=== PATIENT | male | born 1960 | race Caucasian/White ===

== ENCOUNTER 2018-08-23 02:52 | Observation (INO) | payer MEDICARE, OTHER ==
--- NOTE | 2018-08-23 02:57 | ED ---
Chest Pain HPI - General Stated Complaint: Chest Pain Time Seen by Provider: 08/23/18 02:56 - History of Present Illness Initial Comments: Olvin is a 58-year-old male with a history of CAD who presents to the emergency department today via EMS for evaluation of chest pain. Patient reports that earlier in the evening he was sitting on his couch not being active when he developed sudden retrosternal and left-sided chest pain associated with dyspnea and lightheadedness. Patient reports he took 3 of his home nitro with minimal relief at which time he decided to call EMS for transport to the hospital. EMS administered aspirin as well as additional nitro with chest pain improvement from a 10 out of 10 to an 8 out of 10. Patient does report that he had 4 beers earlier in the evening prior to development of this chest pain, he is a regular drinker. He's not had any recent vomiting. He denies any nausea. - Related Data Allergies Allergy/AdvReac Type Severity Reaction Status Date / Time bee venom protein (honey bee) Allergy Anaphylaxis Verified 08/23/18 03:01 Review of Systems ROS Statement: Those systems with pertinent positive or pertinent negative responses have been documented in the HPI. ROS Other: All systems not noted in ROS Statement are negative. EKG Findings - EKG Comments: EKG Findings:: EKG obtained at 2:58 AM, rate of 76, rhythm is sinus, there is a normal axis, there are normal intervals, CO 174, QRS 86, QTC is 443. There are no acute ST elevations or depressions there is no evidence of acute ischemia or infarction. Repeat EKG was obtained due to persistent chest pain. EKG obtained at 3:52 AM, rate is 66, rhythm is sinus, there is normal axis, normal intervals CO 192, QRS 92, QTc 423. There is no acute ST elevations or depressions no evidence of acute ischemia or infarction. No significant change in morphology of this EKG. General Exam - General Exam Comments Initial Comments: Physical Exam GENERAL: Patient appears much older than stated age, smells of tobacco smoke HENT: Normocephalic, Atraumatic. EYES: PERRL, EOMI PULMONARY: Unlabored respirations. No audible rales rhonchi or wheezing was noted. CARDIOVASCULAR: There is a regular rate and rhythm without any murmurs gallops or rubs. ABDOMEN: Soft and nontender with normal bowel sounds. SKIN: Skin is clear with no lesions or rashes and otherwise unremarkable. : Deferred NEUROLOGIC: Patient is alert and oriented x3. Moving all extremities spontaneously MUSCULOSKELETAL: Normal extremities with adequate strength and full range of motion. No lower extremity swelling or edema. No calf tenderness. PSYCHIATRIC: Normal psychiatric evaluation. Limitations: no limitations Course Vital Signs 08/23/18 08/23/18 08/23/18 02:54 02:55 03:00 Temperature 98.1 F Pulse Rate 67 67 Respiratory 18 21 Rate Blood Pressure 93/66 93/66 O2 Sat by Pulse 94 L 93 L 92 L Oximetry 08/23/18 08/23/18 08/23/18 04:00 04:05 04:10 Temperature Pulse Rate 72 71 71 Respiratory 18 17 13 Rate Blood Pressure 104/60 O2 Sat by Pulse 96 95 94 L Oximetry 08/23/18 08/23/18 08/23/18 04:20 04:30 04:40 Temperature Pulse Rate 68 67 70 Respiratory 20 17 16 Rate Blood Pressure O2 Sat by Pulse 94 L 94 L 94 L Oximetry 08/23/18 08/23/18 08/23/18 04:50 05:00 05:10 Temperature Pulse Rate 68 67 71 Respiratory 33 H 20 26 H Rate Blood Pressure 102/80 O2 Sat by Pulse 93 L 93 L 93 L Oximetry Chest Pain [facility] The patient was seen and evaluated history was obtained from the patient and EMS. Patient received aspirin and nitro prior to arrival Cardiac workup was initiated Patient with persistent chest pain, morphine was ordered Nitro and Heparin ordered Troponin was negative, chest x-ray no acute findings, patient requesting repeat dosing of morphine one hour after initial dose as chest pain is returning [facility] patient is stable for discharge home due to persistent chest pain. Patient care was discussed with Dr. Christianson who accepts the admission. Disposition Clinical Impression: Chest pain Disposition: ADMITTED IP TO THIS HOSP Condition: Stable Is patient prescribed a controlled substance at d/c from ED?: No Referrals: None,Stated [Primary Care Provider] - 1-2 days
[2018-08-23 03:43] LABS: ALT 72 U/L (21-72); AST 106 U/L (17-59); Albumin 4.2 g/dL (3.5-5.0); Alkaline Phosphatase 106 U/L (38-126); Anion Gap 12 mmol/L; Blood Urea Nitrogen 10 mg/dL (9-20); Carbon Dioxide 19 mmol/L (22-30); Chloride 100 mmol/L (98-107); Glucose 82 mg/dL (74-99); Sodium 131 mmol/L (137-145); Total Bilirubin 0.9 mg/dL (0.2-1.3); Total Protein 8.3 g/dL (6.3-8.2)
[2018-08-23 03:44] LABS: Basophils # (A) 0.1 k/uL (0-0.2); Basophils % (A) 1 %; Eosinophils # (A) 0.3 k/uL (0-0.7); Eosinophils % (A) 3 %; HCT 45.6 % (39.0-53.0); HGB 15.2 gm/dL (13.0-17.5); Lymphocytes # (A) 3.6 k/uL (1.0-4.8); Lymphocytes % (A) 35 %; MCH 32.1 pg (25.0-35.0); MCHC 33.3 g/dL (31.0-37.0); MCV 96.5 fL (80.0-100.0); Mean Platelet Volume 8.3; Monocytes # (A) 0.7 k/uL (0-1.0); Monocytes % (A) 6 %; Neutrophils # (A) 5.5 k/uL (1.3-7.7); Neutrophils % (A) 52 %; Platelet Count 221 k/uL (150-450); RBC 4.73 m/uL (4.30-5.90); RDW 14.6 % (11.5-15.5); WBC 10.5 k/uL (3.8-10.6)
[2018-08-23 03:48] LABS: Potassium 4.4 mmol/L (3.5-5.1)
[2018-08-23] MEDS: MORPHINE SULFATE 4 MG/ML SYRINGE IVP STA ×2 (03:50→06:13)
[2018-08-23] MEDS ORDERED: HEPARIN SODIUM,PORCINE 5,000 UNIT/ML 1 ML VIAL IV ONE (03:53)
[2018-08-23] MEDS ORDERED: HEPARIN SODIUM,PORCINE 5,000 UNIT/ML 1 ML VIAL IV PRN (03:53)
[2018-08-23] MEDS ORDERED: NITROGLYCERIN OINT 1 INCH/GM PACKET TOPICAL STA (03:53)
--- NOTE | 2018-08-23 03:56 | XR ---
EXAMINATION TYPE: XR chest 2V DATE OF EXAM: 08/23/2018 COMPARISON: NONE HISTORY: Chest pain TECHNIQUE: Frontal and lateral views of the chest are obtained. FINDINGS: Heart size is normal. There is no heart failure. There is coarsening of the interstitial m arkings in both lungs. There are chest leads. There is no pleural effusion. There is poor inspiration . Bony thorax appears intact. IMPRESSION: Pulmonary interstitial fibrosis. No heart failure.
[2018-08-23 04:00] LABS: Creatine Kinase 78 U/L (55-170)
[2018-08-23] MEDS ORDERED: HEPARIN SOD,PORK IN 0.45% NACL 25,000 UNIT in 0.45% NACL 1 500ML.BAG IV SCH (04:00)
[2018-08-23 04:07] LABS: INR 1.1 (<1.2); Prothrombin Time 10.9 sec (9.0-12.0)
[2018-08-23 04:08] LABS: Partial Thromboplastin Time 24.9 sec (22.0-30.0)
[2018-08-23 04:13] LABS: Creatine Kinase MB 0.5 ng/mL (0.0-2.4); Troponin I <0.012 ng/mL (0.000-0.034)
[2018-08-23] MEDS ORDERED: MAG HYDROX/AL HYDROX/SIMETH 30 ML, HYOSCYAMINE ELIXIR 10 ML, CIMETIDINE HCL 300 MG, LID... PO STA ×4 (04:55)
[2018-08-23] MEDS ORDERED: MORPHINE SULFATE 4 MG/ML SYRINGE IV STA (06:09)
[2018-08-23 10:07] LABS: Creatine Kinase 86 U/L (55-170)
[2018-08-23 10:21] LABS: Creatine Kinase MB 0.6 ng/mL (0.0-2.4); Troponin I <0.012 ng/mL (0.000-0.034)
--- NOTE | 2018-08-23 15:10 | P.CRDCN ---
History of Present Illness Consult date: 08/23/18 History of present illness: This is a 58-year-old male with past medical history of coronary artery disease treated at [facility] with a total of 2 stents. He also has past medical history for hypertension, hyperlipidemia, myocardial infarction. His last heart catheterization was done one year ago which showed no progression of his cardiac disease. He follows with a farm manager at [facility] and was last seen there 1 year ago. Patient states he has been taking his medications as directed. Patient complains of tightness that started in his left side of his chest while he was watching TV. He was at rest at the time. He also had shortness of breath without nausea or vomiting. He did have some nausea after receiving morphine. He states morphine takes the edge off the pain but it's still there. He denies having any sweats. He states his chest was fluttering. Nitropaste and GI cocktail did not help. Patient was placed on the observation unit and serial troponins ordered. EKG reveals normal sinus rhythm with no acute ST-T wave changes. Chest x-ray reveals pulmonary interstitial fibrosis. No heart failure. Laboratory data review: WBC 10.5, hemoglobin 15.2, platelets 221, sodium 131, potassium 4.4, creatinine 0.85, cardiac enzymes negative on 2 draws. Current cardiac medications include lisinopril 10 mg daily, Crestor 40 g at bedtime,Brilinta twice daily, Lopressor twice daily. At the time of my exam: CONSTITUTIONAL: Denies fever. Denies chills. EYES: Denies blurred vision. Denies vision changes. Denies eye pain. EARS, NOSE, MOUTH & THROAT: Denies headache. Denies sore throat. Denies ear pain. CARDIOVASCULAR: Complains of chest pain. Complains of shortness of breath. Denies orthopnea. Denies PND. Denies palpitations. RESPIRATORY: Denies cough. GASTROINTESTINAL: Denies abdominal pain. Denies diarrhea. Denies constipation. Denies nausea. Denies vomiting. MUSCULOSKELETAL: Denies myalgias. Complains of pain to the left elbow. INTEGUMENTARY: Denies pruitis. Denies rash. NEUROLOGIC: Denies numbness. Denies tingling. Denies weakness. PSYCHIATRIC: Denies anxiety. Denies depression. ENDOCRINE: Denies fatigue. Denies weight change. Denies polydipsia. Denies polyurina. GENITOURINARY: Denies burning, hematuria or urgency with micturation. HEMATOLOGIC: Denies history of anemia. Denies bleeding. Blood pressure 117/75, heart rate 67, afebrile, maintaining oxygen saturation on room air. GENERAL: This is a [ ] in no apparent distress at the time of my examination. HEENT: Head is atraumatic, normocephalic. Pupils are equal, round. Sclerae anicteric. Conjunctivae are clear. Mucous membranes of the mouth are moist. Dentition is in poor order. Neck is supple. There is no jugular venous distention. LUNGS: A few scattered rhonchi but otherwise no wheezes. Positive chest wall tenderness is noted on palpation to the midsternal and upper left chest wall. HEART: Regular rate and rhythm without murmurs, rubs or gallops. S1 and S2 heard. ABDOMEN: Soft, nontender. Bowel sounds are heard. No organomegaly noted. EXTREMITIES: No evidence of lower extremity edema and no calf tenderness noted. VASCULAR: dorsalis pedis pulses palpated, no evidence of clubbing. NEUROLOGIC: Patient is awake, alert and oriented x3. ASSESSMENT Chest pain, musculoskeletal with tenderness to the chest wall. Acute coronary syndrome ruled out History of coronary artery disease with previous stents. Hypertension Hyperlipidemia PLAN Acute coronary syndrome ruled out, heparin drip discontinued. Repeat one more troponin. Continue lisinopril 10 mg daily, Crestor 40 g at bedtime,Brilinta twice daily, Lopressor twice daily. Obtain echocardiogram. Thank you kindly for this consultation. Nurse Practitioner note has been reviewed, I agree with a documented findings and plan of care. Patient was seen and examined. Past Medical History Past Medical History: Hyperlipidemia, Hypertension, Myocardial Infarction (ME) History of Any Multi-Drug Resistant Organisms: None Reported Past Surgical History: Heart Catheterization With Stent, Orthopedic Surgery Smoking Status: Current every day smoker Past Alcohol Use History: Occasional Past Drug Use History: None Reported - Past Family History Father History Unknown: Yes Family Medical History: Unable to Obtain Additional Family Medical History / Comment(s): pt states heart related Brother(s) History Unknown: Yes Family Medical History: Unable to Obtain Additional Family Medical History / Comment(s): pt states heart related deaths Medications and Allergies Home Medications Medication Instructions Recorded Confirmed Type Brilinta (Unknown Dose) 1 tab PO BID 08/23/18 08/23/18 History Lisinopril [Zestril] 10 mg PO DAILY 08/23/18 08/23/18 History Lopressor (Unknown Dose) 1 tab PO BID 08/23/18 08/23/18 History Rosuvastatin Calcium [Crestor] 40 mg PO HS 08/23/18 08/23/18 History Allergies Allergy/AdvReac Type Severity Reaction Status Date / Time bee venom protein (honey bee) Allergy Anaphylaxis Verified 08/23/18 06:35 Physical Exam Vitals: Vital Signs Temp Pulse Resp BP Pulse Ox 08/23/18 06:30 71 20 93 L 08/23/18 06:20 71 20 102/74 94 L 08/23/18 06:10 67 20 94 L 08/23/18 06:00 71 22 94 L 08/23/18 05:50 102/74 08/23/18 05:40 66 21 102/74 94 L 08/23/18 05:30 70 26 H 102/80 96 08/23/18 05:20 69 15 102/80 95 08/23/18 05:10 71 26 H 102/80 93 L 08/23/18 05:00 67 20 93 L 08/23/18 04:50 68 33 H 93 L 08/23/18 04:40 70 16 94 L 08/23/18 04:30 67 17 94 L 08/23/18 04:20 68 20 94 L 08/23/18 04:10 71 13 94 L 08/23/18 04:05 71 17 95 08/23/18 04:00 72 18 104/60 96 08/23/18 03:00 67 21 93/66 92 L 08/23/18 02:55 93 L 08/23/18 02:54 98.1 F 67 18 93/66 94 L Intake and Output 08/22/18 08/23/18 08/23/18 22:59 06:59 14:59 Other: Weight 81.647 kg Results 08/23/18 02:56 08/23/18 02:56 Cardiac Enzymes 08/23/18 08/23/18 Range/Units 02:56 02:56 AST 106 H (17-59) U/L CK-MB (CK-2) 0.5 (0.0-2.4) ng/mL Troponin I <0.012 (0.000-0.034) ng/mL Coagulation 08/23/18 Range/Units 02:56 PT 10.9 (9.0-12.0) sec APTT 24.9 (22.0-30.0) sec CBC 08/23/18 Range/Units 02:56 WBC 10.5 (3.8-10.6) k/uL RBC 4.73 (4.30-5.90) m/uL Hgb 15.2 (13.0-17.5) gm/dL Hct 45.6 (39.0-53.0) % Plt Count 221 (150-450) k/uL Comprehensive Metabolic Panel 08/23/18 Range/Units 02:56 Sodium 131 L (137-145) mmol/L Potassium 4.4 (3.5-5.1) mmol/L Chloride 100 (98-107) mmol/L Carbon Dioxide 19 L (22-30) mmol/L BUN 10 (9-20) mg/dL Creatinine 0.85 (0.66-1.25) mg/dL Glucose 82 (74-99) mg/dL Calcium 9.0 (8.4-10.2) mg/dL AST 106 H (17-59) U/L ALT 72 (21-72) U/L Alkaline Phosphatase 106 (38-126) U/L Total Protein 8.3 H (6.3-8.2) g/dL Albumin 4.2 (3.5-5.0) g/dL Current Medications Generic Name Dose Route Start Last Admin Trade Name Freq PRN Reason Stop Dose Admin Aspirin 325 mg 08/24/18 09:00 Aspirin PO DAILY [facility] Heparin Sodium (Porcine) 0 unit 08/23/18 03:53 Heparin IV PER PROTOCOL PRN Low PTT Protocol Heparin Sodium/Sodium Chloride 500 mls @ 19.59 mls/hr 08/23/18 04:00 05:07 25,000 unit/ Sodium Chloride IV 12 units/kg/hr .Q24H LEE 19.59 mls/hr Administration Protocol 12 UNITS/KG/HR Nitroglycerin 0.4 mg 08/23/18 04:50 Nitrostat SUBLINGUAL Q5M PRN Chest Pain Intake and Output 08/22/18 08/23/18 08/23/18 22:59 06:59 14:59 Other: Weight 81.647 kg 08/23/18 02:56 08/23/18 02:56
[2018-08-23 15:33] LABS: Creatine Kinase 105 U/L (55-170)
[2018-08-23 15:46] LABS: Creatine Kinase MB 0.8 ng/mL (0.0-2.4); Troponin I <0.012 ng/mL (0.000-0.034)
[2018-08-23] MEDS: NICOTINE 21MG/24HR PATCH TRANSDERM SCH (17:03)
[2018-08-23] MEDS ORDERED: BRILINTA PO SCH (21:00)
[2018-08-23] MEDS ORDERED: LOPRESSOR PO SCH (21:00)
[2018-08-23] MEDS: HEPARIN SODIUM,PORCINE 5,000 UNIT/ML 1 ML VIAL SQ SCH (22:06)
[2018-08-23] MEDS: METOPROLOL TARTRATE 25 MG TAB PO SCH (22:06)
[2018-08-23] MEDS: TICAGRELOR 90 MG TAB PO SCH (22:06)
[2018-08-23] MEDS: FAMOTIDINE 20 MG TAB PO SCH (22:06)
[2018-08-23] MEDS: ATORVASTATIN 80 MG TAB PO SCH (22:06)
--- NOTE | 2018-08-23 23:11 | HP ---
HISTORY AND PHYSICAL Olvin Wright is a 58-year-old male who presented to the ED at [facility] early in the morning on August 23 2018. At that time, he had come in by EMS because he had left-sided chest pain. This has been associated with some dyspnea and lightheadedness. His chest pain was 10/10. He subsequently was seen in the ED and admitted for further evaluation. PAST MEDICAL HISTORY: His past medical history is positive for hyperlipidemia, hypertension, myocardial infarction, previous heart catheterization with stent. FAMILY HISTORY: Positive for heart disease in his mother. SOCIAL HISTORY: Patient is a current every day smoker. Drinks alcohol excessively. MEDICATIONS: Prior to admission were Brilinta, Zestril, Lopressor, and . ALLERGIC: TO BEE VENOM, PROTEIN. PHYSICAL EXAMINATION: He was lying in bed. He was sleepy, barely arousable, but does follow simple commands. His blood pressure is 150/88, respiratory rate of 18, pulse 87, temperature 97.9, O2 saturation on room air is 94%. HEENT: Unremarkable. Chest is clear. Cardiovascular system is S1, S2. Abdomen is soft. There is no pedal edema. LABORATORY DATA: White count is 10.5, hemoglobin of 15.2, PT of 10.9, PTT 24.9. Sodium 131, potassium 4.4, chloride 100, bicarb 19, BUN 10, creatinine 0.85. Troponin less than 0.012. NT proBNP of 26. Albumin 4.2. EKG showed normal sinus rhythm with previous inferior infarct. IMPRESSION: At this time. 1. Chest pain, possibly secondary to coronary artery disease and unstable angina. 2. Nicotine dependence. 3. Previous history of coronary artery disease. 4. Hypertension. 5. Hyperlipidemia. At this point in time, the chest pain may be due to coronary artery disease. Would rule in or rule out FL based on serial CPKs and EKGs. Keep him on heparin and nitroglycerin. Would have Cardiology further evaluate the patient and appreciate their input and intervention. Depending on how he does, we should make further changes to his care. MMODL / IJN: [id number] /
[2018-08-24] MEDS: NITROGLYCERIN SL TABS 0.4 MG TAB SUBLINGUAL PRN ×3 (03:24→11:59)
[2018-08-24] MEDS ORDERED: MORPHINE SULFATE/PF 10MG/10ML VL IVP PRN (03:45)
[2018-08-24] MEDS: MORPHINE SULFATE 2 MG/ML SYRINGE IVP PRN ×2 (04:08→23:55)
[2018-08-24 07:29] VITALS: RESP 18
[2018-08-24] MEDS: HEPARIN SODIUM,PORCINE 5,000 UNIT/ML 1 ML VIAL SQ SCH ×2 (07:47→20:18)
[2018-08-24] MEDS: FAMOTIDINE 20 MG TAB PO SCH ×2 (07:47→20:17)
[2018-08-24] MEDS: ASPIRIN 81 MG PO SCH (07:47)
[2018-08-24] MEDS: METOPROLOL TARTRATE 25 MG TAB PO SCH ×2 (07:47→20:19)
[2018-08-24] MEDS: NICOTINE 21MG/24HR PATCH TRANSDERM SCH (07:47)
[2018-08-24] MEDS: TICAGRELOR 90 MG TAB PO SCH ×2 (07:49→20:17)
[2018-08-24] MEDS: LISINOPRIL 10 MG TAB PO SCH (07:50)
[2018-08-24] MEDS ORDERED: ASPIRIN 325 MG TAB PO SCH (09:00)
[2018-08-24 09:56] LABS: Basophils % (A) 0 %; Eosinophils # (A) 0.2 k/uL (0-0.7); Eosinophils % (A) 3 %; HCT 46.2 % (39.0-53.0); HGB 15.5 gm/dL (13.0-17.5); Lymphocytes # (A) 1.8 k/uL (1.0-4.8); Lymphocytes % (A) 24 %; MCH 31.6 pg (25.0-35.0); MCHC 33.4 g/dL (31.0-37.0); MCV 94.6 fL (80.0-100.0); Mean Platelet Volume 8.2; Monocytes # (A) 0.5 k/uL (0-1.0); Monocytes % (A) 7 %; Neutrophils # (A) 4.7 k/uL (1.3-7.7); Neutrophils % (A) 64 %; Platelet Count 166 k/uL (150-450); RBC 4.89 m/uL (4.30-5.90); RDW 14.4 % (11.5-15.5); WBC 7.4 k/uL (3.8-10.6)
[2018-08-24 10:12] LABS: Cholesterol 178 mg/dL (<200); HDL Cholesterol 35 mg/dL (40-60); Triglycerides 408 mg/dL (<150)
--- NOTE | 2018-08-24 10:53 | ECHOF ---
Referral Reason:chest pain MEASUREMENTS -------- HEIGHT: 165.1 cm WEIGHT: 79.8 kg BP: 144/81 RVIDd: 2.2 cm (< 3.3) IVSd: 1.4 cm (0.6 - 1.1) LVIDd: 3.0 cm (3.9 - 5.3) LVPWd: 1.8 cm (0.6 - 1.1) IVSs: 2.2 cm LVIDs: 2.0 cm LVPWs: 2.0 cm Ao Diam: 3.1 cm (2.0 - 3.7) AV Cusp: 2.3 cm (1.5 - 2.6) LA Diam: 3.2 cm (2.7 - 3.8) MV EXCURSION: 14.577 mm (> 18.000) MV EF SLOPE: 55 mm/s (70 - 150) EPSS: 0.3 cm MV E Shun: 0.50 m/s MV DecT: 218 ms MV A Shun: 0.68 m/s MV E/A Ratio: 0.72 RAP: 5.00 mmHg RVSP: 22.70 mmHg FINDINGS -------- Sinus rhythm. This was a technically good study. The left ventricular size is normal. There is moderate concentric left ventricular hypertrophy. O verall left ventricular systolic function is normal with, an EF between 55 - 60 %. The right ventricle is normal in size and function. The left atrium is normal in size. The right atrium is normal in size. The aortic valve is trileaflet, and appears structurally normal. No aortic stenosis or regurgitation. The mitral valve leaflets are mildly thickened. Mild mitral annular calcification present. There is trace mitral regurgitation. Trace tricuspid regurgitation present. The right ventricular systolic pressure, as measured by Dopp ler, is 22.70mmHg. Pulmonic valve appears structurally normal. The aortic root size is normal. The pericardium is normal. CONCLUSIONS -------- 1. Sinus rhythm. 2. This was a technically good study. 3. The left ventricular size is normal. 4. There is moderate concentric left ventricular hypertrophy. 5. Overall left ventricular systolic function is normal with, an EF between 55 - 60 %. 6. The right ventricle is normal in size and function. 7. The left atrium is normal in size. 8. The right atrium is normal in size. 9. The aortic valve is trileaflet, and appears structurally normal. No aortic stenosis or regurgitati on. 10. The mitral valve leaflets are mildly thickened. 11. Mild mitral annular calcification present. 12. There is trace mitral regurgitation. 13. Trace tricuspid regurgitation present. 14. The right ventricular systolic pressure, as measured by Doppler, is 22.70mmHg. 15. Pulmonic valve appears structurally normal. 16. The aortic root size is normal. 17. The pericardium is normal. COMBAT CONTROL MANAGER: Tiny Heard RDCS
[2018-08-24] MEDS ORDERED: RX INFO: IV CONTRAST WAS GIVEN 1 EACH MISC MISCELLANE PRN (12:37)
[2018-08-24] MEDS: ISOSORBIDE MONONITRATE ER 30 MG TAB.ER.24H PO SCH (12:53)
--- NOTE | 2018-08-24 13:30 | P.PN ---
Subjective This is a 58-year-old male with past medical history of coronary artery disease treated at [facility] with a total of 2 stents. He also has past medical history for hypertension, hyperlipidemia, myocardial infarction and is a chronic smoker. He follows with Dr. Shine out of [facility]. He presented to the hospital with pleuritic chest pain and increased shortness of breath. We have requested previous catheterization records. He underwent cath 10/2017 revealuing left main with a distal lesion 40% , LAD mild diffuse disease with a patent stent in the proximal portion, first diagonal with an ostial lesion 95% as well as a mid lesion of 60% are unchanged from previous study in 2017, circumflex artery with mild irregularities and no significant stenosis, first second and third OM branch with no significant disease, RCA with proximal lesion noted in the area of previous stenting was approximately 40% in-stent restenosis and the PDA with an 80% lesion noted this is a small-caliber vessel. He underwent echocardiogram in April of last year revealing preserved left ventricular systolic function with ejection fraction 55 -60% with no evidence of valvular heart disease and normal PA pressures. Repeat echocardiogram obtained here reveals preserved left ventricular systolic function with ejection fraction 55-60%. He underwent a Persantine nuclear stress test April 2018 which was negative for reversible cardiac ischemia. He continues to complain of chest discomfort worse with deep inspiration and shortness of breath. He denies nausea, vomiting, dizziness, palpitations, PND or orthopnea. Blood pressure 112/64 heart rate 66 afebrile maintaining oxygen saturation on room air. Laboratory data reviewed, hemoglobin 15.5, WBC 7.4, platelets 166, d-dimer 0.66, triglycerides 408, cardiac enzymes negative 3. Currently maintained on aspirin 81 mg daily, atorvastatin 80 mg daily, lisinopril 10 mg daily, Lopressor 25 mg twice a day and brillinta 90 mg twice a day. HEENT: Head is atraumatic, normocephalic. Pupils are equal, round. Sclerae anicteric. Conjunctivae are clear. Mucous membranes of the mouth are moist. Dentition is in poor order. Neck is supple. There is no jugular venous distention. LUNGS: A few scattered rhonchi but otherwise no wheezes. Positive chest wall tenderness is noted on palpation to the midsternal and upper left chest wall. Diminished at the bases bilaterally. HEART: Regular rate and rhythm without murmurs, rubs or gallops. S1 and S2 heard. EXTREMITIES: No evidence of lower extremity edema and no calf tenderness noted. ASSESSMENT Chest pain, musculoskeletal with tenderness to the chest wall. Acute coronary syndrome ruled out History of coronary artery disease with previous stents. Hypertension Hyperlipidemia PLAN Ongoing chest discomfort with history of significant coronary artery disease. Add on Imdur [address] angios of his chest has been ordered to rule out pulmonary embolism secondary to elevated d-dimer. Continue to monitor for another 24 hours and assess for relief of chest pain with long acting nitrates. Repeat BMP in the morning. Further recommendations to follow. Nurse Practitioner note has been reviewed, I agree with a documented findings and plan of care. Patient was seen and examined. Objective - Vital Signs Vital signs: Vital Signs Temp 98.2 F 08/24/18 11:30 Pulse 66 08/24/18 11:30 Resp 18 08/24/18 11:30 BP 112/64 08/24/18 11:30 Pulse Ox 96 08/24/18 11:30 Intake & Output 08/23/18 08/24/18 08/24/18 18:59 06:59 18:59 Intake Total 100 Balance 100 Weight 80.2 kg Intake: Other 100 Other: Voiding Method Toilet Toilet # Voids 2 - Labs CBC & Chem 7: 08/24/18 09:15 08/23/18 02:56 Labs: Abnormal Lab Results - Last 24 Hours (Table) 08/23/18 08/24/18 08/24/18 Range/Units 14:39 09:15 09:15 APTT 39.7 H (22.0-30.0) sec D-Dimer 0.66 H (<0.60) mg/L FEU Triglycerides 408 H (<150) mg/dL HDL Cholesterol 35 L (40-60) mg/dL
--- NOTE | 2018-08-24 15:53 | CT ---
EXAMINATION TYPE: CT angio chest DATE OF EXAM: 08/24/2018 COMPARISON: None HISTORY: elevated d-dimer. Hx NV, HTN, sx hx hearth cath w/ stent. CT DLP: 286.8 mGycm CONTRAST: CT chest with contrast and 3D reconstruction with MIP imaging is performed with IV Contrast, patient injected with 100 mL of Isovue 370. Contrast-enhanced CT of the chest was performed through the course of the pulmonary arteries with roxanne g and mediastinal window settings submitted. 3D reconstruction with MIP imaging was also performed. PULMONARY ARTERIES: The pulmonary arteries and their major tributaries are patent. I do not see tab dence for sizable filling defect to suggest pulmonary embolic process. LUNGS: Moderate emphysematous changes within the upper lobes. Areas of discoid atelectasis identified right middle lobe as well as a the lingula and right lung base. Elevation right hemidiaphragm. MEDIASTINUM: Thoracic aorta is of normal caliber,however, evaluation is limited given timing of the contrast bolus. If there is concern for thoracic aortic pathology consider SHER. Correlate clinicall y . The heart is not enlarged. No evidence for mediastinal mass. No mediastinal lymph nodes greater than 1cm. HILAR STRUCTURES: No evidence for mass. No hilar lymph nodes greater than 1 cm. UPPER ABDOMEN: No significant abnormality is seen. IMPRESSION: 1. No evidence for Pulmonary embolism at this time.
[2018-08-24] MEDS: ATORVASTATIN 80 MG TAB PO SCH (20:17)
--- NOTE | 2018-08-24 22:38 | PN ---
PROGRESS NOTE SUBJECTIVE: This patient is a 58-year-old white male with history of cardiac stents x2. He has pleuritic-type chest pain, tenderness with palpation on his chest wall. CT scan was negative for any abnormalities in his lungs. MUSCULOSKELETAL: Chest wall tenderness. CARDIOVASCULAR: S1, S2. LUNGS: Clear. HEMATOLOGY: Negative Homans. Long-acting nitroglycerin was ordered for atypical chest pain. Hypertension. Dyslipidemia. History of coronary artery disease. Continue current treatments. Follow up in the next 24 to 48 hours. MMODL / IJN: [id number] /
[2018-08-25] MEDS: NICOTINE 21MG/24HR PATCH TRANSDERM SCH (08:42)
[2018-08-25] MEDS: HEPARIN SODIUM,PORCINE 5,000 UNIT/ML 1 ML VIAL SQ SCH ×2 (08:42→20:46)
[2018-08-25] MEDS: ASPIRIN 81 MG PO SCH (08:42)
[2018-08-25] MEDS: ISOSORBIDE MONONITRATE ER 30 MG TAB.ER.24H PO SCH (09:40)
[2018-08-25] MEDS: TICAGRELOR 90 MG TAB PO SCH ×2 (09:40→20:46)
[2018-08-25] MEDS: LISINOPRIL 10 MG TAB PO SCH (09:40)
[2018-08-25] MEDS: METOPROLOL TARTRATE 25 MG TAB PO SCH ×2 (09:40→20:46)
[2018-08-25] MEDS: FAMOTIDINE 20 MG TAB PO SCH ×2 (09:40→20:46)
[2018-08-25 10:06] LABS: Basophils % (A) 1 %; Eosinophils # (A) 0.2 k/uL (0-0.7); Eosinophils % (A) 4 %; HCT 42.8 % (39.0-53.0); HGB 14.8 gm/dL (13.0-17.5); Lymphocytes # (A) 1.8 k/uL (1.0-4.8); Lymphocytes % (A) 32 %; MCHC 34.6 g/dL (31.0-37.0); MCV 95.2 fL (80.0-100.0); Mean Platelet Volume 8.8; Monocytes # (A) 0.5 k/uL (0-1.0); Monocytes % (A) 9 %; Neutrophils # (A) 2.9 k/uL (1.3-7.7); Neutrophils % (A) 52 %; Platelet Count 140 k/uL (150-450); RBC 4.49 m/uL (4.30-5.90); RDW 14.4 % (11.5-15.5); WBC 5.7 k/uL (3.8-10.6)
[2018-08-25 10:11] LABS: Anion Gap 11 mmol/L; Blood Urea Nitrogen 14 mg/dL (9-20); Calcium 8.9 mg/dL (8.4-10.2); Carbon Dioxide 22 mmol/L (22-30); Chloride 105 mmol/L (98-107); Glucose 151 mg/dL (74-99); Potassium 3.9 mmol/L (3.5-5.1); Sodium 138 mmol/L (137-145)
[2018-08-25] MEDS ORDERED: SODIUM CHLORIDE 0.9% 1,000 ML in EMPTY BAG 1 BAG IV ONE (10:35)
[2018-08-25] MEDS ORDERED: ALPRAZolam 0.25 MG TAB PO PRN (10:35)
[2018-08-25] MEDS ORDERED: ALPRAZolam 0.5 MG TAB PO PRN (10:35)
[2018-08-25] MEDS ORDERED: ASPIRIN 81 MG PO STA (10:37)
--- NOTE | 2018-08-25 10:46 | P.PN ---
Subjective This is a 58-year-old male with past medical history of coronary artery disease treated at [facility] with a total of 2 stents. He also has past medical history for hypertension, hyperlipidemia, myocardial infarction and is a chronic smoker. He follows with Dr. Shine out of [facility]. He presented to the hospital with pleuritic chest pain and increased shortness of breath. We have requested previous catheterization records. He underwent cath 10/2017 revealuing left main with a distal lesion 40% , LAD mild diffuse disease with a patent stent in the proximal portion, first diagonal with an ostial lesion 95% as well as a mid lesion of 60% are unchanged from previous study in 2017, circumflex artery with mild irregularities and no significant stenosis, first second and third OM branch with no significant disease, RCA with proximal lesion noted in the area of previous stenting was approximately 40% in-stent restenosis and the PDA with an 80% lesion noted this is a small-caliber vessel. He underwent echocardiogram in April of last year revealing preserved left ventricular systolic function with ejection fraction 55 -60% with no evidence of valvular heart disease and normal PA pressures. Repeat echocardiogram obtained here reveals preserved left ventricular systolic function with ejection fraction 55-60%. He underwent a Persantine nuclear stress test April 2018 which was negative for reversible cardiac ischemia. He continues to complain of chest discomfort worse with deep inspiration and shortness of breath while he is up walking in the halls. Imdur was started yesterday early afternoon. Last night he again had an episode of chest pain while sitting in bed. He was walking this morning in the halls and felt overwhelmingly short of breath. He denies nausea, vomiting, dizziness, palpitations, PND or orthopnea. Blood pressure 112/64 heart rate 66 afebrile maintaining oxygen saturation on room air. Laboratory data reviewed, hemoglobin 15.5, WBC 7.4, platelets 166, d-dimer 0.66, triglycerides 408, cardiac enzymes negative 3. CTA chest negative for PE. Currently maintained on aspirin 81 mg daily, atorvastatin 80 mg daily, lisinopril 10 mg daily, Lopressor 25 mg twice a day and brillinta 90 mg twice a day. HEENT: Head is atraumatic, normocephalic. Pupils are equal, round. Sclerae anicteric. Conjunctivae are clear. Mucous membranes of the mouth are moist. Dentition is in poor order. Neck is supple. There is no jugular venous distention. LUNGS: A few scattered rhonchi but otherwise no wheezes. Positive chest wall tenderness is noted on palpation to the midsternal and upper left chest wall. Diminished at the bases bilaterally. HEART: Regular rate and rhythm without murmurs, rubs or gallops. S1 and S2 heard. EXTREMITIES: No evidence of lower extremity edema and no calf tenderness noted. ASSESSMENT Chest pain, musculoskeletal with tenderness to the chest wall. Acute coronary syndrome ruled out History of coronary artery disease with previous stents. Hypertension Hyperlipidemia PLAN Ongoing chest discomfort as well as increasing shortness of breath. Imdur was added yesterday with little to no relief of symptoms thus far. He was given SL nitro again last night. Recommend he undergo cardiac catheterization to further assess the coronary arteries. I have discussed the risks, benefits and alternative therapies for the above- mentioned procedure and for both sedation/analgesia as well as necessary blood product administration, if indicated, as they pertain to this patient. The patient has indicated understanding and acceptance of the risks and procedures discussed. Questions have been answered appropriately and he is agreeable to move forward with above stated procedure. Further recommendations to follow. Nurse Practitioner note has been reviewed, I agree with a documented findings and plan of care. Patient was seen and examined. Objective - Vital Signs Vital signs: Vital Signs Temp 97.7 F 08/25/18 07:05 Pulse 76 08/25/18 07:05 Resp 18 08/25/18 07:05 BP 136/87 08/25/18 07:05 Pulse Ox 95 08/25/18 07:05 Intake & Output 08/24/18 08/25/18 08/25/18 18:59 06:59 18:59 Intake Total 336 Balance 336 Intake: Oral 236 Other 100 Other: Voiding Method Toilet # Voids 2 # Bowel Movements 0 - Labs CBC & Chem 7: 08/25/18 08:04 08/25/18 08:04 Labs: Abnormal Lab Results - Last 24 Hours (Table) 08/24/18 08/24/18 Range/Units 09:15 09:15 D-Dimer 0.66 H (<0.60) mg/L FEU Triglycerides 408 H (<150) mg/dL HDL Cholesterol 35 L (40-60) mg/dL
[2018-08-25] MEDS ORDERED: MIDAZOLAM 2 MG/2 ML VIAL ONE (10:50)
[2018-08-25] MEDS ORDERED: LIDOCAINE 1% INJ 10MG/ML (20 ML MDV) ONE (10:50)
[2018-08-25] MEDS ORDERED: HEPARIN SODIUM 1,000 UN/ML (10ML VL) ONE (11:08)
[2018-08-25] MEDS ORDERED: VERAPAMIL 2.5 MG/ML 2 ML AMP ONE (11:08)
[2018-08-25] MEDS ORDERED: IV FLUID CONTINUATION 1,000 ML IV ONE (11:15)
[2018-08-25] MEDS ORDERED: MIDAZOLAM 2 MG/2 ML VIAL IV ONE (11:28)
[2018-08-25] MEDS ORDERED: LIDOCAINE 1% INJ 10MG/ML (20 ML MDV) SQ ONE (11:30)
[2018-08-25] MEDS ORDERED: fentaNYL (PF) 50 MCG/ML 2 ML AMP ONE (11:31)
[2018-08-25] MEDS ORDERED: fentaNYL (PF) 50 MCG/ML 2 ML AMP IV ONE (11:32)
[2018-08-25] MEDS: VERAPAMIL SYRINGE (5 MG/10 ML) INTRAARTER ONE ×2 (11:38→11:53)
[2018-08-25] MEDS ORDERED: HEPARIN SODIUM 1,000 UN/ML (10ML VL) IV ONE (11:40)
[2018-08-25] MEDS ORDERED: IOPAMIDOL-370 125ML BTL INJ ONE (11:51)
[2018-08-25] MEDS ORDERED: RX INFO: IV CONTRAST WAS GIVEN 1 EACH MISC MISCELLANE PRN (12:09)
[2018-08-25] MEDS ORDERED: SODIUM CHLORIDE 0.9% 1,000 ML IV SCH (12:15)
[2018-08-25] MEDS: MORPHINE SULFATE 2 MG/ML SYRINGE IVP PRN ×3 (12:35→20:54)
--- NOTE | 2018-08-25 12:40 | CC ---
CARDIAC CATHETERIZATION REPORT DATE OF SERVICE: August 25, 2018 PERFORMING PHYSICIAN: Ray Pack MD, home care manager. PROCEDURE PERFORMED: Selective right and left coronary angiogram. INDICATION: This is a pleasant 58-year-old gentleman who has known history of coronary artery disease and prior stenting of the LAD and RCA, presented to the hospital with chest discomfort. He continues to have ongoing chest discomfort. He was ruled out for acute coronary event. Because of that, heart catheterization was advised. APPROACH: Right radial artery. COMPLICATION: None. LEVEL OF SEDATION: Moderate with sedation length of 26 minutes. PROCEDURE DESCRIPTION: After obtaining an informed consent, the patient was brought to the cardiac grinding and polishing laborer. The right radial artery was cannulated using micropuncture technique, the micropuncture wire passed easily then I placed a 6-Kyrgyz sheath in the right radial artery. After that, I gave the patient 2 mg of verapamil IA and 10,000 units of heparin IV. Selective right and left coronary angiogram was performed using JR4 and JL3.5 catheters. The procedure was completed without any complication. SELECTIVE CORONARY ANGIOGRAM: 1. The right coronary artery is a large caliber vessel. It is a dominant vessel. The proximal RCA is stented with mild in-stent restenosis. The mid RCA is normal. The RCA distally is normal and bifurcates into PDA and PLV branches. The PDA branch of the RCA appeared to have a tight lesion in the range of 70% to 80%, but the artery is only 2 mm vessel. 2. The left main is a large left main. Distal left main just before it bifurcates into left circumflex, ramus intermedius, and left anterior descending artery, has a lesion appeared to be in the range of 50% to 60%. 3. The left circumflex is a large caliber vessel. It is a nondominant vessel. It does have mild disease only. 4. The ramus intermedius is a moderate to large caliber vessel with mild disease only. 5. The LAD: The proximal LAD appeared to have mild disease only. It is stented with mild in-stent restenosis. The mid LAD is stented as well with mild in-stent restenosis. The LAD in the proximal portion gives rise to a moderate to large caliber diagonal branch which appeared to be jailed with the ostial stenosis appeared to be in the range of 70% to 80%. The mid to distal and distal LAD appeared to be angiographically normal. CONCLUSION: 1. Mild in-stent restenosis involving the proximal right coronary artery. Severe disease involving the PDA branch of the right coronary artery, which is 2 mm vessel only. 2. Severe disease involving the distal left main appeared to be in the range of 50%. 3. Mild disease involving the left circumflex. 4. Mild in-stent restenosis involving the proximal and mid left anterior descending artery stent with severe disease involving the ostial diagonal branch which was jailed by the left anterior descending artery stent. POSTPROCEDURE MANAGEMENT: Giving the anatomy and the disease of the left main, I did recommend the patient to be seen by a surgeon for the evaluation of coronary artery bypass grafting. MMODL / IJN: [id number] /
[2018-08-25 20:28] LABS: Hepatitis A Antibody IgM Non-Reactive (Non-Reactive); Hepatitis B Core IgM Non-Reactive (Non-Reactive)
[2018-08-25] MEDS: ATORVASTATIN 80 MG TAB PO SCH (20:46)
[2018-08-25] MEDS: MUPIROCIN 2% OINT 22 GM TUBE NASAL SCH (20:46)
--- NOTE | 2018-08-25 20:59 | US ---
EXAMINATION TYPE: US carotid duplex BILAT DATE OF EXAM: 08/25/2018 COMPARISON: NONE CLINICAL HISTORY: Pre-Op Cardiac Surgery. Pre op cardiac surgery EXAM MEASUREMENTS: RIGHT: Peak Systolic Velocity (PSV) cm/sec ----- Right CCA: 72.9 ----- Right ICA: 89.7 ----- Right ECA: 178.6 ICA/CCA ratio: 1.2 RIGHT: End Diastole cm/sec ----- Right CCA: 17.1 ----- Right ICA: 18.2 ----- Right ECA: 26.8 LEFT: Peak Systolic Velocity (PSV) cm/sec ----- Left CCA: 115.8 ----- Left ICA: 98.6 ----- Left ECA: 272.0 ICA/CCA ratio: 0.9 LEFT: End Diastole cm/sec ----- Left CCA: 18.0 ----- Left ICA: 20.4 ----- Left ECA: 15.6 VERTEBRALS (direction of flow): Right Vertebral: Antegrade Left Vertebral: Antegrade Rhythm: Normal IMPRESSION: 1) MODERATE TO SEVERE PLAQUE BILATERAL BIFURCATIONS. 2) INCREASED VELOCITIES BILATERAL ECAs, GREATER ON THE LEFT.
[2018-08-25 21:36] LABS: Appearance,Urine Clear (Clear); Bilirubin,Urine Negative (Negative); Blood,Urine Negative (Negative); Color,Urine Yellow; Glucose,Urine (UA) Negative (Negative); Ketones,Urine Negative (Negative); Leukocyte Esterase,Urine Negative (Negative); Nitrite,Urine Negative (Negative); PH, Urine 6.5 (5.0-8.0); Protein,Urine Negative (Negative); Specific Gravity,Urine 1.013 (1.001-1.035); Urobilinogen,Urine <2.0 mg/dL (<2.0)
[2018-08-25 21:44] LABS: Hemoglobin A1C 5.9 % (4.0-6.0)
--- NOTE | 2018-08-26 00:13 | PN ---
PROGRESS NOTE SUBJECTIVE: 58-year-old white male with atypical chest pain. Continues with any exertion with shortness of breath. Cardiac catheterization shows left main disease, right circumflex lesion. Possible bypass surgery will be needed. CARDIOVASCULAR: S1, S2. Lungs clear. GI soft. Hematology negative Homans. ASSESSMENT: 1. Coronary artery disease, multivessel, especially left main, possible bypass surgery. 2. Nicotine addiction. 3. Hypertension. 4. Obesity. 5. Please see further orders. MMODL / IJN: [id number] /
[2018-08-26] MEDS: ASPIRIN 81 MG PO SCH (09:01)
[2018-08-26] MEDS: NICOTINE 21MG/24HR PATCH TRANSDERM SCH (09:01)
[2018-08-26] MEDS: TICAGRELOR 90 MG TAB PO SCH (09:01)
[2018-08-26] MEDS: METOPROLOL TARTRATE 25 MG TAB PO SCH (09:01)
[2018-08-26] MEDS: FAMOTIDINE 20 MG TAB PO SCH (09:01)
[2018-08-26] MEDS: ISOSORBIDE MONONITRATE ER 30 MG TAB.ER.24H PO SCH (09:01)
[2018-08-26] MEDS: MUPIROCIN 2% OINT 22 GM TUBE NASAL SCH (09:01)
[2018-08-26] MEDS: LISINOPRIL 10 MG TAB PO SCH (09:01)
[2018-08-26] MEDS: HEPARIN SODIUM,PORCINE 5,000 UNIT/ML 1 ML VIAL SQ SCH (09:01)
[2018-08-26 09:21] LABS: Basophils % (A) 1 %; Eosinophils # (A) 0.2 k/uL (0-0.7); Eosinophils % (A) 4 %; HCT 40.2 % (39.0-53.0); HGB 13.7 gm/dL (13.0-17.5); Lymphocytes # (A) 1.2 k/uL (1.0-4.8); Lymphocytes % (A) 27 %; MCH 32.5 pg (25.0-35.0); MCHC 34.1 g/dL (31.0-37.0); MCV 95.2 fL (80.0-100.0); Monocytes # (A) 0.4 k/uL (0-1.0); Monocytes % (A) 8 %; Neutrophils # (A) 2.6 k/uL (1.3-7.7); Neutrophils % (A) 58 %; Platelet Count 109 k/uL (150-450); RBC 4.22 m/uL (4.30-5.90); RDW 14.4 % (11.5-15.5); WBC 4.6 k/uL (3.8-10.6)
--- NOTE | 2018-08-26 10:09 | P.PN ---
Subjective This is a 58-year-old male with past medical history of coronary artery disease treated at [facility] with a total of 2 stents. He also has past medical history for hypertension, hyperlipidemia, myocardial infarction and is a chronic smoker. He follows with Dr. Shine out of [facility]. He presented to the hospital with pleuritic chest pain and increased shortness of breath. We have requested previous catheterization records. He underwent cath 10/2017 revealuing left main with a distal lesion 40% , LAD mild diffuse disease with a patent stent in the proximal portion, first diagonal with an ostial lesion 95% as well as a mid lesion of 60% are unchanged from previous study in 2017, circumflex artery with mild irregularities and no significant stenosis, first second and third OM branch with no significant disease, RCA with proximal lesion noted in the area of previous stenting was approximately 40% in-stent restenosis and the PDA with an 80% lesion noted this is a small-caliber vessel. He underwent echocardiogram in April of last year revealing preserved left ventricular systolic function with ejection fraction 55 -60% with no evidence of valvular heart disease and normal PA pressures. Repeat echocardiogram obtained here reveals preserved left ventricular systolic function with ejection fraction 55-60%. He underwent a Persantine nuclear stress test April 2018 which was negative for reversible cardiac ischemia. He continues to complain of chest discomfort worse with deep inspiration and shortness of breath while he is up walking in the halls. Imdur was started however he continued to have chest discomfort and shortness of breath. He underwent catheterization yesterday that revealed mild in-stent restenosis involving the proximal RCA, severe disease involving the PDA branch of the RCA, severe disease involving the distal left main in the range of 50-60%, mild disease involving the circumflex and in mild in-stent restenosis involving the proximal and mid LAD with severe disease involving the ostial diagonal branch which was jailed by the LAD stent. We recommend he be evaluated by cardiothoracic surgery for the option of bypass surgery. He has been evaluated by Dr. Meza. We will optimize his medical therapy at this time for follow-up appointment with them in one week to set up his surgery. He continues to feel short of breath with intermittent chest pain. Blood pressure 158/89 heart rate 73. Right wrist examined. HEENT: Head is atraumatic, normocephalic. Pupils are equal, round. Sclerae anicteric. Conjunctivae are clear. Mucous membranes of the mouth are moist. Dentition is in poor order. Neck is supple. There is no jugular venous distention. LUNGS: A few scattered rhonchi but otherwise no wheezes. Positive chest wall tenderness is noted on palpation to the midsternal and upper left chest wall. Diminished at the bases bilaterally. HEART: Regular rate and rhythm without murmurs, rubs or gallops. S1 and S2 heard. EXTREMITIES: No evidence of lower extremity edema and no calf tenderness noted. Right wrist puncture site clean, dry and intact with with no hematoma, bleeding or swelling noted. Mild ecchymosis. Strong pulse. ASSESSMENT Chest pain, musculoskeletal with tenderness to the chest wall. Acute coronary syndrome ruled out History of coronary artery disease with previous stents. Hypertension Hyperlipidemia PLAN Increase imdur to 60 mg daily and lopressor to 50 mg BID. Discontinue brillinta. Follow up appointment with Dr. Pack in 1 week as well as Dr. Meza in 1 week. Nurse Practitioner note has been reviewed, I agree with a documented findings and plan of care. Patient was seen and examined. Objective - Vital Signs Vital signs: Vital Signs Temp 98.1 F 08/26/18 08:00 Pulse 73 08/26/18 08:00 Resp 18 08/26/18 08:00 BP 159/89 08/26/18 08:00 Pulse Ox 96 08/26/18 08:00 Intake & Output 08/25/18 08/26/18 08/26/18 18:59 06:59 18:59 Intake Total 810 Balance 810 Intake: IV 50 Oral 560 Other 200 Other: Voiding Method Toilet Toilet # Voids 2 - Labs CBC & Chem 7: 08/26/18 08:44 08/25/18 08:04 Labs: Abnormal Lab Results - Last 24 Hours (Table) 08/25/18 08/25/18 08/26/18 Range/Units 08:04 08:04 08:44 RBC 4.22 L (4.30-5.90) m/uL Plt Count 140 L 109 L (150-450) k/uL Glucose 151 H (74-99) mg/dL Microbiology - Last 24 Hours (Table) 08/25/18 21:00 Urine Culture - Preliminary Urine,Voided 08/25/18 16:55 Nasal Screen MRSA/MSSA - Preliminary Nasal Swab
[2018-08-26] MEDS: MORPHINE SULFATE 2 MG/ML SYRINGE IVP PRN (11:16)
[2018-08-26 12:30] VITALS: BP 115/68; PULSE 65; TEMP 97.5
--- NOTE | 2018-08-26 16:08 | P.CNPUL ---
History of Present Illness Consult date: 08/26/18 Reason for consult: chest pain Chief complaint: Chest pain History of present illness: This a 58-year-old white male patient who presented to the emergency department via ambulance for evaluation of chest pain on 08/23/2018. Chest pain was retrosternal, left-sided and was associated with dyspnea and lightheadedness. Patient took sublingual nitro with minimal relief and called EMS. He has a history of coronary artery disease with previous stenting, hypertension, hyperlipidemia, previous myocardial infarction. Follows with the assistant corporate secretary at [facility]. He denies any known history of chronic lung disease, but he carries [id number] smoking history of 1-1/2 packs a day. Not on oxygen or inhalers at his baseline. Chest x-ray showed pulmonary interstitial fibrosis, worsening of interstitial markings in both lungs, no pleural effusion. There was poor inspiration. EKG showed normal sinus rhythm with no acute ST or T-wave changes. Troponins were negative 3, BNP was 26. No leukocytosis, hemoglobin was 15.2. Initial blood work showed sodium of 131, potassium is 4.4, chloride was 100, CO2 is 19, BUN and creatinine were 10 and 0.85. Sodium did improve on subsequent blood draws, and today is 138. Echocardiogram showed normal LV function with EF of 55-60%, no evidence of pulmonary hypertension, with right-sided pressures of 22 mmHg, mild MR and mild TR. CT angiogram of the chest, showed no evidence of pulmonary embolism, moderate emphysematous changes within the upper lobes, and areas of discoid atelectasis in the right middle lobe as well as the lingula and right lung base. Elevation of breath right hemidiaphragm. Patient underwent heart catheterization on 08/25/2018 and was found to have mild in-stent restenosis involving the proximal RCA, severe disease involving the PDA branch of the RCA, severe disease involving the distal left main in the range of 50%, mild disease involving the left circumflex and mild in-stent restenosis involving the proximal and mid LAD. Patient was recommended to have surgical evaluation for coronary artery bypass grafting, and we are seeing this patient for pre-op Pulmonary evaluation. Review of Systems All systems: negative Constitutional: Denies chills, Denies fever Eyes: denies blurred vision, denies pain Ears, nose, mouth and throat: Denies headache, Denies sore throat Cardiovascular: Reports dyspnea on exertion, Denies chest pain, Denies shortness of breath Respiratory: Denies cough Gastrointestinal: Denies abdominal pain, Denies diarrhea, Denies nausea, Denies vomiting Musculoskeletal: Denies myalgias Integumentary: Denies pruritus, Denies rash Neurological: Denies numbness, Denies weakness Psychiatric: Denies anxiety, Denies depression Endocrine: Denies fatigue, Denies weight change Past Medical History Past Medical History: Coronary Artery Disease (CAD), Chest Pain / Angina, Hyperlipidemia, Hypertension, Myocardial Infarction ([place]) Additional Past Medical History / Comment(s): Degenerative disc disease Last Myocardial Infarction Date:: 2016 History of Any Multi-Drug Resistant Organisms: None Reported Past Surgical History: Heart Catheterization With Stent (MultiLink stent to his right coronary artery in March 2016, a Xience stents placed to his left anterior descending coronary artery and distal right coronary artery in 2016.), Orthopedic Surgery Additional Past Surgical History / Comment(s): back surgery Past Anesthesia/Blood Transfusion Reactions: No Reported Reaction Date of Last Stent Placement:: march 2016 Past Psychological History: Anxiety Smoking Status: Current every day smoker Past Alcohol Use History: Occasional Additional Past Alcohol Use History / Comment(s): He reports he drinks less than 8 beers a week. Past Drug Use History: None Reported - Past Family History Father History Unknown: Yes Family Medical History: Myocardial Infarction ([place]) Additional Family Medical History / Comment(s): The patient reports his dad from a myocardial infarction in his mid 50s. Brother(s) History Unknown: Yes Family Medical History: Myocardial Infarction ([place]) Additional Family Medical History / Comment(s): The patient reports to have his brothers from myocardial infarction in their mid 50s. Medications and Allergies Home Medications Medication Instructions Recorded Confirmed Type Lisinopril [Zestril] 10 mg PO DAILY 08/23/18 08/23/18 History Rosuvastatin Calcium [Crestor] 40 mg PO HS 08/23/18 08/23/18 History Isosorbide Mononitrate ER [Imdur] 60 mg PO DAILY #90 tab.er.24h 08/26/18 Rx Metoprolol Tartrate [Lopressor] 50 mg PO BID #180 tab 08/26/18 Rx Allergies Allergy/AdvReac Type Severity Reaction Status Date / Time bee venom protein (honey bee) Allergy Anaphylaxis Verified 08/23/18 06:35 Physical Exam Vitals: Vital Signs Temp Pulse Resp BP Pulse Ox 08/26/18 12:23 97.5 F L 65 115/68 97 08/26/18 08:00 98.1 F 73 18 159/89 96 08/26/18 03:55 97.4 F L 73 18 135/77 96 08/26/18 03:32 18 08/26/18 00:00 98.0 F 64 18 129/76 94 L 08/25/18 20:00 18 08/25/18 19:49 97.5 F L 70 18 144/78 95 08/25/18 16:37 18 Intake and Output 08/26/18 08/26/18 08/26/18 06:59 14:59 22:59 Intake Total 350 Balance 350 Intake: Oral 350 Other: Voiding Method Toilet GENERAL EXAM: Alert, pleasant 58-year-old white male comfortable in no apparent distress. HEAD: Normocephalic/atraumatic. EYES: Normal reaction of pupils, equal size. Conjunctiva pink, sclera white. NOSE: Clear with pink turbinates. THROAT: No erythema or exudates. NECK: No masses, no JVD, no thyroid enlargement, no adenopathy. CHEST: No chest wall deformity. Symmetrical expansion. LUNGS: Very diminished breath sounds bilaterally, some crackles at the right base. CVS: Regular rate and rhythm, normal S1 and S2, no gallops, no murmurs, no rubs ABDOMEN: Soft, nontender. No hepatosplenomegaly, normal bowel sounds, no guarding or rigidity. EXTREMITIES: no edema, no cyanosis, 2+ pulses and upper and lower extremities. Clubbing noted on fingernails of both hands MUSCULOSKELETAL: Muscle strength and tone normal. SPINE: No scoliosis or deformity SKIN: No rashes CENTRAL NERVOUS SYSTEM: Alert and oriented -3. No focal deficits, tone is normal in all 4 extremities. PSYCHIATRIC: Alert and oriented -3. Appropriate affect. Intact judgment and insight. Results - Laboratory Findings CBC and BMP: 08/26/18 08:44 08/25/18 08:04 PT/INR, D-dimer PT 10.9 sec (9.0-12.0) 08/23/18 02:56 INR 1.1 (<1.2) 08/23/18 02:56 D-Dimer 0.66 mg/L FEU (<0.60) H 08/24/18 09:15 Abnormal lab findings: Abnormal Labs 08/23/18 08/23/18 08/23/18 02:56 09:01 14:39 RBC Plt Count APTT 33.8 H 39.7 H D-Dimer Sodium 131 L Carbon Dioxide 19 L Glucose AST 106 H Total Protein 8.3 H Triglycerides HDL Cholesterol 08/24/18 08/24/18 08/25/18 09:15 09:15 08:04 RBC Plt Count 140 L APTT D-Dimer 0.66 H Sodium Carbon Dioxide Glucose AST Total Protein Triglycerides 408 H HDL Cholesterol 35 L 08/25/18 08/26/18 08:04 08:44 RBC 4.22 L Plt Count 109 L APTT D-Dimer Sodium Carbon Dioxide Glucose 151 H AST Total Protein Triglycerides HDL Cholesterol - Diagnostic Findings Chest x-ray: report reviewed, image reviewed CT scan - chest: report reviewed, image reviewed Additional studies: EKG reviewed Assessment and Plan Plan: Assessment: #1. Coronary artery disease, history of previous stenting, patient was found to have multivessel disease, with some in-stent restenosis and involving left main, please refer to the cardiac cath report #2. Chest pain, retrosternal, associated with dyspnea and lightheadedness, related to the above #3. COPD, likely moderately severe, will need a full PFT in the office #4. Nicotine addiction, chronic and ongoing, carries [id number] smoking history, of one half packs a day #5. Hypertension #6. Hyperlipidemia #7. Previous myocardial infarction #8. EtOH dependence Plan: Patient was evaluated by CT surgery, and he is scheduled for coronary bypass grafting surgery for next , 09/03/2018. Patient is suspected to have moderately severe COPD he will need a full preoperative PFT, he can see Dr. Leung early next week. Patient has significant clubbing bilateral fingers of his bilateral hands, lung sounds are very diminished, and there is evidence of COPD and emphysema and CT chest and chest x-ray. Complete smoking cessation was advised. Patient has been cleared for discharge by cardiology and CT surgery. Stable for discharge from [place] from pulmonary perspective. I performed a history & physical examination of the patient and discussed their management with my nurse practitioner, Solange Kermit. I reviewed the nurse practitioner's note and agree with the documented findings and plan of care. Lung sounds are positive markedly diminished breath sounds bilaterally. The findings and the impression was discussed with the patient. I attest to the documentation by the nurse practitioner. Time with Patient: Greater than 30
--- NOTE | 2018-08-26 16:08 | P.GSCN ---
History of Present Illness Consult date: 08/25/18 Reason for Consult: Coronary artery disease with left main disease. Requesting physician: Ray Pack History of present illness: This is a 58-year-old gentleman who does not follow with a primary care physician on a regular basis. He is a past medical history significant for hypertension, hyperlipidemia, 3 previous myocardial infarctions, coronary artery disease with stent placement to his right coronary artery in March 2016, and stent placements to his left anterior descending coronary artery and right coronary artery in March 2017, anxiety, degenerative disc disease, current nicotine dependence and family history of early onset coronary artery disease with his dad passing away in his mid 50s with a myocardial infarction and 2 of his brothers having myocardial infarction in their 50s.. The patient presented to the emergency department here at [facility] via EMS after experiencing some chest pain watching TV. He reports that he took 3 sublingual nitroglycerin at home which did not help his pain. He also reports that his chest pain was associated with weakness and shortness of breath. He denies any complaints of nausea, vomiting, chills, diaphoresis, dizziness or syncope. A 12 -lead EKG was completed which showed normal sinus rhythm with a heart rate [address] elevations or depression. His initial laboratory results showed normal troponins. A 2-D echocardiogram result was obtained and showed an overall left ventricular systolic function to be normal with an ejection fraction between 55 and 60%, trace mitral valve regurgitation, and trace tricuspid valve regurgitation. Due to the patient's presenting symptoms and history of coronary artery disease he was seen and evaluated by Dr. Pack from [facility]. The patient underwent a cardiac catheterization which demonstrated severe disease involving the distal left main which appeared to be in the range of 50%, mild in-stent restenosis involving the proximal right coronary artery, a 70-80% stenosis to his PDA branch of his right coronary artery, mild disease to his proximal left anterior descending coronary artery with mild in stent restenosis, mild in-stent restenosis involving his mid left anterior descending coronary artery and a 70-80% stenosis to his diagonal coronary artery. Subsequently Dr. Meza from cardiothoracic surgery was consulted due to the patient's cardiac catheterization results, presenting symptoms and history of coronary artery disease. Review of Systems A 14 point review of systems was completed and was negative except as mentioned in HPI. Past Medical History Past Medical History: Coronary Artery Disease (CAD), Chest Pain / Angina, Hyperlipidemia, Hypertension, Myocardial Infarction (AR) Additional Past Medical History / Comment(s): Degenerative disc disease Last Myocardial Infarction Date:: 2016 History of Any Multi-Drug Resistant Organisms: None Reported Past Surgical History: Heart Catheterization With Stent (MultiLink stent to his right coronary artery in March 2016, a Xience stents placed to his left anterior descending coronary artery and distal right coronary artery in 2016.), Orthopedic Surgery Additional Past Surgical History / Comment(s): back surgery Past Anesthesia/Blood Transfusion Reactions: No Reported Reaction Date of Last Stent Placement:: march 2016 Past Psychological History: Anxiety Smoking Status: Current every day smoker Past Alcohol Use History: Occasional Additional Past Alcohol Use History / Comment(s): He reports he drinks less than 8 beers a week. Past Drug Use History: None Reported - Past Family History Father History Unknown: Yes Family Medical History: Myocardial Infarction (AR) Additional Family Medical History / Comment(s): The patient reports his dad from a myocardial infarction in his mid 50s. Brother(s) History Unknown: Yes Family Medical History: Myocardial Infarction (AR) Additional Family Medical History / Comment(s): The patient reports to have his brothers from myocardial infarction in their mid 50s. Medications and Allergies Home Medications Medication Instructions Recorded Confirmed Type Lisinopril [Zestril] 10 mg PO DAILY 08/23/18 08/23/18 History Rosuvastatin Calcium [Crestor] 40 mg PO HS 08/23/18 08/23/18 History Isosorbide Mononitrate ER [Imdur] 60 mg PO DAILY #90 tab.er.24h 08/26/18 Rx Metoprolol Tartrate [Lopressor] 50 mg PO BID #180 tab 08/26/18 Rx Allergies Allergy/AdvReac Type Severity Reaction Status Date / Time bee venom protein (honey bee) Allergy Anaphylaxis Verified 08/23/18 06:35 Surgical - Exam Vital Signs Temp Pulse Resp BP Pulse Ox 98.1 F 67 18 93/66 94 L 08/23/18 02:54 08/23/18 02:54 08/23/18 02:54 08/23/18 02:54 08/23/18 02:54 - General well developed, well nourished, no distress, no pain - Eyes PERRL, normal ocular movement - ENT normal pinna, normal nares, normal mucosa, no hearing loss, no congestion, poor [facility] - Neck Neck is supple, no lymphadenopathy. no masses, no bruits, trachea midline, no venous distension - Respiratory Lung sounds with few scattered crackles throughout. Respirations are symmetrical and nonlabored. Oxygen saturation are 95% on room air. He is achieving 3000 mL on his incentive spirometry. A bedside FEV1 was completed which showed a value of 1.78 which was 58% of predicted value. - Cardiovascular Regular rhythm and rate. S1 and S2 present, negative for S3, gallop or murmur. No edema present. Remote telemetry showing normal sinus rhythm heart rate 78. - Abdomen Abdomen is soft, nontender and nondistended. Active bowel sounds all 4 abdominal quadrants. No guarding or rigidity. No organomegaly. - Genitourinary Deferred - Rectum Deferred - Integumentary no rash, no growths, no abnormal pigmentation - Neurologic normal coordination, normal sensation - Musculoskeletal normal gait, normal posture - Psychiatric oriented to time, oriented to person, oriented to place, speech is normal, memory intact Results - Labs 08/26/18 08:44 08/25/18 08:04 Abnormal Lab Results - Last 24 Hours (Table) 08/25/18 08/25/18 Range/Units 08:04 08:04 Plt Count 140 L (150-450) k/uL Glucose 151 H (74-99) mg/dL Microbiology - Last 24 Hours (Table) 08/25/18 21:00 Urine Culture - Preliminary Urine,Voided 08/25/18 16:55 Nasal Screen MRSA/MSSA - Preliminary Nasal Swab Diabetes panel 08/25/18 08/25/18 Range/Units 08:04 08:04 Sodium 138 (137-145) mmol/L Potassium 3.9 (3.5-5.1) mmol/L Chloride 105 (98-107) mmol/L Carbon Dioxide 22 (22-30) mmol/L BUN 14 (9-20) mg/dL Creatinine 0.95 (0.66-1.25) mg/dL Glucose 151 H (74-99) mg/dL Hemoglobin A1c 5.9 (4.0-6.0) % Calcium 8.9 (8.4-10.2) mg/dL Thyroid panel 08/23/18 Range/Units 02:56 TSH 2.310 (0.465-4.680) mIU/L Calcium panel 08/25/18 Range/Units 08:04 Calcium 8.9 (8.4-10.2) mg/dL Pituitary panel 08/23/18 08/25/18 Range/Units 02:56 08:04 Sodium 138 (137-145) mmol/L Potassium 3.9 (3.5-5.1) mmol/L Chloride 105 (98-107) mmol/L Carbon Dioxide 22 (22-30) mmol/L BUN 14 (9-20) mg/dL Creatinine 0.95 (0.66-1.25) mg/dL Glucose 151 H (74-99) mg/dL Calcium 8.9 (8.4-10.2) mg/dL TSH 2.310 (0.465-4.680) mIU/L Adrenal panel 08/25/18 Range/Units 08:04 Sodium 138 (137-145) mmol/L Potassium 3.9 (3.5-5.1) mmol/L Chloride 105 (98-107) mmol/L Carbon Dioxide 22 (22-30) mmol/L BUN 14 (9-20) mg/dL Creatinine 0.95 (0.66-1.25) mg/dL Glucose 151 H (74-99) mg/dL Calcium 8.9 (8.4-10.2) mg/dL - Imaging Comments: 2-D echocardiogram and cardiac catheterization results reviewed by Dr. Meza. Chest x-ray: report reviewed, image reviewed CT scan - chest: report reviewed, image reviewed Assessment and Plan (1) Hypertension Current Visit: Yes Status: Acute Code(s): I10 - ESSENTIAL (PRIMARY) HYPERTENSION SNOMED Code(s): 21904701 (2) Hyperlipidemia Current Visit: Yes Status: Acute Code(s): E78.5 - HYPERLIPIDEMIA, UNSPECIFIED SNOMED Code(s): 39459100 (3) History of myocardial infarction Current Visit: Yes Status: Acute Code(s): I25.2 - OLD MYOCARDIAL INFARCTION SNOMED Code(s): 204339076 (4) History of coronary artery disease Current Visit: Yes Status: Acute Code(s): Z86.79 - PERSONAL HISTORY OF OTHER DISEASES OF THE CIRCULATORY SYSTEM SNOMED Code(s): 986674949 (5) Family history of coronary artery disease in father Current Visit: Yes Status: Acute Code(s): Z82.49 - FAMILY HX OF ISCHEM HEART DIS AND OTH DIS OF THE CIRC SYS SNOMED Code(s): 874886475 (6) Nicotine dependence Current Visit: Yes Status: Acute Code(s): F17.200 - NICOTINE DEPENDENCE, UNSPECIFIED, UNCOMPLICATED SNOMED Code(s): 45764828 Plan: The patient was seen and examined. His chart and diagnostics were reviewed. Preoperative testing and preoperative teaching was initiated. The patient was seen and examined by Dr. Meza from cardiothoracic surgery. Reviewed the heart catheterization results with the patient and has discussed the risks and benefits of myocardial revascularization surgery. The patient wishes to proceed with myocardial revascularization surgery. His Brilinta will be discontinued at this time as per the discussion with Dr. Pack. He will be scheduled for myocardial revascularization surgery with FELICIANO and endovascular vein harvest on , 09/03/2018 to be performed by Dr. Efraín Juarez. A 5 m walk test has been completed with the patient by the tax attorney Time 1:8.53 seconds, time 2: 7.07 seconds, time 3:7.49 seconds. His STS risk score has been calculated and discussed with the patient by Dr. Meza. The patient can be discharged home per cardiothoracic surgery standpoint when okay with primary care service and cardiology service. Importance of smoking sensation have been discussed with the patient. Thank you Dr. Pack for this consult and we look for to working with you in the care of your patient. Time with Patient: Greater than 30
[2018-08-26] MEDS ORDERED: METOPROLOL TARTRATE 50 MG TAB PO SCH (21:00)
[2018-08-27] MEDS ORDERED: ISOSORBIDE MONONITRATE ER 60 MG TAB.ER.24H PO SCH (09:00)
--- NOTE | 2018-09-02 15:19 | P.ARTDOP ---
Arterial Doppler LOWER EXTREMITY ARTERIAL DOPPLER: DATE OF SERVICE: 08/25/2018 Reason for study: Preop CABG. Doppler waveforms: Multiphasic bilaterally throughout. Pulse volume recording: []. Pressure gradients: None. Ankle-brachial indices: Greater than 1 bilaterally. Toe pressures: [] on the right, [] on the left Impression: Normal study.
--- NOTE | 2018-09-02 15:21 | P.ARTDOP ---
Arterial Doppler Bilateral radial artery study: Date of study: 08/25/2018 Reason for study: Preop CABG Findings: Doppler studies showed no significant right to left or segmental pressure gradient. Digital plethysmography with radial artery compression shows no significant pressure gradient or change Imaging shows the right radial to be between 3.3 x 3.5 and 3.6 x 4.2 mm in diameter. The left is between 2.9 x 4.2 and 3.3 x 3.5 mm. Both radial arteries appear to be usable
--- NOTE | 2018-09-02 15:23 | P.VSCSTY ---
Greater Saphenous Vein Mapping This is bilateral lower extremity greater saphenous vein mapping. Date of service 08/25/2018 Vein quality and ultrasound appearance no intraluminal thrombus or wall changes are seen. Vein size groin right 6.7 x 7.0 groin left 5.7 x 7.0 High thigh right 4.5 x 4.8 high thigh left 5.1 x 5.2 Mid thigh right 5.3 x 5.2 mid thigh left 4.8 x 6.0 Above-knee right to 5.3 x 6.0 above-knee left 5.2 x 5.3 Below knee right 3.9 x 4.3 below-knee left 4.6 x 5.0 Mid calf right 3.9 x 4.4 mid calf left 4.1 x 4.9 Ankle right 3.8 x 4.8 ankle left 4.0 x 4.7 Impression usable bilateral greater saphenous vein.
== END 2018-08-26 15:40 | disposition home or self-care (01) ==
LOC: EC 02:52 → 1SOBS 05:26
PROVIDERS: ADMIT Family Medicine; ATTEND Family Medicine
DX: R07.89 Other chest pain (principal); T82.855A Stenosis of coronary artery stent, initial encounter; I25.10 Atherosclerotic heart disease of native coronary artery without angina pectoris; R42 Dizziness and giddiness; R79.89 Other specified abnormal findings of blood chemistry; E78.5 Hyperlipidemia, unspecified; I10 Essential (primary) hypertension; I25.2 Old myocardial infarction; I49.8 Other specified cardiac arrhythmias; F41.9 Anxiety disorder, unspecified; J44.9 Chronic obstructive pulmonary disease, unspecified; F10.20 Alcohol dependence, uncomplicated; R53.1 Weakness; F17.210 Nicotine dependence, cigarettes, uncomplicated; Z82.49 Family history of ischemic heart disease and other diseases of the circulatory system; Z91.030 Bee allergy status; Z95.5 Presence of coronary angioplasty implant and graft; E66.9 Obesity, unspecified; Z68.29 Body mass index [BMI] 29.0-29.9, adult; Z79.899 Other long term (current) drug therapy; Z79.82 Long term (current) use of aspirin
CPT/HCPCS: 96372 ×3; 96376 ×2; 96365; 96366; 96375; 99285; 36415; 94150; 93005; 93306; 93454; 85379; 83880; 80061; 80053; 80048; 80074; 84443; 82550; 82553; 83735; 84484; 85025 ×4; 85610; 85730; 81003; 87070; 87086; 83036; 71046; 93930; 93970; 93922; 93923; 93880; 71275; G0378 ×4; C1769; C1894; S4990 ×4; J2250; J2270 ×4; J1644 ×6; J2001; J3010; Q9967 ×2

== ENCOUNTER 2018-09-04 05:37 | Inpatient (IN) | payer MEDICARE, OTHER ==
[~2018-09-04 05:37] MED LIST: ALBUMIN HUMAN 25% 50 ML IV ONE; ASPIRIN 325 MG TAB PO ONE; ATORVASTATIN 10 MG TAB PO ONE; CALCIUM CHLORIDE 100 MG/ML 10 ML SYRINGE IV ONE; CHLORHEXIDINE GLUCONATE 15 ML CUP MUCOUS MEM ONE; CLEVIDIPINE BUTYRATE 25 MG in EMPTY BAG 1 BAG IV ONE; DEXTROSE 5% IN WATER 1,000 ML with POTASSIUM CHLORIDE 110 MEQ, MAGNESIUM SULFATE 16 MEQ... IV ONE; DEXTROSE 5% IN WATER 1,000 ML with POTASSIUM CHLORIDE 25 MEQ, SODIUM CHLORIDE 2.5MEQ/ML... IRRIGATION ONE; HEPARIN SODIUM 1,000 UN/ML (10ML VL) IV ONE; HEPARIN SODIUM,PORCINE 5,000 UNIT in SODIUM CHLORIDE 0.9% 500 ML 500 ML IV ONE; INSULIN REGULAR 100 UNIT in SODIUM CHLORIDE 0.9% 100 ML IV ONE; LACTATED RINGERS 1,000 ML IV ONE; MAGNESIUM SULFATE MG 500 MG/ML IV ONE; MANNITOL 25% 12.5 GM/50 ML VIAL IV ONE; METOPROLOL TARTRATE 12.5 MG TAB PO ONE; NITROGLYCERIN-D5W PMX 25 MG/250 ML BTL IV ONE; NITROGLYCERIN-D5W PMX 50 MG in DEXTROSE/WATER 1 250ML.BAG IV ONE; NITROGLYCERIN-D5W PMX 50 MG in DEXTROSE/WATER 1 250ML.BAG IV SCH; NOREPINEPHRINE 4 MG in SODIUM CHLORIDE 0.9% 250 ML IV ONE; PAPAVERINE 360 MG in SODIUM CHLORIDE 0.9% 90 ML IV ONE; PHENYLEPHRINE 40 MG in SODIUM CHLORIDE 0.9% 250 ML IV ONE; PHENYLEPHRINE-0.9% NACL SYG 1 MG/10 ML SYRINGE IV ONE; PROPOFOL 1,000 MG/100 ML VIAL IV ONE; PROTAMINE SULFATE 10 MG/ML 25 ML VIAL IV ONE; PROTAMINE SULFATE 250 MG in EMPTY BAG 1 BAG IV ONE; SODIUM BICARB 8.4% 50 ML SYR (1 MEQ/ML) IV ONE; SODIUM CHLORIDE 0.9% 1,000 ML IV ONE; TRANEXAMIC ACID 2,000 MG in SODIUM CHLORIDE 0.9% 180 ML IV ONE; ceFAZolin 1,000 MG in SODIUM CHLORIDE 0.9% IRRIGATIO 1,000 ML IRRIGATION ONE; ceFAZolin 2,000 MG in SODIUM CHLORIDE 0.9% 30 ML IVPB ONE
[2018-09-04] MEDS ORDERED: LIDOCAINE 2% SYG (PF) 100 MG/5 ML ONE (08:04)
[2018-09-04] MEDS ORDERED: PHENYLEPHRINE-0.9% NACL SYG 1 MG/10 ML SYRINGE ONE (08:04)
[2018-09-04] MEDS ORDERED: VECURONIUM 10 MG VIAL IV ONE (08:04)
[2018-09-04] MEDS ORDERED: MAGNESIUM SULFATE 4 MEQ/ML 10ML VIAL ONE (08:04)
[2018-09-04] MEDS ORDERED: SODIUM CHLORIDE 0.9% 250 ML BAG ONE (08:04)
[2018-09-04] MEDS ORDERED: fentaNYL (PF) 50 MCG/ML 2 ML AMP ONE (08:04)
[2018-09-04] MEDS ORDERED: fentaNYL (PF) 50 MCG/ML 50 ML VIAL ONE (08:04)
[2018-09-04] MEDS ORDERED: ELECTROLYTE-R (PH 7.4) 1,000 ML IV.SOLN IV ONE (08:04)
[2018-09-04] MEDS ORDERED: HEPARIN SODIUM,PORCINE 10,000 UNIT/ML 1 ML VIAL ONE (08:04)
[2018-09-04] MEDS ORDERED: PROPOFOL 10 MG/ML 20 ML VIAL IV ONE (08:04)
[2018-09-04] MEDS ORDERED: ALBUMIN HUMAN 5% 500 ML VIAL IVPB ONE (08:04)
[2018-09-04] MEDS ORDERED: SODIUM CHLORIDE 0.9% IRRIG 1,000 ML BTL IRRIGATION ONE (08:04)
[2018-09-04] MEDS ORDERED: PROTAMINE SULFATE 10 MG/ML 25 ML VIAL IV ONE (08:04)
[2018-09-04] MEDS ORDERED: TRANEXAMIC ACID 1,000 MG/10 ML VIAL ONE (08:04)
[2018-09-04] MEDS ORDERED: MIDAZOLAM 2 MG/2 ML VIAL ONE (08:04)
[2018-09-04 08:39] LABS: ABG HCO3 24 mmol/L (21-25); ABG Oxygen Saturation 99.8 % (94-97); ABG PCO2 38 mmHg (35-45); ABG PH 7.42 (7.35-7.45); ABG PO2 223 mmHg (83-108); ABG Potassium Whole Blood 4.5 mmol/L (3.4-4.5); ABG Sodium Whole Blood 139 mmol/L (135-146); ABG TCO2 26 mmol/L (19-24)
[2018-09-04 09:41] LABS: ABG Base Excess -1.9 mmol/L; ABG HCO3 24 mmol/L (21-25); ABG Oxygen Saturation 99.7 % (94-97); ABG PCO2 41 mmHg (35-45); ABG PH 7.36 (7.35-7.45); ABG PO2 154 mmHg (83-108); ABG Potassium Whole Blood 4.2 mmol/L (3.4-4.5); ABG Sodium Whole Blood 140 mmol/L (135-146); ABG TCO2 25 mmol/L (19-24)
[2018-09-04 10:30] LABS: ABG Base Excess -1.6 mmol/L; ABG HCO3 23 mmol/L (21-25); ABG PCO2 37 mmHg (35-45); ABG PH 7.41 (7.35-7.45); ABG PO2 338 mmHg (83-108); ABG Potassium Whole Blood 6.1 mmol/L (3.4-4.5); ABG Sodium Whole Blood 131 mmol/L (135-146); ABG TCO2 24 mmol/L (19-24)
[2018-09-04 10:37] LABS: ABG Base Excess -1.4 mmol/L; ABG HCO3 25 mmol/L (21-25); ABG Oxygen Saturation 84.2 % (94-97); ABG PCO2 46 mmHg (35-45); ABG PH 7.34 (7.35-7.45); ABG Sodium Whole Blood 131 mmol/L (135-146); ABG TCO2 26 mmol/L (19-24)
[2018-09-04 10:57] LABS: ABG Base Excess -2.4 mmol/L; ABG HCO3 23 mmol/L (21-25); ABG PCO2 41 mmHg (35-45); ABG PH 7.36 (7.35-7.45); ABG PO2 406 mmHg (83-108); ABG Sodium Whole Blood 132 mmol/L (135-146); ABG TCO2 24 mmol/L (19-24)
[2018-09-04 11:12] LABS: ABG Base Excess -3.5 mmol/L; ABG HCO3 22 mmol/L (21-25); ABG PCO2 42 mmHg (35-45); ABG PH 7.33 (7.35-7.45); ABG PO2 393 mmHg (83-108); ABG Sodium Whole Blood 134 mmol/L (135-146); ABG TCO2 24 mmol/L (19-24)
[2018-09-04 11:26] LABS: ABG Base Excess 0.3 mmol/L; ABG HCO3 24 mmol/L (21-25); ABG PCO2 34 mmHg (35-45); ABG PH 7.45 (7.35-7.45); ABG Sodium Whole Blood 137 mmol/L (135-146); ABG TCO2 25 mmol/L (19-24)
[2018-09-04 12:16] LABS: ABG Base Excess -1.5 mmol/L; ABG HCO3 25 mmol/L (21-25); ABG Oxygen Saturation 99.7 % (94-97); ABG PCO2 49 mmHg (35-45); ABG PH 7.32 (7.35-7.45); ABG PO2 227 mmHg (83-108); ABG Potassium Whole Blood 3.8 mmol/L (3.4-4.5); ABG Sodium Whole Blood 141 mmol/L (135-146); ABG TCO2 27 mmol/L (19-24)
[2018-09-04 12:27] LABS: ABG PO2 51 mmHg (83-108); ABG Potassium Whole Blood 6.6 mmol/L (3.4-4.5)
[2018-09-04 12:28] LABS: ABG Potassium Whole Blood 6.4 mmol/L (3.4-4.5)
[2018-09-04 12:32] LABS: ABG PO2 >420 mmHg (83-108)
[2018-09-04 13:21] LABS: Glucose,Whole Blood 96 mg/dL (75-99)
[2018-09-04] MEDS ORDERED: IPRATROPIUM-ALBUTEROL 3 ML NEB INHALATION PRN (13:22)
[2018-09-04] MEDS ORDERED: Potassium Replacement Protocol 1 EACH MISC MISCELLANE PRN (13:22)
[2018-09-04] MEDS ORDERED: BENZOCAINE/MENTHOL LOZENG 1 EACH LOZENGE MUCOUS MEM PRN (13:22)
[2018-09-04] MEDS ORDERED: CALCIUM CHLORIDE 1,000 MG in SODIUM CHLORIDE 0.9% 100 ML IV PRN (13:22)
[2018-09-04] MEDS ORDERED: MORPHINE SULFATE 2 MG/ML SYRINGE IVP PRN (13:22)
[2018-09-04] MEDS ORDERED: ONDANSETRON 4 MG/2 ML VIAL IVP PRN (13:22)
[2018-09-04] MEDS ORDERED: AMIODARONE 450 MG in DEXTROSE 5% IN WATER 250 ML IV PRN ×2 (13:22)
[2018-09-04] MEDS ORDERED: Phosphorus Replacement Protoco 1 EACH MISC MISCELLANE PRN (13:22)
[2018-09-04] MEDS ORDERED: NITROGLYCERIN-D5W PMX 50 MG in DEXTROSE/WATER 1 250ML.BAG IV SCH (13:22)
[2018-09-04] MEDS ORDERED: Magnesium Replacement Protocol 1 EACH MISC MISCELLANE PRN (13:22)
[2018-09-04] MEDS ORDERED: DEXTROSE 5% IN WATER 100 ML with AMIODARONE 150 MG IV PRN (13:22)
[2018-09-04 13:40] LABS: Basophils % (A) 0 %; Eosinophils # (A) 0.2 k/uL (0-0.7); Eosinophils % (A) 3 %; HCT 33.7 % (39.0-53.0); HGB 11.5 gm/dL (13.0-17.5); Lymphocytes # (A) 1.5 k/uL (1.0-4.8); Lymphocytes % (A) 21 %; MCH 32.3 pg (25.0-35.0); MCHC 34.1 g/dL (31.0-37.0); MCV 94.8 fL (80.0-100.0); Mean Platelet Volume 9.1; Monocytes # (A) 0.3 k/uL (0-1.0); Monocytes % (A) 5 %; Neutrophils # (A) 4.9 k/uL (1.3-7.7); Neutrophils % (A) 71 %; Platelet Count 119 k/uL (150-450); RBC 3.56 m/uL (4.30-5.90); RDW 14.1 % (11.5-15.5); WBC 6.9 k/uL (3.8-10.6)
[2018-09-04 13:49] LABS: Ionized Calcium 4.7 mg/dL (4.5-5.3)
[2018-09-04 13:51] LABS: INR 1.2 (<1.2); Partial Thromboplastin Time 31.3 sec (22.0-30.0); Prothrombin Time 11.5 sec (9.0-12.0)
--- NOTE | 2018-09-04 13:53 | XR ---
EXAMINATION TYPE: XR chest 1V portable DATE OF EXAM: 09/04/2018 HISTORY: Post Op CABG COMPARISON: 08/23/2018 TECHNIQUE: Single view of the chest is submitted. FINDINGS: Endotracheal tube, NG tube, SG catheter, mediastianal drains and chest tubes are appropriately placed . Post operative changes of CABG. No sizeable pneumothorax. Scattered Pleural-parencymal opacities may reflect atelectasis. The heart is not enlarged. IMPRESSION: 1. Post operative changes of CABG.
[2018-09-04] MEDS: CLEVIDIPINE BUTYRATE 25 MG in EMPTY BAG 1 BAG IV SCH ×2 (14:08→15:55)
[2018-09-04] MEDS: MILRINONE-D5W PMX 20 MG in DEXTROSE/WATER 1 100ML.BAG IV SCH (14:09)
[2018-09-04] MEDS: LACTATED RINGERS 1,000 ML IV SCH (14:09)
[2018-09-04 14:10] LABS: Glucose,Whole Blood 92 mg/dL (75-99)
[2018-09-04 14:11] LABS: ALT 47 U/L (21-72); AST 57 U/L (17-59); Albumin 2.9 g/dL (3.5-5.0); Alkaline Phosphatase 64 U/L (38-126); Anion Gap 6 mmol/L; Blood Urea Nitrogen 10 mg/dL (9-20); Calcium 7.9 mg/dL (8.4-10.2); Carbon Dioxide 27 mmol/L (22-30); Chloride 109 mmol/L (98-107); Glucose 93 mg/dL (74-99); Magnesium 2.8 mg/dL (1.6-2.3); Potassium 3.7 mmol/L (3.5-5.1); Sodium 142 mmol/L (137-145); Total Bilirubin 0.8 mg/dL (0.2-1.3); Total Protein 5.6 g/dL (6.3-8.2)
[2018-09-04] MEDS: PROPOFOL 1,000 MG in EMPTY BAG 1 BAG IV SCH ×2 (14:12→17:25)
--- NOTE | 2018-09-04 14:30 | P.CNPUL ---
History of Present Illness Consult date: 09/04/18 Requesting physician: Efraín Juarez Reason for consult: other Chief complaint: Coronary artery disease, status post two-vessel bypass grafting History of present illness: This a 58-year-old white male patient who we met in the preop period last week on 08/23/2018 for preop pulmonary evaluation. Patient initially was seen in the hospital on 08/23/2018 and planing of chest pain. He was found to have mild in-stent restenosis involving the proximal RCA, severe disease involving the PDA branch of the RCA, severe disease above the distal left main in the range of 50%, mild disease involving the left circumflex and in-stent restenosis which was mild involving the proximal and mid LAD. Patient was recommended to have surgical evaluation for coronary artery bypass grafting area and today on 09/04/2018 he had 2 vessel bypass with FELICIANO to LAD, and saphenous venous graft to the ramus. Other medical history includes moderately severe COPD and preop PFT showed FEV1 of 2.3 L or 76%, an FVC of 3.2 L or 79% of predicted with diffusion abnormality, with DLCO of 21.6 percent of predicted. He has previous history of coronary stenting, he has chronic and ongoing nicotine dependence, carries [id number] smoking history of 1-1/2 packs per day, hypertension, hyperlipidemia, previous myocardial infarction and EtOH dependence. Currently patient is sedated, and intubated, on mechanical ventilator, he seen in the postop period in the intensive care unit, hemodynamically stable, cardiac output was 7.8, and cardiac index was 4.2. He has 2 mediastinal chest tubes and left pleural chest tube with small amount of sanguinous drainage. He is currently on lactated Ringer's at a rate of 50 ML per hour, milrinone at 0.25 mics per kilo per minute, nitroglycerin at 5 mics per minute, clevidipine at 20 mg per hour, Diprivan at 45 mics per kilo per minute. Current vent settings are SIMV mode with a rate of 16, tidal volume of 450, FiO2 of 80%, and PEEP of 8. Postop chest x-ray has been reviewed by Dr. Stoll which showed some basilar atelectasis, endotracheal tube, NG tube, PA catheter, mediastinal drains and chest tubes are appropriately placed. Postoperative blood gases showed pO2 of 227, pCO2 of 49, pH is 7.32. Postop blood work showed WBC of 6.9, hemoglobin of 11.5, platelet count of 119, INR is 1.2, electrolytes and renal profile was unremarkable. Review of Systems All systems: negative Constitutional: Denies chills, Denies fever Eyes: denies blurred vision, denies pain Ears, nose, mouth and throat: Denies headache, Denies sore throat Cardiovascular: Reports chest pain, Denies shortness of breath Respiratory: Denies cough Gastrointestinal: Denies abdominal pain, Denies diarrhea, Denies nausea, Denies vomiting Musculoskeletal: Denies myalgias Integumentary: Denies pruritus, Denies rash Neurological: Denies numbness, Denies weakness Psychiatric: Denies anxiety, Denies depression Endocrine: Denies fatigue, Denies weight change Past Medical History Past Medical History: Coronary Artery Disease (CAD), Chest Pain / Angina, Hyperlipidemia, Hypertension, Myocardial Infarction (SD) Additional Past Medical History / Comment(s): Degenerative disc disease Last Myocardial Infarction Date:: 2016 History of Any Multi-Drug Resistant Organisms: None Reported Past Surgical History: Back Surgery, Heart Catheterization, Heart Catheterization With Stent, Orthopedic Surgery Additional Past Surgical History / Comment(s): back surgery Past Anesthesia/Blood Transfusion Reactions: No Reported Reaction Date of Last Stent Placement:: march 2016 Smoking Status: Former smoker - Past Family History Father History Unknown: Yes Family Medical History: Myocardial Infarction (SD) Additional Family Medical History / Comment(s): The patient reports his dad from a myocardial infarction in his mid 50s. Brother(s) History Unknown: Yes Family Medical History: Myocardial Infarction (SD) Additional Family Medical History / Comment(s): The patient reports to have his brothers from myocardial infarction in their mid 50s. Medications and Allergies Home Medications Medication Instructions Recorded Confirmed Type Lisinopril [Zestril] 10 mg PO DAILY 08/23/18 09/04/18 History Rosuvastatin Calcium [Crestor] 40 mg PO HS 08/23/18 09/04/18 History Isosorbide Mononitrate ER [Imdur] 60 mg PO DAILY #90 tab.er.24h 08/26/18 Rx Metoprolol Tartrate [Lopressor] 50 mg PO BID #180 tab 08/26/18 09/04/18 Rx Aspirin 81 mg PO DAILY 08/31/18 09/04/18 History Mupirocin 2% Oint [Bactroban 2% 1 applic NASAL BID 09/02/18 09/04/18 History Oint] Allergies Allergy/AdvReac Type Severity Reaction Status Date / Time bee venom protein (honey bee) Allergy Anaphylaxis Verified 09/04/18 13:23 Physical Exam Vitals: Vital Signs Temp Pulse Resp BP BP Pulse Ox 09/04/18 06:06 98.2 F 74 16 119/74 115/70 97 09/04/18 06:04 98.2 F 74 16 115/70 97 Intake and Output 09/03/18 09/04/18 09/04/18 22:59 06:59 14:59 Intake Total 3 Output Total 1600 Balance -1597 Intake: IV 3 Output: Urine 600 Estimated Blood Loss 1000 Other: Weight 77.8 kg GENERAL EXAM: Sedated, intubated on mechanical ventilator, 58-year-old white male, comfortable in no apparent distress. HEAD: Normocephalic/atraumatic. EYES: Normal reaction of pupils, equal size. Conjunctiva pink, sclera white. NOSE: Clear with pink turbinates. THROAT: No erythema or exudates. NECK: No masses, no JVD, no thyroid enlargement, no adenopathy. CHEST: No chest wall deformity. Symmetrical expansion. Midsternal incisions clean dry and intact, approximated, covered with a surgical dressing, 2 mediastinal chest tubes and left pleural chest tube in place, epicardial wires connected to an external pacemaker box with the VVI backup rate of 60. Patient' s intrinsic rhythm is sinus rhythm with a rate of 74 BPM LUNGS: Equal air entry with no crackles, wheeze, rhonchi or dullness. CVS: Regular rate and rhythm, normal S1 and S2, no gallops, no murmurs, no rubs ABDOMEN: Soft, nontender. No hepatosplenomegaly, normal bowel sounds, no guarding or rigidity. EXTREMITIES: No clubbing, no edema, no cyanosis, 2+ pulses and upper and lower extremities. Bilateral lower extremities are Tenzin wrapped MUSCULOSKELETAL: Muscle strength and tone normal. SPINE: No scoliosis or deformity SKIN: No rashes CENTRAL NERVOUS SYSTEM: Sedated. No focal deficits, tone is normal in all 4 extremities. Results - Laboratory Findings CBC and BMP: 09/04/18 13:20 09/04/18 13:20 ABG ABG pH 7.32 (7.35-7.45) L 09/04/18 12:14 ABG pCO2 49 mmHg (35-45) H 09/04/18 12:14 ABG pO2 227 mmHg (83-108) H 09/04/18 12:14 ABG O2 Saturation 99.7 % (94-97) H 09/04/18 12:14 PT/INR, D-dimer PT 11.5 sec (9.0-12.0) 09/04/18 13:20 INR 1.2 (<1.2) H 09/04/18 13:20 Abnormal lab findings: Abnormal Labs 09/02/18 09/04/18 09/04/18 10:53 08:38 09:39 RBC Hgb Hct Plt Count INR APTT ABG pH ABG pCO2 ABG pO2 223 H 154 H ABG Total CO2 26 H 25 H ABG O2 Saturation 99.8 H 99.7 H ABG Hematocrit ABG Sodium ABG Potassium ABG Ionized Calcium ABG Glucose ABG Lactic Acid Hemoglobin 11.9 L Chloride Calcium Magnesium Total Protein Albumin Arterial Blood Potassium Arterial Blood Glucose Crossmatch See Detail 09/04/18 09/04/18 09/04/18 10:29 10:35 10:55 RBC Hgb Hct Plt Count INR APTT ABG pH 7.34 L ABG pCO2 46 H ABG pO2 338 H 51 L* 406 H ABG Total CO2 26 H ABG O2 Saturation 100.0 H 84.2 L 100.0 H ABG Hematocrit 27 L 27 L 28 L ABG Sodium 131 L 131 L 132 L ABG Potassium 6.1 H 6.6 H* 6.4 H* ABG Ionized Calcium 4.0 L 4.1 L 4.1 L ABG Glucose 204 H 217 H 204 H ABG Lactic Acid Hemoglobin 8.9 L 8.9 L 9.1 L Chloride Calcium Magnesium Total Protein Albumin Arterial Blood Potassium 6.1 H 6.6 H* 6.4 H* Arterial Blood Glucose 204 H 217 H 204 H Crossmatch 09/04/18 09/04/18 09/04/18 11:10 11:24 12:14 RBC Hgb Hct Plt Count INR APTT ABG pH 7.33 L 7.32 L ABG pCO2 34 L 49 H ABG pO2 393 H >420 H 227 H ABG Total CO2 25 H 27 H ABG O2 Saturation 100.0 H 100.0 H 99.7 H ABG Hematocrit 25 L 24 L 32 L ABG Sodium 134 L ABG Potassium 6.0 H 5.0 H ABG Ionized Calcium 4.2 L 3.9 L 3.8 L ABG Glucose 188 H 168 H 144 H ABG Lactic Acid 1.8 H 2.0 H 1.9 H Hemoglobin 8.2 L 7.9 L 10.3 L Chloride Calcium Magnesium Total Protein Albumin Arterial Blood Potassium 6.0 H 5.0 H Arterial Blood Glucose 188 H 168 H 144 H Crossmatch 09/04/18 09/04/18 09/04/18 13:20 13:20 13:20 RBC 3.56 L Hgb 11.5 L Hct 33.7 L Plt Count 119 L INR 1.2 H APTT 31.3 H ABG pH ABG pCO2 ABG pO2 ABG Total CO2 ABG O2 Saturation ABG Hematocrit ABG Sodium ABG Potassium ABG Ionized Calcium ABG Glucose ABG Lactic Acid Hemoglobin Chloride 109 H Calcium 7.9 L Magnesium 2.8 H Total Protein 5.6 L Albumin 2.9 L Arterial Blood Potassium Arterial Blood Glucose Crossmatch - Diagnostic Findings Chest x-ray: report reviewed, image reviewed Assessment and Plan Plan: Assessment: #1. Symptomatic coronary artery disease with history of previous stenting, status post 2 vessel bypass grafting with FELICIANO to LAD, and SVG to the ramus, postop day 0 #2. Routine mechanical ventilator management #3. History of hypertension, hyperlipidemia, previous myocardial infarction #4. Chronic nicotine dependence, patient carries [id number] smoking history of one half pack a day #5. Moderately severe COPD, not oxygen dependent at his baseline, preop PFT showed FEV1 of 76% of predicted #6. EtOH dependence Plan: Postop blood gases, chest x-ray have been reviewed by Dr. Stoll, vent changes were made accordingly. We'll proceed with that contains breathing trials, and extubation once the patient is awake, following commands, and remaines stable. Continue close hemodynamic monitoring. Incentive spirometry to the bedside after extubation, deep breathing and coughing. Daily chest x-rays and blood work. We'll continue to follow I performed a history & physical examination of the patient and discussed their management with my nurse practitioner, Solange Carmen. I reviewed the nurse practitioner's note and agree with the documented findings and plan of care. Lung sounds are clear. The findings and the impression was discussed with the patient. I attest to the documentation by the nurse practitioner. Time with Patient: Greater than 30
[2018-09-04 14:43] LABS: ABG Base Excess 0.4 mmol/L; ABG HCO3 27 mmol/L (21-25); ABG PCO2 58 mmHg (35-45); ABG PH 7.28 (7.35-7.45); ABG PO2 107 mmHg (83-108); ABG TCO2 29 mmol/L (19-24)
[2018-09-04] MEDS ORDERED: DESMOPRESSIN ACETATE 24 MCG in SODIUM CHLORIDE 0.9% 50 ML IVPB ONE (15:00)
[2018-09-04] MEDS: POTASSIUM CHLORIDE 10 MEQ in WATER FOR INJECTION 1 100ML.BAG IVPB SCH ×2 (15:01→16:09)
--- NOTE | 2018-09-04 15:05 | OP ---
OPERATIVE REPORT DATE OF SURGERY: 09/04/2018. PREOPERATIVE DIAGNOSIS: Coronary artery disease. POSTOPERATIVE DIAGNOSE: Coronary artery disease. PROCEDURE: 1. Coronary bypass grafting x2 vessels (left internal mammary artery to left anterior descending artery, saphenous vein graft to ramus artery). 2. Endoscopic vein harvest right greater saphenous vein. 3. Epiaortic ultrasound. 4. Transesophageal echocardiogram. SURGEON: Efraín Juarez MD. RESIDENTIAL INSURANCE INSPECTOR: 1. Justin Grewal PA-C. 2. LILILE Nicolas. ANESTHESIA: General. SPECIMEN: Left mammary bed lymph node. COMPLICATIONS: None. INDICATION: The patient is a 58-year-old male with a history of multiple medical problems including hypertension, hyperlipidemia, coronary artery disease s/p coronary stents, and tobacco use, who reports left-sided chest pain at rest. Cardiac catheterization revealed left main coronary artery disease. A coronary artery bypass was recommended. The risks, benefits, and alternatives to this procedure were discussed with the patient. All his questions were answered. Consent was obtained. FINDINGS: The left internal mammary artery was good conduit with brisk flow. The saphenous vein was a good conduit. The LAD measured 1.5 mm. The ramus artery measured 1.5 mm. The distal circumflex artery was too small for bypass. PROCEDURE IN DETAIL: The patient was taken to the operating room and placed supine on the operating table. After induction of general anesthesia, he was prepped and draped in the usual sterile fashion. Preoperative transesophageal echocardiogram revealed a preserved ejection fraction with no significant valvular dysfunction. A median sternotomy was performed. The left internal mammary artery was harvested in the standard fashion taking care to clip all branches. During this dissection, an enlarged lymph node was encountered in the left mammary bed. The lymph node was excised and sent to pathology. Intravenous heparin was administered. The vessel was transected distally revealing brisk flow. Simultaneously, greater saphenous vein was harvested from the right lower extremity using endoscopic technique. All branches were tied. Both mammary artery and saphenous vein were good conduits. A pericardial cradle was created. The ascending aorta was palpated and appeared to be free of calcific disease. Epiaortic ultrasound was then performed on the ascending aorta. Again no calcific disease wasidentified. An arterial cannula was placed in the distal ascending aorta. A venous cannula was placed through the right atrial appendage and directed into the IVC. Both antegrade and retrograde catheters were placed as well. The patient was then placed on cardiopulmonary bypass with good decompression of the heart. The aortic cross-clamp was applied. Cardioplegia was delivered in both antegrade and retrograde fashion to achieve arrest of the heart. Of note, cardioplegia was delivered every 15 to 20 minutes while the patient remained under cross-clamp. We began by inspecting the lateral wall. There was no target in the distal circumflex system. The ramus artery was identified and dissected free. A small arteriotomy was created. This vessel accepted a 1.5 mm probe. Using saphenous vein in a reverse fashion, an end-to-side anastomosis was created. This was performed using running 7-0 Prolene suture. The graft was hemostatic and had great flow. Next, the anterior wall was inspected. The left anterior descending artery was identified. The previously placed stents were easily palpated. A soft spot distal to this area was noted. An arteriotomy was created. This vessel accepted a 1.5 mm probe. Using the left internal mammary artery, an end-to-side anastomosis was created. This was performed in end-to-side fashion using running 8-0 Prolene suture. The anastomosis was hemostatic. The mammary pedicle was then tacked down to the anterior surface of the heart. Attention was then turned to the proximal anastomosis. This was performed in an end-to- side fashion using running 6-0 Prolene suture. One liter of warm blood was delivered in retrograde fashion. Both lidocaine and magnesium were administered as well. The aortic cross-clamp was removed. The vein graft was de-aired in the standard fashion. Distal anastomoses were inspected and appeared to be hemostatic. The retrograde catheter was removed. Temporary atrial and ventricular pacing wires were placed and brought through the skin. The patient was then weaned off cardiopulmonary bypass. He without difficulty. Of note, low-dose Milrinone was started. Followup transesophageal cardiogram revealed good left ventricular ejection fraction and no evidence of valvular pathology. Protamine was administered. There were no adverse reactions. The remaining cannulas were then removed. The mediastinum was copiously irrigated with warm saline solution. All surgical sites were inspected and appeared to be hemostatic. Soft tissues were reapproximated over the ascending aorta as well as over the apex of the heart. Straight 32-Turkmen chest tubes were placed and directly into the left pleural space as well as the mediastinum. These were all secured to the skin using sutures. The sternum was then reapproximated using stainless steel wires in a [id number] fashion. Following completion of the closure, the sternum was well aligned. The remainder of the wound was then closed in layers. Sterile dressing was applied. The patient appeared to tolerate the procedure well. There were no immediate complications. He returned to the ICU in critical but stable condition. MMANTONIOL / AMYN: [id number] / [id number]
[2018-09-04 15:33] LABS: Glucose,Whole Blood 97 mg/dL (75-99)
[2018-09-04] MEDS: ceFAZolin IN SWFI 2 GM/20 ML SYRINGE IVP SCH ×2 (16:00→23:39)
[2018-09-04] MEDS ORDERED: IPRATROPIUM-ALBUTEROL 3 ML NEB INHALATION SCH (16:00)
[2018-09-04 16:08] LABS: Glucose,Whole Blood 131 mg/dL (75-99)
[2018-09-04] MEDS: INSULIN REGULAR 100 UNIT in SODIUM CHLORIDE 0.9% 100 ML IV SCH (16:12)
[2018-09-04 16:37] LABS: Basophils % (A) 0 %; Eosinophils # (A) 0.1 k/uL (0-0.7); Eosinophils % (A) 1 %; HCT 33.5 % (39.0-53.0); HGB 12.2 gm/dL (13.0-17.5); Lymphocytes # (A) 1.5 k/uL (1.0-4.8); Lymphocytes % (A) 14 %; MCH 34.9 pg (25.0-35.0); MCHC 36.4 g/dL (31.0-37.0); MCV 95.8 fL (80.0-100.0); Mean Platelet Volume 8.2; Monocytes # (A) 0.5 k/uL (0-1.0); Monocytes % (A) 5 %; Neutrophils # (A) 8.3 k/uL (1.3-7.7); Neutrophils % (A) 78 %; Platelet Count 227 k/uL (150-450); RDW 14.4 % (11.5-15.5); WBC 10.6 k/uL (3.8-10.6)
[2018-09-04 17:16] LABS: Glucose,Whole Blood 132 mg/dL (75-99)
[2018-09-04] MEDS: ACETAMINOPHEN IV (For NPO) 1,000 MG in EMPTY BAG 1 BAG IVPB SCH ×2 (17:26→23:37)
[2018-09-04 18:17] LABS: Glucose,Whole Blood 144 mg/dL (75-99)
[2018-09-04] MEDS: ALBUMIN HUMAN 5% 250 ML in EMPTY BAG 1 BAG IVPB PRN ×5 (18:25→20:23)
[2018-09-04 18:54] LABS: ABG Base Excess 1.9 mmol/L; ABG HCO3 26 mmol/L (21-25); ABG Oxygen Saturation 98.7 % (94-97); ABG PCO2 41 mmHg (35-45); ABG PH 7.42 (7.35-7.45); ABG PO2 98 mmHg (83-108); ABG TCO2 28 mmol/L (19-24)
[2018-09-04 19:16] LABS: Glucose,Whole Blood 146 mg/dL (75-99)
[2018-09-04 19:58] LABS: Basophils % (A) 0 %; Eosinophils % (A) 0 %; HCT 27.2 % (39.0-53.0); Lymphocytes # (A) 0.6 k/uL (1.0-4.8); Lymphocytes % (A) 9 %; MCH 33.1 pg (25.0-35.0); MCV 94.7 fL (80.0-100.0); Mean Platelet Volume 7.9; Monocytes # (A) 0.4 k/uL (0-1.0); Monocytes % (A) 6 %; Neutrophils # (A) 6.1 k/uL (1.3-7.7); Neutrophils % (A) 83 %; Platelet Count 142 k/uL (150-450); RBC 2.87 m/uL (4.30-5.90); RDW 14.3 % (11.5-15.5); WBC 7.3 k/uL (3.8-10.6)
[2018-09-04 19:59] LABS: HGB 9.5 gm/dL (13.0-17.5)
[2018-09-04 20:02] LABS: Glucose,Whole Blood 144 mg/dL (75-99)
[2018-09-04] MEDS: IPRATROPIUM-ALBUTEROL 3 ML NEB INHALATION SCH (20:04)
[2018-09-04] MEDS ORDERED: NOREPINEPHRINE 16 MG in SODIUM CHLORIDE 0.9% 250 ML IV SCH (20:30)
[2018-09-04 21:27] LABS: Glucose,Whole Blood 137 mg/dL (75-99)
[2018-09-04 22:30] LABS: Glucose,Whole Blood 148 mg/dL (75-99)
[2018-09-04 23:07] LABS: Glucose,Whole Blood 153 mg/dL (75-99)
[2018-09-04] MEDS: HEPARIN SODIUM,PORCINE 5,000 UNIT/ML 1 ML VIAL SQ SCH (23:37)
[2018-09-04] MEDS: MUPIROCIN 2% OINT 22 GM TUBE NASAL SCH (23:39)
[2018-09-05 00:09] LABS: Glucose,Whole Blood 145 mg/dL (75-99)
[2018-09-05] MEDS: ALBUMIN HUMAN 5% 250 ML in EMPTY BAG 1 BAG IVPB PRN (00:15)
[2018-09-05 01:15] LABS: Glucose,Whole Blood 145 mg/dL (75-99)
[2018-09-05] MEDS: LACTATED RINGERS 500 ML IV SCH ×2 (01:20→01:30)
[2018-09-05 02:09] LABS: Glucose,Whole Blood 129 mg/dL (75-99)
[2018-09-05 03:25] LABS: Glucose,Whole Blood 125 mg/dL (75-99)
[2018-09-05 04:19] LABS: Glucose,Whole Blood 127 mg/dL (75-99)
[2018-09-05 05:05] LABS: Basophils % (A) 0 %; Eosinophils # (A) 0.1 k/uL (0-0.7); Eosinophils % (A) 1 %; HCT 25.7 % (39.0-53.0); HGB 8.9 gm/dL (13.0-17.5); Lymphocytes # (A) 1.4 k/uL (1.0-4.8); Lymphocytes % (A) 20 %; MCH 32.9 pg (25.0-35.0); MCHC 34.6 g/dL (31.0-37.0); Mean Platelet Volume 8.6; Monocytes # (A) 0.4 k/uL (0-1.0); Monocytes % (A) 6 %; Neutrophils # (A) 4.9 k/uL (1.3-7.7); Neutrophils % (A) 71 %; Platelet Count 129 k/uL (150-450); RDW 14.3 % (11.5-15.5); WBC 6.9 k/uL (3.8-10.6)
[2018-09-05 05:18] LABS: INR 1.2 (<1.2); Partial Thromboplastin Time 31.6 sec (22.0-30.0); Prothrombin Time 11.8 sec (9.0-12.0)
[2018-09-05 05:20] LABS: Glucose,Whole Blood 125 mg/dL (75-99)
[2018-09-05 05:23] LABS: Ionized Calcium 4.6 mg/dL (4.5-5.3)
[2018-09-05] MEDS: HEPARIN SODIUM,PORCINE 5,000 UNIT/ML 1 ML VIAL SQ SCH ×3 (05:30→20:24)
[2018-09-05 05:48] LABS: ALT 34 U/L (21-72); AST 41 U/L (17-59); Albumin 3.8 g/dL (3.5-5.0); Alkaline Phosphatase 51 U/L (38-126); Anion Gap 10 mmol/L; Blood Urea Nitrogen 10 mg/dL (9-20); Calcium 8.3 mg/dL (8.4-10.2); Carbon Dioxide 24 mmol/L (22-30); Chloride 106 mmol/L (98-107); Glucose 116 mg/dL (74-99); Magnesium 2.1 mg/dL (1.6-2.3); Potassium 4.3 mmol/L (3.5-5.1); Sodium 140 mmol/L (137-145); Total Protein 6.1 g/dL (6.3-8.2)
[2018-09-05] MEDS: ACETAMINOPHEN IV (For NPO) 1,000 MG in EMPTY BAG 1 BAG IVPB SCH ×3 (06:53→16:10)
[2018-09-05] MEDS: KETOROLAC 30 MG/ML 1 ML VIAL IVP PRN ×3 (06:58→20:24)
[2018-09-05 07:21] LABS: Glucose,Whole Blood 125 mg/dL (75-99)
--- NOTE | 2018-09-05 08:21 | P.PN ---
Subjective Progress Note Date: 09/05/18 Principal diagnosis: Coronary artery disease with left main disease, hypertension, hyperlipidemia, history of myocardial infarction, history of coronary artery disease with stent placement to his right coronary artery in March 2016 and stent placement to his left anterior descending coronary artery and right coronary artery in March 2017 , anxiety, degenerative disc disease, current nicotine dependence and family history of early onset coronary artery disease with his dad passing away from a myocardial infarction in his 50s. POD #1 coronary artery bypass grafting 2 vessels with his left internal mammary artery to the left anterior descending coronary artery, reverse greater saphenous vein graft to the ramus coronary artery. Endoscopic vein harvest of the right greater saphenous vein. Intraoperative transesophageal echocardiogram and epi-aortic ultrasound. The patient is sitting up to the bedside chair. He is in no acute distress. He currently rates his pain 8 out of 10 on the pain scale 2 his chest tube insertion sites. He denies any complaints of shortness of breath, although he is on 14 L high flow nasal cannula with his oxygen saturations 97%. He is achieving 500 mL on his incentive spirometry with encouragement. He is afebrile at this time WBC count this morning is 6.9. He remains on norepinephrine at 2 mcg per minute. Objective - Vital Signs Vital signs: Vital Signs Temp 98.8 F 09/04/18 19:37 Pulse 80 09/05/18 07:00 Resp 32 H 09/05/18 07:00 BP 124/62 09/05/18 07:00 Pulse Ox 96 09/05/18 07:00 Intake & Output 09/04/18 09/05/18 09/05/18 18:59 06:59 18:59 Intake Total 8386.438 1579.040 214.619 Output Total 2980 1076 225 Balance -2250.695 4158.040 -10.381 Weight 77.8 kg 87.2 kg Intake: IV 89 2384.5 190.5 ACETAMINOPHEN IV (For NPO 100 100 ) 1,000 mg In Empty Bag 1 bag @ 400 mls/hr IVPB Q6HR [facility] Rx#:[id number] Albumin Human 5% 250 ml 750 In Empty Bag 1 bag @ 250 mls/hr IVPB Q1HR PRN Rx#: [id number] Fluid Bolus 500 Lactated Ringers 1,000 ml 550 50 @ 20 mls/hr IV .Q24H [facility] Rx#:[id number] Nitroglycerin-D5w Pmx 50 16.5 1.5 mg In Dextrose/Water 1 250ml.bag @ 5 MCG/MIN 1.5 mls/hr IV .Q24H [facility] Rx#: [id number] cardiac output 50 360 30 pressure bag 36 108 9 Intake, IV Titration 812.970 349.540 24.119 Amount Albumin Human 25% 50 ml @ 250 250 Per Protocol IV ONCE ONE Rx#:[id number] Clevidipine Butyrate 25 55.834 0 mg In Empty Bag 1 bag @ 1 MG/HR 2 mls/hr IV .Q24H [facility] Rx#:[id number] Desmopressin Acetate 24 50 mcg In Sodium Chloride 0. 9% 50 ml @ 200 mls/hr IVPB ONCE ONE Rx#: [id number] Insulin Regular 100 unit 2.273 19.454 In Sodium Chloride 0.9% 100 ml @ Per Protocol IV .Q0M [facility] Rx#:[id number] Lactated Ringers 1,000 ml 200 50 @ 20 mls/hr IV .Q24H [facility] Rx#:[id number] Milrinone-D5w Pmx 20 mg 16.975 In Dextrose/Water 1 100ml .bag @ 0.3 MCG/KG/MIN 7 mls/hr IV .[id number] [facility] Rx #:[id number] Norepinephrine 16 mg In 2.961 24.119 Sodium Chloride 0.9% 250 ml @ Titrate IV .Q0M [facility] Rx#:[id number] Potassium Chloride 10 meq 200 In Water For Injection 1 100ml.bag @ 100 mls/hr IVPB Q1H [facility] Rx#: [id number] Propofol 1,000 mg In 54.863 10.15 Empty Bag 1 bag @ Titrate IV .Q0M [facility] Rx#: [id number] Oral 50 Blood Product 302 Platelet Irr Pheresis 2 302 Acda Unit [id number] Output: Chest Tube Drainage 350 640 160 left and right 270 250 130 mediastinal left pleural 80 390 30 Urine 1630 436 65 Estimated Blood Loss 1000 Other: Voiding Method Indwelling Catheter Indwelling Catheter ABP, PAP, CO, CI - Last Documented Arterial Blood Pressure 40/37 Pulmonary Artery Pressure 33/13 Cardiac Output 6.0 Cardiac Index 3.0 - Constitutional General appearance: Present: cooperative, no acute distress, obese - Respiratory Details: Lung sounds essentially clear to his bilateral upper lobes, diminished to his bilateral bases. Respirations are symmetrical and nonlabored. Oxygen saturation are 97% on 14 L high flow nasal cannula. He is achieving 500 mL on his incentive spirometry. Mediastinal and left pleural chest tubes remain in place to low continuous wall suction -20 cm H2O. No air leak is present. Draining thin serosanguineous drainage. Mediastinal chest tubes with 140 mL output in the last 8 hours, 620 mL output since surgery. Left pleural chest tubes with 250 mL output in the last 8 hours, 490 mL output since surgery. - Cardiovascular Details: Regular rhythm and rate. S1 and S2 present, negative for S3, gallop or murmur. Sternum is stable. Heart hugger is in place and he is demonstrating appropriate use. Bedside telemetry showing normal sinus rhythm heart rate 73. Atrial and ventricular epicardial pacemaker wires in place and connected to the back up to bedside pacemaker generator VVI 50. Right IJ [place] and [place] catheter in place and functioning. Cardiac output 6.6, cardiac index 3.4, PA pressures 32/15, CVP 10 mmHg. Knee-high FRANSICO hose and sequential compression devices in place to his bilateral lower extremities. - Gastrointestinal Gastrointestinal Comment(s): Abdomen is soft, nontender and nondistended. Hypoactive bowel sounds all 4 abdominal quadrants. No organomegaly palpated, no guarding or rigidity. Tolerating oral intake. - Genitourinary Genitourinary Comment(s): Franco catheter for accurate I&O. Draining clear marisela urine. 245 mL output in the last 8 hours. - Integumentary Integumentary Comment(s): Skin is warm and dry. Clubbing present bilateral fingers. No cyanosis present. Midline sternal incision is clean, dry and approximated. No drainage and redness present. Right leg EVH site clean, dry and approximated. No drainage or redness present. - Neurologic Neurologic: Present: CNII-XII intact - Musculoskeletal Musculoskeletal: Present: gait normal, generalized weakness, strength equal bilaterally - Psychiatric Psychiatric: Present: A&O x's 3, appropriate affect, intact judgment & insight - Allied health notes Allied health notes reviewed: nursing - Labs CBC & Chem 7: 09/05/18 04:02 09/05/18 04:02 Labs: Abnormal Lab Results - Last 24 Hours (Table) 09/02/18 09/04/18 09/04/18 Range/Units 10:53 08:38 09:39 RBC (4.30-5.90) m/uL Hgb (13.0-17.5) gm/dL Hct (39.0-53.0) % Plt Count (150-450) k/uL Neutrophils # (1.3-7.7) k/uL Lymphocytes # (1.0-4.8) k/uL INR (<1.2) APTT (22.0-30.0) sec ABG pH (7.35-7.45) ABG pCO2 (35-45) mmHg ABG pO2 223 H 154 H (83-108) mmHg ABG HCO3 (21-25) mmol/L ABG Total CO2 26 H 25 H (19-24) mmol/L ABG O2 Saturation 99.8 H 99.7 H (94-97) % ABG Hematocrit (34.0-46.0) % ABG Sodium (135-146) mmol/L ABG Potassium (3.4-4.5) mmol/L ABG Ionized Calcium (4.5-5.3) mg/dL ABG Glucose (75-99) mg/dL ABG Lactic Acid (0.5-1.6) mmol/L Hemoglobin 11.9 L (13.0-17.5) gm/dL Chloride (98-107) mmol/L Glucose (74-99) mg/dL POC Glucose (mg/dL) (75-99) mg/dL Calcium (8.4-10.2) mg/dL Magnesium (1.6-2.3) mg/dL Total Protein (6.3-8.2) g/dL Albumin (3.5-5.0) g/dL Arterial Blood Potassium (3.4-4.5) mmol/L Arterial Blood Glucose (75-99) mg/dL Crossmatch See Detail 09/04/18 09/04/18 09/04/18 Range/Units 10:29 10:35 10:55 RBC (4.30-5.90) m/uL Hgb (13.0-17.5) gm/dL Hct (39.0-53.0) % Plt Count (150-450) k/uL Neutrophils # (1.3-7.7) k/uL Lymphocytes # (1.0-4.8) k/uL INR (<1.2) APTT (22.0-30.0) sec ABG pH 7.34 L (7.35-7.45) ABG pCO2 46 H (35-45) mmHg ABG pO2 338 H 51 L* 406 H (83-108) mmHg ABG HCO3 (21-25) mmol/L ABG Total CO2 26 H (19-24) mmol/L ABG O2 Saturation 100.0 H 84.2 L 100.0 H (94-97) % ABG Hematocrit 27 L 27 L 28 L (34.0-46.0) % ABG Sodium 131 L 131 L 132 L (135-146) mmol/L ABG Potassium 6.1 H 6.6 H* 6.4 H* (3.4-4.5) mmol/L ABG Ionized Calcium 4.0 L 4.1 L 4.1 L (4.5-5.3) mg/dL ABG Glucose 204 H 217 H 204 H (75-99) mg/dL ABG Lactic Acid (0.5-1.6) mmol/L Hemoglobin 8.9 L 8.9 L 9.1 L (13.0-17.5) gm/dL Chloride (98-107) mmol/L Glucose (74-99) mg/dL POC Glucose (mg/dL) (75-99) mg/dL Calcium (8.4-10.2) mg/dL Magnesium (1.6-2.3) mg/dL Total Protein (6.3-8.2) g/dL Albumin (3.5-5.0) g/dL Arterial Blood Potassium 6.1 H 6.6 H* 6.4 H* (3.4-4.5) mmol/L Arterial Blood Glucose 204 H 217 H 204 H (75-99) mg/dL Crossmatch 09/04/18 09/04/18 09/04/18 Range/Units 11:10 11:24 12:14 RBC (4.30-5.90) m/uL Hgb (13.0-17.5) gm/dL Hct (39.0-53.0) % Plt Count (150-450) k/uL Neutrophils # (1.3-7.7) k/uL Lymphocytes # (1.0-4.8) k/uL INR (<1.2) APTT (22.0-30.0) sec ABG pH 7.33 L 7.32 L (7.35-7.45) ABG pCO2 34 L 49 H (35-45) mmHg ABG pO2 393 H >420 H 227 H (83-108) mmHg ABG HCO3 (21-25) mmol/L ABG Total CO2 25 H 27 H (19-24) mmol/L ABG O2 Saturation 100.0 H 100.0 H 99.7 H (94-97) % ABG Hematocrit 25 L 24 L 32 L (34.0-46.0) % ABG Sodium 134 L (135-146) mmol/L ABG Potassium 6.0 H 5.0 H (3.4-4.5) mmol/L ABG Ionized Calcium 4.2 L 3.9 L 3.8 L (4.5-5.3) mg/dL ABG Glucose 188 H 168 H 144 H (75-99) mg/dL ABG Lactic Acid 1.8 H 2.0 H 1.9 H (0.5-1.6) mmol/L Hemoglobin 8.2 L 7.9 L 10.3 L (13.0-17.5) gm/dL Chloride (98-107) mmol/L Glucose (74-99) mg/dL POC Glucose (mg/dL) (75-99) mg/dL Calcium (8.4-10.2) mg/dL Magnesium (1.6-2.3) mg/dL Total Protein (6.3-8.2) g/dL Albumin (3.5-5.0) g/dL Arterial Blood Potassium 6.0 H 5.0 H (3.4-4.5) mmol/L Arterial Blood Glucose 188 H 168 H 144 H (75-99) mg/dL Crossmatch 09/04/18 09/04/18 09/04/18 Range/Units 13:20 13:20 13:20 RBC 3.56 L (4.30-5.90) m/uL Hgb 11.5 L (13.0-17.5) gm/dL Hct 33.7 L (39.0-53.0) % Plt Count 119 L (150-450) k/uL Neutrophils # (1.3-7.7) k/uL Lymphocytes # (1.0-4.8) k/uL INR 1.2 H (<1.2) APTT 31.3 H (22.0-30.0) sec ABG pH (7.35-7.45) ABG pCO2 (35-45) mmHg ABG pO2 (83-108) mmHg ABG HCO3 (21-25) mmol/L ABG Total CO2 (19-24) mmol/L ABG O2 Saturation (94-97) % ABG Hematocrit (34.0-46.0) % ABG Sodium (135-146) mmol/L ABG Potassium (3.4-4.5) mmol/L ABG Ionized Calcium (4.5-5.3) mg/dL ABG Glucose (75-99) mg/dL ABG Lactic Acid (0.5-1.6) mmol/L Hemoglobin (13.0-17.5) gm/dL Chloride 109 H (98-107) mmol/L Glucose (74-99) mg/dL POC Glucose (mg/dL) (75-99) mg/dL Calcium 7.9 L (8.4-10.2) mg/dL Magnesium 2.8 H (1.6-2.3) mg/dL Total Protein 5.6 L (6.3-8.2) g/dL Albumin 2.9 L (3.5-5.0) g/dL Arterial Blood Potassium (3.4-4.5) mmol/L Arterial Blood Glucose (75-99) mg/dL Crossmatch 09/04/18 09/04/18 09/04/18 Range/Units 13:36 16:00 16:05 RBC 3.50 L (4.30-5.90) m/uL Hgb 12.2 L (13.0-17.5) gm/dL Hct 33.5 L (39.0-53.0) % Plt Count (150-450) k/uL Neutrophils # 8.3 H (1.3-7.7) k/uL Lymphocytes # (1.0-4.8) k/uL INR (<1.2) APTT (22.0-30.0) sec ABG pH 7.28 L (7.35-7.45) ABG pCO2 58 H (35-45) mmHg ABG pO2 (83-108) mmHg ABG HCO3 27 H (21-25) mmol/L ABG Total CO2 29 H (19-24) mmol/L ABG O2 Saturation 98.0 H (94-97) % ABG Hematocrit (34.0-46.0) % ABG Sodium (135-146) mmol/L ABG Potassium (3.4-4.5) mmol/L ABG Ionized Calcium (4.5-5.3) mg/dL ABG Glucose (75-99) mg/dL ABG Lactic Acid (0.5-1.6) mmol/L Hemoglobin (13.0-17.5) gm/dL Chloride (98-107) mmol/L Glucose (74-99) mg/dL POC Glucose (mg/dL) 131 H (75-99) mg/dL Calcium (8.4-10.2) mg/dL Magnesium (1.6-2.3) mg/dL Total Protein (6.3-8.2) g/dL Albumin (3.5-5.0) g/dL Arterial Blood Potassium (3.4-4.5) mmol/L Arterial Blood Glucose (75-99) mg/dL Crossmatch 09/04/18 09/04/18 09/04/18 Range/Units 17:13 18:14 18:51 RBC (4.30-5.90) m/uL Hgb (13.0-17.5) gm/dL Hct (39.0-53.0) % Plt Count (150-450) k/uL Neutrophils # (1.3-7.7) k/uL Lymphocytes # (1.0-4.8) k/uL INR (<1.2) APTT (22.0-30.0) sec ABG pH (7.35-7.45) ABG pCO2 (35-45) mmHg ABG pO2 (83-108) mmHg ABG HCO3 26 H (21-25) mmol/L ABG Total CO2 28 H (19-24) mmol/L ABG O2 Saturation 98.7 H (94-97) % ABG Hematocrit (34.0-46.0) % ABG Sodium (135-146) mmol/L ABG Potassium (3.4-4.5) mmol/L ABG Ionized Calcium (4.5-5.3) mg/dL ABG Glucose (75-99) mg/dL ABG Lactic Acid (0.5-1.6) mmol/L Hemoglobin (13.0-17.5) gm/dL Chloride (98-107) mmol/L Glucose (74-99) mg/dL POC Glucose (mg/dL) 132 H 144 H (75-99) mg/dL Calcium (8.4-10.2) mg/dL Magnesium (1.6-2.3) mg/dL Total Protein (6.3-8.2) g/dL Albumin (3.5-5.0) g/dL Arterial Blood Potassium (3.4-4.5) mmol/L Arterial Blood Glucose (75-99) mg/dL Crossmatch 09/04/18 09/04/18 09/04/18 Range/Units 19:12 19:30 20:00 RBC 2.87 L (4.30-5.90) m/uL Hgb 9.5 L D (13.0-17.5) gm/dL Hct 27.2 L (39.0-53.0) % Plt Count 142 L (150-450) k/uL Neutrophils # (1.3-7.7) k/uL Lymphocytes # 0.6 L (1.0-4.8) k/uL INR (<1.2) APTT (22.0-30.0) sec ABG pH (7.35-7.45) ABG pCO2 (35-45) mmHg ABG pO2 (83-108) mmHg ABG HCO3 (21-25) mmol/L ABG Total CO2 (19-24) mmol/L ABG O2 Saturation (94-97) % ABG Hematocrit (34.0-46.0) % ABG Sodium (135-146) mmol/L ABG Potassium (3.4-4.5) mmol/L ABG Ionized Calcium (4.5-5.3) mg/dL ABG Glucose (75-99) mg/dL ABG Lactic Acid (0.5-1.6) mmol/L Hemoglobin (13.0-17.5) gm/dL Chloride (98-107) mmol/L Glucose (74-99) mg/dL POC Glucose (mg/dL) 146 H 144 H (75-99) mg/dL Calcium (8.4-10.2) mg/dL Magnesium (1.6-2.3) mg/dL Total Protein (6.3-8.2) g/dL Albumin (3.5-5.0) g/dL Arterial Blood Potassium (3.4-4.5) mmol/L Arterial Blood Glucose (75-99) mg/dL Crossmatch 09/04/18 09/04/18 09/04/18 Range/Units 21:08 22:14 23:03 RBC (4.30-5.90) m/uL Hgb (13.0-17.5) gm/dL Hct (39.0-53.0) % Plt Count (150-450) k/uL Neutrophils # (1.3-7.7) k/uL Lymphocytes # (1.0-4.8) k/uL INR (<1.2) APTT (22.0-30.0) sec ABG pH (7.35-7.45) ABG pCO2 (35-45) mmHg ABG pO2 (83-108) mmHg ABG HCO3 (21-25) mmol/L ABG Total CO2 (19-24) mmol/L ABG O2 Saturation (94-97) % ABG Hematocrit (34.0-46.0) % ABG Sodium (135-146) mmol/L ABG Potassium (3.4-4.5) mmol/L ABG Ionized Calcium (4.5-5.3) mg/dL ABG Glucose (75-99) mg/dL ABG Lactic Acid (0.5-1.6) mmol/L Hemoglobin (13.0-17.5) gm/dL Chloride (98-107) mmol/L Glucose (74-99) mg/dL POC Glucose (mg/dL) 137 H 148 H 153 H (75-99) mg/dL Calcium (8.4-10.2) mg/dL Magnesium (1.6-2.3) mg/dL Total Protein (6.3-8.2) g/dL Albumin (3.5-5.0) g/dL Arterial Blood Potassium (3.4-4.5) mmol/L Arterial Blood Glucose (75-99) mg/dL Crossmatch 09/05/18 09/05/18 09/05/18 Range/Units 00:07 00:59 02:03 RBC (4.30-5.90) m/uL Hgb (13.0-17.5) gm/dL Hct (39.0-53.0) % Plt Count (150-450) k/uL Neutrophils # (1.3-7.7) k/uL Lymphocytes # (1.0-4.8) k/uL INR (<1.2) APTT (22.0-30.0) sec ABG pH (7.35-7.45) ABG pCO2 (35-45) mmHg ABG pO2 (83-108) mmHg ABG HCO3 (21-25) mmol/L ABG Total CO2 (19-24) mmol/L ABG O2 Saturation (94-97) % ABG Hematocrit (34.0-46.0) % ABG Sodium (135-146) mmol/L ABG Potassium (3.4-4.5) mmol/L ABG Ionized Calcium (4.5-5.3) mg/dL ABG Glucose (75-99) mg/dL ABG Lactic Acid (0.5-1.6) mmol/L Hemoglobin (13.0-17.5) gm/dL Chloride (98-107) mmol/L Glucose (74-99) mg/dL POC Glucose (mg/dL) 145 H 145 H 129 H (75-99) mg/dL Calcium (8.4-10.2) mg/dL Magnesium (1.6-2.3) mg/dL Total Protein (6.3-8.2) g/dL Albumin (3.5-5.0) g/dL Arterial Blood Potassium (3.4-4.5) mmol/L Arterial Blood Glucose (75-99) mg/dL Crossmatch 09/05/18 09/05/18 09/05/18 Range/Units 03:18 04:02 04:02 RBC 2.70 L (4.30-5.90) m/uL Hgb 8.9 L (13.0-17.5) gm/dL Hct 25.7 L (39.0-53.0) % Plt Count 129 L (150-450) k/uL Neutrophils # (1.3-7.7) k/uL Lymphocytes # (1.0-4.8) k/uL INR 1.2 H (<1.2) APTT 31.6 H (22.0-30.0) sec ABG pH (7.35-7.45) ABG pCO2 (35-45) mmHg ABG pO2 (83-108) mmHg ABG HCO3 (21-25) mmol/L ABG Total CO2 (19-24) mmol/L ABG O2 Saturation (94-97) % ABG Hematocrit (34.0-46.0) % ABG Sodium (135-146) mmol/L ABG Potassium (3.4-4.5) mmol/L ABG Ionized Calcium (4.5-5.3) mg/dL ABG Glucose (75-99) mg/dL ABG Lactic Acid (0.5-1.6) mmol/L Hemoglobin (13.0-17.5) gm/dL Chloride (98-107) mmol/L Glucose (74-99) mg/dL POC Glucose (mg/dL) 125 H (75-99) mg/dL Calcium (8.4-10.2) mg/dL Magnesium (1.6-2.3) mg/dL Total Protein (6.3-8.2) g/dL Albumin (3.5-5.0) g/dL Arterial Blood Potassium (3.4-4.5) mmol/L Arterial Blood Glucose (75-99) mg/dL Crossmatch 09/05/18 09/05/18 09/05/18 Range/Units 04:02 04:05 05:09 RBC (4.30-5.90) m/uL Hgb (13.0-17.5) gm/dL Hct (39.0-53.0) % Plt Count (150-450) k/uL Neutrophils # (1.3-7.7) k/uL Lymphocytes # (1.0-4.8) k/uL INR (<1.2) APTT (22.0-30.0) sec ABG pH (7.35-7.45) ABG pCO2 (35-45) mmHg ABG pO2 (83-108) mmHg ABG HCO3 (21-25) mmol/L ABG Total CO2 (19-24) mmol/L ABG O2 Saturation (94-97) % ABG Hematocrit (34.0-46.0) % ABG Sodium (135-146) mmol/L ABG Potassium (3.4-4.5) mmol/L ABG Ionized Calcium (4.5-5.3) mg/dL ABG Glucose (75-99) mg/dL ABG Lactic Acid (0.5-1.6) mmol/L Hemoglobin (13.0-17.5) gm/dL Chloride (98-107) mmol/L Glucose 116 H (74-99) mg/dL POC Glucose (mg/dL) 127 H 125 H (75-99) mg/dL Calcium 8.3 L (8.4-10.2) mg/dL Magnesium (1.6-2.3) mg/dL Total Protein 6.1 L (6.3-8.2) g/dL Albumin (3.5-5.0) g/dL Arterial Blood Potassium (3.4-4.5) mmol/L Arterial Blood Glucose (75-99) mg/dL Crossmatch 09/05/18 Range/Units 07:05 RBC (4.30-5.90) m/uL Hgb (13.0-17.5) gm/dL Hct (39.0-53.0) % Plt Count (150-450) k/uL Neutrophils # (1.3-7.7) k/uL Lymphocytes # (1.0-4.8) k/uL INR (<1.2) APTT (22.0-30.0) sec ABG pH (7.35-7.45) ABG pCO2 (35-45) mmHg ABG pO2 (83-108) mmHg ABG HCO3 (21-25) mmol/L ABG Total CO2 (19-24) mmol/L ABG O2 Saturation (94-97) % ABG Hematocrit (34.0-46.0) % ABG Sodium (135-146) mmol/L ABG Potassium (3.4-4.5) mmol/L ABG Ionized Calcium (4.5-5.3) mg/dL ABG Glucose (75-99) mg/dL ABG Lactic Acid (0.5-1.6) mmol/L Hemoglobin (13.0-17.5) gm/dL Chloride (98-107) mmol/L Glucose (74-99) mg/dL POC Glucose (mg/dL) 125 H (75-99) mg/dL Calcium (8.4-10.2) mg/dL Magnesium (1.6-2.3) mg/dL Total Protein (6.3-8.2) g/dL Albumin (3.5-5.0) g/dL Arterial Blood Potassium (3.4-4.5) mmol/L Arterial Blood Glucose (75-99) mg/dL Crossmatch - Imaging and Cardiology Chest x-ray: report reviewed, image reviewed Assessment and Plan (1) Anxiety Current Visit: Yes Status: Acute Code(s): F41.9 - ANXIETY DISORDER, UNSPECIFIED SNOMED Code(s): 69215547 (2) Family history of coronary artery disease in father Current Visit: No Status: Acute Code(s): Z82.49 - FAMILY HX OF ISCHEM HEART DIS AND OTH DIS OF THE CIRC SYS SNOMED Code(s): 691880212 (3) History of coronary artery disease Current Visit: No Status: Acute Code(s): Z86.79 - PERSONAL HISTORY OF OTHER DISEASES OF THE CIRCULATORY SYSTEM SNOMED Code(s): 434353710 (4) History of myocardial infarction Current Visit: No Status: Acute Code(s): I25.2 - OLD MYOCARDIAL INFARCTION SNOMED Code(s): 466441331 (5) Hyperlipidemia Current Visit: No Status: Acute Code(s): E78.5 - HYPERLIPIDEMIA, UNSPECIFIED SNOMED Code(s): 23711594 (6) Hypertension Current Visit: No Status: Acute Code(s): I10 - ESSENTIAL (PRIMARY) HYPERTENSION SNOMED Code(s): 78493171 (7) Nicotine dependence Current Visit: No Status: Acute Code(s): F17.200 - NICOTINE DEPENDENCE, UNSPECIFIED, UNCOMPLICATED SNOMED Code(s): 65598851 Plan: 1. Continue aspirin, statin, Plavix and beta gisbon. We will increase his beta gibson as tolerated. 2. Discontinue nitroglycerin drip. 3. Wean oxygen as tolerated, encourage use of his incentive spirometry every hour while awake. 4. Bronchodilator and pulmonary management recommendations per Dr. Stoll. 5. Will monitor daily labs and x-rays. 6. GI prophylaxis with Protonix, DVT prophylaxis with subcu heparin and SCDs. 7. Insulin management per primary care service. 8. Increased activity as tolerated. PT/OT/cardiac rehab consulted. 9. Wean norepinephrine drip as tolerated.. 10. Pain control per current when necessary orders. Toradol 15 mg every 6 hours when necessary pain added to his pain control regimen. 11. More recommendations to follow based on patient's clinical course. Time with Patient: Greater than 30
[2018-09-05] MEDS: IPRATROPIUM-ALBUTEROL 3 ML NEB INHALATION SCH ×4 (08:33→20:20)
--- NOTE | 2018-09-05 08:58 | XR ---
EXAMINATION TYPE: XR chest 1V portable DATE OF EXAM: 09/05/2018 COMPARISON: 09/04/2018 HISTORY: Status post cardiac surgery. Follow-up exam. TECHNIQUE: Single frontal view of the chest is obtained. FINDINGS: There is been interval removal of the endotracheal and enteric tubes. Right-sided [place] z catheter, mediastinal drain and left-sided thoracostomy tube remain. Cardia mediastinal silhouette is again mildly enlarged with post CABG changes of the chest. There is an increasing left basilar opa [place] and pleural effusion blunting the left costophrenic angle and obscuring the left hemidiaphragm. Right lung demonstrates scattered areas of subsegmental atelectasis. No sizable pneumothorax is seen. IMPRESSION: Slight worsening of the left basilar opacity and left pleural effusion. No residual pneu mothorax. Status post extubation and removal of the enteric tube.
[2018-09-05] MEDS ORDERED: PANTOPRAZOLE 40 MG/10 ML VIAL IVP SCH (09:00)
[2018-09-05 09:18] LABS: Glucose,Whole Blood 115 mg/dL (75-99)
[2018-09-05] MEDS: ceFAZolin IN SWFI 2 GM/20 ML SYRINGE IVP SCH (10:01)
[2018-09-05] MEDS: METOPROLOL TARTRATE 12.5 MG TAB PO SCH ×2 (10:02→20:25)
[2018-09-05] MEDS: MILRINONE-D5W PMX 20 MG in DEXTROSE/WATER 1 100ML.BAG IV SCH ×2 (10:02→16:11)
[2018-09-05] MEDS: CLOPIDOGREL 75 MG TAB PO SCH (10:02)
[2018-09-05] MEDS: ATORVASTATIN 40 MG TAB PO SCH (10:02)
[2018-09-05] MEDS: PANTOPRAZOLE 40 MG TABLET PO SCH (10:02)
[2018-09-05] MEDS: ASPIRIN 325 MG TAB PO SCH (10:02)
[2018-09-05] MEDS: MUPIROCIN 2% OINT 22 GM TUBE NASAL SCH ×2 (10:02→20:25)
--- NOTE | 2018-09-05 10:20 | P.PN ---
Subjective Progress Note Date: 09/05/18 Principal diagnosis: Coronary artery disease status post 2 vessel bypass grafting This a 58-year-old white male patient who we met in the preop period last week on 08/23/2018 for preop pulmonary evaluation. Patient initially was seen in the hospital on 08/23/2018 and planing of chest pain. He was found to have mild in-stent restenosis involving the proximal RCA, severe disease involving the PDA branch of the RCA, severe disease above the distal left main in the range of 50%, mild disease involving the left circumflex and in-stent restenosis which was mild involving the proximal and mid LAD. Patient was recommended to have surgical evaluation for coronary artery bypass grafting area and today on 09/04/2018 he had 2 vessel bypass with FELICIANO to LAD, and saphenous venous graft to the ramus. Other medical history includes moderately severe COPD and preop PFT showed FEV1 of 2.3 L or 76%, an FVC of 3.2 L or 79% of predicted with diffusion abnormality, with DLCO of 21.6 percent of predicted. He has previous history of coronary stenting, he has chronic and ongoing nicotine dependence, carries [id number] smoking history of 1-1/2 packs per day, hypertension, hyperlipidemia, previous myocardial infarction and EtOH dependence. Currently patient is sedated, and intubated, on mechanical ventilator, he seen in the postop period in the intensive care unit, hemodynamically stable, cardiac output was 7.8, and cardiac index was 4.2. He has 2 mediastinal chest tubes and left pleural chest tube with small amount of sanguinous drainage. He is currently on lactated Ringer's at a rate of 50 ML per hour, milrinone at 0.25 mics per kilo per minute, nitroglycerin at 5 mics per minute, clevidipine at 20 mg per hour, Diprivan at 45 mics per kilo per minute. Current vent settings are SIMV mode with a rate of 16, tidal volume of 450, FiO2 of 80%, and PEEP of 8. Postop chest x-ray has been reviewed by Dr. Stoll which showed some basilar atelectasis, endotracheal tube, NG tube, PA catheter, mediastinal drains and chest tubes are appropriately placed. Postoperative blood gases showed pO2 of 227, pCO2 of 49, pH is 7.32. Postop blood work showed WBC of 6.9, hemoglobin of 11.5, platelet count of 119, INR is 1.2, electrolytes and renal profile was unremarkable. On 09/05/2018 patient seen in follow-up in the intensive care unit, this is postop day 1 status post two-vessel bypass grafting. Patient was extubated at 1910 yesterday on 09/04/2018. His morning he seen sitting up in the recliner, currently on 12 L per high flow nasal cannula, he is hemodynamically stable, afebrile, in sinus mechanism with a controlled rate. He is having some mild to moderate incisional discomfort, but no acute distress. Today's chest x-ray has been reviewed, shows slightly worsening left basilar opacity and left pleural effusion, no residual pneumothorax. An incentive spirometer effort is 500 mL today. Lung sounds are diminished. Today's labs have been reviewed, WBC 6.9, hemoglobin is 8.9. Renal profile and electrolytes are unremarkable. PA pressures 36/13 with a CVP of 8, cardiac output is 6.6, and cardiac index is 3.5 , maintenance IV fluids is lactated Ringer's at 20 ML per hour, nitroglycerin has been weaned off, levo fed is currently 2 mics per minute, and insulin is on hold. He is producing urine in order of 35-65 ML per hour, left and right mediastinal chest tube output is 650 ML in last 24 hours, and 500 mL out of left pleural in the last 24 hours. Hemodynamically patient is stable. Objective - Vital Signs Vital signs: Vital Signs Temp 98.8 F 09/04/18 19:37 Pulse 77 09/05/18 08:45 Resp 32 H 09/05/18 07:00 BP 124/62 09/05/18 07:00 Pulse Ox 96 09/05/18 07:00 Intake & Output 09/04/18 09/05/18 09/05/18 18:59 06:59 18:59 Intake Total 2189.871 2702.040 214.619 Output Total 2980 1076 225 Balance -9204.588 3476.040 -10.381 Weight 77.8 kg 87.2 kg Intake: IV 89 2384.5 190.5 ACETAMINOPHEN IV (For NPO 100 100 ) 1,000 mg In Empty Bag 1 bag @ 400 mls/hr IVPB Q6HR [facility] Rx#:[id number] Albumin Human 5% 250 ml 750 In Empty Bag 1 bag @ 250 mls/hr IVPB Q1HR PRN Rx#: [id number] Fluid Bolus 500 Lactated Ringers 1,000 ml 550 50 @ 20 mls/hr IV .Q24H [facility] Rx#:[id number] Nitroglycerin-D5w Pmx 50 16.5 1.5 mg In Dextrose/Water 1 250ml.bag @ 5 MCG/MIN 1.5 mls/hr IV .Q24H [facility] Rx#: [id number] cardiac output 50 360 30 pressure bag 36 108 9 Intake, IV Titration 812.970 349.540 24.119 Amount Albumin Human 25% 50 ml @ 250 250 Per Protocol IV ONCE ONE Rx#:[id number] Clevidipine Butyrate 25 55.834 0 mg In Empty Bag 1 bag @ 1 MG/HR 2 mls/hr IV .Q24H [facility] Rx#:[id number] Desmopressin Acetate 24 50 mcg In Sodium Chloride 0. 9% 50 ml @ 200 mls/hr IVPB ONCE ONE Rx#: [id number] Insulin Regular 100 unit 2.273 19.454 In Sodium Chloride 0.9% 100 ml @ Per Protocol IV .Q0M [facility] Rx#:[id number] Lactated Ringers 1,000 ml 200 50 @ 20 mls/hr IV .Q24H [facility] Rx#:[id number] Milrinone-D5w Pmx 20 mg 16.975 In Dextrose/Water 1 100ml .bag @ 0.3 MCG/KG/MIN 7 mls/hr IV .[id number] [facility] Rx #:[id number] Norepinephrine 16 mg In 2.961 24.119 Sodium Chloride 0.9% 250 ml @ Titrate IV .Q0M [facility] Rx#:[id number] Potassium Chloride 10 meq 200 In Water For Injection 1 100ml.bag @ 100 mls/hr IVPB Q1H [facility] Rx#: [id number] Propofol 1,000 mg In 54.863 10.15 Empty Bag 1 bag @ Titrate IV .Q0M [facility] Rx#: [id number] Oral 50 Blood Product 302 Platelet Irr Pheresis 2 302 Acda Unit [id number] Output: Chest Tube Drainage 350 640 160 left and right 270 250 130 mediastinal left pleural 80 390 30 Urine 1630 436 65 Estimated Blood Loss 1000 Other: Voiding Method Indwelling Catheter Indwelling Catheter ABP, PAP, CO, CI - Last Documented Arterial Blood Pressure 40/37 Pulmonary Artery Pressure 33/13 Cardiac Output 6.0 Cardiac Index 3.0 - Exam GENERAL EXAM: Awake, and alert 58-year-old white male, comfortable in no apparent distress. Currently on 12 L per high flow nasal cannula HEAD: Normocephalic/atraumatic. EYES: Normal reaction of pupils, equal size. Conjunctiva pink, sclera white. NOSE: Clear with pink turbinates. THROAT: No erythema or exudates. NECK: No masses, no JVD, no thyroid enlargement, no adenopathy. CHEST: No chest wall deformity. Symmetrical expansion. Midsternal incisions clean dry and intact, approximated, covered with a surgical dressing, 2 mediastinal chest tubes and left pleural chest tube in place, epicardial wires connected to an external pacemaker box with the VVI backup rate of 60. Patient' s intrinsic rhythm is sinus rhythm with a rate of 74 BPM LUNGS: Equal air entry with no crackles, wheeze, rhonchi or dullness. CVS: Regular rate and rhythm, normal S1 and S2, no gallops, no murmurs, no rubs ABDOMEN: Soft, nontender. No hepatosplenomegaly, normal bowel sounds, no guarding or rigidity. EXTREMITIES: No clubbing, no edema, no cyanosis, 2+ pulses and upper and lower extremities. Bilateral lower extremities are Tenzin wrapped MUSCULOSKELETAL: Muscle strength and tone normal. SPINE: No scoliosis or deformity SKIN: No rashes CENTRAL NERVOUS SYSTEM: Sedated. No focal deficits, tone is normal in all 4 extremities. - Labs CBC & Chem 7: 09/05/18 04:02 09/05/18 04:02 Labs: Abnormal Lab Results - Last 24 Hours (Table) 09/02/18 09/04/18 09/04/18 Range/Units 10:53 09:39 10:29 RBC (4.30-5.90) m/uL Hgb (13.0-17.5) gm/dL Hct (39.0-53.0) % Plt Count (150-450) k/uL Neutrophils # (1.3-7.7) k/uL Lymphocytes # (1.0-4.8) k/uL INR (<1.2) APTT (22.0-30.0) sec ABG pH (7.35-7.45) ABG pCO2 (35-45) mmHg ABG pO2 154 H 338 H (83-108) mmHg ABG HCO3 (21-25) mmol/L ABG Total CO2 25 H (19-24) mmol/L ABG O2 Saturation 99.7 H 100.0 H (94-97) % ABG Hematocrit 27 L (34.0-46.0) % ABG Sodium 131 L (135-146) mmol/L ABG Potassium 6.1 H (3.4-4.5) mmol/L ABG Ionized Calcium 4.0 L (4.5-5.3) mg/dL ABG Glucose 204 H (75-99) mg/dL ABG Lactic Acid (0.5-1.6) mmol/L Hemoglobin 11.9 L 8.9 L (13.0-17.5) gm/dL Chloride (98-107) mmol/L Glucose (74-99) mg/dL POC Glucose (mg/dL) (75-99) mg/dL Calcium (8.4-10.2) mg/dL Magnesium (1.6-2.3) mg/dL Total Protein (6.3-8.2) g/dL Albumin (3.5-5.0) g/dL Arterial Blood Potassium 6.1 H (3.4-4.5) mmol/L Arterial Blood Glucose 204 H (75-99) mg/dL Crossmatch See Detail 09/04/18 09/04/18 09/04/18 Range/Units 10:35 10:55 11:10 RBC (4.30-5.90) m/uL Hgb (13.0-17.5) gm/dL Hct (39.0-53.0) % Plt Count (150-450) k/uL Neutrophils # (1.3-7.7) k/uL Lymphocytes # (1.0-4.8) k/uL INR (<1.2) APTT (22.0-30.0) sec ABG pH 7.34 L 7.33 L (7.35-7.45) ABG pCO2 46 H (35-45) mmHg ABG pO2 51 L* 406 H 393 H (83-108) mmHg ABG HCO3 (21-25) mmol/L ABG Total CO2 26 H (19-24) mmol/L ABG O2 Saturation 84.2 L 100.0 H 100.0 H (94-97) % ABG Hematocrit 27 L 28 L 25 L (34.0-46.0) % ABG Sodium 131 L 132 L 134 L (135-146) mmol/L ABG Potassium 6.6 H* 6.4 H* 6.0 H (3.4-4.5) mmol/L ABG Ionized Calcium 4.1 L 4.1 L 4.2 L (4.5-5.3) mg/dL ABG Glucose 217 H 204 H 188 H (75-99) mg/dL ABG Lactic Acid 1.8 H (0.5-1.6) mmol/L Hemoglobin 8.9 L 9.1 L 8.2 L (13.0-17.5) gm/dL Chloride (98-107) mmol/L Glucose (74-99) mg/dL POC Glucose (mg/dL) (75-99) mg/dL Calcium (8.4-10.2) mg/dL Magnesium (1.6-2.3) mg/dL Total Protein (6.3-8.2) g/dL Albumin (3.5-5.0) g/dL Arterial Blood Potassium 6.6 H* 6.4 H* 6.0 H (3.4-4.5) mmol/L Arterial Blood Glucose 217 H 204 H 188 H (75-99) mg/dL Crossmatch 09/04/18 09/04/18 09/04/18 Range/Units 11:24 12:14 13:20 RBC 3.56 L (4.30-5.90) m/uL Hgb 11.5 L (13.0-17.5) gm/dL Hct 33.7 L (39.0-53.0) % Plt Count 119 L (150-450) k/uL Neutrophils # (1.3-7.7) k/uL Lymphocytes # (1.0-4.8) k/uL INR (<1.2) APTT (22.0-30.0) sec ABG pH 7.32 L (7.35-7.45) ABG pCO2 34 L 49 H (35-45) mmHg ABG pO2 >420 H 227 H (83-108) mmHg ABG HCO3 (21-25) mmol/L ABG Total CO2 25 H 27 H (19-24) mmol/L ABG O2 Saturation 100.0 H 99.7 H (94-97) % ABG Hematocrit 24 L 32 L (34.0-46.0) % ABG Sodium (135-146) mmol/L ABG Potassium 5.0 H (3.4-4.5) mmol/L ABG Ionized Calcium 3.9 L 3.8 L (4.5-5.3) mg/dL ABG Glucose 168 H 144 H (75-99) mg/dL ABG Lactic Acid 2.0 H 1.9 H (0.5-1.6) mmol/L Hemoglobin 7.9 L 10.3 L (13.0-17.5) gm/dL Chloride (98-107) mmol/L Glucose (74-99) mg/dL POC Glucose (mg/dL) (75-99) mg/dL Calcium (8.4-10.2) mg/dL Magnesium (1.6-2.3) mg/dL Total Protein (6.3-8.2) g/dL Albumin (3.5-5.0) g/dL Arterial Blood Potassium 5.0 H (3.4-4.5) mmol/L Arterial Blood Glucose 168 H 144 H (75-99) mg/dL Crossmatch 09/04/18 09/04/18 09/04/18 Range/Units 13:20 13:20 13:36 RBC (4.30-5.90) m/uL Hgb (13.0-17.5) gm/dL Hct (39.0-53.0) % Plt Count (150-450) k/uL Neutrophils # (1.3-7.7) k/uL Lymphocytes # (1.0-4.8) k/uL INR 1.2 H (<1.2) APTT 31.3 H (22.0-30.0) sec ABG pH 7.28 L (7.35-7.45) ABG pCO2 58 H (35-45) mmHg ABG pO2 (83-108) mmHg ABG HCO3 27 H (21-25) mmol/L ABG Total CO2 29 H (19-24) mmol/L ABG O2 Saturation 98.0 H (94-97) % ABG Hematocrit (34.0-46.0) % ABG Sodium (135-146) mmol/L ABG Potassium (3.4-4.5) mmol/L ABG Ionized Calcium (4.5-5.3) mg/dL ABG Glucose (75-99) mg/dL ABG Lactic Acid (0.5-1.6) mmol/L Hemoglobin (13.0-17.5) gm/dL Chloride 109 H (98-107) mmol/L Glucose (74-99) mg/dL POC Glucose (mg/dL) (75-99) mg/dL Calcium 7.9 L (8.4-10.2) mg/dL Magnesium 2.8 H (1.6-2.3) mg/dL Total Protein 5.6 L (6.3-8.2) g/dL Albumin 2.9 L (3.5-5.0) g/dL Arterial Blood Potassium (3.4-4.5) mmol/L Arterial Blood Glucose (75-99) mg/dL Crossmatch 09/04/18 09/04/18 09/04/18 Range/Units 16:00 16:05 17:13 RBC 3.50 L (4.30-5.90) m/uL Hgb 12.2 L (13.0-17.5) gm/dL Hct 33.5 L (39.0-53.0) % Plt Count (150-450) k/uL Neutrophils # 8.3 H (1.3-7.7) k/uL Lymphocytes # (1.0-4.8) k/uL INR (<1.2) APTT (22.0-30.0) sec ABG pH (7.35-7.45) ABG pCO2 (35-45) mmHg ABG pO2 (83-108) mmHg ABG HCO3 (21-25) mmol/L ABG Total CO2 (19-24) mmol/L ABG O2 Saturation (94-97) % ABG Hematocrit (34.0-46.0) % ABG Sodium (135-146) mmol/L ABG Potassium (3.4-4.5) mmol/L ABG Ionized Calcium (4.5-5.3) mg/dL ABG Glucose (75-99) mg/dL ABG Lactic Acid (0.5-1.6) mmol/L Hemoglobin (13.0-17.5) gm/dL Chloride (98-107) mmol/L Glucose (74-99) mg/dL POC Glucose (mg/dL) 131 H 132 H (75-99) mg/dL Calcium (8.4-10.2) mg/dL Magnesium (1.6-2.3) mg/dL Total Protein (6.3-8.2) g/dL Albumin (3.5-5.0) g/dL Arterial Blood Potassium (3.4-4.5) mmol/L Arterial Blood Glucose (75-99) mg/dL Crossmatch 09/04/18 09/04/18 09/04/18 Range/Units 18:14 18:51 19:12 RBC (4.30-5.90) m/uL Hgb (13.0-17.5) gm/dL Hct (39.0-53.0) % Plt Count (150-450) k/uL Neutrophils # (1.3-7.7) k/uL Lymphocytes # (1.0-4.8) k/uL INR (<1.2) APTT (22.0-30.0) sec ABG pH (7.35-7.45) ABG pCO2 (35-45) mmHg ABG pO2 (83-108) mmHg ABG HCO3 26 H (21-25) mmol/L ABG Total CO2 28 H (19-24) mmol/L ABG O2 Saturation 98.7 H (94-97) % ABG Hematocrit (34.0-46.0) % ABG Sodium (135-146) mmol/L ABG Potassium (3.4-4.5) mmol/L ABG Ionized Calcium (4.5-5.3) mg/dL ABG Glucose (75-99) mg/dL ABG Lactic Acid (0.5-1.6) mmol/L Hemoglobin (13.0-17.5) gm/dL Chloride (98-107) mmol/L Glucose (74-99) mg/dL POC Glucose (mg/dL) 144 H 146 H (75-99) mg/dL Calcium (8.4-10.2) mg/dL Magnesium (1.6-2.3) mg/dL Total Protein (6.3-8.2) g/dL Albumin (3.5-5.0) g/dL Arterial Blood Potassium (3.4-4.5) mmol/L Arterial Blood Glucose (75-99) mg/dL Crossmatch 09/04/18 09/04/18 09/04/18 Range/Units 19:30 20:00 21:08 RBC 2.87 L (4.30-5.90) m/uL Hgb 9.5 L D (13.0-17.5) gm/dL Hct 27.2 L (39.0-53.0) % Plt Count 142 L (150-450) k/uL Neutrophils # (1.3-7.7) k/uL Lymphocytes # 0.6 L (1.0-4.8) k/uL INR (<1.2) APTT (22.0-30.0) sec ABG pH (7.35-7.45) ABG pCO2 (35-45) mmHg ABG pO2 (83-108) mmHg ABG HCO3 (21-25) mmol/L ABG Total CO2 (19-24) mmol/L ABG O2 Saturation (94-97) % ABG Hematocrit (34.0-46.0) % ABG Sodium (135-146) mmol/L ABG Potassium (3.4-4.5) mmol/L ABG Ionized Calcium (4.5-5.3) mg/dL ABG Glucose (75-99) mg/dL ABG Lactic Acid (0.5-1.6) mmol/L Hemoglobin (13.0-17.5) gm/dL Chloride (98-107) mmol/L Glucose (74-99) mg/dL POC Glucose (mg/dL) 144 H 137 H (75-99) mg/dL Calcium (8.4-10.2) mg/dL Magnesium (1.6-2.3) mg/dL Total Protein (6.3-8.2) g/dL Albumin (3.5-5.0) g/dL Arterial Blood Potassium (3.4-4.5) mmol/L Arterial Blood Glucose (75-99) mg/dL Crossmatch 09/04/18 09/04/18 09/05/18 Range/Units 22:14 23:03 00:07 RBC (4.30-5.90) m/uL Hgb (13.0-17.5) gm/dL Hct (39.0-53.0) % Plt Count (150-450) k/uL Neutrophils # (1.3-7.7) k/uL Lymphocytes # (1.0-4.8) k/uL INR (<1.2) APTT (22.0-30.0) sec ABG pH (7.35-7.45) ABG pCO2 (35-45) mmHg ABG pO2 (83-108) mmHg ABG HCO3 (21-25) mmol/L ABG Total CO2 (19-24) mmol/L ABG O2 Saturation (94-97) % ABG Hematocrit (34.0-46.0) % ABG Sodium (135-146) mmol/L ABG Potassium (3.4-4.5) mmol/L ABG Ionized Calcium (4.5-5.3) mg/dL ABG Glucose (75-99) mg/dL ABG Lactic Acid (0.5-1.6) mmol/L Hemoglobin (13.0-17.5) gm/dL Chloride (98-107) mmol/L Glucose (74-99) mg/dL POC Glucose (mg/dL) 148 H 153 H 145 H (75-99) mg/dL Calcium (8.4-10.2) mg/dL Magnesium (1.6-2.3) mg/dL Total Protein (6.3-8.2) g/dL Albumin (3.5-5.0) g/dL Arterial Blood Potassium (3.4-4.5) mmol/L Arterial Blood Glucose (75-99) mg/dL Crossmatch 09/05/18 09/05/18 09/05/18 Range/Units 00:59 02:03 03:18 RBC (4.30-5.90) m/uL Hgb (13.0-17.5) gm/dL Hct (39.0-53.0) % Plt Count (150-450) k/uL Neutrophils # (1.3-7.7) k/uL Lymphocytes # (1.0-4.8) k/uL INR (<1.2) APTT (22.0-30.0) sec ABG pH (7.35-7.45) ABG pCO2 (35-45) mmHg ABG pO2 (83-108) mmHg ABG HCO3 (21-25) mmol/L ABG Total CO2 (19-24) mmol/L ABG O2 Saturation (94-97) % ABG Hematocrit (34.0-46.0) % ABG Sodium (135-146) mmol/L ABG Potassium (3.4-4.5) mmol/L ABG Ionized Calcium (4.5-5.3) mg/dL ABG Glucose (75-99) mg/dL ABG Lactic Acid (0.5-1.6) mmol/L Hemoglobin (13.0-17.5) gm/dL Chloride (98-107) mmol/L Glucose (74-99) mg/dL POC Glucose (mg/dL) 145 H 129 H 125 H (75-99) mg/dL Calcium (8.4-10.2) mg/dL Magnesium (1.6-2.3) mg/dL Total Protein (6.3-8.2) g/dL Albumin (3.5-5.0) g/dL Arterial Blood Potassium (3.4-4.5) mmol/L Arterial Blood Glucose (75-99) mg/dL Crossmatch 09/05/18 09/05/18 09/05/18 Range/Units 04:02 04:02 04:02 RBC 2.70 L (4.30-5.90) m/uL Hgb 8.9 L (13.0-17.5) gm/dL Hct 25.7 L (39.0-53.0) % Plt Count 129 L (150-450) k/uL Neutrophils # (1.3-7.7) k/uL Lymphocytes # (1.0-4.8) k/uL INR 1.2 H (<1.2) APTT 31.6 H (22.0-30.0) sec ABG pH (7.35-7.45) ABG pCO2 (35-45) mmHg ABG pO2 (83-108) mmHg ABG HCO3 (21-25) mmol/L ABG Total CO2 (19-24) mmol/L ABG O2 Saturation (94-97) % ABG Hematocrit (34.0-46.0) % ABG Sodium (135-146) mmol/L ABG Potassium (3.4-4.5) mmol/L ABG Ionized Calcium (4.5-5.3) mg/dL ABG Glucose (75-99) mg/dL ABG Lactic Acid (0.5-1.6) mmol/L Hemoglobin (13.0-17.5) gm/dL Chloride (98-107) mmol/L Glucose 116 H (74-99) mg/dL POC Glucose (mg/dL) (75-99) mg/dL Calcium 8.3 L (8.4-10.2) mg/dL Magnesium (1.6-2.3) mg/dL Total Protein 6.1 L (6.3-8.2) g/dL Albumin (3.5-5.0) g/dL Arterial Blood Potassium (3.4-4.5) mmol/L Arterial Blood Glucose (75-99) mg/dL Crossmatch 09/05/18 09/05/18 09/05/18 Range/Units 04:05 05:09 07:05 RBC (4.30-5.90) m/uL Hgb (13.0-17.5) gm/dL Hct (39.0-53.0) % Plt Count (150-450) k/uL Neutrophils # (1.3-7.7) k/uL Lymphocytes # (1.0-4.8) k/uL INR (<1.2) APTT (22.0-30.0) sec ABG pH (7.35-7.45) ABG pCO2 (35-45) mmHg ABG pO2 (83-108) mmHg ABG HCO3 (21-25) mmol/L ABG Total CO2 (19-24) mmol/L ABG O2 Saturation (94-97) % ABG Hematocrit (34.0-46.0) % ABG Sodium (135-146) mmol/L ABG Potassium (3.4-4.5) mmol/L ABG Ionized Calcium (4.5-5.3) mg/dL ABG Glucose (75-99) mg/dL ABG Lactic Acid (0.5-1.6) mmol/L Hemoglobin (13.0-17.5) gm/dL Chloride (98-107) mmol/L Glucose (74-99) mg/dL POC Glucose (mg/dL) 127 H 125 H 125 H (75-99) mg/dL Calcium (8.4-10.2) mg/dL Magnesium (1.6-2.3) mg/dL Total Protein (6.3-8.2) g/dL Albumin (3.5-5.0) g/dL Arterial Blood Potassium (3.4-4.5) mmol/L Arterial Blood Glucose (75-99) mg/dL Crossmatch 09/05/18 Range/Units 09:14 RBC (4.30-5.90) m/uL Hgb (13.0-17.5) gm/dL Hct (39.0-53.0) % Plt Count (150-450) k/uL Neutrophils # (1.3-7.7) k/uL Lymphocytes # (1.0-4.8) k/uL INR (<1.2) APTT (22.0-30.0) sec ABG pH (7.35-7.45) ABG pCO2 (35-45) mmHg ABG pO2 (83-108) mmHg ABG HCO3 (21-25) mmol/L ABG Total CO2 (19-24) mmol/L ABG O2 Saturation (94-97) % ABG Hematocrit (34.0-46.0) % ABG Sodium (135-146) mmol/L ABG Potassium (3.4-4.5) mmol/L ABG Ionized Calcium (4.5-5.3) mg/dL ABG Glucose (75-99) mg/dL ABG Lactic Acid (0.5-1.6) mmol/L Hemoglobin (13.0-17.5) gm/dL Chloride (98-107) mmol/L Glucose (74-99) mg/dL POC Glucose (mg/dL) 115 H (75-99) mg/dL Calcium (8.4-10.2) mg/dL Magnesium (1.6-2.3) mg/dL Total Protein (6.3-8.2) g/dL Albumin (3.5-5.0) g/dL Arterial Blood Potassium (3.4-4.5) mmol/L Arterial Blood Glucose (75-99) mg/dL Crossmatch Assessment and Plan Plan: Assessment: #1. Symptomatic coronary artery disease with history of previous stenting, status post 2 vessel bypass grafting with FELICIANO to LAD, and SVG to the ramus, postop day 1 #2. Routine mechanical ventilator management, patient has been extubated since 09/04/2018 at 1910, and so far tolerating extubation very well. #3. History of hypertension, hyperlipidemia, previous myocardial infarction #4. Chronic nicotine dependence, patient carries [id number] smoking history of one half pack a day #5. Moderately severe COPD, not oxygen dependent at his baseline, preop PFT showed FEV1 of 76% of predicted #6. EtOH dependence Plan: Today's chest x-ray has been reviewed by Dr. Stoll and showed slight worsening of left basilar opacity and left pleural effusion, no pneumothorax. Patient has been successfully extubated yesterday, he is tolerating extubation very well , continue encouraging deep breathing and coughing, incentive spirometer use, pain control. Hemodynamic monitoring, daily chest x-rays and labs. We'll continue to follow. I performed a history & physical examination of the patient and discussed their management with my nurse practitioner, Solange Carmen. I reviewed the nurse practitioner's note and agree with the documented findings and plan of care. Lung sounds are clear. The findings and the impression was discussed with the patient. I attest to the documentation by the nurse practitioner. Time with Patient: Greater than 30
--- NOTE | 2018-09-05 10:33 | CONS ---
CONSULTATION CHIEF COMPLAINT: A 58-year-old white male who came to the hospital with in-stent stenosis of the proximal RCA, severe disease in the PDA branch of the RCA, severe disease of the distal left main and stenosis of the proximal LAD. He has status post bypass at this time, 2 vessel bypass of the FELICIANO to the LAD and saphenous vein to the ramus. History of COPD. Has chronic ongoing nicotine addiction, hypertension, dyslipidemia. He is on a ventilator at this time. White count is 6.9, hemoglobin is 11.5. REVIEW OF SYSTEMS: Unobtainable. He is on a vent. PAST MEDICAL HISTORY: Coronary artery disease, angina, dyslipidemia, hypertension, myocardial infarction. SURGERY: Heart catheterization, back surgery, heart catheterization, stent, orthopedic surgery. FAMILY HISTORY: Father had myocardial infarction. Brother had myocardial infarction. HOME MEDICATIONS: Lisinopril, Crestor, Imdur, Lopressor, . ALLERGIES: BEE VENOM. PHYSICAL EXAMINATION: Temp 98.2, pulse is in the 70s, respiratory rate is 18, blood pressure is mid 100s/67, O2 is 97%. CARDIOVASCULAR: S1, S2. LUNGS: Vent sounds. PSYCH: Resting comfortably on vent. SKIN: No rashes. ABDOMEN: Soft. Lungs appear fairly clear. NECK: No masses. OPHTHALMOLOGIC: No scleral icterus. Labs reviewed. Consult with crocodile farmer is reviewed. He is on the ventilator. Appears to be stable from medical standpoint. Everything seems stable. Possible nicotine patch and counseling when he gets off the vent. Continues on updraft treatments. Alcohol dependence possible with a watch for alcohol withdrawal. Please see further orders. He is status post bypass x2 stents x2 vessel bypass grafting. Will follow up in the next 24 to 48 hours. MMODL / IJN: [id number] /
[2018-09-05 10:34] LABS: Glucose,Whole Blood 185 mg/dL (75-99)
[2018-09-05] MEDS: LACTATED RINGERS 1,000 ML IV SCH (10:37)
[2018-09-05 11:11] LABS: Glucose,Whole Blood 154 mg/dL (75-99)
[2018-09-05 11:52] LABS: Glucose,Whole Blood 124 mg/dL (75-99)
[2018-09-05] MEDS ORDERED: BISACODYL 10 MG SUPP RECTAL PRN (13:07)
[2018-09-05] MEDS ORDERED: MAGNESIUM HYDROXIDE 2,400 MG/10 ML CUP PO PRN (13:08)
[2018-09-05 13:16] LABS: Glucose,Whole Blood 119 mg/dL (75-99)
[2018-09-05 14:34] LABS: Glucose,Whole Blood 142 mg/dL (75-99)
[2018-09-05 15:22] LABS: Glucose,Whole Blood 144 mg/dL (75-99)
[2018-09-05] MEDS: HYDROcodone/APAP 5-325MG 1 EACH TAB PO PRN (16:00)
[2018-09-05 16:19] LABS: Glucose,Whole Blood 142 mg/dL (75-99)
[2018-09-05 17:27] LABS: Glucose,Whole Blood 136 mg/dL (75-99)
[2018-09-05 18:18] LABS: Glucose,Whole Blood 182 mg/dL (75-99)
[2018-09-05 18:59] LABS: Glucose,Whole Blood 149 mg/dL (75-99)
[2018-09-05] MEDS: SENNOSIDES-DOCUSATE SODIUM 1 EACH TAB PO SCH (20:25)
[2018-09-05 20:28] LABS: Glucose,Whole Blood 153 mg/dL (75-99)
[2018-09-05 21:37] LABS: Glucose,Whole Blood 155 mg/dL (75-99)
[2018-09-05 22:35] LABS: Glucose,Whole Blood 149 mg/dL (75-99)
[2018-09-05 23:18] LABS: Glucose,Whole Blood 134 mg/dL (75-99)
[2018-09-06 00:43] LABS: Glucose,Whole Blood 106 mg/dL (75-99)
[2018-09-06 01:54] LABS: Glucose,Whole Blood 135 mg/dL (75-99)
[2018-09-06] MEDS: INSULIN REGULAR 100 UNIT in SODIUM CHLORIDE 0.9% 100 ML IV SCH (02:00)
--- NOTE | 2018-09-06 02:03 | CONS ---
CONSULTATION Mr. Wright is a 58-year-old gentleman who is seen in the postop period for cardiac evaluation. This patient recently underwent a cardiac catheterization and the patient was found to have a severe triple-vessel disease including significant distal left main disease and the patient was advised the surgical evaluation. Patient underwent ( ) FELICIANO graft to the LAD and the saphenous vein graft to the ramus branch. The patient has also history of moderately severe COPD, history of hypertension, hyperlipidemia, and the prior myocardial infarction as well as ETOH use. The patient underwent the surgery without any problem. He is extubated this morning and at present he is sitting comfortably in a chair. The chest x-ray done this morning shows evidence of bilateral basilar atelectasis. ( ) arterial blood gases showed pCO2 49, PO2 was 227. The pH was 7.33. PAST MEDICAL HISTORY: Includes a history of coronary artery surgery, past history of hypertension, prior myocardial infarction, back surgery and stent placement. HOME MEDICATIONS: Included lisinopril 10 mg daily, ( ) 40 mg daily, isosorbide, metoprolol 50 mg daily. PHYSICAL EXAMINATION: At present reveals a 58-year-old gentleman who is sitting in the chair, is not in any acute distress. Respiratory rate is 20, blood pressure is 100/60, heart rate is 64 per minute. HEENT examination is negative. Neck is supple. There is no increase in jugular venous pressure. Carotid pulses are felt and there is no bruit. Chest is symmetrical. Heart, the PMI is not felt. First and second heart sounds. Lungs examination shows a few scattered wheezes. ABDOMEN: Soft. EXTREMITIES: There is 1+ pedal edema. His hemoglobin is 8.9, electrolytes are normal, creatinine is 0.78. The patient's medications are reviewed. MMODL / IJN: [id number] /
[2018-09-06] MEDS: HYDROcodone/APAP 5-325MG 1 EACH TAB PO PRN ×2 (02:04→15:11)
[2018-09-06 04:43] LABS: Glucose,Whole Blood 99 mg/dL (75-99)
[2018-09-06] MEDS: KETOROLAC 30 MG/ML 1 ML VIAL IVP PRN ×3 (04:47→18:50)
[2018-09-06 04:55] LABS: Basophils # (A) 0.1 k/uL (0-0.2); Basophils % (A) 1 %; Eosinophils # (A) 0.3 k/uL (0-0.7); Eosinophils % (A) 3 %; HCT 27.9 % (39.0-53.0); HGB 9.3 gm/dL (13.0-17.5); Lymphocytes # (A) 1.4 k/uL (1.0-4.8); Lymphocytes % (A) 16 %; MCH 31.5 pg (25.0-35.0); MCHC 33.5 g/dL (31.0-37.0); Mean Platelet Volume 8.9; Monocytes # (A) 0.4 k/uL (0-1.0); Monocytes % (A) 5 %; Neutrophils # (A) 6.6 k/uL (1.3-7.7); Neutrophils % (A) 74 %; Platelet Count 136 k/uL (150-450); RBC 2.96 m/uL (4.30-5.90); RDW 14.2 % (11.5-15.5)
[2018-09-06 05:10] LABS: ALT 31 U/L (21-72); AST 39 U/L (17-59); Albumin 3.5 g/dL (3.5-5.0); Alkaline Phosphatase 62 U/L (38-126); Anion Gap 8 mmol/L; Blood Urea Nitrogen 18 mg/dL (9-20); Calcium 8.7 mg/dL (8.4-10.2); Carbon Dioxide 24 mmol/L (22-30); Chloride 104 mmol/L (98-107); Glucose 95 mg/dL (74-99); Magnesium 2.2 mg/dL (1.6-2.3); Potassium 4.4 mmol/L (3.5-5.1); Sodium 136 mmol/L (137-145); Total Bilirubin 0.8 mg/dL (0.2-1.3); Total Protein 6.2 g/dL (6.3-8.2)
[2018-09-06 05:19] LABS: INR 1.1 (<1.2); Partial Thromboplastin Time 30.7 sec (22.0-30.0); Prothrombin Time 10.9 sec (9.0-12.0)
[2018-09-06 06:46] LABS: Glucose,Whole Blood 110 mg/dL (75-99)
[2018-09-06 07:17] LABS: Glucose,Whole Blood 107 mg/dL (75-99)
[2018-09-06] MEDS: IPRATROPIUM-ALBUTEROL 3 ML NEB INHALATION SCH ×4 (07:54→20:11)
--- NOTE | 2018-09-06 07:58 | XR ---
EXAMINATION TYPE: XR chest 1V portable DATE OF EXAM: 09/06/2018 COMPARISON: 09/05/2018 HISTORY: SOB, Follow Up FINDINGS: Indwelling tubes and catheters are unchanged. No change in bibasilar opacities. Stable appearance of the cardio-mediastinal structures at this time. Pleural effusion unchanged. IMPRESSION: 1. Stable portable chest. Clinical correlation and follow up until resolution is recommended.
[2018-09-06] MEDS: HEPARIN SODIUM,PORCINE 5,000 UNIT/ML 1 ML VIAL SQ SCH ×3 (08:21→21:11)
[2018-09-06] MEDS: CLOPIDOGREL 75 MG TAB PO SCH (08:22)
[2018-09-06] MEDS: ATORVASTATIN 40 MG TAB PO SCH (08:22)
[2018-09-06] MEDS: METOPROLOL TARTRATE 12.5 MG TAB PO SCH ×2 (08:22→21:11)
[2018-09-06] MEDS: PANTOPRAZOLE 40 MG TABLET PO SCH (08:22)
[2018-09-06] MEDS: ASPIRIN 325 MG TAB PO SCH (08:22)
[2018-09-06] MEDS: MUPIROCIN 2% OINT 22 GM TUBE NASAL SCH ×2 (08:23→21:11)
[2018-09-06] MEDS ORDERED: METOPROLOL TARTRATE 12.5 MG TAB PO SCH (09:00)
--- NOTE | 2018-09-06 09:39 | P.PN ---
Subjective Progress Note Date: 09/06/18 Principal diagnosis: Coronary artery disease with left main disease, hypertension, hyperlipidemia, history of myocardial infarction, history of coronary artery disease with stent placement to his right coronary artery in March 2016 and stent placement to his left anterior descending coronary artery and right coronary artery in March 2017 , anxiety, degenerative disc disease with chronic low back pain, current nicotine dependence and family history of early onset coronary artery disease with his dad passing away from a myocardial infarction in his 50s. POD #2 coronary artery bypass grafting 2 vessels with his left internal mammary artery to the left anterior descending coronary artery, reverse greater saphenous vein graft to the ramus coronary artery. Endoscopic vein harvest of the right greater saphenous vein. Intraoperative transesophageal echocardiogram and epi-aortic ultrasound. The patient is sitting up to the bedside chair. He is in no acute distress. He currently rates his pain 5 out of 10 on the pain scale 2 his chest tube insertion sites. He denies any complaints of shortness of breath, although he is on 10 L high flow nasal cannula with his oxygen saturations 96%. He is achieving 500 mL on his incentive spirometry with encouragement. He is afebrile at this time WBC count this morning is 9.0. His norepinephrine drip was discontinued around 10 AM yesterday. Currently his blood pressure is 114/ 86 mmHg. Objective - Vital Signs Vital signs: Vital Signs Temp 98.3 F 09/06/18 04:00 Pulse 67 09/06/18 07:00 Resp 18 09/06/18 08:00 BP 118/63 09/06/18 07:00 Pulse Ox 95 09/06/18 07:00 Intake & Output 09/05/18 09/06/18 09/06/18 18:59 06:59 18:59 Intake Total 562.098 1735.445 26 Output Total 1015 585 50 Balance -155.882 716.445 -24 Intake: IV 545.5 286 26 ACETAMINOPHEN IV (For NPO 200 ) 1,000 mg In Empty Bag 1 bag @ 400 mls/hr IVPB Q6HR LEE Rx#:[id number] Lactated Ringers 1,000 ml 230 220 20 @ 20 mls/hr IV .Q24H LEE Rx#:[id number] Nitroglycerin-D5w Pmx 50 1.5 mg In Dextrose/Water 1 250ml.bag @ 5 MCG/MIN 1.5 mls/hr IV .Q24H LEE Rx#: [id number] cardiac output 30 pressure bag 84 66 6 Intake, IV Titration 73.618 30.445 Amount Insulin Regular 100 unit 43.889 30.445 In Sodium Chloride 0.9% 100 ml @ Per Protocol IV .Q0M LEE Rx#:[id number] Norepinephrine 16 mg In 29.729 Sodium Chloride 0.9% 250 ml @ Titrate IV .Q0M LEE Rx#:[id number] Oral 240 985 Output: Chest Tube Drainage 680 290 20 left and right 400 150 10 mediastinal left pleural 280 140 10 Urine 335 295 30 Other: Voiding Method Indwelling Catheter Indwelling Catheter Indwelling Catheter ABP, PAP, CO, CI - Last Documented Arterial Blood Pressure 93/84 Pulmonary Artery Pressure 33/13 Cardiac Output 6 Cardiac Index 3.0 - Constitutional General appearance: Present: cooperative, no acute distress, obese - Respiratory Details: Essentially clear to his bilateral upper lobes, diminished bilateral bases. Respirations are symmetrical and nonlabored. Oxygen saturation are 95% on 10 L high flow nasal cannula. He is achieving 500 mL on his incentive spirometry. Mediastinal and left pleural chest tubes remain to low continuous wall suction - 20 cm H2O. No air leak is present. Mediastinal and left pleural chest tubes draining thin serosanguineous drainage. Mediastinal chest tubes drained 90 mL in the last 8 hours, 420 mL in the last 24 hours. Left pleural chest tube drained 90 mL in the last 8 hours, 400 mL in the last 24 hours. - Cardiovascular Details: Regular rhythm and rate. S1 and S2 present, negative for S3, gallop or murmur. + 1 generalized edema. Sternum is stable. Bedside telemetry showing normal sinus rhythm heart rate 79. Atrial and ventricular epicardial pacemaker wires in place and grounded. Heart hugger is in place and he is demonstrating appropriate use. Knee-high FRANSICO hose and sequential compression devices in place to his bilateral lower extremities. Right IJ Cordis in place and functioning, continue CVP monitoring, current CVP pressure is 6 mmHg. Right radial arterial line in place and functioning. - Gastrointestinal Gastrointestinal Comment(s): Abdomen is soft, nontender and nondistended. Active bowel sounds all 4 abdominal quadrants. Tolerating oral intake. Passing flatus. No guarding or rigidity. - Genitourinary Genitourinary Comment(s): Franco catheter for accurate I&O. Draining clear marisela urine. Marginal urine output in the last 8 hours, 205 mL. - Integumentary Integumentary Comment(s): Skin is warm and dry. Clubbing present bilateral fingers. No cyanosis present. Midline sternal incision is clean, dry and approximated. No drainage and redness present. Right leg EVH site clean, dry and approximated. No drainage or redness present. - Neurologic Neurologic: Present: CNII-XII intact - Musculoskeletal Musculoskeletal: Present: gait normal, generalized weakness, strength equal bilaterally - Psychiatric Psychiatric: Present: A&O x's 3, appropriate affect, intact judgment & insight - Allied health notes Allied health notes reviewed: nursing - Labs CBC & Chem 7: 09/06/18 04:38 09/06/18 04:38 Labs: Abnormal Lab Results - Last 24 Hours (Table) 09/05/18 09/05/18 09/05/18 Range/Units 09:14 10:04 11:08 RBC (4.30-5.90) m/uL Hgb (13.0-17.5) gm/dL Hct (39.0-53.0) % Plt Count (150-450) k/uL APTT (22.0-30.0) sec Sodium (137-145) mmol/L POC Glucose (mg/dL) 115 H 185 H 154 H (75-99) mg/dL Total Protein (6.3-8.2) g/dL 09/05/18 09/05/18 09/05/18 Range/Units 11:49 13:12 14:15 RBC (4.30-5.90) m/uL Hgb (13.0-17.5) gm/dL Hct (39.0-53.0) % Plt Count (150-450) k/uL APTT (22.0-30.0) sec Sodium (137-145) mmol/L POC Glucose (mg/dL) 124 H 119 H 142 H (75-99) mg/dL Total Protein (6.3-8.2) g/dL 09/05/18 09/05/18 09/05/18 Range/Units 15:18 16:04 17:04 RBC (4.30-5.90) m/uL Hgb (13.0-17.5) gm/dL Hct (39.0-53.0) % Plt Count (150-450) k/uL APTT (22.0-30.0) sec Sodium (137-145) mmol/L POC Glucose (mg/dL) 144 H 142 H 136 H (75-99) mg/dL Total Protein (6.3-8.2) g/dL 09/05/18 09/05/18 09/05/18 Range/Units 18:04 18:55 20:08 RBC (4.30-5.90) m/uL Hgb (13.0-17.5) gm/dL Hct (39.0-53.0) % Plt Count (150-450) k/uL APTT (22.0-30.0) sec Sodium (137-145) mmol/L POC Glucose (mg/dL) 182 H 149 H 153 H (75-99) mg/dL Total Protein (6.3-8.2) g/dL 09/05/18 09/05/18 09/05/18 Range/Units 21:23 22:20 23:15 RBC (4.30-5.90) m/uL Hgb (13.0-17.5) gm/dL Hct (39.0-53.0) % Plt Count (150-450) k/uL APTT (22.0-30.0) sec Sodium (137-145) mmol/L POC Glucose (mg/dL) 155 H 149 H 134 H (75-99) mg/dL Total Protein (6.3-8.2) g/dL 09/06/18 09/06/18 09/06/18 Range/Units 00:39 01:50 04:38 RBC (4.30-5.90) m/uL Hgb (13.0-17.5) gm/dL Hct (39.0-53.0) % Plt Count (150-450) k/uL APTT (22.0-30.0) sec Sodium 136 L (137-145) mmol/L POC Glucose (mg/dL) 106 H 135 H (75-99) mg/dL Total Protein 6.2 L (6.3-8.2) g/dL 09/06/18 09/06/18 09/06/18 Range/Units 04:38 04:38 06:19 RBC 2.96 L (4.30-5.90) m/uL Hgb 9.3 L (13.0-17.5) gm/dL Hct 27.9 L (39.0-53.0) % Plt Count 136 L (150-450) k/uL APTT 30.7 H (22.0-30.0) sec Sodium (137-145) mmol/L POC Glucose (mg/dL) 110 H (75-99) mg/dL Total Protein (6.3-8.2) g/dL 09/06/18 Range/Units 07:12 RBC (4.30-5.90) m/uL Hgb (13.0-17.5) gm/dL Hct (39.0-53.0) % Plt Count (150-450) k/uL APTT (22.0-30.0) sec Sodium (137-145) mmol/L POC Glucose (mg/dL) 107 H (75-99) mg/dL Total Protein (6.3-8.2) g/dL - Imaging and Cardiology Chest x-ray: report reviewed, image reviewed Assessment and Plan (1) Anxiety Current Visit: Yes Status: Acute Code(s): F41.9 - ANXIETY DISORDER, UNSPECIFIED SNOMED Code(s): 24163785 (2) Family history of coronary artery disease in father Current Visit: No Status: Acute Code(s): Z82.49 - FAMILY HX OF ISCHEM HEART DIS AND OTH DIS OF THE CIRC SYS SNOMED Code(s): 271260488 (3) History of coronary artery disease Current Visit: No Status: Acute Code(s): Z86.79 - PERSONAL HISTORY OF OTHER DISEASES OF THE CIRCULATORY SYSTEM SNOMED Code(s): 894089830 (4) History of myocardial infarction Current Visit: No Status: Acute Code(s): I25.2 - OLD MYOCARDIAL INFARCTION SNOMED Code(s): 542319472 (5) Hyperlipidemia Current Visit: No Status: Acute Code(s): E78.5 - HYPERLIPIDEMIA, UNSPECIFIED SNOMED Code(s): 73176144 (6) Hypertension Current Visit: No Status: Acute Code(s): I10 - ESSENTIAL (PRIMARY) HYPERTENSION SNOMED Code(s): 10435310 (7) Nicotine dependence Current Visit: No Status: Acute Code(s): F17.200 - NICOTINE DEPENDENCE, UNSPECIFIED, UNCOMPLICATED SNOMED Code(s): 70910314 Plan: 1. Continue aspirin, statin, Plavix and beta gibson. We will increase his beta gibson as tolerated. 2. Discontinue mediastinal chest tubes, keep left pleural chest tube in place to low continuous wall suction at -20 cm H2O. 3. Wean oxygen as tolerated, encourage use of his incentive spirometry every hour while awake. 4. Bronchodilator and pulmonary management recommendations per Dr. Stoll. 5. Will monitor daily labs and x-rays. 6. GI prophylaxis with Protonix, DVT prophylaxis with subcu heparin and SCDs. 7. Insulin management per primary care service. 8. Increased activity as tolerated. PT/OT/cardiac rehab following. 9. Discontinue right IJ Cordis and right radial arterial line. 10. Pain control per current when necessary orders. 11. More recommendations to follow based on patient's clinical course. Time with Patient: Greater than 30
[2018-09-06 12:00] LABS: Glucose,Whole Blood 132 mg/dL (75-99)
--- NOTE | 2018-09-06 12:01 | PN ---
PROGRESS NOTE DATE OF SERVICE: September 06, 2018. This is a 58-year-old gentleman, postop day #2, status post 2 vessel bypass grafting. He had a FELICIANO to LAD and one saphenous vein graft. He also had routine postoperative ventilator management and he was extubated within about 6 hours post OR. The patient has a history of underlying hypertension and hyperlipidemia, and previous myocardial infarction, chronic tobacco dependence, chronic pain syndrome and stage II moderate COPD with an FEV1 that is 76% of the predicted. He also has a history of chronic alcohol dependence. Currently, the patient is on 10 L high flow. He is getting lactated Ringer's a 20 mL an hour. Insulin drip was turned off. Chest x-ray showed bibasilar atelectasis and a small left-sided pleural effusion. He is progressing okay, but not doing particularly well on his incentive spirometer. I encouraged him to use that. In addition, he needs to continue with deep breathing coughing and clearing of secretions. Denies any pain. Not coughing up any phlegm. No fever no chills. No nausea, vomiting, diarrhea, or chest discomfort. He obviously does have pain at the surgical site, especially with deep breathing, coughing or sneezing. Current vital signs are reviewed. Temperature 97.7, heart rate 73, respiratory 24, blood pressure 127/59, mean 81, and saturations are mid 90s on 10 L high flow. Appears in no acute distress. HEENT examination is grossly unremarkable. Mucous membranes are moist. No oral lesions. Nasal O2 in place. Neck is supple. Full range of motion. No adenopathy or thyromegaly. Neck veins are flat. Cardiovascular examination reveals regular rhythm and rate. Heart rate in mid 70s. S1, S2 normal. No S3, S4, or murmur. Lungs reveal a few scattered rhonchi. Some bibasilar crackles. Breath sounds are diminished throughout. He does not really take deep breaths. Abdomen is soft. Bowel sounds are heard. Extremities are intact. No cyanosis, clubbing, or edema. Skin without rash. Neurologic examination is brief but nonfocal. LABORATORY STUDIES: Chest x-ray shows some bibasilar atelectasis and a small left-sided pleural effusion. White count 9, hemoglobin 9.3, hematocrit 27.9, and platelet count 136,000. PT/INR were 10.9 and 1.1 respectively. Sodium 136, potassium 4.4, chloride 104, CO2 24, anion gap is normal, BUN and creatinine were 18 and 0.78. Microbiologic studies are negative. Medications are reviewed. ASSESSMENT: 1. Postoperative day number two status post 2 vessel bypass grafting. 2. Routine postoperative ventilator management, resolved. 3. Hypertension. 4. Hyperlipidemia. 5. Previous myocardial infarction. 6. History of chronic tobacco dependence with a moderate amount of chronic obstructive pulmonary disease, FEV1 76% of predicted. 7. Chronic alcohol dependence. PLAN: The patient will continue on breathing treatments. We will continue with use of incentive spirometer q.1 hour while awake. In addition, we recommend the patient do deep breathing, coughing and clearing of secretions exercises. We will continue to monitor closely. Cardiac situation is stable. Respiratory status is mostly stable. Additional recommendations and suggestions are forthcoming. I did discuss the case with Dr. Hansen and the cardiothoracic banking assistant Benjy Gonzalez. The patient does need to work on his incentive spirometer. Chest x-ray showed bibasilar atelectasis and a small sided left pleural effusion. Additional recommendations and suggestions are forthcoming. Prognosis is guarded. Critical care time is 32 minutes. MMODL / IJN: [id number] /
[2018-09-06] MEDS: LACTATED RINGERS 1,000 ML IV SCH (12:17)
--- NOTE | 2018-09-06 14:55 | PN ---
PROGRESS NOTE This patient is status post coronary artery bypass surgery. The patient's condition remains stable and hemodynamically no arrhythmias were noted during the night. The patient is sitting comfortably in the bedside chair. The patient is achieving about 500 mL on his incentive spirometry. The patient is afebrile. Blood pressure is 118/63 mmHg. Respiratory rate is 18. First and second heart sounds are normal. Lungs are clinically clear to auscultation and percussion. Chest x-ray does not show any significant failure. Patient's hemoglobin is 9.3, creatinine is normal. We will continue the current medications. MMODL / IJN: [id number] /
[2018-09-06 17:22] LABS: Glucose,Whole Blood 124 mg/dL (75-99)
[2018-09-06 20:53] LABS: Glucose,Whole Blood 135 mg/dL (75-99)
[2018-09-06] MEDS: SENNOSIDES-DOCUSATE SODIUM 1 EACH TAB PO SCH (21:11)
[2018-09-06] MEDS: INSULIN ASPART 100 UNIT/ML 1 ML 10 ML VIAL SQ SCH (21:12)
--- NOTE | 2018-09-06 21:34 | PN ---
PROGRESS NOTE SUBJECTIVE: 58-year-old white male, status post bypass surgery, lying in bed comfortably. He is breathing well. Hemoglobin is 9.3. Creatinine is normal. Lungs are clear. Cardiac is S1, S2. Incisions are clean, dry, intact. ASSESSMENT: 1. Status post coronary artery bypass grafting. 2. Nicotine addiction. 3. Chronic obstructive pulmonary disease. 4. Gastroesophageal reflux disease. PLAN: Continue standard cardiac postop medications, updrafts, cholesterol medications, blood pressure medications, Plavix is continued. Heparin is continued for now. Insulin drip. Continue current treatment. Follow up in the next 24 to 48 hours. MMODL / IJN: [id number] /
[2018-09-07] MEDS: KETOROLAC 30 MG/ML 1 ML VIAL IVP PRN ×4 (02:30→22:54)
[2018-09-07 04:43] LABS: Basophils % (A) 0 %; Eosinophils # (A) 0.3 k/uL (0-0.7); Eosinophils % (A) 4 %; HGB 9.4 gm/dL (13.0-17.5); Lymphocytes # (A) 1.3 k/uL (1.0-4.8); Lymphocytes % (A) 17 %; MCH 31.6 pg (25.0-35.0); MCHC 33.6 g/dL (31.0-37.0); MCV 94.2 fL (80.0-100.0); Mean Platelet Volume 9.6; Monocytes # (A) 0.4 k/uL (0-1.0); Monocytes % (A) 5 %; Neutrophils # (A) 5.4 k/uL (1.3-7.7); Neutrophils % (A) 72 %; Platelet Count 141 k/uL (150-450); RBC 2.97 m/uL (4.30-5.90); RDW 14.4 % (11.5-15.5); WBC 7.6 k/uL (3.8-10.6)
[2018-09-07 04:57] LABS: ALT 32 U/L (21-72); AST 43 U/L (17-59); Albumin 3.1 g/dL (3.5-5.0); Alkaline Phosphatase 79 U/L (38-126); Anion Gap 6 mmol/L; Blood Urea Nitrogen 19 mg/dL (9-20); Calcium 8.5 mg/dL (8.4-10.2); Carbon Dioxide 27 mmol/L (22-30); Chloride 103 mmol/L (98-107); Glucose 108 mg/dL (74-99); Potassium 4.6 mmol/L (3.5-5.1); Sodium 136 mmol/L (137-145); Total Bilirubin 0.7 mg/dL (0.2-1.3); Total Protein 5.7 g/dL (6.3-8.2)
[2018-09-07] MEDS: HYDROcodone/APAP 5-325MG 1 EACH TAB PO PRN ×4 (06:54→20:23)
[2018-09-07] MEDS: HEPARIN SODIUM,PORCINE 5,000 UNIT/ML 1 ML VIAL SQ SCH ×3 (06:56→20:14)
--- NOTE | 2018-09-07 07:03 | XR ---
EXAMINATION TYPE: XR chest 1V portable DATE OF EXAM: 09/07/2018 COMPARISON: 09/06/2018 HISTORY: Left-sided pneumothorax. Follow-up exam. TECHNIQUE: Single frontal view of the chest is obtained. FINDINGS: Although the thoracostomy tube appears similar in position. There is reaccumulation of the left-sided pneumothorax with maximal apical pleural separation of 2.2 cm and lateral pleural separat ion of 1.4 cm. There is redemonstration of a retrocardiac airspace disease and layering left pleural effusion. Mild pulmonary vascular congestion and cardiomegaly remain. Post surgical change of the chest are stable. Mediastinal drain appears to have been removed in the interim. Right internal jugular central venous catheter sheath is unchanged. IMPRESSION: 1. Reaccumulation of the left-sided pneumothorax despite similar placement of the left-sided thoracos mariama tube. 2. Similar appearing retrocardiac opacity likely relating to a small pleural effusion and left basila r atelectasis. A Yellow level critical message alert has been initiated for Efraín Juarez MD via the [employer] Critical Results System on 09/07/2018 7:01 AM. This message alert has been sent to Efraín Juarez MD via the preferences provided by the clinician for the receipt of Radiology Critical Findings. Message ID [id number].
[2018-09-07] MEDS: INSULIN ASPART 100 UNIT/ML 1 ML 10 ML VIAL SQ SCH ×4 (07:15→20:38)
[2018-09-07 07:39] LABS: Glucose,Whole Blood 103 mg/dL (75-99)
[2018-09-07] MEDS: IPRATROPIUM-ALBUTEROL 3 ML NEB INHALATION SCH ×4 (07:50→19:07)
[2018-09-07] MEDS: PANTOPRAZOLE 40 MG TABLET PO SCH (08:20)
[2018-09-07] MEDS: CLOPIDOGREL 75 MG TAB PO SCH (08:20)
[2018-09-07] MEDS: ASPIRIN 325 MG TAB PO SCH (08:20)
[2018-09-07] MEDS: ATORVASTATIN 40 MG TAB PO SCH (08:20)
[2018-09-07] MEDS: MUPIROCIN 2% OINT 22 GM TUBE NASAL SCH ×2 (08:21→20:14)
[2018-09-07] MEDS: METOPROLOL TARTRATE 12.5 MG TAB PO SCH ×2 (08:21→20:14)
--- NOTE | 2018-09-07 09:41 | P.PN ---
Subjective Progress Note Date: 09/07/18 This is a 58-year-old gentleman with history of previous myocardial infarction and stent placement was recently admitted to this hospital with symptoms of chest pain. A cardiac catheterization revealed evidence of left main disease. Patient underwent coronary bypass surgery with the FELICIANO graft to LAD and vein graft to the intermediate. Patient seemed to be relatively stable. He says he can breathe and walk today. He still has some small amount of pneumothorax on the left side. Patient seemed to be maintaining sinus rhythm. The lungs show diminished breath sounds. Heart is regular. We'll continue current medical therapy. Increase activity. Patient will have follow-up chest x-ray tomorrow Objective - Vital Signs Vital signs: Vital Signs Temp 98.4 F 09/07/18 04:00 Pulse 75 09/07/18 08:00 Resp 26 H 09/07/18 08:00 BP 140/65 09/07/18 08:00 Pulse Ox 93 L 09/07/18 08:00 Intake & Output 09/06/18 09/07/18 09/07/18 18:59 06:59 18:59 Intake Total 875 756 286 Output Total 425 485 50 Balance 450 271 236 Weight 85.6 kg Intake: IV 285 276 46 Lactated Ringers 1,000 ml 240 240 40 @ 20 mls/hr IV .Q24H LEE Rx#:[id number] pressure bag 45 36 6 Intake, IV Titration 80 Amount Lactated Ringers 1,000 ml 80 @ 20 mls/hr IV .Q24H LEE Rx#:[id number] Oral 350 400 240 Tube Feeding 240 Output: Chest Tube Drainage 150 120 10 left and right 30 mediastinal left pleural 120 120 10 Urine 275 365 40 Other: Voiding Method Indwelling Catheter Indwelling Catheter Indwelling Catheter ABP, PAP, CO, CI - Last Documented Arterial Blood Pressure 93/84 Pulmonary Artery Pressure 33/13 Cardiac Output 6 Cardiac Index 3.0 - Exam GENERAL EXAM: Patient is alert and oriented and doesn't appear to be in any acute distress HEENT: Normocephalic. Normal reaction of pupils, equal size, normal range of extraocular motion. No erythema or exudates in the throat. NECK: No masses, no nuchal rigidity. CHEST: No chest wall deformity. LUNGS: Diminished breath sounds HEART: S1 and S2 normal ABDOMEN: No hepatosplenomegaly, normal bowel sounds, no guarding or rigidity. SKIN: No rashes CENTRAL NERVOUS SYSTEM: No focal deficits. EXTREMITIES: No cyanosis, clubbing or edema. - Labs CBC & Chem 7: 09/07/18 04:30 09/07/18 04:30 Labs: Abnormal Lab Results - Last 24 Hours (Table) 09/06/18 09/06/18 09/06/18 Range/Units 11:58 17:19 20:50 RBC (4.30-5.90) m/uL Hgb (13.0-17.5) gm/dL Hct (39.0-53.0) % Plt Count (150-450) k/uL Sodium (137-145) mmol/L Glucose (74-99) mg/dL POC Glucose (mg/dL) 132 H 124 H 135 H (75-99) mg/dL Total Protein (6.3-8.2) g/dL Albumin (3.5-5.0) g/dL 09/07/18 09/07/18 09/07/18 Range/Units 04:30 04:30 07:12 RBC 2.97 L (4.30-5.90) m/uL Hgb 9.4 L (13.0-17.5) gm/dL Hct 28.0 L (39.0-53.0) % Plt Count 141 L (150-450) k/uL Sodium 136 L (137-145) mmol/L Glucose 108 H (74-99) mg/dL POC Glucose (mg/dL) 103 H (75-99) mg/dL Total Protein 5.7 L (6.3-8.2) g/dL Albumin 3.1 L (3.5-5.0) g/dL Assessment and Plan (1) S/P CABG (coronary artery bypass graft) Current Visit: Yes Status: Acute Code(s): Z95.1 - PRESENCE OF AORTOCORONARY BYPASS GRAFT SNOMED Code(s): 606395527 (2) History of coronary artery disease Current Visit: No Status: Acute Code(s): Z86.79 - PERSONAL HISTORY OF OTHER DISEASES OF THE CIRCULATORY SYSTEM SNOMED Code(s): 457717602 (3) History of myocardial infarction Current Visit: No Status: Acute Code(s): I25.2 - OLD MYOCARDIAL INFARCTION SNOMED Code(s): 250483314 Plan: Continue current medical therapy and increase activity as tolerated. Chest tube probably will not be removed today. Follow-up chest x-ray tomorrow. Continue current beta blockers, aspirin and Plavix along with lipid-lowering agents.
--- NOTE | 2018-09-07 09:44 | P.PN ---
Subjective Progress Note Date: 09/07/18 Principal diagnosis: Coronary artery disease with left main disease, hypertension, hyperlipidemia, history of myocardial infarction, history of stent placement to the right coronary artery in when he 17 and left anterior descending coronary artery as well as right coronary artery in 2017, anxiety, degenerative disc disease with chronic low back pain, current nicotine dependence, family history of early- onset coronary artery disease with father from myocardial infarction in his 50s. POD #3 coronary artery bypass grafting 2 vessels with the left internal mammary artery to the left anterior descending coronary artery, reverse greater saphenous vein graft to the ramus coronary artery. Endoscopic vein harvest the right greater saphenous vein. Intraoperative transesophageal echocardiogram and epi-aortic ultrasound. The patient is currently ambulating in the hallway with assistance. He states pain is mostly controlled with current medication regimen, denies shortness of breath. He has no new complaints or concerns. Remains hemodynamically stable on no pressors. Objective - Vital Signs Vital signs: Vital Signs Temp 98.4 F 09/07/18 04:00 Pulse 75 09/07/18 08:00 Resp 26 H 09/07/18 08:00 BP 140/65 09/07/18 08:00 Pulse Ox 93 L 09/07/18 08:00 Intake & Output 09/06/18 09/07/18 09/07/18 18:59 06:59 18:59 Intake Total 875 756 286 Output Total 425 485 50 Balance 450 271 236 Weight 85.6 kg Intake: IV 285 276 46 Lactated Ringers 1,000 ml 240 240 40 @ 20 mls/hr IV .Q24H [facility] Rx#:[id number] pressure bag 45 36 6 Intake, IV Titration 80 Amount Lactated Ringers 1,000 ml 80 @ 20 mls/hr IV .Q24H [facility] Rx#:[id number] Oral 350 400 240 Tube Feeding 240 Output: Chest Tube Drainage 150 120 10 left and right 30 mediastinal left pleural 120 120 10 Urine 275 365 40 Other: Voiding Method Indwelling Catheter Indwelling Catheter Indwelling Catheter ABP, PAP, CO, CI - Last Documented Arterial Blood Pressure 93/84 Pulmonary Artery Pressure 33/13 Cardiac Output 6 Cardiac Index 3.0 - Constitutional General appearance: Present: cooperative, no acute distress - Respiratory Details: Lungs sounds diminished bilaterally. Respirations even, nonlabored. Currently on 6 L nasal cannula with oxygen saturation 90%. Able to achieve 1000 mL on his incentive spirometer. Left pleural chest tube to continuous wall suction, 90 mL serous drainage overnight, 250 mL last 24 hours, no air leak present. - Cardiovascular Details: S1, S2 present. Regular rate and rhythm, sinus rhythm on telemetry. Sternum stable. A/V epicardial pacemaker wires present, grounded. Palpable peripheral pulses bilaterally. No edema present. No calf pain or tenderness noted. Right internal jugular Cordis present, current CVP 6-7. Heart hugger in place with patient demonstrating appropriate use. Antiembolism stockings, SCDs present. - Gastrointestinal Gastrointestinal Comment(s): Abdomen soft, nontender, nondistended. Active bowel sounds 4 quadrants. Tolerating diet. No bowel movement yet since surgery. - Genitourinary Genitourinary Comment(s): Franco present draining concentrated urine. Output overnight 10-30 mL per hour, 215 mL the last 8 hours. - Integumentary Integumentary Comment(s): Skin is warm and dry with evidence of good perfusion. Anterior chest incision well approximated and covered with dry intact dressing. Right lower extremity EVH site well approximated. - Neurologic Neurologic: Present: CNII-XII intact - Musculoskeletal Musculoskeletal: Present: gait normal, strength equal bilaterally - Psychiatric Psychiatric: Present: A&O x's 3, appropriate affect, intact judgment & insight - Allied health notes Allied health notes reviewed: nursing - Labs CBC & Chem 7: 09/07/18 04:30 09/07/18 04:30 Labs: Abnormal Lab Results - Last 24 Hours (Table) 09/06/18 09/06/18 09/06/18 Range/Units 11:58 17:19 20:50 RBC (4.30-5.90) m/uL Hgb (13.0-17.5) gm/dL Hct (39.0-53.0) % Plt Count (150-450) k/uL Sodium (137-145) mmol/L Glucose (74-99) mg/dL POC Glucose (mg/dL) 132 H 124 H 135 H (75-99) mg/dL Total Protein (6.3-8.2) g/dL Albumin (3.5-5.0) g/dL 09/07/18 09/07/18 09/07/18 Range/Units 04:30 04:30 07:12 RBC 2.97 L (4.30-5.90) m/uL Hgb 9.4 L (13.0-17.5) gm/dL Hct 28.0 L (39.0-53.0) % Plt Count 141 L (150-450) k/uL Sodium 136 L (137-145) mmol/L Glucose 108 H (74-99) mg/dL POC Glucose (mg/dL) 103 H (75-99) mg/dL Total Protein 5.7 L (6.3-8.2) g/dL Albumin 3.1 L (3.5-5.0) g/dL - Imaging and Cardiology Chest x-ray: report reviewed, image reviewed Assessment and Plan (1) Left main coronary artery disease Current Visit: Yes Status: Chronic Code(s): I25.10 - ATHSCL HEART DISEASE OF [place] CORONARY ARTERY W/O ANG PCTRS SNOMED Code(s): 343413968 (2) H/O heart artery stent Current Visit: Yes Status: Chronic Code(s): Z95.5 - PRESENCE OF CORONARY ANGIOPLASTY IMPLANT AND GRAFT SNOMED Code(s): 635942318 (3) Chronic low back pain Current Visit: Yes Status: Chronic Code(s): M54.5 - LOW BACK PAIN; G89.29 - OTHER CHRONIC PAIN SNOMED Code(s): 821949051 (4) Family history of coronary artery disease in father Current Visit: Yes Status: Chronic Code(s): Z82.49 - FAMILY HX OF ISCHEM HEART DIS AND OTH DIS OF THE CIRC SYS SNOMED Code(s): 822522639 (5) History of coronary artery disease Current Visit: Yes Status: Chronic Code(s): Z86.79 - PERSONAL HISTORY OF OTHER DISEASES OF THE CIRCULATORY SYSTEM SNOMED Code(s): 119591131 (6) History of myocardial infarction Current Visit: Yes Status: Chronic Code(s): I25.2 - OLD MYOCARDIAL INFARCTION SNOMED Code(s): 380617707 (7) Hyperlipidemia Current Visit: Yes Status: Chronic Code(s): E78.5 - HYPERLIPIDEMIA, UNSPECIFIED SNOMED Code(s): 96133987 (8) Hypertension Current Visit: Yes Status: Chronic Code(s): I10 - ESSENTIAL (PRIMARY) HYPERTENSION SNOMED Code(s): 12213905 (9) Nicotine dependence Current Visit: Yes Status: Chronic Code(s): F17.200 - NICOTINE DEPENDENCE, UNSPECIFIED, UNCOMPLICATED SNOMED Code(s): 87992840 Plan: 1. Continue aspirin, statin, Plavix, beta gibson therapy. Will increase beta gibson therapy as tolerated. 2. Wean O2 as tolerated. Encourage incentive spirometry 10 times every hour while awake. 3. Bronchodilators per pulmonology. 4. Will monitor daily labs and x-rays. 5. Increase activity, ambulate in hallway. PT/OT/cardiac rehab following. 6. Insulin management per primary care services. 7. Pain control with current medication regimen. 8. Discontinue Cordis. No Lasix today. 9. Will discontinue epicardial pacemaker wires. Patient to remain on bedrest for 1 hour post-wire removal. 10. Will discontinue Franco catheter. Bladder scan every 6 hours, may straight cathed for greater than 300 mL residual. 11. Likely will discontinue left pleural chest tube. 12. Will place transfer orders for [address] [place] [address] cardiac stepdown unit. May transfer when bed available. 13. More recommendations to follow. Time with Patient: Greater than 30
[2018-09-07 10:07] VITALS: BMI 31.4
--- NOTE | 2018-09-07 10:21 | P.PN ---
Subjective Progress Note Date: 09/07/18 Principal diagnosis: Coronary artery disease status post 2 vessel bypass grafting This a 58-year-old white male patient who we met in the preop period last week on 08/23/2018 for preop pulmonary evaluation. Patient initially was seen in the hospital on 08/23/2018 and planing of chest pain. He was found to have mild in-stent restenosis involving the proximal RCA, severe disease involving the PDA branch of the RCA, severe disease above the distal left main in the range of 50%, mild disease involving the left circumflex and in-stent restenosis which was mild involving the proximal and mid LAD. Patient was recommended to have surgical evaluation for coronary artery bypass grafting area and today on 09/04/2018 he had 2 vessel bypass with FELICIANO to LAD, and saphenous venous graft to the ramus. Other medical history includes moderately severe COPD and preop PFT showed FEV1 of 2.3 L or 76%, an FVC of 3.2 L or 79% of predicted with diffusion abnormality, with DLCO of 21.6 percent of predicted. He has previous history of coronary stenting, he has chronic and ongoing nicotine dependence, carries [id number] smoking history of 1-1/2 packs per day, hypertension, hyperlipidemia, previous myocardial infarction and EtOH dependence. Currently patient is sedated, and intubated, on mechanical ventilator, he seen in the postop period in the intensive care unit, hemodynamically stable, cardiac output was 7.8, and cardiac index was 4.2. He has 2 mediastinal chest tubes and left pleural chest tube with small amount of sanguinous drainage. He is currently on lactated Ringer's at a rate of 50 ML per hour, milrinone at 0.25 mics per kilo per minute, nitroglycerin at 5 mics per minute, clevidipine at 20 mg per hour, Diprivan at 45 mics per kilo per minute. Current vent settings are SIMV mode with a rate of 16, tidal volume of 450, FiO2 of 80%, and PEEP of 8. Postop chest x-ray has been reviewed by Dr. Stoll which showed some basilar atelectasis, endotracheal tube, NG tube, PA catheter, mediastinal drains and chest tubes are appropriately placed. Postoperative blood gases showed pO2 of 227, pCO2 of 49, pH is 7.32. Postop blood work showed WBC of 6.9, hemoglobin of 11.5, platelet count of 119, INR is 1.2, electrolytes and renal profile was unremarkable. On 09/05/2018 patient seen in follow-up in the intensive care unit, this is postop day 1 status post two-vessel bypass grafting. Patient was extubated at 1910 yesterday on 09/04/2018. His morning he seen sitting up in the recliner, currently on 12 L per high flow nasal cannula, he is hemodynamically stable, afebrile, in sinus mechanism with a controlled rate. He is having some mild to moderate incisional discomfort, but no acute distress. Today's chest x-ray has been reviewed, shows slightly worsening left basilar opacity and left pleural effusion, no residual pneumothorax. An incentive spirometer effort is 500 mL today. Lung sounds are diminished. Today's labs have been reviewed, WBC 6.9, hemoglobin is 8.9. Renal profile and electrolytes are unremarkable. PA pressures 36/13 with a CVP of 8, cardiac output is 6.6, and cardiac index is 3.5 , maintenance IV fluids is lactated Ringer's at 20 ML per hour, nitroglycerin has been weaned off, levo fed is currently 2 mics per minute, and insulin is on hold. He is producing urine in order of 35-65 ML per hour, left and right mediastinal chest tube output is 650 ML in last 24 hours, and 500 mL out of left pleural in the last 24 hours. Hemodynamically patient is stable. On 09/07/2018 patient seen in follow-up in the intensive care unit, he is awake and alert, in no acute distress, currently on 3 L per nasal cannula his pulse ox is 91-94%, has some mild incisional discomfort, but no acute distress, sinus rhythm on a monitor, with a controlled rate, afebrile, hemodynamically stable, left pleural chest tube remains in place, 2 mediastinal chest tubes have been discontinued, today's chest x-ray has been reviewed by Dr. Irwin, showed left -sided pneumothorax with apical pleural separation of 2.2 cm and lateral pleural separation of 1.4 cm, small pleural effusion and left basilar atelectasis. Pleural chest tube will remain in place today, will be placed to waterseal per CT surgery. Epicardial wires have been grounded. Today's labs have been reviewed, W BC 7.6, hemoglobin is 9.4, electro lites and renal profile are unremarkable. Incentive spirometry effort is 750 ML. Lung sounds are clear, diminished at the bases. Objective - Vital Signs Vital signs: Vital Signs Temp 98.4 F 09/07/18 04:00 Pulse 77 09/07/18 09:00 Resp 27 H 09/07/18 09:00 BP 122/65 09/07/18 09:00 Pulse Ox 91 L 09/07/18 09:00 Intake & Output 09/06/18 09/07/18 09/07/18 18:59 06:59 18:59 Intake Total 875 756 307.5 Output Total 425 485 80 Balance 450 271 227.5 Weight 85.6 kg Intake: IV 285 276 67.5 Lactated Ringers 1,000 ml 240 240 60 @ 20 mls/hr IV .Q24H [facility] Rx#:[id number] pressure bag 45 36 7.5 Intake, IV Titration 80 Amount Lactated Ringers 1,000 ml 80 @ 20 mls/hr IV .Q24H [facility] Rx#:[id number] Oral 350 400 240 Tube Feeding 240 Output: Chest Tube Drainage 150 120 10 left and right 30 mediastinal left pleural 120 120 10 Urine 275 365 70 Other: Voiding Method Indwelling Catheter Indwelling Catheter Indwelling Catheter ABP, PAP, CO, CI - Last Documented Arterial Blood Pressure 93/84 Pulmonary Artery Pressure 33/13 Cardiac Output 6 Cardiac Index 3.0 - Exam GENERAL EXAM: Awake, and alert 58-year-old white male, comfortable in no apparent distress. Currently on 3 L per high flow nasal cannula HEAD: Normocephalic/atraumatic. EYES: Normal reaction of pupils, equal size. Conjunctiva pink, sclera white. NOSE: Clear with pink turbinates. THROAT: No erythema or exudates. NECK: No masses, no JVD, no thyroid enlargement, no adenopathy. CHEST: No chest wall deformity. Symmetrical expansion. Midsternal incisions clean dry and intact, approximated, covered with a surgical dressing, 2 mediastinal chest tubes have been discontinued and left pleural chest tube in place, epicardial wires grounded. Patient's intrinsic rhythm is sinus rhythm with a rate of 74 BPM LUNGS: Equal air entry with no crackles, wheeze, rhonchi or dullness. CVS: Regular rate and rhythm, normal S1 and S2, no gallops, no murmurs, no rubs ABDOMEN: Soft, nontender. No hepatosplenomegaly, normal bowel sounds, no guarding or rigidity. EXTREMITIES: No clubbing, no edema, no cyanosis, 2+ pulses and upper and lower extremities. Bilateral lower extremities are Tenzin wrapped MUSCULOSKELETAL: Muscle strength and tone normal. SPINE: No scoliosis or deformity SKIN: No rashes CENTRAL NERVOUS SYSTEM: Sedated. No focal deficits, tone is normal in all 4 extremities. - Labs CBC & Chem 7: 09/07/18 04:30 09/07/18 04:30 Labs: Abnormal Lab Results - Last 24 Hours (Table) 09/06/18 09/06/18 09/06/18 Range/Units 11:58 17:19 20:50 RBC (4.30-5.90) m/uL Hgb (13.0-17.5) gm/dL Hct (39.0-53.0) % Plt Count (150-450) k/uL Sodium (137-145) mmol/L Glucose (74-99) mg/dL POC Glucose (mg/dL) 132 H 124 H 135 H (75-99) mg/dL Total Protein (6.3-8.2) g/dL Albumin (3.5-5.0) g/dL 09/07/18 09/07/18 09/07/18 Range/Units 04:30 04:30 07:12 RBC 2.97 L (4.30-5.90) m/uL Hgb 9.4 L (13.0-17.5) gm/dL Hct 28.0 L (39.0-53.0) % Plt Count 141 L (150-450) k/uL Sodium 136 L (137-145) mmol/L Glucose 108 H (74-99) mg/dL POC Glucose (mg/dL) 103 H (75-99) mg/dL Total Protein 5.7 L (6.3-8.2) g/dL Albumin 3.1 L (3.5-5.0) g/dL Assessment and Plan Plan: Assessment: #1. Symptomatic coronary artery disease with history of previous stenting, status post 2 vessel bypass grafting with FELICIANO to LAD, and SVG to the ramus, postop day 4 #2. Routine mechanical ventilator management, patient has been extubated since 09/04/2018 at 1910, and so far tolerating extubation very well. #3. History of hypertension, hyperlipidemia, previous myocardial infarction #4. Chronic nicotine dependence, patient carries [id number] smoking history of one half pack a day #5. Moderately severe COPD, not oxygen dependent at his baseline, preop PFT showed FEV1 of 76% of predicted #6. EtOH dependence Plan: Patient is doing well, FiO2 down to 3 L per nasal cannula, continue encouraging deep breathing and coughing, incentive spirometry use, he is tolerating ambulation, hemodynamically stable, his chest x-ray has been reviewed by Dr. Irwin, and shows left apical pneumothorax, left pleural chest tube remains in place, will be placed to waterseal per CT surgery, hemodynamically there are no issues, patient is nonoliguric. Anticipate transfer out of the intensive care unit today to a stepdown unit. I performed a history & physical examination of the patient and discussed their management with my nurse practitioner, Solange Carmen. I reviewed the nurse practitioner's note and agree with the documented findings and plan of care. Lung sounds are clear. The findings and the impression was discussed with the patient. I attest to the documentation by the nurse practitioner. Time with Patient: Greater than 30
[2018-09-07 12:24] LABS: Glucose,Whole Blood 102 mg/dL (75-99)
[2018-09-07] MEDS: EPINEPHrine 2 MG in DEXTROSE 5% IN WATER 250 ML IV SCH ×4 (16:58→17:00)
[2018-09-07 17:38] LABS: Glucose,Whole Blood 151 mg/dL (75-99)
[2018-09-07] MEDS: SENNOSIDES-DOCUSATE SODIUM 1 EACH TAB PO SCH (20:15)
[2018-09-07 20:46] LABS: Glucose,Whole Blood 155 mg/dL (75-99)
[2018-09-08] MEDS: HYDROcodone/APAP 5-325MG 1 EACH TAB PO PRN ×3 (03:53→20:55)
[2018-09-08 05:47] LABS: Basophils % (A) 0 %; Eosinophils # (A) 0.4 k/uL (0-0.7); Eosinophils % (A) 6 %; HCT 27.7 % (39.0-53.0); HGB 9.3 gm/dL (13.0-17.5); Lymphocytes # (A) 1.2 k/uL (1.0-4.8); Lymphocytes % (A) 18 %; MCHC 33.5 g/dL (31.0-37.0); MCV 95.3 fL (80.0-100.0); Mean Platelet Volume 8.3; Monocytes # (A) 0.5 k/uL (0-1.0); Monocytes % (A) 7 %; Neutrophils # (A) 4.3 k/uL (1.3-7.7); Neutrophils % (A) 66 %; Platelet Count 168 k/uL (150-450); RBC 2.91 m/uL (4.30-5.90); RDW 14.5 % (11.5-15.5); WBC 6.6 k/uL (3.8-10.6)
[2018-09-08 06:06] LABS: ALT 30 U/L (21-72); AST 44 U/L (17-59); Albumin 2.9 g/dL (3.5-5.0); Alkaline Phosphatase 100 U/L (38-126); Anion Gap 7 mmol/L; Blood Urea Nitrogen 18 mg/dL (9-20); Calcium 8.5 mg/dL (8.4-10.2); Carbon Dioxide 24 mmol/L (22-30); Chloride 105 mmol/L (98-107); Glucose 99 mg/dL (74-99); Magnesium 2.2 mg/dL (1.6-2.3); Potassium 4.3 mmol/L (3.5-5.1); Sodium 136 mmol/L (137-145); Total Bilirubin 0.8 mg/dL (0.2-1.3); Total Protein 5.7 g/dL (6.3-8.2)
[2018-09-08] MEDS: KETOROLAC 30 MG/ML 1 ML VIAL IVP PRN (06:14)
[2018-09-08] MEDS: HEPARIN SODIUM,PORCINE 5,000 UNIT/ML 1 ML VIAL SQ SCH ×3 (06:22→20:55)
[2018-09-08] MEDS: INSULIN ASPART 100 UNIT/ML 1 ML 10 ML VIAL SQ SCH ×4 (06:53→20:54)
[2018-09-08 07:05] LABS: Glucose,Whole Blood 101 mg/dL (75-99)
--- NOTE | 2018-09-08 08:16 | XR ---
EXAMINATION TYPE: XR chest 2V DATE OF EXAM: 09/08/2018 COMPARISON: Prior chest x-ray 09/07/2018 HISTORY: Status post cardiac surgery, chest tube TECHNIQUE: Frontal and lateral views of the chest are obtained. FINDINGS: Patient is post median sternotomy. Heart size is stable. Left-sided chest tube remains in place. Interval improved aeration in the left lower chest. There is a left-sided pneumothorax as on p rior exam. There are overlying cardiac leads. Right jugular central venous sheath has been removed. S uspect coronary artery stent is in place. IMPRESSION: Persistent left-sided pneumothorax. Improved aeration.
[2018-09-08] MEDS: CLOPIDOGREL 75 MG TAB PO SCH (08:20)
[2018-09-08] MEDS: PANTOPRAZOLE 40 MG TABLET PO SCH (08:20)
[2018-09-08] MEDS: ASPIRIN 325 MG TAB PO SCH (08:20)
[2018-09-08] MEDS: ATORVASTATIN 40 MG TAB PO SCH (08:20)
[2018-09-08] MEDS: METOPROLOL TARTRATE 12.5 MG TAB PO SCH ×2 (08:20→20:55)
[2018-09-08] MEDS: IPRATROPIUM-ALBUTEROL 3 ML NEB INHALATION SCH ×4 (08:48→20:48)
--- NOTE | 2018-09-08 09:33 | P.PN ---
Subjective Progress Note Date: 09/08/18 Principal diagnosis: Coronary artery disease with left main disease, hypertension, hyperlipidemia, history of myocardial infarction, history of stent placement to the right coronary artery in when he 17 and left anterior descending coronary artery as well as right coronary artery in 2017, anxiety, degenerative disc disease with chronic low back pain, current nicotine dependence, family history of early- onset coronary artery disease with father from myocardial infarction in his 50s. POD #4 coronary artery bypass grafting 2 vessels with the left internal mammary artery to the left anterior descending coronary artery, reverse greater saphenous vein graft to the ramus coronary artery. Endoscopic vein harvest the right greater saphenous vein. Intraoperative transesophageal echocardiogram and epi-aortic ultrasound. The patient is currently sitting up in the recliner in no acute distress. He states pain is mostly controlled with current medication regimen, denies shortness of breath. He has no new complaints or concerns, except wondering when he can go home. Remains hemodynamically stable on no pressors. Epicardial pacemaker wires were discontinued yesterday, chest tube was placed to waterseal. Objective - Vital Signs Vital signs: Vital Signs Temp 97.8 F 09/08/18 09:02 Pulse 76 09/08/18 09:02 Resp 20 09/08/18 09:02 BP 125/85 09/08/18 09:02 Pulse Ox 94 L 09/08/18 09:02 Intake & Output 09/07/18 09/08/18 09/08/18 18:59 06:59 18:59 Intake Total 1505.5 360 Output Total 400 360 Balance 1105.5 -360 360 Weight 85.6 kg 85.9 kg Intake: IV 90.5 Lactated Ringers 1,000 ml 80 @ 20 mls/hr IV .Q24H [facility] Rx#:[id number] pressure bag 10.5 Oral 1415 360 Output: Chest Tube Drainage 30 60 left pleural 30 60 Urine 370 300 Other: Voiding Method Indwelling Catheter Urinal Urinal # Voids 1 # Bowel Movements 1 ABP, PAP, CO, CI - Last Documented Arterial Blood Pressure 93/84 Pulmonary Artery Pressure 33/13 Cardiac Output 6 Cardiac Index 3.0 - Constitutional General appearance: Present: cooperative, no acute distress - Respiratory Details: Lungs sounds diminished bilaterally with expiratory wheezes present. Respirations even, nonlabored. Currently on 5 L nasal cannula with oxygen saturation 92%. Able to achieve 1000 mL on his incentive spirometer. Left pleural chest tube to waterseal for 24 hours, 60 mL serous drainage overnight, 250 mL last 24 hours, no air leak present. - Cardiovascular Details: S1, S2 present. Regular rate and rhythm, sinus rhythm on telemetry. Sternum stable. Palpable peripheral pulses bilaterally. No edema present. No calf pain or tenderness noted. Heart hugger in place with patient demonstrating appropriate use. Antiembolism stockings, SCDs present. - Gastrointestinal Gastrointestinal Comment(s): Abdomen soft, nontender, nondistended. Active bowel sounds 4 quadrants. Tolerating diet. Positive bowel movement yesterday. - Genitourinary Genitourinary Comment(s): Franco discontinued yesterday. Patient continues to void clear yellow urine, output overnight 300 mL. - Integumentary Integumentary Comment(s): Skin is warm and dry with evidence of good perfusion. Anterior chest incision well approximated and covered with dry intact dressing. Right lower extremity EVH site well approximated. - Neurologic Neurologic: Present: CNII-XII intact - Musculoskeletal Musculoskeletal: Present: gait normal, strength equal bilaterally - Psychiatric Psychiatric: Present: A&O x's 3, appropriate affect, intact judgment & insight - Allied health notes Allied health notes reviewed: nursing - Labs CBC & Chem 7: 09/08/18 05:01 09/08/18 05:01 Labs: Abnormal Lab Results - Last 24 Hours (Table) 09/07/18 09/07/18 09/07/18 Range/Units 12:20 17:12 20:32 RBC (4.30-5.90) m/uL Hgb (13.0-17.5) gm/dL Hct (39.0-53.0) % Sodium (137-145) mmol/L POC Glucose (mg/dL) 102 H 151 H 155 H (75-99) mg/dL Total Protein (6.3-8.2) g/dL Albumin (3.5-5.0) g/dL 09/08/18 09/08/18 09/08/18 Range/Units 05:01 05:01 06:51 RBC 2.91 L (4.30-5.90) m/uL Hgb 9.3 L (13.0-17.5) gm/dL Hct 27.7 L (39.0-53.0) % Sodium 136 L (137-145) mmol/L POC Glucose (mg/dL) 101 H (75-99) mg/dL Total Protein 5.7 L (6.3-8.2) g/dL Albumin 2.9 L (3.5-5.0) g/dL - Imaging and Cardiology Chest x-ray: report reviewed, image reviewed Assessment and Plan (1) S/P CABG (coronary artery bypass graft) Current Visit: Yes Status: Acute Code(s): Z95.1 - PRESENCE OF AORTOCORONARY BYPASS GRAFT SNOMED Code(s): 774338847 (2) Family history of coronary artery disease in father Current Visit: No Status: Acute Code(s): Z82.49 - FAMILY HX OF ISCHEM HEART DIS AND OTH DIS OF THE CIRC SYS SNOMED Code(s): 150853161 (3) History of coronary artery disease Current Visit: No Status: Acute Code(s): Z86.79 - PERSONAL HISTORY OF OTHER DISEASES OF THE CIRCULATORY SYSTEM SNOMED Code(s): 885334622 (4) History of myocardial infarction Current Visit: No Status: Acute Code(s): I25.2 - OLD MYOCARDIAL INFARCTION SNOMED Code(s): 799333491 (5) Hyperlipidemia Current Visit: No Status: Acute Code(s): E78.5 - HYPERLIPIDEMIA, UNSPECIFIED SNOMED Code(s): 28654192 (6) Hypertension Current Visit: No Status: Acute Code(s): I10 - ESSENTIAL (PRIMARY) HYPERTENSION SNOMED Code(s): 14534296 (7) Nicotine dependence Current Visit: No Status: Acute Code(s): F17.200 - NICOTINE DEPENDENCE, UNSPECIFIED, UNCOMPLICATED SNOMED Code(s): 59885753 Plan: 1. Continue aspirin, statin, Plavix, beta gibson therapy. Will increase beta gibson therapy as tolerated. 2. Wean O2 as tolerated. Encourage incentive spirometry 10 times every hour while awake. 3. Bronchodilators per pulmonology. 4. Will monitor daily labs and x-rays. 5. Increase activity, ambulate in hallway. PT/OT/cardiac rehab following. 6. Insulin management per primary care services. 7. Pain control with current medication regimen. 8. No Lasix today. 9. GI prophylaxis with Protonix. DVT prophylaxis with subcu heparin, SCDs. 10. Will discontinue left pleural chest tube. 11. Transfer orders for 3 S. cardiac stepdown placed yesterday, may transfer when bed available. 12. Consult placed for Dr. Padilla for inpatient rehab. Anticipate discharge to home versus IPR in the next 24-48 hours. 13. More recommendations to follow. Time with Patient: Greater than 30
--- NOTE | 2018-09-08 11:09 | PN ---
PROGRESS NOTE DATE OF SERVICE: 09/07/2018 SUBJECTIVE: A 58-year-old white male, status post CABG surgery day 3. Patient is doing well, IV line in the neck on his right side has been removed. He is feeling better. He is having incisional chest pain. Otherwise, he is doing well, breathing good. No chest pain, shortness of breath. Vital signs are reviewed. Labs are reviewed. Please see further orders in the chart. ASSESSMENT: 1. Status post coronary artery bypass grafting day 2. 2. Nicotine addiction. 3. Hypertension. Will follow up outpatient medication with him. MMODL / IJN: [id number] /
[2018-09-08 11:37] LABS: Glucose,Whole Blood 118 mg/dL (75-99)
--- NOTE | 2018-09-08 11:48 | P.PN ---
Subjective Progress Note Date: 09/08/18 Principal diagnosis: Coronary artery disease status post 2 vessel bypass grafting This a 58-year-old white male patient who we met in the preop period last week on 08/23/2018 for preop pulmonary evaluation. Patient initially was seen in the hospital on 08/23/2018 and planing of chest pain. He was found to have mild in-stent restenosis involving the proximal RCA, severe disease involving the PDA branch of the RCA, severe disease above the distal left main in the range of 50%, mild disease involving the left circumflex and in-stent restenosis which was mild involving the proximal and mid LAD. Patient was recommended to have surgical evaluation for coronary artery bypass grafting area and today on 09/04/2018 he had 2 vessel bypass with FELICIANO to LAD, and saphenous venous graft to the ramus. Other medical history includes moderately severe COPD and preop PFT showed FEV1 of 2.3 L or 76%, an FVC of 3.2 L or 79% of predicted with diffusion abnormality, with DLCO of 21.6 percent of predicted. He has previous history of coronary stenting, he has chronic and ongoing nicotine dependence, carries [id number] smoking history of 1-1/2 packs per day, hypertension, hyperlipidemia, previous myocardial infarction and EtOH dependence. Currently patient is sedated, and intubated, on mechanical ventilator, he seen in the postop period in the intensive care unit, hemodynamically stable, cardiac output was 7.8, and cardiac index was 4.2. He has 2 mediastinal chest tubes and left pleural chest tube with small amount of sanguinous drainage. He is currently on lactated Ringer's at a rate of 50 ML per hour, milrinone at 0.25 mics per kilo per minute, nitroglycerin at 5 mics per minute, clevidipine at 20 mg per hour, Diprivan at 45 mics per kilo per minute. Current vent settings are SIMV mode with a rate of 16, tidal volume of 450, FiO2 of 80%, and PEEP of 8. Postop chest x-ray has been reviewed by Dr. Stoll which showed some basilar atelectasis, endotracheal tube, NG tube, PA catheter, mediastinal drains and chest tubes are appropriately placed. Postoperative blood gases showed pO2 of 227, pCO2 of 49, pH is 7.32. Postop blood work showed WBC of 6.9, hemoglobin of 11.5, platelet count of 119, INR is 1.2, electrolytes and renal profile was unremarkable. On 09/05/2018 patient seen in follow-up in the intensive care unit, this is postop day 1 status post two-vessel bypass grafting. Patient was extubated at 1910 yesterday on 09/04/2018. His morning he seen sitting up in the recliner, currently on 12 L per high flow nasal cannula, he is hemodynamically stable, afebrile, in sinus mechanism with a controlled rate. He is having some mild to moderate incisional discomfort, but no acute distress. Today's chest x-ray has been reviewed, shows slightly worsening left basilar opacity and left pleural effusion, no residual pneumothorax. An incentive spirometer effort is 500 mL today. Lung sounds are diminished. Today's labs have been reviewed, WBC 6.9, hemoglobin is 8.9. Renal profile and electrolytes are unremarkable. PA pressures 36/13 with a CVP of 8, cardiac output is 6.6, and cardiac index is 3.5 , maintenance IV fluids is lactated Ringer's at 20 ML per hour, nitroglycerin has been weaned off, levo fed is currently 2 mics per minute, and insulin is on hold. He is producing urine in order of 35-65 ML per hour, left and right mediastinal chest tube output is 650 ML in last 24 hours, and 500 mL out of left pleural in the last 24 hours. Hemodynamically patient is stable. On 09/07/2018 patient seen in follow-up in the intensive care unit, he is awake and alert, in no acute distress, currently on 3 L per nasal cannula his pulse ox is 91-94%, has some mild incisional discomfort, but no acute distress, sinus rhythm on a monitor, with a controlled rate, afebrile, hemodynamically stable, left pleural chest tube remains in place, 2 mediastinal chest tubes have been discontinued, today's chest x-ray has been reviewed by Dr. Irwin, showed left -sided pneumothorax with apical pleural separation of 2.2 cm and lateral pleural separation of 1.4 cm, small pleural effusion and left basilar atelectasis. Pleural chest tube will remain in place today, will be placed to waterseal per CT surgery. Epicardial wires have been grounded. Today's labs have been reviewed, W BC 7.6, hemoglobin is 9.4, electro lites and renal profile are unremarkable. Incentive spirometry effort is 750 ML. Lung sounds are clear, diminished at the bases. On 09/08/2018 patient seen in follow-up in the intensive care unit, he is awake and alert, sitting up in the recliner, in no acute distress, currently 6 L per nasal cannula, his pulse ox is 94%, he is working on his incentive spirometer, and he is able to achieve 750 on it today. Febrile, hemodynamically stable, sinus rhythm on the monitor, today's chest x-ray has been reviewed by Dr. Irwin today, and shows persistent left-sided apical pneumothorax, and improved aeration in the left lower chest. Left pleural chest tube was to waterseal overnight. Labs have been reviewed, WBC is 10.8, hemoglobin is 9.5, electrolytes and renal profile within normal limits. No acute events overnight , he has some mild incisional pain, no acute distress. He is tolerating oral diet. Lung sounds are clear, diminished at the bases, no rhonchi no wheezes on today's exam Objective - Vital Signs Vital signs: Vital Signs Temp 97.8 F 09/08/18 09:02 Pulse 76 09/08/18 09:02 Resp 20 09/08/18 09:02 BP 125/85 09/08/18 09:02 Pulse Ox 94 L 09/08/18 09:02 Intake & Output 09/07/18 09/08/18 09/08/18 18:59 06:59 18:59 Intake Total 1505.5 360 Output Total 400 360 Balance 1105.5 -360 360 Weight 85.6 kg 85.9 kg Intake: IV 90.5 Lactated Ringers 1,000 ml 80 @ 20 mls/hr IV .Q24H REPLACED BY [facility] Rx#:[id number] pressure bag 10.5 Oral 1415 360 Output: Chest Tube Drainage 30 60 left pleural 30 60 Urine 370 300 Other: Voiding Method Indwelling Catheter Urinal Urinal # Voids 1 # Bowel Movements 1 ABP, PAP, CO, CI - Last Documented Arterial Blood Pressure 93/84 Pulmonary Artery Pressure 33/13 Cardiac Output 6 Cardiac Index 3.0 - Exam GENERAL EXAM: Awake, and alert 58-year-old white male, comfortable in no apparent distress. Currently on 3 L per high flow nasal cannula HEAD: Normocephalic/atraumatic. EYES: Normal reaction of pupils, equal size. Conjunctiva pink, sclera white. NOSE: Clear with pink turbinates. THROAT: No erythema or exudates. NECK: No masses, no JVD, no thyroid enlargement, no adenopathy. CHEST: No chest wall deformity. Symmetrical expansion. Midsternal incisions clean dry and intact, approximated, covered with a surgical dressing, 2 mediastinal chest tubes have been discontinued and left pleural chest tube in place, epicardial wires grounded. Patient's intrinsic rhythm is sinus rhythm with a rate of 74 BPM LUNGS: Equal air entry with no crackles, wheeze, rhonchi or dullness. CVS: Regular rate and rhythm, normal S1 and S2, no gallops, no murmurs, no rubs ABDOMEN: Soft, nontender. No hepatosplenomegaly, normal bowel sounds, no guarding or rigidity. EXTREMITIES: No clubbing, no edema, no cyanosis, 2+ pulses and upper and lower extremities. Bilateral lower extremities are Tenzin wrapped MUSCULOSKELETAL: Muscle strength and tone normal. SPINE: No scoliosis or deformity SKIN: No rashes CENTRAL NERVOUS SYSTEM: Sedated. No focal deficits, tone is normal in all 4 extremities. - Labs CBC & Chem 7: 09/08/18 05:01 09/08/18 05:01 Labs: Abnormal Lab Results - Last 24 Hours (Table) 09/07/18 09/07/18 09/07/18 Range/Units 12:20 17:12 20:32 RBC (4.30-5.90) m/uL Hgb (13.0-17.5) gm/dL Hct (39.0-53.0) % Sodium (137-145) mmol/L POC Glucose (mg/dL) 102 H 151 H 155 H (75-99) mg/dL Total Protein (6.3-8.2) g/dL Albumin (3.5-5.0) g/dL 09/08/18 09/08/18 09/08/18 Range/Units 05:01 05:01 06:51 RBC 2.91 L (4.30-5.90) m/uL Hgb 9.3 L (13.0-17.5) gm/dL Hct 27.7 L (39.0-53.0) % Sodium 136 L (137-145) mmol/L POC Glucose (mg/dL) 101 H (75-99) mg/dL Total Protein 5.7 L (6.3-8.2) g/dL Albumin 2.9 L (3.5-5.0) g/dL 09/08/18 Range/Units 11:33 RBC (4.30-5.90) m/uL Hgb (13.0-17.5) gm/dL Hct (39.0-53.0) % Sodium (137-145) mmol/L POC Glucose (mg/dL) 118 H (75-99) mg/dL Total Protein (6.3-8.2) g/dL Albumin (3.5-5.0) g/dL Assessment and Plan Plan: Assessment: #1. Symptomatic coronary artery disease with history of previous stenting, status post 2 vessel bypass grafting with FELICIANO to LAD, and SVG to the ramus, postop day 5 #2. Routine mechanical ventilator management, patient has been extubated since 09/04/2018 at 1910, and so far tolerating extubation very well. #3. History of hypertension, hyperlipidemia, previous myocardial infarction #4. Chronic nicotine dependence, patient carries [id number] smoking history of one half pack a day #5. Moderately severe COPD, not oxygen dependent at his baseline, preop PFT showed FEV1 of 76% of predicted #6. EtOH dependence Plan: Patient is doing well, continue encouraging incentive spirometry, deep breathing and coughing, today's chest x-ray has been reviewed by Dr. Irwin, shows persistent left apical pneumothorax, and approved aeration of left lower lobe. Clinically patient is without specific complaints, his incisional pain is controlled with oral medications, and his rhythm on the monitor, hemodynamically stable, anticipate transfer out of the intensive care unit today. Continue to follow. I performed a history & physical examination of the patient and discussed their management with my nurse practitioner, Solange Carmen. I reviewed the nurse practitioner's note and agree with the documented findings and plan of care. Lung sounds are clear. The findings and the impression was discussed with the patient. I attest to the documentation by the nurse practitioner. Time with Patient: Greater than 30
--- NOTE | 2018-09-08 12:06 | P.CONS ---
History of Present Illness - Chief Complaint Cardiac debility - History of Present Illness I had the opportunity to see patient for inpatient rehab consultation with regard to cardiac debility. He was admitted to [facility] September 04 with known cardiac disease. Patient reports undergoing three-vessel coronary bypass. I discussed case with PT and OT and a report patient ambulating in the hallway with standby assist. Previous functional history as elicited from patient: 58-year-old right-handed white male who is lives in first floor apartment with and daughter. Both are on disability. does the laundry and driving. Patient does the cooking independent with sitdown shower and gait without device. Dr. Lenz is regular doctor. Patient reports smoking pack per day and drinks a weekly. Family history of coronary artery disease in father. Review of Systems Review of systems: ENT: Denies sneezes or discharge. Eyes: Denies discharge or photophobia. Cardiac: Mild pain or palpitation. Pulmonary: Mild cough or shortness of breath. Gastrointestinal: Denies nausea, emesis, constipation, diarrhea. Genitourinary: Denies discharge or frequency. Musculoskeletal: Denies muscle or bone aches. Neurologic: Denies motor or sensory change. Endocrine: Denies shakes or sweats. Oncology: Denies cancers. Dermatologic: Denies rash, itching, pruritus. ALLERGY/immunology: Denies sneezes, rashes. Past Medical History Past Medical History: Coronary Artery Disease (CAD), Chest Pain / Angina, Hyperlipidemia, Hypertension, Myocardial Infarction (NC) Additional Past Medical History / Comment(s): Degenerative disc disease Last Myocardial Infarction Date:: 2016 History of Any Multi-Drug Resistant Organisms: None Reported Past Surgical History: Back Surgery, Heart Catheterization, Heart Catheterization With Stent, Orthopedic Surgery Additional Past Surgical History / Comment(s): back surgery Past Anesthesia/Blood Transfusion Reactions: No Reported Reaction Date of Last Stent Placement:: march 2016 Smoking Status: Former smoker - Past Family History Father History Unknown: Yes Family Medical History: Myocardial Infarction (NC) Additional Family Medical History / Comment(s): The patient reports his dad from a myocardial infarction in his mid 50s. Brother(s) History Unknown: Yes Family Medical History: Myocardial Infarction (NC) Additional Family Medical History / Comment(s): The patient reports to have his brothers from myocardial infarction in their mid 50s. Medications and Allergies Home Medications Medication Instructions Recorded Confirmed Type Lisinopril [Zestril] 10 mg PO DAILY 08/23/18 09/04/18 History Rosuvastatin Calcium [Crestor] 40 mg PO HS 08/23/18 09/04/18 History Isosorbide Mononitrate ER [Imdur] 60 mg PO DAILY #90 tab.er.24h 08/26/18 Rx Metoprolol Tartrate [Lopressor] 50 mg PO BID #180 tab 08/26/18 09/04/18 Rx Aspirin 81 mg PO DAILY 08/31/18 09/04/18 History Mupirocin 2% Oint [Bactroban 2% 1 applic NASAL BID 09/02/18 09/04/18 History Oint] Allergies Allergy/AdvReac Type Severity Reaction Status Date / Time bee venom protein (honey bee) Allergy Anaphylaxis Verified 09/04/18 13:23 Physical Exam Vitals: Vital Signs Temp Pulse Pulse Resp BP BP Pulse Ox 09/08/18 09:02 97.8 F 76 20 125/85 94 L 09/08/18 06:00 70 16 102/58 93 L 09/08/18 05:00 70 17 108/62 92 L 09/08/18 04:00 97.2 F L 65 20 116/64 91 L 09/08/18 03:00 68 17 98/65 96 09/08/18 02:00 66 16 103/50 95 09/08/18 01:00 66 16 97/53 96 09/08/18 00:00 97.8 F 65 16 129/82 96 09/07/18 23:24 66 23 129/82 95 09/07/18 23:00 67 22 97/54 95 09/07/18 22:00 61 18 123/70 95 09/07/18 21:00 72 27 H 108/65 95 09/07/18 20:00 97.7 F 75 19 117/64 95 09/07/18 19:00 77 19 130/76 93 L 09/07/18 18:00 80 30 H 123/59 95 09/07/18 17:00 71 19 98/58 95 09/07/18 16:00 98.1 F 74 27 H 121/57 95 09/07/18 15:00 73 26 H 115/63 97 09/07/18 14:00 84 33 H 116/50 94 L 09/07/18 13:00 75 30 H 122/65 95 Intake and Output 09/07/18 09/08/18 09/08/18 22:59 06:59 14:59 Intake Total 750 360 Output Total 0 360 Balance 750 -360 360 Intake: Oral 750 360 Output: Chest Tube Drainage 60 left pleural 60 Urine 0 300 Other: Voiding Method Urinal Urinal Urinal # Voids 1 # Bowel Movements 1 Weight 85.9 kg ABP, PAP, CO, CI - Last 8 Hours Cardiac Output 6 Skin: Good color, texture, turgor. General: Medium build and comfortable appearance. Head: Normocephalic, atraumatic. Eyes: Symmetric. Pupils equal round. Ears: Symmetric. Hearing within normal limits. Mouth: Clear. Neck: Supple. Carotid without bruit. Cardiac: Regular rate and rhythm. Lean and dressed. Wearing harness. Lungs: Clear anteriorly and posteriorly. Abdomen: Soft active nontender. Extremities: Normal tone. Neurological: Mental status: Alert, cooperative, pleasant. Cranial nerves: Symmetric facial tone and trapezius. Motor: Normal strength and isolation all 4 limbs. Sensation: Intact throughout. DTRs: Symmetric and equal throughout. Mobility: Sits and stands with standby assistance. Results CBC & Chem 7: 09/08/18 05:01 09/08/18 05:01 Labs: Abnormal Lab Results - Last 24 Hours (Table) 09/07/18 09/07/18 09/07/18 Range/Units 12:20 17:12 20:32 RBC (4.30-5.90) m/uL Hgb (13.0-17.5) gm/dL Hct (39.0-53.0) % Sodium (137-145) mmol/L POC Glucose (mg/dL) 102 H 151 H 155 H (75-99) mg/dL Total Protein (6.3-8.2) g/dL Albumin (3.5-5.0) g/dL 09/08/18 09/08/18 09/08/18 Range/Units 05:01 05:01 06:51 RBC 2.91 L (4.30-5.90) m/uL Hgb 9.3 L (13.0-17.5) gm/dL Hct 27.7 L (39.0-53.0) % Sodium 136 L (137-145) mmol/L POC Glucose (mg/dL) 101 H (75-99) mg/dL Total Protein 5.7 L (6.3-8.2) g/dL Albumin 2.9 L (3.5-5.0) g/dL 09/08/18 Range/Units 11:33 RBC (4.30-5.90) m/uL Hgb (13.0-17.5) gm/dL Hct (39.0-53.0) % Sodium (137-145) mmol/L POC Glucose (mg/dL) 118 H (75-99) mg/dL Total Protein (6.3-8.2) g/dL Albumin (3.5-5.0) g/dL Assessment and Plan (1) S/P CABG (coronary artery bypass graft) Current Visit: Yes Status: Acute Code(s): Z95.1 - PRESENCE OF AORTOCORONARY BYPASS GRAFT SNOMED Code(s): 453252971 Plan: Logan: 1. Cardiac debility. 2. Status post CABG. 3. Hypertension. 4. Dyslipidemia. 5. Coronary disease with history of angina and NC. Plan: At this time PT and OT reports patient has been ambulating in hallways with staff. Patient may in fact be too good for inpatient rehab and this possibility discussed with patient. Note that I am having difficulty accessing all of patient's chart due to [employer] problems today.
--- NOTE | 2018-09-08 14:40 | CDI ---
Last Revision, September 2017 Documentation Clarification Form Date: 09/08/2018 2:29:02 PM From: Shannen Upton RN, CCDS Admit Date: 09/04/2018 5:37:00 AM Patient Name: Olvin Wright Visit Number: [id number] ATTENTION: The Clinical Documentation Specialists (CDI) and [facility] Coding Staff appreciate your assistance in clarifying documentation. Please respond to the clarification below the line at the bottom and electronically sign. The CDI & [facility] Coding staff will review the response and follow-up if needed. Please note: Queries are made part of the Legal Health Record. If you have any questions, please contact the author of this message via ITS. Efraín Villa MD/Tiny Coronado ASSISTANT FINANCE DIRECTOR A diagnosis of anemia lacks specificity to accurately reflect your patients severity of condition and clarification is needed. History/Risk Factors: CABG x 2 this admission, ETOH Dependence, chronic Nicotine dependence, COPD Clinical indicators: Hemoglobin: 11.5/12.2/9.5/8.9/9.3/9.4/9.3 Hematocrit: 33.7/33.5/27.2/25.7/27.9/28/27.7 Treatment: Monitoring labs 1 unit Platelets transfused ASA 325 mg PO QD In order to capture the severity of condition, please clarify the type of anemia and etiology if known: Acute blood loss anemia Acute on chronic blood loss anemia Chronic blood loss anemia Iron deficiency anemia Hemolytic anemia Drug induced anemia Nutritional anemia Anemia of chronic disease Unable to determine Other, please specify Please identify the diagnosis relationship to being a post-operative condition An expected post-procedural or post-surgical condition; Integral to the procedure; Inherent to the procedure; An unexpected post-procedural or post-surgical condition related to surgical care; Other, please specify Unable to determine Please continue to document in your progress notes and discharge summary in order to capture severity of illness and risk of mortality. Include clinical findings that support your diagnosis. MTDD
[2018-09-08 16:54] LABS: Glucose,Whole Blood 103 mg/dL (75-99)
[2018-09-08 20:50] LABS: Glucose,Whole Blood 110 mg/dL (75-99)
[2018-09-08] MEDS: SENNOSIDES-DOCUSATE SODIUM 1 EACH TAB PO SCH (20:54)
--- NOTE | 2018-09-09 00:20 | PN ---
PROGRESS NOTE SUBJECTIVE: This is a white male, status post CABG. He has moved to a medical floor. Hypertension and nicotine addiction discussed with the patient. Cardiovascular: S1, S2. Lungs clear. GI soft. Integument shows all lines have been pulled. ASSESSMENT: 1. Coronary artery bypass grafting. 2. Hypertension. 3. Nicotine addiction. Home medications were reviewed with him. Possible discharge home in the morning. Continue cardiac rehab. MMODL / IJN: [id number] /
[2018-09-09] MEDS: HYDROcodone/APAP 5-325MG 1 EACH TAB PO PRN ×2 (00:50→04:51)
[2018-09-09 02:05] LABS: Glucose,Whole Blood 105 mg/dL (75-99)
[2018-09-09] MEDS: HEPARIN SODIUM,PORCINE 5,000 UNIT/ML 1 ML VIAL SQ SCH ×2 (04:51→13:17)
[2018-09-09 05:05] VITALS: TEMP 97.9
[2018-09-09 06:07] LABS: Glucose,Whole Blood 102 mg/dL (75-99)
[2018-09-09] MEDS: INSULIN ASPART 100 UNIT/ML 1 ML 10 ML VIAL SQ SCH ×2 (06:11→12:08)
[2018-09-09 06:30] LABS: HCT 30.3 % (39.0-53.0); HGB 9.9 gm/dL (13.0-17.5); MCHC 32.5 g/dL (31.0-37.0); MCV 95.3 fL (80.0-100.0); Mean Platelet Volume 8.4; Platelet Count 228 k/uL (150-450); RBC 3.18 m/uL (4.30-5.90); RDW 14.4 % (11.5-15.5); WBC 7.1 k/uL (3.8-10.6)
[2018-09-09] MEDS: PANTOPRAZOLE 40 MG TABLET PO SCH (06:34)
[2018-09-09 06:54] LABS: ALT 31 U/L (21-72); AST 49 U/L (17-59); Albumin 3.3 g/dL (3.5-5.0); Alkaline Phosphatase 134 U/L (38-126); Anion Gap 9 mmol/L; Blood Urea Nitrogen 14 mg/dL (9-20); Calcium 9.1 mg/dL (8.4-10.2); Carbon Dioxide 25 mmol/L (22-30); Chloride 108 mmol/L (98-107); Glucose 108 mg/dL (74-99); Magnesium 2.2 mg/dL (1.6-2.3); Potassium 4.4 mmol/L (3.5-5.1); Sodium 142 mmol/L (137-145); Total Bilirubin 0.8 mg/dL (0.2-1.3); Total Protein 6.4 g/dL (6.3-8.2)
--- NOTE | 2018-09-09 07:16 | XR ---
EXAMINATION TYPE: XR chest 2V DATE OF EXAM: 09/09/2018 COMPARISON: 09/08/2018 HISTORY: Shortness of breath TECHNIQUE: Frontal and lateral views of the chest are obtained. FINDINGS: Scattered senescent parenchymal changes noted. Hyperinflation compatible with COPD. Noted are patchy perihilar and left basilar infiltrates. Small left-sided effusion persists. Overall stable appearance. Heart size is stable. Mediastinal structures are stable and grossly unremarkable. No evidence for hilar prominence. Degenerative changes dorsal spine. IMPRESSION: 1. Noted are patchy perihilar and left basilar infiltrates. Small left-sided effusion persists. Overa ll stable appearance.
[2018-09-09 07:19] LABS: Eosinophils # (M) 0.28 k/uL (0-0.7); Lymphocytes # (M) 1.78 k/uL (1.0-4.8); Monocytes # (M) 1.14 k/uL (0-1.0); Neutrophils # (M) 3.91 k/uL (1.3-7.7); Neutrophils % (M) 55 %; Nucleated Red Blood Cells 0 /100 WBC (0-0); Total Cells Counted 100
[2018-09-09] MEDS ORDERED: traMADol 50 MG TAB PO PRN (08:22)
[2018-09-09] MEDS: IPRATROPIUM-ALBUTEROL 3 ML NEB INHALATION SCH ×3 (08:58→16:04)
--- NOTE | 2018-09-09 09:00 | PN ---
PROGRESS NOTE Mr. Wright is a 58-year-old gentleman who is status post 2-vessel bypass surgery. Patient is alert, oriented, and appears to be in no acute distress. Patient is on nasal oxygen. He is afebrile. Does not appear to be in any acute distress. He is maintaining sinus rhythm. Chest x-ray showed a left-sided small apical pneumothorax. Patient's hemoglobin is of 9.5. Overall patient seemed to be progressing fairly well. He may be transferred to telemetry unit. PHYSICAL EXAMINATION: Reveals no JVD. CHEST: Postsurgical. LUNGS: Showed diminished breath sounds at bases. ABDOMEN: Soft. EXTREMITIES: No significant edema. Patient is alert, otherwise. LAB DATA: Showed hemoglobin of 9.3. Potassium is 4.3. Patient is currently on aspirin, atorvastatin 40 mg, Plavix 75 mg, metoprolol 12.5 mg p.o. b.i.d. PLAN: Continue current medical therapy. Incentive spirometry. Increase physical activity. Transfer to telemetry unit. Will follow. MMODL / IJN: [id number] /
[2018-09-09] MEDS: ASPIRIN 325 MG TAB PO SCH (09:42)
[2018-09-09] MEDS: ATORVASTATIN 40 MG TAB PO SCH (09:42)
[2018-09-09] MEDS: METOPROLOL TARTRATE 12.5 MG TAB PO SCH (09:42)
[2018-09-09] MEDS: CLOPIDOGREL 75 MG TAB PO SCH (09:44)
[2018-09-09] MEDS ORDERED: METOPROLOL TARTRATE 12.5 MG TAB PO STA (10:48)
--- NOTE | 2018-09-09 10:51 | P.PN ---
Subjective Progress Note Date: 09/09/18 Principal diagnosis: Coronary artery disease with left main disease, hypertension, hyperlipidemia, history of myocardial infarction, history of stent placement to the right coronary artery in when he 17 and left anterior descending coronary artery as well as right coronary artery in 2017, anxiety, degenerative disc disease with chronic low back pain, current nicotine dependence, family history of early- onset coronary artery disease with father from myocardial infarction in his 50s. POD #5 coronary artery bypass grafting 2 vessels with the left internal mammary artery to the left anterior descending coronary artery, reverse greater saphenous vein graft to the ramus coronary artery. Endoscopic vein harvest the right greater saphenous vein. Intraoperative transesophageal echocardiogram and epi-aortic ultrasound. Postoperative acute blood loss anemia an expected postsurgical condition secondary to hemodilution and cardiopulmonary bypass pump. The patient is currently sitting up in the recliner in no acute distress. He states pain is mostly controlled with current medication regimen, denies shortness of breath. He has no new complaints or concerns. Remains hemodynamically stable. He was evaluated yesterday by Dr. Padilla who feels he is not in need of inpatient rehab. He ambulated in the hallway this morning on room air with oxygen saturation dropping down into the high 70s requiring reinitiation of oxygen therapy. Objective - Vital Signs Vital signs: Vital Signs Temp 97.9 F 09/09/18 04:00 Pulse 88 09/09/18 09:12 Resp 18 09/09/18 04:00 BP 142/75 09/09/18 04:00 Pulse Ox 92 L 09/09/18 04:00 Intake & Output 09/08/18 09/09/18 09/09/18 18:59 06:59 18:59 Intake Total 582 600 240 Balance 582 600 240 Weight 83.7 kg Intake: Oral 582 600 240 Other: Voiding Method Urinal Urinal # Voids 2 ABP, PAP, CO, CI - Last Documented Arterial Blood Pressure 93/84 Pulmonary Artery Pressure 33/13 Cardiac Output 6 Cardiac Index 3.0 - Constitutional General appearance: Present: cooperative, no acute distress - Respiratory Details: Lungs sounds diminished bilaterally, left greater than right. Respirations even , nonlabored. Currently on 2 L nasal cannula with oxygen saturation 92%. Able to achieve 1250 mL on his incentive spirometer. Effective, productive cough. - Cardiovascular Details: S1, S2 present. Regular rate and rhythm, sinus rhythm on telemetry. Sternum stable. Palpable peripheral pulses bilaterally. No edema present. No calf pain or tenderness noted. Heart hugger in place with patient demonstrating appropriate use. Antiembolism stockings, SCDs present. - Gastrointestinal Gastrointestinal Comment(s): Abdomen soft, nontender, nondistended. Active bowel sounds 4 quadrants. Tolerating diet. Positive bowel movement 09/08. - Genitourinary Genitourinary Comment(s): Patient continues to void clear yellow urine. - Integumentary Integumentary Comment(s): Skin is warm and dry with evidence of good perfusion. Anterior chest incision well approximated and covered with dry intact dressing. Right lower extremity EVH site well approximated. - Neurologic Neurologic: Present: CNII-XII intact - Musculoskeletal Musculoskeletal: Present: gait normal, strength equal bilaterally - Psychiatric Psychiatric: Present: A&O x's 3, appropriate affect, intact judgment & insight - Allied health notes Allied health notes reviewed: nursing - Labs CBC & Chem 7: 09/09/18 06:13 09/09/18 06:13 Labs: Abnormal Lab Results - Last 24 Hours (Table) 09/08/18 09/08/18 09/08/18 Range/Units 11:33 16:38 20:49 RBC (4.30-5.90) m/uL Hgb (13.0-17.5) gm/dL Hct (39.0-53.0) % Monocytes # (Manual) (0-1.0) k/uL Chloride (98-107) mmol/L Glucose (74-99) mg/dL POC Glucose (mg/dL) 118 H 103 H 110 H (75-99) mg/dL Alkaline Phosphatase (38-126) U/L Albumin (3.5-5.0) g/dL 09/09/18 09/09/18 09/09/18 Range/Units 02:03 06:06 06:13 RBC 3.18 L (4.30-5.90) m/uL Hgb 9.9 L (13.0-17.5) gm/dL Hct 30.3 L (39.0-53.0) % Monocytes # (Manual) 1.14 H (0-1.0) k/uL Chloride (98-107) mmol/L Glucose (74-99) mg/dL POC Glucose (mg/dL) 105 H 102 H (75-99) mg/dL Alkaline Phosphatase (38-126) U/L Albumin (3.5-5.0) g/dL 09/09/18 Range/Units 06:13 RBC (4.30-5.90) m/uL Hgb (13.0-17.5) gm/dL Hct (39.0-53.0) % Monocytes # (Manual) (0-1.0) k/uL Chloride 108 H (98-107) mmol/L Glucose 108 H (74-99) mg/dL POC Glucose (mg/dL) (75-99) mg/dL Alkaline Phosphatase 134 H (38-126) U/L Albumin 3.3 L (3.5-5.0) g/dL - Imaging and Cardiology Chest x-ray: report reviewed, image reviewed Assessment and Plan (1) S/P CABG (coronary artery bypass graft) Current Visit: Yes Status: Acute Code(s): Z95.1 - PRESENCE OF AORTOCORONARY BYPASS GRAFT SNOMED Code(s): 254306162 (2) Family history of coronary artery disease in father Current Visit: No Status: Acute Code(s): Z82.49 - FAMILY HX OF ISCHEM HEART DIS AND OTH DIS OF THE CIRC SYS SNOMED Code(s): 639299558 (3) History of coronary artery disease Current Visit: No Status: Acute Code(s): Z86.79 - PERSONAL HISTORY OF OTHER DISEASES OF THE CIRCULATORY SYSTEM SNOMED Code(s): 625611500 (4) History of myocardial infarction Current Visit: No Status: Acute Code(s): I25.2 - OLD MYOCARDIAL INFARCTION SNOMED Code(s): 660440199 (5) Hyperlipidemia Current Visit: No Status: Acute Code(s): E78.5 - HYPERLIPIDEMIA, UNSPECIFIED SNOMED Code(s): 25244926 (6) Hypertension Current Visit: No Status: Acute Code(s): I10 - ESSENTIAL (PRIMARY) HYPERTENSION SNOMED Code(s): 51425292 (7) Nicotine dependence Current Visit: No Status: Acute Code(s): F17.200 - NICOTINE DEPENDENCE, UNSPECIFIED, UNCOMPLICATED SNOMED Code(s): 41758730 Plan: 1. Continue aspirin, statin, Plavix, beta gibson therapy. 2. Wean O2 as tolerated. Encourage incentive spirometry 10 times every hour while awake. 3. Bronchodilators per pulmonology. 4. Increase activity, ambulate in hallway. PT/OT/cardiac rehab following. 5. Insulin management per primary care services. 6. Pain control with current medication regimen. [place] discontinued, patient started on tramadol for better pain control. 7. GI prophylaxis with Protonix. DVT prophylaxis with subcu heparin, SCDs. 8. Anticipate discharge to home with home care today. Patient will need home O2, discussed with pulmonology. 9. Follow-up physician appointments made. Smoking cessation heavily encouraged. Risks of smoking around oxygen discussed in detail with the patient. Time with Patient: Greater than 30
[2018-09-09 11:42] LABS: Glucose,Whole Blood 116 mg/dL (75-99)
[2018-09-09] MEDS ORDERED: HYDROcodone/APAP 5-325MG 1 EACH TAB PO PRN ×2 (12:35)
[2018-09-09 12:57] VITALS: BP 134/73; PULSE 78; RESP 19
--- NOTE | 2018-09-09 14:12 | P.PN ---
Subjective Progress Note Date: 09/09/18 This is a 58-year-old gentleman who is status post coronary bypass grafting surgery, he was seen and examined this morning, overall doing well. He 's been up ambulating without any difficulty. Blood pressure 134/72 with a heart rate in the 70s. White blood cell count 7.1, hemoglobin 9.9, platelet count 228. Sodium 142, potassium 4.4, BUN 14, creatinine 0.8. Objective - Vital Signs Vital signs: Vital Signs Temp 97.9 F 09/09/18 04:00 Pulse 78 09/09/18 12:00 Resp 19 09/09/18 12:00 BP 134/73 09/09/18 12:00 Pulse Ox 95 09/09/18 12:00 Intake & Output 09/08/18 09/09/18 09/09/18 18:59 06:59 18:59 Intake Total 582 600 240 Balance 582 600 240 Weight 83.7 kg Intake: Oral 582 600 240 Other: Voiding Method Urinal Urinal Urinal # Voids 2 ABP, PAP, CO, CI - Last Documented Arterial Blood Pressure 93/84 Pulmonary Artery Pressure 33/13 Cardiac Output 6 Cardiac Index 3.0 - Exam PHYSICAL EXAMINATION: GENERAL: 78-year-old gentleman in no acute distress at the time of my examination HEENT: Head is atraumatic, normocephalic. Pupils equal, round. Sclera anicteric. Conjunctiva are clear. Mucous membranes of the mouth are moist. Neck is supple. There is no elevated jugular venous pressure.] bruit is heard. HEART EXAMINATION: Heart S1, S2 normal. No murmur or gallop heard. CHEST EXAMINATION: Lungs are clear with mild diminished. She to the bases. No chest wall tenderness is noted on palpation or with deep breathing. ABDOMEN: Soft, nontender. Bowel sounds are heard. No organomegaly noted. EXTREMITIES: 2+ peripheral pulses with no evidence of peripheral edema and no calf tenderness noted. NEUROLOGIC patient is awake, alert and oriented ?-3. . - Labs CBC & Chem 7: 09/09/18 06:13 09/09/18 06:13 Labs: Abnormal Lab Results - Last 24 Hours (Table) 09/08/18 09/08/18 09/09/18 Range/Units 16:38 20:49 02:03 RBC (4.30-5.90) m/uL Hgb (13.0-17.5) gm/dL Hct (39.0-53.0) % Monocytes # (Manual) (0-1.0) k/uL Chloride (98-107) mmol/L Glucose (74-99) mg/dL POC Glucose (mg/dL) 103 H 110 H 105 H (75-99) mg/dL Alkaline Phosphatase (38-126) U/L Albumin (3.5-5.0) g/dL 09/09/18 09/09/18 09/09/18 Range/Units 06:06 06:13 06:13 RBC 3.18 L (4.30-5.90) m/uL Hgb 9.9 L (13.0-17.5) gm/dL Hct 30.3 L (39.0-53.0) % Monocytes # (Manual) 1.14 H (0-1.0) k/uL Chloride 108 H (98-107) mmol/L Glucose 108 H (74-99) mg/dL POC Glucose (mg/dL) 102 H (75-99) mg/dL Alkaline Phosphatase 134 H (38-126) U/L Albumin 3.3 L (3.5-5.0) g/dL 09/09/18 Range/Units 11:36 RBC (4.30-5.90) m/uL Hgb (13.0-17.5) gm/dL Hct (39.0-53.0) % Monocytes # (Manual) (0-1.0) k/uL Chloride (98-107) mmol/L Glucose (74-99) mg/dL POC Glucose (mg/dL) 116 H (75-99) mg/dL Alkaline Phosphatase (38-126) U/L Albumin (3.5-5.0) g/dL Assessment and Plan Plan: Assessment and plan Assessment: #1. Symptomatic coronary artery disease with history of previous stenting, status post 2 vessel bypass grafting with FELICIANO to LAD, and SVG to the ramus, postop day 6 #2. History of hypertension, hyperlipidemia, previous myocardial infarction #3. Chronic nicotine dependence, patient carries [id number] smoking history of one half pack a day #4. Moderately severe COPD, not oxygen dependent at his baseline, preop PFT showed FEV1 of 76% of predicted #5. EtOH dependence Plan Cardiology's perspective, we'll recommend to continue patient on current medications. He may be able to be discharged home once cleared by cardiothoracic surgery. We'll make him a follow-up appointment in the office post discharge. DNP note has been reviewed, I agree with a documented findings and plan of care. Patient was seen and examined.
--- NOTE | 2018-09-09 16:26 | P.PN ---
Subjective Progress Note Date: 09/09/18 Principal diagnosis: Coronary artery disease status post two-vessel bypass grafting This a 58-year-old white male patient who we met in the preop period last week on 08/23/2018 for preop pulmonary evaluation. Patient initially was seen in the hospital on 08/23/2018 and planing of chest pain. He was found to have mild in-stent restenosis involving the proximal RCA, severe disease involving the PDA branch of the RCA, severe disease above the distal left main in the range of 50%, mild disease involving the left circumflex and in-stent restenosis which was mild involving the proximal and mid LAD. Patient was recommended to have surgical evaluation for coronary artery bypass grafting area and today on 09/04/2018 he had 2 vessel bypass with FELICIANO to LAD, and saphenous venous graft to the ramus. Other medical history includes moderately severe COPD and preop PFT showed FEV1 of 2.3 L or 76%, an FVC of 3.2 L or 79% of predicted with diffusion abnormality, with DLCO of 21.6 percent of predicted. He has previous history of coronary stenting, he has chronic and ongoing nicotine dependence, carries [id number] smoking history of 1-1/2 packs per day, hypertension, hyperlipidemia, previous myocardial infarction and EtOH dependence. Currently patient is sedated, and intubated, on mechanical ventilator, he seen in the postop period in the intensive care unit, hemodynamically stable, cardiac output was 7.8, and cardiac index was 4.2. He has 2 mediastinal chest tubes and left pleural chest tube with small amount of sanguinous drainage. He is currently on lactated Ringer's at a rate of 50 ML per hour, milrinone at 0.25 mics per kilo per minute, nitroglycerin at 5 mics per minute, clevidipine at 20 mg per hour, Diprivan at 45 mics per kilo per minute. Current vent settings are SIMV mode with a rate of 16, tidal volume of 450, FiO2 of 80%, and PEEP of 8. Postop chest x-ray has been reviewed by Dr. Stoll which showed some basilar atelectasis, endotracheal tube, NG tube, PA catheter, mediastinal drains and chest tubes are appropriately placed. Postoperative blood gases showed pO2 of 227, pCO2 of 49, pH is 7.32. Postop blood work showed WBC of 6.9, hemoglobin of 11.5, platelet count of 119, INR is 1.2, electrolytes and renal profile was unremarkable. On 09/05/2018 patient seen in follow-up in the intensive care unit, this is postop day 1 status post two-vessel bypass grafting. Patient was extubated at 1910 yesterday on 09/04/2018. His morning he seen sitting up in the recliner, currently on 12 L per high flow nasal cannula, he is hemodynamically stable, afebrile, in sinus mechanism with a controlled rate. He is having some mild to moderate incisional discomfort, but no acute distress. Today's chest x-ray has been reviewed, shows slightly worsening left basilar opacity and left pleural effusion, no residual pneumothorax. An incentive spirometer effort is 500 mL today. Lung sounds are diminished. Today's labs have been reviewed, WBC 6.9, hemoglobin is 8.9. Renal profile and electrolytes are unremarkable. PA pressures 36/13 with a CVP of 8, cardiac output is 6.6, and cardiac index is 3.5 , maintenance IV fluids is lactated Ringer's at 20 ML per hour, nitroglycerin has been weaned off, levo fed is currently 2 mics per minute, and insulin is on hold. He is producing urine in order of 35-65 ML per hour, left and right mediastinal chest tube output is 650 ML in last 24 hours, and 500 mL out of left pleural in the last 24 hours. Hemodynamically patient is stable. On 09/07/2018 patient seen in follow-up in the intensive care unit, he is awake and alert, in no acute distress, currently on 3 L per nasal cannula his pulse ox is 91-94%, has some mild incisional discomfort, but no acute distress, sinus rhythm on a monitor, with a controlled rate, afebrile, hemodynamically stable, left pleural chest tube remains in place, 2 mediastinal chest tubes have been discontinued, today's chest x-ray has been reviewed by Dr. Irwin, showed left -sided pneumothorax with apical pleural separation of 2.2 cm and lateral pleural separation of 1.4 cm, small pleural effusion and left basilar atelectasis. Pleural chest tube will remain in place today, will be placed to waterseal per CT surgery. Epicardial wires have been grounded. Today's labs have been reviewed, W BC 7.6, hemoglobin is 9.4, electro lites and renal profile are unremarkable. Incentive spirometry effort is 750 ML. Lung sounds are clear, diminished at the bases. On 09/08/2018 patient seen in follow-up in the intensive care unit, he is awake and alert, sitting up in the recliner, in no acute distress, currently 6 L per nasal cannula, his pulse ox is 94%, he is working on his incentive spirometer, and he is able to achieve 750 on it today. Febrile, hemodynamically stable, sinus rhythm on the monitor, today's chest x-ray has been reviewed by Dr. Irwin today, and shows persistent left-sided apical pneumothorax, and improved aeration in the left lower chest. Left pleural chest tube was to waterseal overnight. Labs have been reviewed, WBC is 10.8, hemoglobin is 9.5, electrolytes and renal profile within normal limits. No acute events overnight , he has some mild incisional pain, no acute distress. He is tolerating oral diet. Lung sounds are clear, diminished at the bases, no rhonchi no wheezes on today's exam. The patient is seen today 09/09/2018 in follow-up on the cardiac care unit. He is currently sitting up in a chair at the bedside. He is awake and alert in no acute distress. He is maintaining good O2 saturations in the 90s on 2 L/m per nasal cannula. Today's chest x-ray reveals patchy perihilar and left basilar infiltrates. The left sided effusion persists. He's been afebrile. Hemodynamically stable. White count 7.1. Hemoglobin 9.9. Creatinine 0.86. He continues to work well with the incentive spirometer. He's been up ambulating with assistance. He is remaining in sinus rhythm. Objective - Vital Signs Vital signs: Vital Signs Temp 97.9 F 09/09/18 04:00 Pulse 78 09/09/18 12:00 Resp 19 09/09/18 12:00 BP 134/73 09/09/18 12:00 Pulse Ox 95 09/09/18 12:00 Intake & Output 09/08/18 09/09/18 09/09/18 18:59 06:59 18:59 Intake Total 582 600 480 Balance 582 600 480 Weight 83.7 kg Intake: Oral 582 600 480 Other: Voiding Method Urinal Urinal Urinal # Voids 2 2 ABP, PAP, CO, CI - Last Documented Arterial Blood Pressure 93/84 Pulmonary Artery Pressure 33/13 Cardiac Output 6 Cardiac Index 3.0 - Exam GENERAL EXAM: Awake, and alert 58-year-old white male, comfortable in no apparent distress. Currently on 2 L per high flow nasal cannula HEAD: Normocephalic/atraumatic. EYES: Normal reaction of pupils, equal size. Conjunctiva pink, sclera white. NOSE: Clear with pink turbinates. THROAT: No erythema or exudates. NECK: No masses, no JVD, no thyroid enlargement, no adenopathy. CHEST: No chest wall deformity. Symmetrical expansion. Midsternal incisions clean dry and intact, approximated, covered with a surgical dressing. LUNGS: Equal air entry with no crackles, wheeze, rhonchi or dullness. CVS: Regular rate and rhythm, normal S1 and S2, no gallops, no murmurs, no rubs ABDOMEN: Soft, nontender. No hepatosplenomegaly, normal bowel sounds, no guarding or rigidity. EXTREMITIES: No clubbing, no edema, no cyanosis, 2+ pulses and upper and lower extremities. Bilateral lower extremities are Tenzin wrapped MUSCULOSKELETAL: Muscle strength and tone normal. SPINE: No scoliosis or deformity SKIN: No rashes CENTRAL NERVOUS SYSTEM: Sedated. No focal deficits, tone is normal in all 4 extremities. - Labs CBC & Chem 7: 09/09/18 06:13 09/09/18 06:13 Labs: Abnormal Lab Results - Last 24 Hours (Table) 09/08/18 09/08/18 09/09/18 Range/Units 16:38 20:49 02:03 RBC (4.30-5.90) m/uL Hgb (13.0-17.5) gm/dL Hct (39.0-53.0) % Monocytes # (Manual) (0-1.0) k/uL Chloride (98-107) mmol/L Glucose (74-99) mg/dL POC Glucose (mg/dL) 103 H 110 H 105 H (75-99) mg/dL Alkaline Phosphatase (38-126) U/L Albumin (3.5-5.0) g/dL 09/09/18 09/09/18 09/09/18 Range/Units 06:06 06:13 06:13 RBC 3.18 L (4.30-5.90) m/uL Hgb 9.9 L (13.0-17.5) gm/dL Hct 30.3 L (39.0-53.0) % Monocytes # (Manual) 1.14 H (0-1.0) k/uL Chloride 108 H (98-107) mmol/L Glucose 108 H (74-99) mg/dL POC Glucose (mg/dL) 102 H (75-99) mg/dL Alkaline Phosphatase 134 H (38-126) U/L Albumin 3.3 L (3.5-5.0) g/dL 09/09/18 Range/Units 11:36 RBC (4.30-5.90) m/uL Hgb (13.0-17.5) gm/dL Hct (39.0-53.0) % Monocytes # (Manual) (0-1.0) k/uL Chloride (98-107) mmol/L Glucose (74-99) mg/dL POC Glucose (mg/dL) 116 H (75-99) mg/dL Alkaline Phosphatase (38-126) U/L Albumin (3.5-5.0) g/dL Assessment and Plan Assessment: Assessment: #1. Symptomatic coronary artery disease with history of previous stenting, status post 2 vessel bypass grafting with FELICIANO to LAD, and SVG to the ramus, postop day 5 #2. Routine mechanical ventilator management, patient has been extubated since 09/04/2018 at 1910, and so far tolerating extubation very well. #3. History of hypertension, hyperlipidemia, previous myocardial infarction #4. Chronic nicotine dependence, patient carries [id number] smoking history of one half pack a day #5. Moderately severe COPD, not oxygen dependent at his baseline, preop PFT showed FEV1 of 76% of predicted #6. EtOH dependence Plan: The patient was seen and evaluated by Dr. Irwin. Chest x-ray and labs reviewed. He remains stable from the pulmonary standpoint. We'll continue to encourage increased use the incentive spirometer and cough and deep breathing exercises. He is again encouraged regarding the importance of complete smoking cessation. Especially now needing home oxygen. He verbalizes understanding and plans to quit and states his and daughter will now be smoking outside the home. Upon discharge she'll follow-up in our office in 1 week's time. We will repeat a chest x-ray then. He is encouraged to call sooner with any worsening of symptoms or any other questions or concerns. I, the cosigning physician, performed a history & physical examination of the patient. Lungs sounds with faint crackles in the posterior bases. Maintaining good O2 saturations in the 90s on 2 L/m per nasal cannula. I discussed the assessment and plan of care with my nurse practitioner, Briana Mcduffie. I attest to the above note as dictated by her.
[2018-09-09] MEDS ORDERED: METOPROLOL TARTRATE 12.5 MG TAB PO SCH (21:00)
--- NOTE | 2018-09-11 11:10 | CDI ---
Last Revision, September 2017 Documentation Clarification Form Date: 09/11/2018 10:54:44 AM From: Jessica Queen Phone: If you have a question about this query, please contact Ann [employer] Supervisor at [phone] between 8am and 5pm. Admit Date: 09/04/2018 5:37:00 AM Patient Name: Olvin Wright Visit Number: [id number] Discharge Date:09/09/18 ATTENTION: The Clinical Documentation Specialists (CDI) and [facility] Coding Staff appreciate your assistance in clarifying documentation. Please respond to the clarification below the line at the bottom and electronically sign. The CDI & [facility] Coding staff will review the response and follow-up if needed. Please note: Queries are made part of the Legal Health Record. If you have any questions, please contact the author of this message via ITS. Dr. Efraín Juarez Pneumothorax is documented after procedure. Pulmonary documents persistent lt. sided pneumothorax. Mediastinal tubes were removed, pleural tube remained in place and placed to water seal. Please clarify if pneumothorax is clinically significant or integral to the procedure. History/risk factors: CAD status post CABG x 2 Clinical Indicators: CXR possitvie for pneumothorax, atelectasis and pleural effusion CXR: 09/07 shows re-accumulation of pneumothora Treatment: Pleural tube remained in place and placed to water seal In your professional opinion, is the pneumothorax clinically significant or is it integral to thoracic surgery performed. Clinically significant pneumothorax Pneumothorax integral to the procedure/not clinically significant Secondary spontaneous pneumothorax (please identify the etiology) Tension pneumothorax Traumatic pneumothorax Other, please specify Unable to determine MTDD
--- NOTE | 2018-09-23 11:12 | P.DS ---
Providers Date of admission: 09/04/18 05:37 Expected date of discharge: 09/09/18 Attending physician: Efraín Juarez Consults: 09/04/18 13:22 Consult Physician Routine Consulting Provider: Andrei Stoll Consult Reason/Comments: String Top Sealer Consult: post cardiac surgery Do you want consulting provider notified?: Yes Consult Physician Routine Consulting Provider: Jass Christianson Consult Reason/Comments: Medical Management Do you want consulting provider notified?: Yes Consult Physician Routine Consulting Provider: Ray Pack Consult Reason/Comments: Braided Rug Maker Consult: post cardiac surgery Do you want consulting provider notified?: Yes 09/08/18 08:49 Consult Physician Routine Consulting Provider: Rafael Padilla Consult Reason/Comments: inpatient rehab Do you want consulting provider notified?: Yes Primary care physician: Stated None - Discharge Diagnosis(es) (1) S/P CABG (coronary artery bypass graft) Status: Acute (2) Family history of coronary artery disease in father Status: Acute (3) History of coronary artery disease Status: Acute (4) History of myocardial infarction Status: Acute (5) Hyperlipidemia Status: Acute (6) Hypertension Status: Acute (7) Nicotine dependence Status: Acute Hospital Course: FINAL DIAGNOSIS: 1. Coronary artery disease with left main disease 2. Hypertension 3. Hyperlipidemia 4. History of myocardial infarction with stent placement to the right coronary artery in 2016 and left anterior descending coronary artery as well as right coronary artery in 2017 5. Anxiety 6. Degenerative disc disease with chronic low back pain 7. Current nicotine dependence with preoperative FEV1 76% of predicted 8. Family history of early onset coronary artery disease 9. Postoperative acute blood loss anemia PRINCIPAL PROCEDURE: 1. Coronary artery bypass graft 2 vessels with left internal mammary artery to the left anterior descending coronary artery, reverse greater saphenous vein graft to the ramus coronary artery 2. Endoscopic vein harvest right greater saphenous vein 3. Intraoperative transesophageal echocardiogram 4. Epi-aortic ultrasound HISTORY OF PRESENT ILLNESS: This is a 58-year-old gentleman he does not follow with the primary care physician on a regular basis. He presented to [facility] emergency room via EMS experiencing chest pain without any exertion, associated with weakness and shortness of breath, without relief from sublingual nitro. He denied nausea, vomiting, chills, diaphoresis, dizziness, or syncope. In the emergency room a 12-lead EKG was completed demonstrating normal sinus rhythm with no acute ST elevations or depressions. His initial troponins were normal. A 2-D echocardiogram was completed demonstrating normal LV function with ejection fraction 55-60%, trace mitral regurgitation, and trace tricuspid regurgitation. He was recommended to undergo heart catheterization which was performed by Dr. Blair and which demonstrated disease involving the distal left main which appeared to be in the range of 50%, mild in stent restenosis involving the proximal right coronary artery, 70-80% stenosis to the PDA branch of the right coronary artery, mild disease to the proximal left anterior descending coronary artery with mild in-stent restenosis , mild in-stent restenosis involving the mid left anterior descending coronary artery and 70% stenosis to his diagonal coronary artery. The patient was referred to Dr. Meza from cardiothoracic surgery. He was recommended to undergo coronary artery bypass graft surgery. The usual perioperative course was discussed in detail with the patient and his family, all risks and benefits were explained, all questions were answered, and consent was obtained to proceed with surgery. The patient was discharged to home after preoperative testing to return as an outpatient. HOSPITAL COURSE: The patient was brought to the hospital on 09/04/2018, taken to the preoperative area, prepared in the usual fashion, and subsequently taken to the operating room where Dr. Juarez performed coronary artery bypass graft 2 vessels with left internal mammary artery to the left anterior descending coronary artery, reverse greater saphenous vein graft to the ramus coronary artery, endoscopic vein harvest right greater saphenous vein, intraoperative transesophageal echocardiogram, and epi-aortic ultrasound. Upon completion of surgery the patient was transferred to the cardiovascular intensive care unit where he was recovered, monitored hemodynamically, and where he progressed to cardiac rehabilitation phase 1. He was extubated, all lines, tubes, and drips were discontinued when appropriate, and he was transferred to [address] [place] [address] cardiac stepdown unit for further monitoring and rehabilitation. His oxygen was titrated down, he continued to work with physical and occupational therapy, he was tolerating oral diet, his pain was controlled, and he was ready to be discharged to home with [facility] care on postoperative day #5. He received written and verbal instruction regarding his medications, activity restrictions , signs and symptoms requiring physician notification, and follow-up appointments. COMPLICATIONS: The patient experienced postoperative acute blood loss anemia which required no intervention. Patient Condition at Discharge: Stable Plan - Discharge Summary Discharge Rx Participant: Yes New Discharge Prescriptions: New Aspirin 325 mg PO DAILY #30 tab Clopidogrel [Plavix] 75 mg PO DAILY #30 tab HYDROcodone/APAP 5-325MG [[place] 5-325] 1 - 2 each PO Q6HR PRN #60 tab PRN Reason: Pain Metoprolol Tartrate [Lopressor] 25 mg PO BID #60 tab Sennosides-Docusate Sodium [Senokot-S] 2 each PO HS PRN tab PRN Reason: Constipation Continue Rosuvastatin Calcium [Crestor] 40 mg PO HS Discontinued Lisinopril [Zestril] 10 mg PO DAILY Isosorbide Mononitrate ER [Imdur] 60 mg PO DAILY #90 tab.er.24h Metoprolol Tartrate [Lopressor] 50 mg PO BID #180 tab Aspirin 81 mg PO DAILY Mupirocin 2% Oint [Bactroban 2% Oint] 1 applic NASAL BID Discharge Medication List Rosuvastatin Calcium [Crestor] 40 mg PO HS 08/23/18 [History] Aspirin 325 mg PO DAILY #30 tab 09/09/18 [Rx] Clopidogrel [Plavix] 75 mg PO DAILY #30 tab 09/09/18 [Rx] HYDROcodone/APAP 5-325MG [[place] 5-325] 1 - 2 each PO Q6HR PRN #60 tab 09/09/18 [ Rx] Metoprolol Tartrate [Lopressor] 25 mg PO BID #60 tab 09/09/18 [Rx] Sennosides-Docusate Sodium [Senokot-S] 2 each PO HS PRN tab 09/09/18 [Rx] Follow up Appointment(s)/Referral(s): Ray Pack MD [STAFF PHYSICIAN] - 09/24/18 3:45 pm Andrei Stoll DO [Doctor of Osteopathic Medicine] - 09/17/18 1:45 pm [facility], [NON-STAFF] - Efraín Juarez MD [STAFF PHYSICIAN] - 10/02/18 10:00 am Scott Lenz DO [REFERRING] - 09/15/18 11:15 am Ambulatory/Diagnostic Orders: Complete Blood Count w/diff [LAB.AMB] Time Frame: 3 Days, Location: None Selected Comprehensive Metabolic Panel [LAB.AMB] Time Frame: 3 Days, Location: None Selected Patient Instructions/Handouts: Sternal Precautions (GEN), Coronary Artery Bypass Graft (DC) Activity/Diet/Wound Care/Special Instructions: DISCHARGE INSTRUCTIONS: 1. No driving for 4 weeks, or until physician gives their ok. 2. The patient should sleep in their own bed, no medical bed needed. 3. Stairs are not an issue. If the bedroom is upstairs, it is advised that the patient go up at night and down in the morning for the first week. Go slowly, using handrail and take 1 step at a time. 4. FRANSICO hose are to be worn for 30 days or until physician discontinues. 5. Heart hugger is to be worn 100% of the time until physician discontinues.( except when showering) 6. No lifting, pushing, or pulling more than 10 pounds for 12 weeks. The physician will advise of any restriction changes. 7. The patient is expected to continue the prescribed walking program. 8. Continue pain control per as needed orders. 9. Continue with incentive spirometry and splinting/heart hugger until otherwise directed by the physician. 10. Must shower daily using liquid antibacterial soap and a separate white washcloth for each individual incision. 11. Routine sternal incision care. No powders, lotions, ointments on incisions. 12. Please call surgeon/HOME ORGANIZER for temp greater than 101 F or purulent drainage from incisions. 13. Narcotic medications were discussed with the patient, including the potential for misuse, addiction, and abuse. Opiod Start Talking form was reviewed with the patient. 14. All prescriptions given by surgeon for 30 days. Refills need to be filled through sales apprentice/primary care physician. 15. A Red armband has been placed on the patient. It should be worn for 30 days post surgery and will be removed by the cardiac surgeons. If an ER visit is necessary, please make sure the number on the Red armband is called. HOME HEALTH SERVICES TO PROVIDE: RN SKILLED HOME CARE SERVICES FOR POST-OP SURGICAL PATIENTS WITH THE FOLLOWING: Coronary Artery Bypass Surgery (CABG), Mitral Valve Replacement/ Repair ( MVR), Aortic Valve Replacement/Repair (AVR) RN TO CONTINUE EDUCATION FROM ``ROAD TO A HEALTH HEART PATIENT EDUCATION MANUAL (GIVEN TO PATIENT IN THE HOSPITAL) MEDICATION RECONCILIATION WITH EDUCATION NEEDED ON FIRST HOME VISIT EMPHASIZE IMPORTANCE OF WEARING BREAST SUPPORT/HEART HUGGER ENCOURAGE USE OF INCENTIVE SPIROMETER 10 X EVERY HOUR WHILE AWAKE ENCOURAGE UTILIZATION OF LOWER EXTREMITY COMPRESSION STOCKINGS/FRANSICO HOSE and ELEVATE LEGS ABOVE LEVEL OF HEART WHILE AT REST. ENCOURAGE AMBULATION 3-5x/day INCREASING TOLERATES, WHILE AVOID EXTREMES IN TEMPERATURE FREQUENCY: RN TO OPEN THE PATIENT WITHIN 24 HOURS OF DISCHARGE FROM THE HOSPITAL WITH TELEHEALTH INSTALLED AT [facility], RN TO VISIT 2-3 X A WEEK FOR 4 WEEKS ESTABLISHED BY PATIENT NEEDS. LABORATORY: CBC, CMP TO BE DRAWN ON THE THIRD DAY HOME, 09/12/18, (RAN STAT) FAX RESULTS TO [phone]. TELEHEALTH PARAMETERS: WEIGHT: NOTIFY MD OF WEIGHT GAIN OF 2 LBS IN 24 HOURS OR 5 LBS IN ONE WEEK HR: NOTIFY MD OF HR <55 BPM OR HR>100 BPM BP: NOTIFY MD IF BP <90/55 OR BP>140/100 O2 SAT: NOTIFY MD IF PO2<93% ON ROOM AIR SEND TELEHEALTH REPORT TO SUPPLIER MANAGER AND CARDIOVASCULAR SURGEON THE FIRST WEEK OF CARE AND THEN BI-WEEKLY. PLEASE ADDITIONALLY COMMUNICATE ANY ABNORMALS AND NEW FINDINGS TO THE SURGEONS OFFICE. Discharge Disposition: HOME WITH HOME HEALTH SERVICES
== END 2018-09-09 16:31 | disposition home health service (06) | DRG 236 ==
LOC: 2ORMAIN 05:37 → 2SICU 13:04 → 3SCARD 09-08 10:48
PROVIDERS: ADMIT Surgery; ATTEND Surgery
PROC: 06BP4ZZ Excision of Right Saphenous Vein, Percutaneous Endoscopic Approach (ICD-10-PCS; 2018-09-04)
PROC: B246ZZ4 Ultrasonography of Right and Left Heart, Transesophageal (ICD-10-PCS; 2018-09-04)
PROC: 5A1221Z Performance of Cardiac Output, Continuous (ICD-10-PCS; 2018-09-04)
PROC: 02100Z9 Bypass Coronary Artery, One Artery from Left Internal Mammary, Open Approach (ICD-10-PCS; principal; 2018-09-04 08:00)
PROC: 021009W Bypass Coronary Artery, One Artery from Aorta with Autologous Venous Tissue, Open Approach (ICD-10-PCS; 2018-09-04 08:00)
DX: I25.10 Atherosclerotic heart disease of native coronary artery without angina pectoris (principal); D62 Acute posthemorrhagic anemia; J90 Pleural effusion, not elsewhere classified; J93.9 Pneumothorax, unspecified; J98.11 Atelectasis; T82.855A Stenosis of coronary artery stent, initial encounter; Z71.6 Tobacco abuse counseling; F17.210 Nicotine dependence, cigarettes, uncomplicated; E78.5 Hyperlipidemia, unspecified; F10.20 Alcohol dependence, uncomplicated; F41.9 Anxiety disorder, unspecified; G89.4 Chronic pain syndrome; I10 Essential (primary) hypertension; I25.2 Old myocardial infarction; J44.9 Chronic obstructive pulmonary disease, unspecified; K21.9 Gastro-esophageal reflux disease without esophagitis; Y83.1 Surgical operation with implant of artificial internal device as the cause of abnormal reaction of the patient, or of later complication, without mention of misadventure at the time of the procedure; Z79.82 Long term (current) use of aspirin; Z79.899 Other long term (current) drug therapy; Z82.49 Family history of ischemic heart disease and other diseases of the circulatory system; Z91.030 Bee allergy status; Z95.5 Presence of coronary angioplasty implant and graft
CPT/HCPCS: 36415; 71045; 71046; 80053; 82330; 82805; 83735; 85025; 85384; 85520; 85610; 85730; 86850; 86891; 86900; 86901; 86920; 88305; 94002; 94640

== ENCOUNTER 2018-09-25 08:50 | Day surgery (SDC) | payer MEDICARE, OTHER ==
[2018-09-25 09:09] VITALS: RESP 20; TEMP 98
[2018-09-25] MEDS ORDERED: ALPRAZolam 0.5 MG TAB PO STA (09:11)
[2018-09-25 09:26] LABS: Mean Platelet Volume 8.2; Platelet Count 395 k/uL (150-450)
[2018-09-25 09:35] LABS: INR 1.1 (<1.2); Prothrombin Time 11.4 sec (9.0-12.0)
--- NOTE | 2018-09-25 10:58 | XR ---
EXAMINATION TYPE: XR chest 1V portable DATE OF EXAM: 09/25/2018 COMPARISON: 09/09/2018 HISTORY: Status post left-sided thoracentesis. TECHNIQUE: Single frontal view of the chest is obtained. FINDINGS: There is a small residual left pleural effusion blunting the costophrenic angle. Left basi lar airspace disease is identified. Pulmonary interstitium appears minimally prominent. Post CABG tommy nges of the chest are seen with mild cardiomegaly. Osseous structures are grossly intact. IMPRESSION: Small residual left pleural effusion with associated left basilar airspace disease, like ly atelectasis. Minimal interstitial edema is seen, likely atelectasis of congestive heart failure.
[2018-09-25 11:05] VITALS: BP 128/70; PULSE 78
--- NOTE | 2018-09-25 11:34 | US ---
Ultrasound-guided therapeutic and diagnostic thoracentesis DATE OF EXAM: 09/25/2018 CLINICAL HISTORY: Left pleural effusion The procedure was discussed with the patient. The risks, complications, benefits, and alternatives we re discussed and any questions were answered. Informed consent was obtained. The patient was placed supine on the ultrasound table and prepped and draped in the usual sterile fas hion. All elements of maximal barrier and sterile technique were utilized. Under ultrasound guidance, access into the pleural space was obtained, via the thoracentesis catheter system and direct ultrasound guidance. Ap proximately 0.86 liters of serous fluid was removed. Sample was obtained and sent to pathology for an alysis. The patient was stable throughout the procedure and remained stable upon discharge from Department of Radiology. IMPRESSION: 1. Successful therapeutic and diagnostic thoracentesis under ultrasound guidance.
[2018-09-25 12:58] LABS: Appearance,BF Blood Tinged; Color,BF Orange; Nucleated Cells, Body Fluid 1200 /uL; RBC, Body Fluid 27650 /uL
[2018-09-25 13:00] LABS: Mononuclear WBC,Body Fluid 93 %; Polynuclear WBC,Body Fluid 1 %; Total Cells Counted,Body Fluid 100
[2018-09-25 17:46] LABS: Total Protein, Body Fluid 4000 mg/dL
== END 2018-09-25 10:55 | disposition home or self-care (01) ==
LOC: RADPROMAIN 08:50
PROVIDERS: ATTEND Internal Medicine Critical Care Medicine
DX: J90 Pleural effusion, not elsewhere classified (principal); J44.9 Chronic obstructive pulmonary disease, unspecified; I25.2 Old myocardial infarction; I10 Essential (primary) hypertension; I25.10 Atherosclerotic heart disease of native coronary artery without angina pectoris; Z91.030 Bee allergy status; Z79.02 Long term (current) use of antithrombotics/antiplatelets; Z79.82 Long term (current) use of aspirin; Z79.891 Long term (current) use of opiate analgesic; Z79.899 Other long term (current) drug therapy; E78.5 Hyperlipidemia, unspecified; F41.9 Anxiety disorder, unspecified; F17.200 Nicotine dependence, unspecified, uncomplicated; Z82.49 Family history of ischemic heart disease and other diseases of the circulatory system
CPT/HCPCS: 32555; 36415; 71045; 82945; 83615; 84157; 85049; 85610; 87070; 87075; 87205; 88108; 88305; 89050

== ENCOUNTER 2018-10-09 20:19 | Emergency (ER) | payer MEDICARE ==
[2018-10-09 20:39] VITALS: RESP 18
[2018-10-09] MEDS ORDERED: SODIUM CHLORIDE 0.9% 500 ML 500 ML IV STA (20:57)
--- NOTE | 2018-10-09 21:38 | ED ---
Extremity Problem HPI - General Chief complaint: Extremity Problem,Nontraumatic Stated complaint: Lt arm numbess, post open heart surgery Time Seen by Provider: 10/09/18 20:47 Source: patient Mode of arrival: ambulatory Limitations: no limitations - History of Present Illness Initial comments: 58-year-old male patient presents to the emergency department today for evaluation of weakness and tingling to the left arm. Patient states that the entire left arm feels weak and tingly worse in the middle 3 fingers on the left hand. Patient states this started 2 days ago has been getting worse. He denies any headache, blurred vision, double vision, weakness to the lower extremities. Denies any history of similar symptoms. Denies any neck pain. Denies any injury to the neck or arm. Patient does have a history of recent CABG at the end of August. Patient states he does have some chest wall pain related to the scarring. Patient denies any recent rash, fever, chills, shortness breath, chest pain, abdominal pain, nausea, vomiting, diarrhea, constipation, back pain, hematuria, dysuria, urinary urgency, urinary frequency , or any other complaints. - Related Data Home Medications Medication Instructions Recorded Confirmed Rosuvastatin Calcium [Crestor] 40 mg PO HS 08/23/18 10/09/18 Pantoprazole Sodium [Protonix] 40 mg PO DAILY 10/09/18 10/09/18 Previous Rx's Medication Instructions Recorded Aspirin 325 mg PO DAILY #30 tab 09/09/18 Clopidogrel [Plavix] 75 mg PO DAILY #30 tab 09/09/18 Metoprolol Tartrate [Lopressor] 25 mg PO BID #60 tab 09/09/18 Allergies Allergy/AdvReac Type Severity Reaction Status Date / Time bee venom protein (honey bee) Allergy Anaphylaxis Verified 10/09/18 20:54 Review of Systems ROS Statement: Those systems with pertinent positive or pertinent negative responses have been documented in the HPI. ROS Other: All systems not noted in ROS Statement are negative. Past Medical History Past Medical History: Coronary Artery Disease (CAD), Chest Pain / Angina, Hyperlipidemia, Hypertension, Myocardial Infarction ([place]) Additional Past Medical History / Comment(s): Degenerative disc disease, using oxygen @2l currently continuously Last Myocardial Infarction Date:: 2016 History of Any Multi-Drug Resistant Organisms: None Reported Past Surgical History: Back Surgery, Coronary Bypass/CABG, Heart Catheterization , Heart Catheterization With Stent, Orthopedic Surgery Additional Past Surgical History / Comment(s): back surgery, CABG x2 09-04-18 Past Anesthesia/Blood Transfusion Reactions: No Reported Reaction Date of Last Stent Placement:: march 2016 Past Psychological History: Anxiety Smoking Status: Former smoker Past Alcohol Use History: Occasional Past Drug Use History: None Reported - Past Family History Father History Unknown: Yes Family Medical History: Myocardial Infarction ([place]) Additional Family Medical History / Comment(s): The patient reports his dad from a myocardial infarction in his mid 50s. Brother(s) History Unknown: Yes Family Medical History: Myocardial Infarction ([place]) Additional Family Medical History / Comment(s): The patient reports to have his brothers from myocardial infarction in their mid 50s. General Exam Limitations: no limitations General appearance: alert, in no apparent distress, other (This is a well- developed, well-nourished adult male patient in no acute distress. Vital signs upon presentation are temperature 98.8F, pulse 90, respirations 18, blood pressure 147/83, pulse ox 96% on room air.) Eye exam: Present: normal appearance, PERRL, EOMI. Absent: scleral icterus, conjunctival injection, periorbital swelling ENT exam: Present: normal exam, normal oropharynx, mucous membranes moist Respiratory exam: Present: normal lung sounds bilaterally. Absent: respiratory distress, wheezes, rales, rhonchi, stridor Cardiovascular Exam: Present: regular rate, normal rhythm, normal heart sounds. Absent: systolic murmur, diastolic murmur, rubs, gallop, clicks GI/Abdominal exam: Present: soft, normal bowel sounds. Absent: distended, tenderness, guarding, rebound, rigid Extremities exam: Present: normal inspection, full ROM, normal capillary refill , other (Skin to the left upper extremities pink, warm, and dry. Cap refills less than 3 seconds. Radial pulses 2+ and equal bilaterally. Patient exhibits good function of the median, ulnar, and radial nerves.). Absent: tenderness, pedal edema, joint swelling, calf tenderness Neurological exam: Present: alert, oriented X3, CN II-XII intact Expanded Speech: Present: fluid speech Cranial nerves: EOM's Intact: Normal, Tongue Deviation: Normal, Nystagmus: Normal Cerebellar function: Finger to Nose: Normal Sensory exam: Upper Extremity Light Touch: Abnormal Left Motor strength exam: RUE: 5, LUE: 3, RLE: 5, LLE: 5 Psychiatric exam: Present: normal affect, normal mood Skin exam: Present: warm, dry, intact, normal color. Absent: rash Course Vital Signs 10/09/18 10/09/18 20:37 22:52 Temperature 98.8 F 98.0 F Pulse Rate 90 89 Respiratory 18 18 Rate Blood Pressure 147/83 133/77 O2 Sat by Pulse 96 97 Oximetry Medical Decision Making - Medical Decision Making 58-year-old male patient presents to the emergency department today for evaluation of left arm tingling and weakness. Physical examination was relatively unremarkable other than decreased strength to the left upper extremity at 3/5. Labs reviewed and are unremarkable. EKG showed normal sinus rhythm. CT brain C-spine was obtained and showed no acute abnormalities. Patient did exhibit some spondylotic changes in the cervical spine however no findings to account for his symptoms. Patient exhibited satisfactory median, ulnar, and radial nerve function. I did discuss findings and results with the patient. He is instructed to follow-up with orthopedic specialty for further evaluation and possible EMG testing. Return parameters are discussed in detail. He verbalizes understanding and agrees with this plan. - Lab Data Result diagrams: 10/09/18 21:29 10/09/18 21:29 Lab Results 10/09/18 10/09/18 10/09/18 Range/Units 21:29 21:29 21:29 WBC 9.0 (3.8-10.6) k/uL RBC 4.37 (4.30-5.90) m/uL Hgb 11.8 L (13.0-17.5) gm/dL Hct 37.5 L (39.0-53.0) % MCV 85.8 D (80.0-100.0) fL MCH 27.0 (25.0-35.0) pg MCHC 31.5 (31.0-37.0) g/dL RDW 15.9 H (11.5-15.5) % Plt Count 323 (150-450) k/uL Neutrophils % 61 % Lymphocytes % 22 % Monocytes % 7 % Eosinophils % 5 % Basophils % 1 % Neutrophils # 5.5 (1.3-7.7) k/uL Lymphocytes # 2.0 (1.0-4.8) k/uL Monocytes # 0.7 (0-1.0) k/uL Eosinophils # 0.4 (0-0.7) k/uL Basophils # 0.1 (0-0.2) k/uL Hypochromasia Marked Poikilocytosis Slight PT (9.0-12.0) sec INR (<1.2) APTT (22.0-30.0) sec Sodium 141 (137-145) mmol/L Potassium 4.4 (3.5-5.1) mmol/L Chloride 106 (98-107) mmol/L Carbon Dioxide 25 (22-30) mmol/L Anion Gap 10 mmol/L BUN 15 (9-20) mg/dL Creatinine 0.93 (0.66-1.25) mg/dL Est GFR (CKD-EPI)AfAm >90 (>60 ml/min/1.73 sqM) Est GFR (CKD-EPI)NonAf >90 (>60 ml/min/1.73 sqM) Glucose 91 (74-99) mg/dL Calcium 9.7 (8.4-10.2) mg/dL Total Bilirubin 0.9 (0.2-1.3) mg/dL AST 51 (17-59) U/L ALT 52 (21-72) U/L Alkaline Phosphatase 186 H (38-126) U/L Total Creatine Kinase 29 L (55-170) U/L CK-MB (CK-2) 0.4 (0.0-2.4) ng/mL CK-MB (CK-2) Rel Index 1.4 Troponin I <0.012 (0.000-0.034) ng/mL Total Protein 8.6 H (6.3-8.2) g/dL Albumin 4.2 (3.5-5.0) g/dL Urine Color Urine Appearance (Clear) Urine pH (5.0-8.0) Ur Specific [place] (1.001-1.035) Urine Protein (Negative) Urine Glucose (UA) (Negative) Urine Ketones (Negative) Urine Blood (Negative) Urine Nitrite (Negative) Urine Bilirubin (Negative) Urine Urobilinogen (<2.0) mg/dL Ur Leukocyte Esterase (Negative) 10/09/18 10/09/18 Range/Units 21:29 21:29 WBC (3.8-10.6) k/uL RBC (4.30-5.90) m/uL Hgb (13.0-17.5) gm/dL Hct (39.0-53.0) % MCV (80.0-100.0) fL MCH (25.0-35.0) pg MCHC (31.0-37.0) g/dL RDW (11.5-15.5) % Plt Count (150-450) k/uL Neutrophils % % Lymphocytes % % Monocytes % % Eosinophils % % Basophils % % Neutrophils # (1.3-7.7) k/uL Lymphocytes # (1.0-4.8) k/uL Monocytes # (0-1.0) k/uL Eosinophils # (0-0.7) k/uL Basophils # (0-0.2) k/uL Hypochromasia Poikilocytosis PT 10.6 (9.0-12.0) sec INR 1.0 (<1.2) APTT 24.7 (22.0-30.0) sec Sodium (137-145) mmol/L Potassium (3.5-5.1) mmol/L Chloride (98-107) mmol/L Carbon Dioxide (22-30) mmol/L Anion Gap mmol/L BUN (9-20) mg/dL Creatinine (0.66-1.25) mg/dL Est GFR (CKD-EPI)AfAm (>60 ml/min/1.73 sqM) Est GFR (CKD-EPI)NonAf (>60 ml/min/1.73 sqM) Glucose (74-99) mg/dL Calcium (8.4-10.2) mg/dL Total Bilirubin (0.2-1.3) mg/dL AST (17-59) U/L ALT (21-72) U/L Alkaline Phosphatase (38-126) U/L Total Creatine Kinase (55-170) U/L CK-MB (CK-2) (0.0-2.4) ng/mL CK-MB (CK-2) Rel Index Troponin I (0.000-0.034) ng/mL Total Protein (6.3-8.2) g/dL Albumin (3.5-5.0) g/dL Urine Color Yellow Urine Appearance Clear (Clear) Urine pH 6.0 (5.0-8.0) Ur Specific [place] 1.020 (1.001-1.035) Urine Protein Negative (Negative) Urine Glucose (UA) Negative (Negative) Urine Ketones Negative (Negative) Urine Blood Negative (Negative) Urine Nitrite Negative (Negative) Urine Bilirubin Negative (Negative) Urine Urobilinogen 3.0 (<2.0) mg/dL Ur Leukocyte Esterase Negative (Negative) - EKG Data -: EKG Interpreted by Me EKG Comments: EKG obtained at 2107 shows normal sinus rhythm with a ventricular rate of 86, NC interval 180, QRS duration 80, QT 364, QTC 435. No evidence of ST elevation or depression per - Radiology Data Radiology results: report reviewed, image reviewed CT brain and C-spine without contrast was obtained. Report was reviewed in its entirety. Impression by Dr. Vu shows mild atrophy. No acute intracranial abnormality. Spondylotic changes in the cervical spine. No fracture seen. Disposition Clinical Impression: Left arm weakness Disposition: HOME SELF-CARE Condition: Good Instructions: Paresthesia (ED) Additional Instructions: Follow-up with orthopedics for further evaluation as soon as possible. Return immediately for any new, worsening, or concerning symptoms. Is patient prescribed a controlled substance at d/c from ED?: No Referrals: Kavon Patricia MD [Primary Care Provider] - 1-2 days Storm Bae MD [STAFF PHYSICIAN] - 1-2 days Time of Disposition: 22:43
[2018-10-09 21:52] LABS: Appearance,Urine Clear (Clear); Bilirubin,Urine Negative (Negative); Blood,Urine Negative (Negative); Color,Urine Yellow; Glucose,Urine (UA) Negative (Negative); Ketones,Urine Negative (Negative); Leukocyte Esterase,Urine Negative (Negative); Nitrite,Urine Negative (Negative); Protein,Urine Negative (Negative)
[2018-10-09 21:56] LABS: Basophils # (A) 0.1 k/uL (0-0.2); Basophils % (A) 1 %; Eosinophils # (A) 0.4 k/uL (0-0.7); Eosinophils % (A) 5 %; HCT 37.5 % (39.0-53.0); HGB 11.8 gm/dL (13.0-17.5); Hypochromasia Marked; Lymphocytes % (A) 22 %; MCHC 31.5 g/dL (31.0-37.0); Mean Platelet Volume 7.6; Monocytes # (A) 0.7 k/uL (0-1.0); Monocytes % (A) 7 %; Neutrophils # (A) 5.5 k/uL (1.3-7.7); Neutrophils % (A) 61 %; Platelet Count 323 k/uL (150-450); Poikilocytosis Slight; RBC 4.37 m/uL (4.30-5.90); RDW 15.9 % (11.5-15.5)
[2018-10-09 21:58] LABS: MCV 85.8 fL (80.0-100.0)
[2018-10-09 22:00] LABS: ALT 52 U/L (21-72); AST 51 U/L (17-59); Albumin 4.2 g/dL (3.5-5.0); Alkaline Phosphatase 186 U/L (38-126); Anion Gap 10 mmol/L; Blood Urea Nitrogen 15 mg/dL (9-20); Calcium 9.7 mg/dL (8.4-10.2); Carbon Dioxide 25 mmol/L (22-30); Chloride 106 mmol/L (98-107); Glucose 91 mg/dL (74-99); Partial Thromboplastin Time 24.7 sec (22.0-30.0); Potassium 4.4 mmol/L (3.5-5.1); Prothrombin Time 10.6 sec (9.0-12.0); Sodium 141 mmol/L (137-145); Total Bilirubin 0.9 mg/dL (0.2-1.3); Total Protein 8.6 g/dL (6.3-8.2)
[2018-10-09 22:03] LABS: Creatine Kinase 29 U/L (55-170)
--- NOTE | 2018-10-09 22:04 | CT ---
EXAMINATION TYPE: CT brain shay lópez DATE OF EXAM: 10/09/2018 COMPARISON: None HISTORY: left arm numbness CT DLP: mGycm Automated exposure control for dose reduction was used. TECHNIQUE: CT scan of the head and cervical spine are performed without contrast. FINDINGS: There is diffuse cerebral cortical atrophy. There is no mass effect nor midline shift. Th ere is no sign of intracranial hemorrhage. The calvarium is intact. There is incomplete pneumatizatio n of the mastoid sinuses. Cervical vertebra have fairly normal alignment. There is degenerative disc space narrowing from C4 to C7 with spurring of the endplates. There is mild facet arthropathy. The skull base is intact. There is no evidence of cervical spine fracture. IMPRESSION: Mild atrophy. No acute intracranial abnormality. Spondylotic changes in the cervical spine. No fracture seen.
[2018-10-09 22:17] LABS: Creatine Kinase MB 0.4 ng/mL (0.0-2.4); Troponin I <0.012 ng/mL (0.000-0.034)
[2018-10-09 22:53] VITALS: BP 133/77; PULSE 89; TEMP 98
== END 2018-10-09 22:53 | disposition home or self-care (01) ==
LOC: EC 20:19
DX: R29.898 Other symptoms and signs involving the musculoskeletal system (principal); G31.9 Degenerative disease of nervous system, unspecified; M47.812 Spondylosis without myelopathy or radiculopathy, cervical region; R20.2 Paresthesia of skin; R07.89 Other chest pain; E78.5 Hyperlipidemia, unspecified; I10 Essential (primary) hypertension; I25.119 Atherosclerotic heart disease of native coronary artery with unspecified angina pectoris; I25.2 Old myocardial infarction; Z87.891 Personal history of nicotine dependence; Z91.018 Allergy to other foods; Z79.899 Other long term (current) drug therapy; Z99.81 Dependence on supplemental oxygen; Z95.1 Presence of aortocoronary bypass graft; Z95.5 Presence of coronary angioplasty implant and graft
CPT/HCPCS: 36415; 70450; 72125; 80053; 81003; 82550; 82553; 84484; 85025; 85610; 85730; 93005; 96360; 99284

== ENCOUNTER 2018-12-08 11:45 | Emergency (ER) | payer MEDICARE ==
--- NOTE | 2018-12-08 12:12 | ED ---
General Adult HPI - General Chief complaint: Shortness of Breath Stated complaint: CHEST PAIN Time Seen by Provider: 12/08/18 12:02 Source: patient Mode of arrival: ambulatory Limitations: no limitations - History of Present Illness Initial comments: Dictation was produced using [employer] dictation software. please excuse any grammatical, word or spelling errors. Chief Complaint: 58-year-old male with past medical history of coronary artery bypass graft presents with supraclavicular pain and swelling and dyspnea. History of Present Illness: Patient is a 58-year-old male. In August he states he had triple bypass grafting done for severe coronary artery disease. Patient states that after the surgery he had a left-sided effusion that required drainage. Patient states that over the last 3 weeks he is been having similar symptoms of shortness of breath. Patient states that he came today because he felt his pain was getting worse. Patient complains of also supraclavicular is pain and swelling. Patient reports that he has never had anything like this in the past. He also does feel some symptoms of swelling over his bilateral axilla. The ROS documented in this emergency department record has been reviewed and confirmed by me. Those systems with pertinent positive or negative responses have been documented in the HPI. All other systems are other negative and/or noncontributory. PHYSICAL EXAM: General Impression: Alert and oriented x3, not in acute distress HEENT: Normocephalic atraumatic, extra-ocular movements intact, pupils equal and reactive to light bilaterally, mucous membranes moist. Cardiovascular: Heart regular rate and rhythm, S1&S2 audible, no murmurs, rubs or gallops Chest: Mild diminished lung sounds to the left lower lobe early Abdomen: Bowel sounds present, abdomen soft, non-tender, non-distended, no organomegaly Musculoskeletal: Pulses present and equal in all extremities, no peripheral edema Motor: Power 5/5 bilaterally, no focal deficits noted Neurological: CN II-XII grossly intact, no focal motor or sensory deficits noted Skin: No subcutaneous emphysema, there is soft swelling over the bilateral supraclavicular areas and bilateral axillary areas. Psych: Normal affect and mood ED course: 58-year-old male presents with chief complaint of shortness of breath and supraclavicular swelling. Vital signs upon arrival are within acceptable limits. Patient appears to be in no apparent distress. Laboratory evaluation obtained. CBC, coag panel, along panel, cardiac enzymes and prematurity peptide is all within acceptable limits. Chest x-ray is unremarkable. An is showing no signs of acute respiratory distress. Patient states that he is having difficulty sleeping at night given the chest pain. States worse with lying flat. No signs of pericarditis. Patient seeking pain medication to help him sleep at night. Patient does have an appointment with pain specialist. Patient given some opioid analgesics for pain control. He is urged to follow up with primary care physician upon discharge. Patient is agreeable to disposition. Told to return to the emergency Department with any worsening symptoms. No findings of pleural effusion seen on chest x-ray. EKG interpretation: Ventricular rate 63, sinus rhythm, DE interval 216, care is 82, QTC 427. No DE prolongation, no QTC prolongation, no ST or T-wave changes noted. Overall, this EKG is unremarkable - Related Data Home Medications Medication Instructions Recorded Confirmed Rosuvastatin Calcium [Crestor] 40 mg PO HS 08/23/18 10/09/18 Pantoprazole Sodium [Protonix] 40 mg PO DAILY 10/09/18 10/09/18 Previous Rx's Medication Instructions Recorded Aspirin 325 mg PO DAILY #30 tab 09/09/18 Clopidogrel [Plavix] 75 mg PO DAILY #30 tab 09/09/18 Metoprolol Tartrate [Lopressor] 25 mg PO BID #60 tab 09/09/18 HYDROcodone/APAP 5-325MG [[place] 1 tab PO Q6HR PRN 3 Days #12 tab 12/08/18 5-325] Allergies Allergy/AdvReac Type Severity Reaction Status Date / Time bee venom protein (honey bee) Allergy Anaphylaxis Verified 12/08/18 12:01 Review of Systems ROS Statement: Those systems with pertinent positive or pertinent negative responses have been documented in the HPI. ROS Other: All systems not noted in ROS Statement are negative. Past Medical History Past Medical History: Coronary Artery Disease (CAD), Chest Pain / Angina, Hyperlipidemia, Hypertension, Myocardial Infarction ([place]) Additional Past Medical History / Comment(s): Degenerative disc disease, using oxygen @2l currently continuously Last Myocardial Infarction Date:: 2016 History of Any Multi-Drug Resistant Organisms: None Reported Past Surgical History: Back Surgery, Coronary Bypass/CABG, Heart Catheterization , Heart Catheterization With Stent, Orthopedic Surgery Additional Past Surgical History / Comment(s): back surgery, CABG x2 09-04-18 Past Anesthesia/Blood Transfusion Reactions: No Reported Reaction Date of Last Stent Placement:: march 2016 Past Psychological History: Anxiety Smoking Status: Former smoker Past Alcohol Use History: Occasional Past Drug Use History: None Reported - Past Family History Father History Unknown: Yes Family Medical History: Myocardial Infarction ([place]) Additional Family Medical History / Comment(s): The patient reports his dad from a myocardial infarction in his mid 50s. Brother(s) History Unknown: Yes Family Medical History: Myocardial Infarction ([place]) Additional Family Medical History / Comment(s): The patient reports to have his brothers from myocardial infarction in their mid 50s. General Exam Limitations: no limitations Course Vital Signs 12/08/18 12/08/18 11:56 12:18 Temperature 97.6 F 98.7 F Pulse Rate 58 L 56 L Respiratory 18 16 Rate Blood Pressure 151/77 165/94 O2 Sat by Pulse 99 97 Oximetry Medical Decision Making - Lab Data Result diagrams: 12/08/18 12:15 12/08/18 12:15 Lab Results 12/08/18 12/08/18 12/08/18 Range/Units 12:15 12:15 12:15 WBC 6.6 (3.8-10.6) k/uL RBC 4.97 (4.30-5.90) m/uL Hgb 11.9 L (13.0-17.5) gm/dL Hct 39.0 (39.0-53.0) % MCV 78.5 L D (80.0-100.0) fL MCH 24.0 L (25.0-35.0) pg MCHC 30.5 L (31.0-37.0) g/dL RDW 18.2 H (11.5-15.5) % Plt Count 225 (150-450) k/uL Neutrophils % 53 % Lymphocytes % 29 % Monocytes % 10 % Eosinophils % 4 % Basophils % 1 % Neutrophils # 3.5 (1.3-7.7) k/uL Lymphocytes # 1.9 (1.0-4.8) k/uL Monocytes # 0.6 (0-1.0) k/uL Eosinophils # 0.3 (0-0.7) k/uL Basophils # 0.1 (0-0.2) k/uL Hypochromasia Marked Anisocytosis Slight Microcytosis Slight PT (9.0-12.0) sec INR (<1.2) APTT (22.0-30.0) sec Sodium 143 (137-145) mmol/L Potassium 4.6 (3.5-5.1) mmol/L Chloride 107 (98-107) mmol/L Carbon Dioxide 25 (22-30) mmol/L Anion Gap 11 mmol/L BUN 13 (9-20) mg/dL Creatinine 0.94 (0.66-1.25) mg/dL Est GFR (CKD-EPI)AfAm >90 (>60 ml/min/1.73 sqM) Est GFR (CKD-EPI)NonAf >90 (>60 ml/min/1.73 sqM) Glucose 114 H (74-99) mg/dL Calcium 9.6 (8.4-10.2) mg/dL Magnesium 1.9 (1.6-2.3) mg/dL Total Bilirubin 0.6 (0.2-1.3) mg/dL AST 59 (17-59) U/L ALT 52 (21-72) U/L Alkaline Phosphatase 128 H (38-126) U/L Troponin I (0.000-0.034) ng/mL NT-Pro-B Natriuret Pep 138 pg/mL Total Protein 8.5 H (6.3-8.2) g/dL Albumin 4.3 (3.5-5.0) g/dL 12/08/18 12/08/18 Range/Units 12:15 12:15 WBC (3.8-10.6) k/uL RBC (4.30-5.90) m/uL Hgb (13.0-17.5) gm/dL Hct (39.0-53.0) % MCV (80.0-100.0) fL MCH (25.0-35.0) pg MCHC (31.0-37.0) g/dL RDW (11.5-15.5) % Plt Count (150-450) k/uL Neutrophils % % Lymphocytes % % Monocytes % % Eosinophils % % Basophils % % Neutrophils # (1.3-7.7) k/uL Lymphocytes # (1.0-4.8) k/uL Monocytes # (0-1.0) k/uL Eosinophils # (0-0.7) k/uL Basophils # (0-0.2) k/uL Hypochromasia Anisocytosis Microcytosis PT 10.8 (9.0-12.0) sec INR 1.0 (<1.2) APTT 24.6 (22.0-30.0) sec Sodium (137-145) mmol/L Potassium (3.5-5.1) mmol/L Chloride (98-107) mmol/L Carbon Dioxide (22-30) mmol/L Anion Gap mmol/L BUN (9-20) mg/dL Creatinine (0.66-1.25) mg/dL Est GFR (CKD-EPI)AfAm (>60 ml/min/1.73 sqM) Est GFR (CKD-EPI)NonAf (>60 ml/min/1.73 sqM) Glucose (74-99) mg/dL Calcium (8.4-10.2) mg/dL Magnesium (1.6-2.3) mg/dL Total Bilirubin (0.2-1.3) mg/dL AST (17-59) U/L ALT (21-72) U/L Alkaline Phosphatase (38-126) U/L Troponin I <0.012 (0.000-0.034) ng/mL NT-Pro-B Natriuret Pep pg/mL Total Protein (6.3-8.2) g/dL Albumin (3.5-5.0) g/dL Disposition Clinical Impression: Dyspnea Disposition: HOME SELF-CARE Condition: Good Instructions (If sedation given, give patient instructions): Dyspnea (ED) Prescriptions: HYDROcodone/APAP 5-325MG [[place] 5-325] 1 tab PO Q6HR PRN 3 Days #12 tab PRN Reason: Severe Pain Is patient prescribed a controlled substance at d/c from ED?: No Referrals: None,Stated [Primary Care Provider] - 1-2 days Time of Disposition: 13:52
[2018-12-08 12:25] VITALS: RESP 16; TEMP 98.7
--- NOTE | 2018-12-08 12:40 | XR ---
EXAMINATION TYPE: XR chest 2V DATE OF EXAM: 12/08/2018 COMPARISON: 09/25/2018 HISTORY: 58-year-old male with shortness of breath and pain TECHNIQUE: PA and lateral views FINDINGS: Median sternotomy wires are present with post-CABG clips in the mediastinum. Heart upper limits of no rmal in size. Mild diffuse interstitial prominence as a chronic appearance. Some strandy atelectasis or scarring at the left base. No consolidation or pleural effusion seen. IMPRESSION: Chronic appearing changes, possible bronchitis/asthma. Otherwise, no definite acute process.
[2018-12-08 12:53] LABS: Anisocytosis Slight; Basophils # (A) 0.1 k/uL (0-0.2); Basophils % (A) 1 %; Eosinophils # (A) 0.3 k/uL (0-0.7); Eosinophils % (A) 4 %; HGB 11.9 gm/dL (13.0-17.5); Hypochromasia Marked; Lymphocytes # (A) 1.9 k/uL (1.0-4.8); Lymphocytes % (A) 29 %; MCHC 30.5 g/dL (31.0-37.0); Mean Platelet Volume 8.7; Microcytosis Slight; Monocytes # (A) 0.6 k/uL (0-1.0); Monocytes % (A) 10 %; Neutrophils # (A) 3.5 k/uL (1.3-7.7); Neutrophils % (A) 53 %; Platelet Count 225 k/uL (150-450); RBC 4.97 m/uL (4.30-5.90); RDW 18.2 % (11.5-15.5); WBC 6.6 k/uL (3.8-10.6)
[2018-12-08 13:03] LABS: Partial Thromboplastin Time 24.6 sec (22.0-30.0); Prothrombin Time 10.8 sec (9.0-12.0)
[2018-12-08 13:07] LABS: MCV 78.5 fL (80.0-100.0)
[2018-12-08 13:11] LABS: ALT 52 U/L (21-72); AST 59 U/L (17-59); Albumin 4.3 g/dL (3.5-5.0); Alkaline Phosphatase 128 U/L (38-126); Anion Gap 11 mmol/L; Blood Urea Nitrogen 13 mg/dL (9-20); Calcium 9.6 mg/dL (8.4-10.2); Carbon Dioxide 25 mmol/L (22-30); Chloride 107 mmol/L (98-107); Glucose 114 mg/dL (74-99); Magnesium 1.9 mg/dL (1.6-2.3); Potassium 4.6 mmol/L (3.5-5.1); Sodium 143 mmol/L (137-145); Total Bilirubin 0.6 mg/dL (0.2-1.3); Total Protein 8.5 g/dL (6.3-8.2)
[2018-12-08 14:14] VITALS: BP 161/86; PULSE 65
== END 2018-12-08 14:14 | disposition home or self-care (01) ==
LOC: EC 11:45
DX: R06.00 Dyspnea, unspecified (principal); R06.02 Shortness of breath; R07.9 Chest pain, unspecified; R22.1 Localized swelling, mass and lump, neck; R22.33 Localized swelling, mass and lump, upper limb, bilateral; I25.10 Atherosclerotic heart disease of native coronary artery without angina pectoris; I25.2 Old myocardial infarction; E78.5 Hyperlipidemia, unspecified; Z79.899 Other long term (current) drug therapy; Z91.030 Bee allergy status; Z87.891 Personal history of nicotine dependence; Z95.1 Presence of aortocoronary bypass graft
CPT/HCPCS: 36415; 71046; 80053; 83735; 83880; 84484; 85025; 85610; 85730; 93005; 99285

== ENCOUNTER 2019-04-11 10:48 | Observation (INO) | payer MEDICARE ==
[2019-04-11] MEDS ORDERED: ONDANSETRON 4 MG/2 ML VIAL IVP STA (11:14)
[2019-04-11] MEDS ORDERED: SODIUM CHLORIDE 0.9% 1,000 ML IV ONE (11:14)
[2019-04-11] MEDS ORDERED: MORPHINE SULFATE 4 MG/ML SYRINGE IVP STA ×2 (11:14→13:08)
--- NOTE | 2019-04-11 11:19 | ED ---
Abdominal Pain HPI - General Chief Complaint: Abdominal Pain Stated Complaint: hernia in chest Time Seen by Provider: 04/11/19 11:07 Source: patient Mode of arrival: ambulatory Limitations: no limitations - History of Present Illness Initial Comments: Patient is a 58-year-old male who presents with a chief complaint of abdominal pain. This is been going on for several months however worse today. The patient states that he's had an abdominal hernia for about 7 months, and is been intermittently painful. He states that today's pain is much worse. He admits to nausea but has not vomited. His bowel movements have been normal. Patient also has a history of triple bypass 7 months ago. He states that factors include movement and lifting things. There are no alleviating factors. He has tried [id number] medications for pain control. - Related Data Home Medications Medication Instructions Recorded Confirmed Metoprolol Tartrate [Lopressor] 50 mg PO BID 12/08/18 04/11/19 Aspirin EC [Ecotrin Low Dose] 81 mg PO DAILY 04/11/19 04/11/19 Rosuvastatin [Crestor] 10 mg PO HS 04/11/19 04/11/19 Previous Rx's Medication Instructions Recorded Clopidogrel [Plavix] 75 mg PO DAILY #30 tab 09/09/18 Allergies Allergy/AdvReac Type Severity Reaction Status Date / Time bee venom protein (honey bee) Allergy Severe Anaphylaxis Verified 04/11/19 11:09 Review of Systems ROS Statement: Those systems with pertinent positive or pertinent negative responses have been documented in the HPI. ROS Other: All systems not noted in ROS Statement are negative. Cardiovascular: Reports: chest pain Gastrointestinal: Reports: abdominal pain, nausea Past Medical History Past Medical History: Coronary Artery Disease (CAD), Chest Pain / Angina, Hyperlipidemia, Hypertension, Myocardial Infarction ([place]) Additional Past Medical History / Comment(s): Degenerative disc disease, using oxygen @2l currently continuously Last Myocardial Infarction Date:: 2016 History of Any Multi-Drug Resistant Organisms: None Reported Past Surgical History: Back Surgery, Coronary Bypass/CABG, Heart Catheterization , Heart Catheterization With Stent, Orthopedic Surgery Additional Past Surgical History / Comment(s): back surgery, CABG x2 09-04-18 Past Anesthesia/Blood Transfusion Reactions: No Reported Reaction Date of Last Stent Placement:: march 2016 Past Psychological History: Anxiety Smoking Status: Former smoker Past Alcohol Use History: Occasional Past Drug Use History: None Reported - Past Family History Father History Unknown: Yes Family Medical History: Myocardial Infarction ([place]) Additional Family Medical History / Comment(s): The patient reports his dad from a myocardial infarction in his mid 50s. Brother(s) History Unknown: Yes Family Medical History: Myocardial Infarction ([place]) Additional Family Medical History / Comment(s): The patient reports to have his brothers from myocardial infarction in their mid 50s. General Exam Limitations: no limitations General appearance: alert, in no apparent distress Head exam: Present: atraumatic, normocephalic Eye exam: Present: normal appearance ENT exam: Present: normal exam Neck exam: Present: normal inspection Respiratory exam: Present: normal lung sounds bilaterally. Absent: respiratory distress, wheezes Cardiovascular Exam: Present: regular rate, normal rhythm GI/Abdominal exam: Present: soft, tenderness (Epigastric tenderness palpation. There appears to be mild skin changes over the area in question.). Absent: distended Rectal exam: Present: deferred Extremities exam: Present: normal inspection Back exam: Present: normal inspection Neurological exam: Present: alert, oriented X3 Psychiatric exam: Present: normal affect, normal mood Skin exam: Present: warm, dry, intact Course Vital Signs 04/11/19 04/11/19 10:54 13:23 Temperature 98.3 F Pulse Rate 84 85 Respiratory 18 18 Rate Blood Pressure 172/100 155/95 O2 Sat by Pulse 98 95 Oximetry Medical Decision Making - Medical Decision Making Patient presents with a chief complaint of abdominal pain. On initial evaluation, vitals are stable palpation acute distress. He'll be evaluated. Labs including cardiac enzymes, liver profile and lipase. He'll be sent for computed tomography scan of the abdomen and pelvis with IV contrast. Concern for strangulate hernia at this time. Patient given morphine and Zofran. He was given 1 L of IV fluids. EKG performed at 1129 shows normal sinus rhythm with a rate of 76 bpm, sinus are within normal limits, no acute findings of ischemia. 2:25 PM Laboratory evaluation this patient is unremarkable, lactic negative, cardiac enzymes negative. CT shows an abdominal wall hernia without inflammatory changes. On reevaluation, the patient has required multiple doses of pain medication for abdominal pain. Case discussed Dr. Leyva who is aware the patient will evaluate. Case discussed with Dr. damon accepts admission. - Lab Data Result diagrams: 04/11/19 11:28 04/11/19 11:28 Lab Results 04/11/19 04/11/19 04/11/19 Range/Units 11:28 11:28 11:28 WBC 5.7 (3.8-10.6) k/uL RBC 4.64 (4.30-5.90) m/uL Hgb 12.3 L (13.0-17.5) gm/dL Hct 37.9 L (39.0-53.0) % MCV 81.8 (80.0-100.0) fL MCH 26.6 (25.0-35.0) pg MCHC 32.5 (31.0-37.0) g/dL RDW 17.4 H (11.5-15.5) % Plt Count 174 (150-450) k/uL Neutrophils % (Manual) 62 % Lymphocytes % (Manual) 28 % Monocytes % (Manual) 9 % Eosinophils % (Manual) 1 % Neutrophils # (Manual) 3.53 (1.3-7.7) k/uL Lymphocytes # (Manual) 1.60 (1.0-4.8) k/uL Monocytes # (Manual) 0.51 (0-1.0) k/uL Eosinophils # (Manual) 0.06 (0-0.7) k/uL Nucleated RBCs 0 (0-0) /100 WBC Manual Slide Review Performed Anisocytosis Slight Microcytosis Slight Sodium 139 (137-145) mmol/L Potassium 4.0 (3.5-5.1) mmol/L Chloride 105 (98-107) mmol/L Carbon Dioxide 23 (22-30) mmol/L Anion Gap 11 mmol/L BUN 7 L (9-20) mg/dL Creatinine 0.71 (0.66-1.25) mg/dL Est GFR (CKD-EPI)AfAm >90 (>60 ml/min/1.73 sqM) Est GFR (CKD-EPI)NonAf >90 (>60 ml/min/1.73 sqM) Glucose 124 H (74-99) mg/dL Plasma Lactic Acid Sukhwinder 1.9 (0.7-2.0) mmol/L Calcium 9.3 (8.4-10.2) mg/dL Total Bilirubin 0.7 (0.2-1.3) mg/dL AST 137 H (17-59) U/L ALT 58 (21-72) U/L Alkaline Phosphatase 125 (38-126) U/L Troponin I (0.000-0.034) ng/mL NT-Pro-B Natriuret Pep pg/mL Total Protein 8.1 (6.3-8.2) g/dL Albumin 4.2 (3.5-5.0) g/dL Lipase 88 (23-300) U/L 04/11/19 04/11/19 Range/Units 11:28 11:28 WBC (3.8-10.6) k/uL RBC (4.30-5.90) m/uL Hgb (13.0-17.5) gm/dL Hct (39.0-53.0) % MCV (80.0-100.0) fL MCH (25.0-35.0) pg MCHC (31.0-37.0) g/dL RDW (11.5-15.5) % Plt Count (150-450) k/uL Neutrophils % (Manual) % Lymphocytes % (Manual) % Monocytes % (Manual) % Eosinophils % (Manual) % Neutrophils # (Manual) (1.3-7.7) k/uL Lymphocytes # (Manual) (1.0-4.8) k/uL Monocytes # (Manual) (0-1.0) k/uL Eosinophils # (Manual) (0-0.7) k/uL Nucleated RBCs (0-0) /100 WBC Manual Slide Review Anisocytosis Microcytosis Sodium (137-145) mmol/L Potassium (3.5-5.1) mmol/L Chloride (98-107) mmol/L Carbon Dioxide (22-30) mmol/L Anion Gap mmol/L BUN (9-20) mg/dL Creatinine (0.66-1.25) mg/dL Est GFR (CKD-EPI)AfAm (>60 ml/min/1.73 sqM) Est GFR (CKD-EPI)NonAf (>60 ml/min/1.73 sqM) Glucose (74-99) mg/dL Plasma Lactic Acid Sukhwinder (0.7-2.0) mmol/L Calcium (8.4-10.2) mg/dL Total Bilirubin (0.2-1.3) mg/dL AST (17-59) U/L ALT (21-72) U/L Alkaline Phosphatase (38-126) U/L Troponin I <0.012 (0.000-0.034) ng/mL NT-Pro-B Natriuret Pep 46 pg/mL Total Protein (6.3-8.2) g/dL Albumin (3.5-5.0) g/dL Lipase (23-300) U/L Disposition Clinical Impression: Intractable abdominal pain, Abdominal wall hernia, Chest pain Disposition: ADMITTED IP TO THIS HOSP Condition: Fair Is patient prescribed a controlled substance at d/c from ED?: No Referrals: None,Stated [Primary Care Provider] - 1-2 days Decision to Admit Reason: Admit from EC - Out of Hospital Transfer - Req. Specs Out of Hospital Transfer - Requested Specifics: Other Non-Acute
[2019-04-11 11:53] LABS: ALT 58 U/L (21-72); AST 137 U/L (17-59); African American GFR (CKD) >90 (>60 ml/min/1.73 sqM); Albumin 4.2 g/dL (3.5-5.0); Alkaline Phosphatase 125 U/L (38-126); Anion Gap 11 mmol/L; Blood Urea Nitrogen 7 mg/dL (9-20); Calcium 9.3 mg/dL (8.4-10.2); Carbon Dioxide 23 mmol/L (22-30); Chloride 105 mmol/L (98-107); Glucose 124 mg/dL (74-99); Lipase 88 U/L (23-300); Sodium 139 mmol/L (137-145); Total Bilirubin 0.7 mg/dL (0.2-1.3); Total Protein 8.1 g/dL (6.3-8.2)
[2019-04-11 12:01] LABS: Anisocytosis Slight; HCT 37.9 % (39.0-53.0); HGB 12.3 gm/dL (13.0-17.5); MCH 26.6 pg (25.0-35.0); MCHC 32.5 g/dL (31.0-37.0); MCV 81.8 fL (80.0-100.0); Mean Platelet Volume 9.1; Microcytosis Slight; Platelet Count 174 k/uL (150-450); RBC 4.64 m/uL (4.30-5.90); RDW 17.4 % (11.5-15.5); WBC 5.7 k/uL (3.8-10.6)
--- NOTE | 2019-04-11 12:15 | CT ---
EXAMINATION TYPE: CT abdomen pelvis w con DATE OF EXAM: 04/11/2019 COMPARISON: None HISTORY: Upper abdomen hernia CT DLP: 1040 mGycm Automated exposure control for dose reduction was used. CONTRAST: CT scan of the abdomen pelvis is performed with IV Contrast, patient injected with 100 mL of Isovue 3 00. FINDINGS- LUNG BASES-interlobular septal thickening suggestive of chronic interstitial lung disease. Subsegment al consolidation most typical atelectasis. Sternotomy wires with cardiomegaly. Coronary artery calcif ication noted.. LIVER/GB-there is a subcentimeter hypodensity within the liver too small to characterize. No prior ex am available for comparison.. PANCREAS- No gross abnormality is seen. SPLEEN- No gross abnormality is seen. ADRENALS- No gross abnormality is seen. KIDNEYS/BLADDER-no hydronephrosis or nephrolithiasis. Bilateral simple appearing renal cyst.. BOWEL-gas pattern nonspecific. Changes of colonic diverticulosis.. LYMPH NODES- No greater than 1cm abdominal or pelvic lymph nodes areappreciated. OSSEOUS STRUCTURES-hypertrophic and degenerative changes spine. Sclerotic density left femur likely r elated to bone island.. OTHER- atherosclerotic change aorta. There is ectasia of the proximal iliac arteries bilaterally claus suring a maximal dimension of the left of 1.7 cm. Aorta of normal caliber. IMPRESSION- 1. Diverticulosis of the colon. 2. Left hepatic lesion too small to characterize 3. Bilateral renal cysts
[2019-04-11 12:33] LABS: Eosinophils # (M) 0.06 k/uL (0-0.7); Monocytes # (M) 0.51 k/uL (0-1.0); Neutrophils # (M) 3.53 k/uL (1.3-7.7); Neutrophils % (M) 62 %; Nucleated Red Blood Cells 0 /100 WBC (0-0); Total Cells Counted 100
--- NOTE | 2019-04-11 13:32 | XR ---
EXAMINATION TYPE: XR chest 2V DATE OF EXAM: 04/11/2019 COMPARISON: 12/08/2018 TECHNIQUE: PA and lateral views submitted. HISTORY: Pain FINDINGS: The heart is prominent there is a diffuse interstitial pattern. Biapical pleural thickening. Postsurg ical changes. No pleural effusion or pneumothorax. Hypertrophic and degenerative change of the spine. Biapical pleural thickening. Questionable 1 cm apical pleural nodule. IMPRESSION: 1. Correlate for chronic interstitial lung disease such as pulmonary fibrosis. Apical right upper lob e density may represent pleural thickening. Cannot exclude a small nodule. Recommend short-term follo w up CT chest
[2019-04-11] MEDS ORDERED: NALOXONE 0.4 MG/ML 1 ML VIAL IV PRN (14:26)
[2019-04-11] MEDS ORDERED: ONDANSETRON 4 MG/2 ML VIAL IVP PRN (14:28)
[2019-04-11] MEDS ORDERED: MORPHINE SULFATE 4 MG/ML SYRINGE IV PRN (14:28)
[2019-04-11] MEDS ORDERED: SODIUM CHLORIDE 0.9% 1,000 ML IV SCH (14:30)
[2019-04-11] MEDS ORDERED: IPRATROPIUM-ALBUTEROL 3 ML NEB INHALATION PRN (15:23)
--- NOTE | 2019-04-11 15:26 | P.HPIM ---
History of Present Illness H&P Date: 04/11/19 Chief Complaint: Epigastric pain 58-year-old male with PMH of CAD post triple CABG presents to the ED for epigastric pain. Patient reports epigastric that has been ongoing for a few months. Patient reports that this pain is related to the hernia that he has noticed. Pain is constant and aching in nature. Pain is 8 out of 10 in severity and occasionally radiates up to the bilateral chest. There are no alleviating factors. Patient reports aggravation of his pain with cough and with sneezing. He denies any headache, lower extremity edema, nausea or vomiting. He denies any fever or chills, cough, palpitations, changes in urination or bowel habits. His last bowel movement was this morning. No changes in appetite or weight. Patient does report some exertional shortness of breath. She reports being able to walk 2 miles on a daily basis, now limited to 1 mile. He does report smoking 2 packs of cigarettes daily for 40 years, quit 7 months ago. In the ED, vital signs were stable. CBC showed a hemoglobin of 12.3. CMP showed glucose of 124, AST of 137. Troponin was less than 0.012, EKG showing normal sinus rhythm. Chest x-ray shows chronic interstitial lung disease. BNP was 46. CT of the abdomen and pelvis shows diverticulosis of the colon, left he patic lesion, bilateral renal cysts. Patient is admitted for epigastric pain related to fat containing [place] anterior abdominal wall hernia measuring 3.5 cm. Review of Systems Pertinent positives and negatives as discussed in HPI, a complete review of systems was performed and all other systems are negative. Past Medical History Past Medical History: Coronary Artery Disease (CAD), Chest Pain / Angina, Hyperlipidemia, Hypertension, Myocardial Infarction ([place]) Additional Past Medical History / Comment(s): Degenerative disc disease, using oxygen @2l currently continuously Last Myocardial Infarction Date:: 2016 History of Any Multi-Drug Resistant Organisms: None Reported Past Surgical History: Back Surgery, Coronary Bypass/CABG, Heart Catheterization, Heart Catheterization With Stent, Orthopedic Surgery Additional Past Surgical History / Comment(s): back surgery, CABG x2 09-04-18 Past Anesthesia/Blood Transfusion Reactions: No Reported Reaction Date of Last Stent Placement:: march 2016 Past Psychological History: Anxiety Smoking Status: Former smoker Past Alcohol Use History: Occasional Past Drug Use History: None Reported - Past Family History Father History Unknown: Yes Family Medical History: Myocardial Infarction ([place]) Additional Family Medical History / Comment(s): The patient reports his dad pass ed away from a myocardial infarction in his mid 50s. Brother(s) History Unknown: Yes Family Medical History: Myocardial Infarction ([place]) Additional Family Medical History / Comment(s): The patient reports to have his brothers from myocardial infarction in their mid 50s. Medications and Allergies Home Medications Medication Instructions Recorded Confirmed Type Clopidogrel [Plavix] 75 mg PO DAILY #30 tab 09/09/18 04/11/19 Rx Metoprolol Tartrate [Lopressor] 50 mg PO BID 12/08/18 04/11/19 History Aspirin EC [Ecotrin Low Dose] 81 mg PO DAILY 04/11/19 04/11/19 History Rosuvastatin [Crestor] 10 mg PO HS 04/11/19 04/11/19 History Allergies Allergy/AdvReac Type Severity Reaction Status Date / Time bee venom protein (honey bee) Allergy Severe Anaphylaxis Verified 04/11/19 11:09 Physical Exam Vitals: Vital Signs Temp Pulse Resp BP Pulse Ox 04/11/19 13:23 85 18 155/95 95 04/11/19 10:54 98.3 F 84 18 172/100 98 Intake and Output 04/11/19 04/11/19 04/11/19 06:59 14:59 22:59 Other: Weight 85.729 kg General: [non toxic], [mild distress], [appears at stated age] Derm: [warm], [dry] Head: [atraumatic], [normocephalic], [symmetric] Eyes: [EOMI], [no lid lag], [anicteric sclera] Mouth: [no lip lesion], [mucus membranes moist] Cardiovascular: [S1S2 reg], [no murmur], [positive DP pulse bilateral] Lungs: [CTA bilateral], [no rhonchi, no rales] , [no accessory muscle use] Abdominal: [soft], [anterior wall hernia noted, reducible, exquisite tenderness to palpation without rebound], [no guarding], [no appreciable organomegaly] Ext: [no gross muscle atrophy], [no edema], [no contractures] Neuro: [ CN II-XI grossly intact], [no focal neuro deficits] Psych: [Alert], [oriented], [appropriate affect] Results CBC & Chem 7: 04/11/19 11:28 04/11/19 11:28 Labs: Abnormal Lab Results - Last 24 Hours (Table) 04/11/19 04/11/19 Range/Units 11:28 11:28 Hgb 12.3 L (13.0-17.5) gm/dL Hct 37.9 L (39.0-53.0) % RDW 17.4 H (11.5-15.5) % BUN 7 L (9-20) mg/dL Glucose 124 H (74-99) mg/dL AST 137 H (17-59) U/L Assessment and Plan Assessment: Assessment and Plan Epigastric pain likely related to anterior wall hernia with plans to rule out ACS. CAD post triple CABG Shortness of breath with exertion Elevated AST CT of the abdomen shows anterior wall hernia that is fat-containing. Troponin is less than 0.012, EKG showing normal sinus rhythm. Amylase and lipase is within normal limits. Chest x-ray shows findings consistent with pulmonary fibrosis. Plans: Trend 2 Trop/EKG to rule out ACS. Telemetry monitoring. Zo moe as needed for nausea or vomiting. Pain control with Tylenol, [place] or morphine. Follow general surgery consult. Plans: Continue aspirin, rosuvastatin, Plavix. Continue metoprolol. Needs adeq uate outpatient follow-up. BNP is within normal limits. Chest x-ray and CT AP shows findings consistent with pulmonary fibrosis or interstitial lung disease. Plans: Follow echocardiogram. DuoNeb as needed for shortness of breath and wheezing. O2 per [place] to maintain O2 saturation greater than 92%. Likely related to alcohol consumption. Low risk for withdrawals. Plans: Repeat CMP in the morning. DVT prophylaxis: [SCD] Discussed with: [Patient] Anticipated discharge: [Home] Anticipated discharge place: [Tomorrow] A total of [30] minutes was spent on the care of this complex patient more than 50% of the time was spent in counseling and care coordination. Patient names his Radha decision-maker in the case that he can't make decisions for himself. Patient elects to be full code at this time. Patient admitted for epigastric pain likely related to anterior wall hernia, surgery consulted. Plans to rule out ACS by trending troponins. Echocardiogram ordered for shortness of breath. Patient is pending clinical improvement. Likely DC tomorrow.
[2019-04-11] MEDS: HYDROcodone/APAP 5-325MG 1 EACH TAB PO PRN ×2 (19:39→23:11)
[2019-04-11 20:52] VITALS: BMI 32.4
[2019-04-11] MEDS: METOPROLOL TARTRATE 50 MG TAB PO SCH (20:57)
[2019-04-11] MEDS ORDERED: ATORVASTATIN 10 MG TAB PO SCH (21:00)
[2019-04-12] MEDS: HYDROcodone/APAP 5-325MG 1 EACH TAB PO PRN ×3 (05:41→16:16)
[2019-04-12 06:17] LABS: Anisocytosis Slight; Basophils % (A) 1 %; Eosinophils # (A) 0.2 k/uL (0-0.7); Eosinophils % (A) 4 %; HCT 37.7 % (39.0-53.0); HGB 11.8 gm/dL (13.0-17.5); Hypochromasia Moderate; Lymphocytes # (A) 1.5 k/uL (1.0-4.8); Lymphocytes % (A) 27 %; MCH 26.2 pg (25.0-35.0); MCHC 31.2 g/dL (31.0-37.0); MCV 84.1 fL (80.0-100.0); Mean Platelet Volume 9.4; Monocytes # (A) 0.5 k/uL (0-1.0); Monocytes % (A) 9 %; Neutrophils # (A) 3.1 k/uL (1.3-7.7); Neutrophils % (A) 55 %; Platelet Count 165 k/uL (150-450); RBC 4.49 m/uL (4.30-5.90); RDW 17.5 % (11.5-15.5); WBC 5.7 k/uL (3.8-10.6)
[2019-04-12 06:29] LABS: African American GFR (CKD) >90 (>60 ml/min/1.73 sqM); Anion Gap 11 mmol/L; Blood Urea Nitrogen 11 mg/dL (9-20); Calcium 9.2 mg/dL (8.4-10.2); Carbon Dioxide 24 mmol/L (22-30); Chloride 104 mmol/L (98-107); Glucose 110 mg/dL (74-99); Potassium 4.5 mmol/L (3.5-5.1); Sodium 139 mmol/L (137-145)
[2019-04-12] MEDS ORDERED: CLOPIDOGREL 75 MG TAB PO SCH (09:00)
[2019-04-12] MEDS ORDERED: ASPIRIN 81 MG PO SCH (09:00)
[2019-04-12] MEDS: METOPROLOL TARTRATE 50 MG TAB PO SCH (10:07)
--- NOTE | 2019-04-12 13:46 | P.GSCN ---
<Annalise Koch - Last Filed: 04/12/19 15:28> History of Present Illness Consult date: 04/12/19 Reason for Consult: abdominal pain Requesting physician: Ciaran Weeks History of present illness: CHIEF COMPLAINT: Abdominal pain HISTORY OF PRESENT ILLNESS: 58-year-old male who presented to emergency room with a chief complaint of abdominal pain. Patient reports history of 3 vessel CABG in August. He has noticed a hernia developed a few months ago that has caused him intermittent pain. He denies nausea or vomiting. Reports bowel movement yesterday. Denies fever or chills. PAST MEDICAL HISTORY: See list. PAST SURGICAL HISTORY: See list. MEDICATIONS: See list. ALLERGIES: See list. SOCIAL HISTORY: No illicit drug use. History of nicotine dependence, in remission. REVIEW OF SYSTEMS: CONSTITUTIONAL: Denies fever or chills. HEENT: Denies blurred vision, vision changes, or eye pain. Denies hemoptysis ENDOCRINE: Denies heat or cold intolerance. CARDIOVASCULAR: Denies chest pain or pressure. History of CABG in August RESPIRATORY: No shortness of breath. GASTROINTESTINAL: See HPI for pertinent findings NEURO: Denies history of seizures. PSYCH: No depression or suicidal ideation HEMATOLOGIC: Denies bleeding disorders. LYMPHATIC: The patient denies any lumps and bumps around the neck. GENITOURINARY: Denies any blood in urine or increased urinary frequency. MUSCULOSKELETAL: Denies myalgias. Denies joint swelling. Denies decreased range of motion beyond patients baseline. SKIN: Denies pruitis. Denies rash. PHYSICAL EXAM: VITAL SIGNS: Currently stable. GENERAL: Well-developed in no acute distress. HEENT: No sclera icterus. Extraocular movements grossly intact. Moist buccal mucosa. Head is atraumatic, normocephalic. Hears conversational speech. No nasal drainage. NECK: Supple without lymphadenopathy. CHEST: Non-labored respirations and equal bilateral excursions. CARDIOVASCULAR: Regular rate with regular rhythm. Palpable 2+ radial pulses. ABDOMEN: Incision to chest from CABG well healed. Hernia noted to distal end of incision. Hernia tender to palpation. Reducible. Abdomen soft. Nondistended. MUSCULOSKELETAL: No clubbing, cyanosis or edema. NEUROLOGIC: No focal or lateralizing signs. Cranial nerves II through XII grossly intact. PSYCH: Appropriate affect. Alert and oriented to person, place and time. SKIN: Well perfused. Good skin turgor. LABORATORY DATA: Laboratory data upon admission reveals white count 5.7. Hemoglobin 12.3. Sodium 139. Potassium 4.0. BUN 7. Creatinine 0.71. Glucose 124. Lactic acid 1.9. Bilirubin 0.7. AST 137. ALT 58. Lipase 88. IMAGING: CT abdomen and pelvis: Fat-containing [place] anterior abdominal wall hernia with mild measuring 3.5 cm. No inflammatory changes. Diverticulosis of the colon. ASSESSMENT: 1. Epigastric pain 2. Abdominal wall hernia 3. Diverticulosis 4. History of CABG August 2018 PLAN: 1. Diet as tolerated 2. No inpatient surgical intervention recommended. Patient may be discharged from a surgical standpoint and follow up with Dr. Leyva 3. Recommend abdominal binder for comfort 4. Patient encouraged to follow up with his retail sales specialist outpatient for surgical clearance for future hernia repair Nurse practitioner note has been reviewed by physician. Signing provider agrees with the documented findings, assessment, and plan of care. Past Medical History Past Medical History: Coronary Artery Disease (CAD), Chest Pain / Angina, Hyperlipidemia, Hypertension, Myocardial Infarction ([place]) Additional Past Medical History / Comment(s): Degenerative disc disease, abdominal hernia Last Myocardial Infarction Date:: 2016 History of Any Multi-Drug Resistant Organisms: None Reported Past Surgical History: Back Surgery, Coronary Bypass/CABG, Heart Catheterization, Heart Catheterization With Stent, Orthopedic Surgery Additional Past Surgical History / Comment(s): back surgery, CABG x2 09-04-18 Past Anesthesia/Blood Transfusion Reactions: No Reported Reaction Date of Last Stent Placement:: march 2016 Smoking Status: Former smoker - Past Family History Father History Unknown: Yes Family Medical History: Myocardial Infarction ([place]) Additional Family Medical History / Comment(s): The patient reports his dad from a myocardial infarction in his mid 50s. Brother(s) History Unknown: Yes Family Medical History: Myocardial Infarction ([place]) Additional Family Medical History / Comment(s): The patient reports to have his brothers from myocardial infarction in their mid 50s. Medications and Allergies Home Medications Medication Instructions Recorded Confirmed Type Clopidogrel [Plavix] 75 mg PO DAILY #30 tab 09/09/18 04/11/19 Rx Metoprolol Tartrate [Lopressor] 50 mg PO BID 12/08/18 04/11/19 History Aspirin EC [Ecotrin Low Dose] 81 mg PO DAILY 04/11/19 04/11/19 History Rosuvastatin [Crestor] 10 mg PO HS 04/11/19 04/11/19 History Allergies Allergy/AdvReac Type Severity Reaction Status Date / Time bee venom protein (honey bee) Allergy Severe Anaphylaxis Verified 04/11/19 11:09 Surgical - Exam Vital Signs Temp Pulse Resp BP Pulse Ox 98.3 F 84 18 172/100 98 04/11/19 10:54 04/11/19 10:54 04/11/19 10:54 04/11/19 10:54 04/11/19 10:54 Results - Labs 04/12/19 05:49 04/12/19 05:49 Abnormal Lab Results - Last 24 Hours (Table) 04/12/19 04/12/19 Range/Units 05:49 05:49 Hgb 11.8 L (13.0-17.5) gm/dL Hct 37.7 L (39.0-53.0) % RDW 17.5 H (11.5-15.5) % Glucose 110 H (74-99) mg/dL Diabetes panel 04/12/19 Range/Units 05:49 Sodium 139 (137-145) mmol/L Potassium 4.5 (3.5-5.1) mmol/L Chloride 104 (98-107) mmol/L Carbon Dioxide 24 (22-30) mmol/L BUN 11 (9-20) mg/dL Creatinine 0.82 (0.66-1.25) mg/dL Glucose 110 H (74-99) mg/dL Calcium 9.2 (8.4-10.2) mg/dL Calcium panel 04/12/19 Range/Units 05:49 Calcium 9.2 (8.4-10.2) mg/dL Pituitary panel 04/12/19 Range/Units 05:49 Sodium 139 (137-145) mmol/L Potassium 4.5 (3.5-5.1) mmol/L Chloride 104 (98-107) mmol/L Carbon Dioxide 24 (22-30) mmol/L BUN 11 (9-20) mg/dL Creatinine 0.82 (0.66-1.25) mg/dL Glucose 110 H (74-99) mg/dL Calcium 9.2 (8.4-10.2) mg/dL Adrenal panel 04/12/19 Range/Units 05:49 Sodium 139 (137-145) mmol/L Potassium 4.5 (3.5-5.1) mmol/L Chloride 104 (98-107) mmol/L Carbon Dioxide 24 (22-30) mmol/L BUN 11 (9-20) mg/dL Creatinine 0.82 (0.66-1.25) mg/dL Glucose 110 H (74-99) mg/dL Calcium 9.2 (8.4-10.2) mg/dL Assessment and Plan (1) Abdominal wall hernia Status: Acute Code(s): K43.9 - VENTRAL HERNIA WITHOUT OBSTRUCTION OR GANGRENE SNOMED Code(s): 725539483 (2) Intractable abdominal pain Status: Acute Code(s): R10.9 - UNSPECIFIED ABDOMINAL PAIN SNOMED Code(s): 89916911 (3) History of coronary artery disease Status: Acute Code(s): Z86.79 - PERSONAL HISTORY OF OTHER DISEASES OF THE CIRCULATORY SYSTEM SNOMED Code(s): 456706282 (4) S/P CABG (coronary artery bypass graft) Status: Acute Code(s): Z95.1 - PRESENCE OF AORTOCORONARY BYPASS GRAFT SNOMED Code(s): 362069718 <GordonRika N - Last Filed: 04/12/19 21:24> History of Present Illness History of present illness: As above. He has chronic incisional hernia since CABG 9 months ago. He reports difficulty seeing physicians as he does not have transportation. Recommended abdominal binder, no lifting over 4 pounds, tobacco abstinence, and follow up with retail sales specialist prior to surgical intervention. Will follow up as outpatient. Surgical - Exam Vital Signs Temp Pulse Resp BP Pulse Ox 98.3 F 84 18 172/100 98 04/11/19 10:54 04/11/19 10:54 04/11/19 10:54 04/11/19 10:54 04/11/19 10:54 Results - Labs 04/12/19 05:49 04/12/19 05:49 Abnormal Lab Results - Last 24 Hours (Table) 04/12/19 04/12/19 Range/Units 05:49 05:49 Hgb 11.8 L (13.0-17.5) gm/dL Hct 37.7 L (39.0-53.0) % RDW 17.5 H (11.5-15.5) % Glucose 110 H (74-99) mg/dL Diabetes panel 04/12/19 Range/Units 05:49 Sodium 139 (137-145) mmol/L Potassium 4.5 (3.5-5.1) mmol/L Chloride 104 (98-107) mmol/L Carbon Dioxide 24 (22-30) mmol/L BUN 11 (9-20) mg/dL Creatinine 0.82 (0.66-1.25) mg/dL Glucose 110 H (74-99) mg/dL Calcium 9.2 (8.4-10.2) mg/dL Calcium panel 04/12/19 Range/Units 05:49 Calcium 9.2 (8.4-10.2) mg/dL Pituitary panel 04/12/19 Range/Units 05:49 Sodium 139 (137-145) mmol/L Potassium 4.5 (3.5-5.1) mmol/L Chloride 104 (98-107) mmol/L Carbon Dioxide 24 (22-30) mmol/L BUN 11 (9-20) mg/dL Creatinine 0.82 (0.66-1.25) mg/dL Glucose 110 H (74-99) mg/dL Calcium 9.2 (8.4-10.2) mg/dL Adrenal panel 04/12/19 Range/Units 05:49 Sodium 139 (137-145) mmol/L Potassium 4.5 (3.5-5.1) mmol/L Chloride 104 (98-107) mmol/L Carbon Dioxide 24 (22-30) mmol/L BUN 11 (9-20) mg/dL Creatinine 0.82 (0.66-1.25) mg/dL Glucose 110 H (74-99) mg/dL Calcium 9.2 (8.4-10.2) mg/dL
--- NOTE | 2019-04-12 14:41 | P.DS ---
Providers Date of admission: 04/11/19 14:26 Expected date of discharge: 04/12/19 Attending physician: Kellen Meyer DO Consults: 04/11/19 14:19 Consult Physician Routine Consulting Provider: Rika Leyva Consult Reason/Comments: intractable abdominal pain Do you want consulting provider notified?: Already Contacted Primary care physician: Stated None - Discharge Diagnosis(es) (1) Abdominal wall hernia Current Visit: Yes Status: Acute (2) Intractable abdominal pain Current Visit: Yes Status: Acute (3) History of coronary artery disease Current Visit: No Status: Acute (4) S/P CABG (coronary artery bypass graft) Current Visit: No Status: Acute Hospital Course: The patient is a 58-year-old male with a past with a history of CAD post triple CABG presents to the ED for epigastric pain and was placed in observation for further surgery referral as his CT abdomen and pelvis indicated a 3.5 cm anterior abdominal wall fat containing hernia. cardiac workup was negative as a patient had no signs of acute ischemia on EKG and his troponins are all negative. The patient was seen by Dr. Leyva and recommended no inpatient surgical intervention at this time with plans to follow up in her surgical clinic. Patient was subsequently discharged home in instructed to f ollow-up with Dr. Leyva in clinic. Focused exam Abdomen: Anterior abdominal wall hernia noted reducible, tender to palpation without rebound. Patient Condition at Discharge: Fair Plan - Discharge Summary Discharge Rx Participant: No New Discharge Prescriptions: Continue Clopidogrel [Plavix] 75 mg PO DAILY #30 tab Metoprolol Tartrate [Lopressor] 50 mg PO BID Aspirin EC [Ecotrin Low Dose] 81 mg PO DAILY Rosuvastatin [Crestor] 10 mg PO HS Discharge Medication List Clopidogrel [Plavix] 75 mg PO DAILY #30 tab 09/09/18 [Rx] Metoprolol Tartrate [Lopressor] 50 mg PO BID 12/08/18 [History] Aspirin EC [Ecotrin Low Dose] 81 mg PO DAILY 04/11/19 [History] Rosuvastatin [Crestor] 10 mg PO HS 04/11/19 [History] Follow up Appointment(s)/Referral(s): Rika Leyva MD [STAFF PHYSICIAN] - 1 Week None,Stated [Primary Care Provider] - 1-2 days Discharge Disposition: HOME SELF-CARE
[2019-04-12 15:28] VITALS: BP 146/84; PULSE 58; RESP 18; TEMP 97.5
== END 2019-04-12 16:27 | disposition home or self-care (01) ==
LOC: EC 10:48 → 1SOBS 14:26
PROVIDERS: ADMIT Internal Medicine; ATTEND Internal Medicine
DX: K43.9 Ventral hernia without obstruction or gangrene (principal); I10 Essential (primary) hypertension; I25.10 Atherosclerotic heart disease of native coronary artery without angina pectoris; R06.02 Shortness of breath; K76.9 Liver disease, unspecified; N28.1 Cyst of kidney, acquired; F17.211 Nicotine dependence, cigarettes, in remission; K57.30 Diverticulosis of large intestine without perforation or abscess without bleeding; F41.9 Anxiety disorder, unspecified; E78.5 Hyperlipidemia, unspecified; Z95.1 Presence of aortocoronary bypass graft; Z95.5 Presence of coronary angioplasty implant and graft; Z79.82 Long term (current) use of aspirin; Z79.899 Other long term (current) drug therapy; Z79.02 Long term (current) use of antithrombotics/antiplatelets; Z91.030 Bee allergy status; I25.2 Old myocardial infarction; Z99.81 Dependence on supplemental oxygen; Z82.49 Family history of ischemic heart disease and other diseases of the circulatory system
CPT/HCPCS: 96376; 96361; 96374; 96375; 99285; 36415; 93005; 83880; 80053; 80048; 83605; 83690; 84484 ×2; 85025 ×2; 71046; 74177; G0378 ×2; J2270; J2405; Q9967

== ENCOUNTER 2021-06-14 19:03 | Inpatient (IN) | payer MEDICARE ==
--- NOTE | 2021-06-14 20:16 | ED ---
General Adult HPI - General Stated complaint: Hernia Time Seen by Provider: 06/14/21 20:00 Source: patient, RN notes reviewed Mode of arrival: ambulatory Limitations: no limitations - History of Present Illness Initial comments: This a 60-year-old male presents emergency Department with chief complaint of upper abdominal hernia. Patient states she's had a hernia since his open heart surgery. Patient states that the hernia has gotten worse over the last couple weeks states pain is unbearable. He states she's had diarrhea, constipation states she's noticed some black stools. Patient has no known liver disease patient does take Plavix. Patient has no dysuria no hematuria. Patient states that the pain is unbearable states it makes it hard to breathe. - Related Data Home Medications Medication Instructions Recorded Confirmed Metoprolol Tartrate [Lopressor] 50 mg PO BID 12/08/18 04/11/19 Aspirin EC [Ecotrin Low Dose] 81 mg PO DAILY 04/11/19 04/11/19 Rosuvastatin [Crestor] 10 mg PO HS 04/11/19 04/11/19 Previous Rx's Medication Instructions Recorded Clopidogrel [Plavix] 75 mg PO DAILY #30 tab 09/09/18 Allergies Allergy/AdvReac Type Severity Reaction Status Date / Time bee venom protein (honey bee) Allergy Severe Anaphylaxis Verified 06/14/21 20:19 Review of Systems ROS Statement: Those systems with pertinent positive or pertinent negative responses have been documented in the HPI. ROS Other: All systems not noted in ROS Statement are negative. Past Medical History Past Medical History: Coronary Artery Disease (CAD), Chest Pain / Angina, Hyperlipidemia, Hypertension, Myocardial Infarction ([place]) Additional Past Medical History / Comment(s): Degenerative disc disease, abdominal hernia Last Myocardial Infarction Date:: 2016 History of Any Multi-Drug Resistant Organisms: None Reported Past Surgical History: Back Surgery, Coronary Bypass/CABG, Heart Catheterization, Heart Catheterization With Stent, Orthopedic Surgery Additional Past Surgical History / Comment(s): back surgery, CABG x2 09-04-18 Past Anesthesia/Blood Transfusion Reactions: No Reported Reaction Date of Last Stent Placement:: march 2016 Past Psychological History: Anxiety Past Alcohol Use History: Occasional Additional Past Alcohol Use History / Comment(s): He reports he drinks less than 8 beers a week, quit smoking 08-23-18, smoked 1 1/2ppd for >40 yrs. Past Drug Use History: None Reported - Past Family History Father History Unknown: Yes Family Medical History: Myocardial Infarction ([place]) Additional Family Medical History / Comment(s): The patient reports his dad from a myocardial infarction in his mid 50s. Brother(s) History Unknown: Yes Family Medical History: Myocardial Infarction ([place]) Additional Family Medical History / Comment(s): The patient reports to have his brothers from myocardial infarction in their mid 50s. General Exam Limitations: no limitations General appearance: alert, in no apparent distress Head exam: Present: atraumatic, normocephalic, normal inspection Neck exam: Present: normal inspection. Absent: tenderness, meningismus, lym phadenopathy Respiratory exam: Present: normal lung sounds bilaterally. Absent: respiratory distress, wheezes, rales, rhonchi, stridor Cardiovascular Exam: Present: regular rate, normal rhythm, normal heart sounds. Absent: systolic murmur, diastolic murmur, rubs, gallop, clicks GI/Abdominal exam: Present: soft, distended, tenderness, normal bowel sounds, hernia. Absent: guarding, rebound, rigid Back exam: Absent: CVA tenderness (R), CVA tenderness (L) Course Vital Signs 06/14/21 20:15 Temperature 98.5 F Pulse Rate 74 Respiratory 20 Rate Blood Pressure 152/83 O2 Sat by Pulse 94 L Oximetry Medical Decision Making - Medical Decision Making Case discussed with Dr. foster accepts admission for most likely cirrhosis with acute liver failure, jaundice will have consult GI. Patient CT shows anomaly of the liver, ascites. Patient had a bilirubin of 9.2. - Lab Data Result diagrams: 06/14/21 21:03 06/14/21 21:03 Lab Results 06/14/21 06/14/21 06/14/21 Range/Units 21:03 21:03 21:03 WBC 8.5 (3.8-10.6) k/uL RBC 4.35 (4.30-5.90) m/uL Hgb 15.2 (13.0-17.5) gm/dL Hct 44.6 (39.0-53.0) % MCV 102.5 H (80.0-100.0) fL MCH 35.0 (25.0-35.0) pg MCHC 34.1 (31.0-37.0) g/dL RDW 16.4 H (11.5-15.5) % Plt Count 95 L (150-450) k/uL MPV 11.4 Neutrophils % 69 % Lymphocytes % 15 % Monocytes % 9 % Eosinophils % 4 % Basophils % 1 % Neutrophils # 5.9 (1.3-7.7) k/uL Lymphocytes # 1.3 (1.0-4.8) k/uL Monocytes # 0.8 (0-1.0) k/uL Eosinophils # 0.3 (0-0.7) k/uL Basophils # 0.1 (0-0.2) k/uL Anisocytosis Slight Macrocytosis Moderate PT 14.2 H (9.0-12.0) sec INR 1.4 H (<1.2) APTT 30.7 H (22.0-30.0) sec Sodium (137-145) mmol/L Potassium (3.5-5.1) mmol/L Chloride (98-107) mmol/L Carbon Dioxide (22-30) mmol/L Anion Gap mmol/L BUN (9-20) mg/dL Creatinine (0.66-1.25) mg/dL Est GFR (CKD-EPI)AfAm (>60 ml/min/1.73 sqM) Est GFR (CKD-EPI)NonAf (>60 ml/min/1.73 sqM) Glucose (74-99) mg/dL Plasma Lactic Acid Sukhwinder (0.7-2.0) mmol/L Calcium (8.4-10.2) mg/dL Total Bilirubin (0.2-1.3) mg/dL AST (17-59) U/L ALT (4-49) U/L Alkaline Phosphatase (38-126) U/L Troponin I (0.000-0.034) ng/mL Total Protein (6.3-8.2) g/dL Albumin (3.5-5.0) g/dL Amylase (30-110) U/L Lipase (23-300) U/L Urine Color Dark Brown Urine Appearance Cloudy (Clear) Urine pH 6.0 (5.0-8.0) Ur Specific [place] 1.030 (1.001-1.035) Urine Protein Trace H (Negative) Urine Glucose (UA) Negative (Negative) Urine Ketones Negative (Negative) Urine Blood Negative (Negative) Urine Nitrite Negative (Negative) Urine Bilirubin 3+ H (Negative) Urine Urobilinogen 4.0 (<2.0) mg/dL Ur Leukocyte Esterase Negative (Negative) Urine WBC 2 (0-5) /hpf Ur Squamous Epith Cells 1 (0-4) /hpf Uric Acid Crystals Occasional H (None) /hpf Amorphous Sediment Rare H (None) /hpf Hyaline Casts 5 H (0-2) /lpf Urine Mucus Many H (None) /hpf 06/14/21 06/14/21 06/14/21 Range/Units 21:03 21:03 21:03 WBC (3.8-10.6) k/uL RBC (4.30-5.90) m/uL Hgb (13.0-17.5) gm/dL Hct (39.0-53.0) % MCV (80.0-100.0) fL MCH (25.0-35.0) pg MCHC (31.0-37.0) g/dL RDW (11.5-15.5) % Plt Count (150-450) k/uL MPV Neutrophils % % Lymphocytes % % Monocytes % % Eosinophils % % Basophils % % Neutrophils # (1.3-7.7) k/uL Lymphocytes # (1.0-4.8) k/uL Monocytes # (0-1.0) k/uL Eosinophils # (0-0.7) k/uL Basophils # (0-0.2) k/uL Anisocytosis Macrocytosis PT (9.0-12.0) sec INR (<1.2) APTT (22.0-30.0) sec Sodium 136 L (137-145) mmol/L Potassium 4.5 (3.5-5.1) mmol/L Chloride 108 H (98-107) mmol/L Carbon Dioxide 20 L (22-30) mmol/L Anion Gap 8 mmol/L BUN 9 (9-20) mg/dL Creatinine 0.57 L (0.66-1.25) mg/dL Est GFR (CKD-EPI)AfAm >90 (>60 ml/min/1.73 sqM) Est GFR (CKD-EPI)NonAf >90 (>60 ml/min/1.73 sqM) Glucose 118 H (74-99) mg/dL Plasma Lactic Acid Sukhwinder 0.9 (0.7-2.0) mmol/L Calcium 8.7 (8.4-10.2) mg/dL Total Bilirubin 9.2 H (0.2-1.3) mg/dL AST 107 H (17-59) U/L ALT 36 (4-49) U/L Alkaline Phosphatase 229 H (38-126) U/L Troponin I <0.012 (0.000-0.034) ng/mL Total Protein 8.1 (6.3-8.2) g/dL Albumin 3.1 L (3.5-5.0) g/dL Amylase 79 (30-110) U/L Lipase 244 (23-300) U/L Urine Color Urine Appearance (Clear) Urine pH (5.0-8.0) Ur Specific [place] (1.001-1.035) Urine Protein (Negative) Urine Glucose (UA) (Negative) Urine Ketones (Negative) Urine Blood (Negative) Urine Nitrite (Negative) Urine Bilirubin (Negative) Urine Urobilinogen (<2.0) mg/dL Ur Leukocyte Esterase (Negative) Urine WBC (0-5) /hpf Ur Squamous Epith Cells (0-4) /hpf Uric Acid Crystals (None) /hpf Amorphous Sediment (None) /hpf Hyaline Casts (0-2) /lpf Urine Mucus (None) /hpf Disposition Clinical Impression: Abdominal wall hernia, Liver cirrhosis, Jaundice, Abdominal pain, Thrombocyt openia Disposition: ADMITTED IP TO THIS [facility] Condition: Serious Referrals: None,Stated [Primary Care Provider] - 1-2 days
[2021-06-14 21:17] LABS: Anisocytosis Slight; Basophils # (A) 0.1 k/uL (0-0.2); Basophils % (A) 1 %; Eosinophils # (A) 0.3 k/uL (0-0.7); Eosinophils % (A) 4 %; HCT 44.6 % (39.0-53.0); HGB 15.2 gm/dL (13.0-17.5); Lymphocytes # (A) 1.3 k/uL (1.0-4.8); Lymphocytes % (A) 15 %; MCHC 34.1 g/dL (31.0-37.0); MCV 102.5 fL (80.0-100.0); Macrocytosis Moderate; Mean Platelet Volume 11.4; Monocytes # (A) 0.8 k/uL (0-1.0); Monocytes % (A) 9 %; Neutrophils # (A) 5.9 k/uL (1.3-7.7); Neutrophils % (A) 69 %; Platelet Count 95 k/uL (150-450); RBC 4.35 m/uL (4.30-5.90); RDW 16.4 % (11.5-15.5); WBC 8.5 k/uL (3.8-10.6)
[2021-06-14 21:28] LABS: ALT 36 U/L (4-49); AST 107 U/L (17-59); African American GFR (CKD) >90 (>60 ml/min/1.73 sqM); Albumin 3.1 g/dL (3.5-5.0); Alkaline Phosphatase 229 U/L (38-126); Amylase 79 U/L (30-110); Anion Gap 8 mmol/L; Blood Urea Nitrogen 9 mg/dL (9-20); Calcium 8.7 mg/dL (8.4-10.2); Carbon Dioxide 20 mmol/L (22-30); Chloride 108 mmol/L (98-107); Glucose 118 mg/dL (74-99); Lipase 244 U/L (23-300); Non-African American GFR(CKD) >90 (>60 ml/min/1.73 sqM); Potassium 4.5 mmol/L (3.5-5.1); Sodium 136 mmol/L (137-145); Total Bilirubin 9.2 mg/dL (0.2-1.3); Total Protein 8.1 g/dL (6.3-8.2)
[2021-06-14 21:30] LABS: INR 1.4 (<1.2); Partial Thromboplastin Time 30.7 sec (22.0-30.0); Prothrombin Time 14.2 sec (9.0-12.0)
[2021-06-14 21:42] LABS: Amorphous Sediment,Urine Rare /hpf; Appearance,Urine Cloudy (Clear); Bilirubin,Urine 3+ (Negative); Blood,Urine Negative (Negative); Color,Urine Dark Brown; Glucose,Urine (UA) Negative (Negative); Hyaline Casts,Urine 5 /lpf (0-2); Ketones,Urine Negative (Negative); Leukocyte Esterase,Urine Negative (Negative); Mucus,Urine Many /hpf; Nitrite,Urine Negative (Negative); Protein,Urine Trace (Negative); Squamous Epithelial Cell,Urine 1 /hpf (0-4); Uric Acid Crystals,Urine Occasional /hpf; WBC,Urine 2 /hpf (0-5)
--- NOTE | 2021-06-14 22:14 | CT ---
EXAMINATION TYPE: CT abdomen pelvis w con DATE OF EXAM: 06/14/2021 COMPARISON: 04/11/2019 HISTORY: Abdominal pain, hernia CT DLP: 1299.1 mGycm Automated exposure control for dose reduction was used. CONTRAST: Performed with IV Contrast, patient injected with 100 mL of Isovue 300. Images obtained from the diaphragm to the floor the pelvis with IV contrast. There is small right pleural effusion. There is some mild atelectasis at the lung bases. Liver slight ly irregular that could relate to cirrhosis. There is moderate abdominal ascites. Spleen measures 13. 5 cm. There is no pancreatic mass. Gallbladder is distended. Stomach is intact. There is no adrenal mass. Kidneys show satisfactory contrast opacification. There is no hydronephrosi s. There is 3 cm cortical cyst medial right kidney. There is 3 cm cortical cyst anterior left kidney. There is no retroperitoneal adenopathy. Bladder distends smoothly. There are sigmoid multiple diverticula. I see no sign of diverticulitis. There is normal contrast opa cification of the portal venous system. Lumbar vertebra have normal alignment. There is degenerative disc space narrowing throughout the lumb ar spine with spurring and vacuum disc. There is no compression fracture. The bony pelvis is intact. Hip joints are intact. There is no hip dysplasia. Appendix appears normal. IMPRESSION: Small right pleural effusion. Moderate ascites. Liver somewhat irregular that could relate to cirrhos is. Abnormalities appear new compared to old exam. Stable renal cortical cysts. Stable sigmoid divert iculosis.
[2021-06-14] MEDS ORDERED: LORazepam 2 MG/ML INJ IV PRN ×3 (22:33)
[2021-06-14] MEDS ORDERED: ONDANSETRON 4 MG/2 ML VIAL IVP PRN (22:35)
[2021-06-14] MEDS ORDERED: NALOXONE 0.4 MG/ML 1 ML VIAL IV PRN (22:35)
[2021-06-14] MEDS: THIAMINE 100 MG TAB PO SCH (22:39)
[2021-06-14] MEDS: MORPHINE SULFATE 4 MG/ML SYRINGE IV PRN (23:04)
--- NOTE | 2021-06-15 02:34 | P.HPIM ---
History of Present Illness H&P Date: 06/14/21 Patient is a 60-year-old male with a PMH of coronary artery disease status post CABG, hypertension, hyperlipidemia, and alcohol abuse who presented to the emergency room with complaints of diffuse abdominal pain. The patient reports that over the past few weeks, he has had an achy pain, throughout his abdomen, worsened with movement and palpation of his abdomen, and no clear alleviating factors. He reports that he quit drinking a few weeks ago due to his worsening pain. Reports drinking up to 10 beers daily for most of his life. Denied fever, chills, cough, nausea, vomiting, diarrhea. Denied chest pain, shortness of breath. In the emergency room, laboratory evaluation was remarkable for bilirubin of 9.2, lipase 244, AST 107, and ALT 36. CT abdomen was consistent with cirrhosis. Review of systems: Pertinent positives and negatives as discussed in HPI, a complete review of systems was performed and all other systems are negative. Physical examination: General: non toxic, no distress, appears at stated age, normal weight Derm: no unusual rashes/lesions no unusual ecchymoses, warm, dry Head: atraumatic, normocephalic, symmetric Eyes: EOMI, no lid lag, scleral icterus noted, pupils equal round reactive to light ENT: Nose and ears atraumatic, no thrush, no pharyngeal erythema Neck: No thyromegaly, no cervical lymphadenopathy, trachea midline, supple Mouth: no lip lesion, mucus membranes moist, poor dentition Cardiovascular: S1S2 reg, no murmur, positive posterior tibial pulse bilateral, no edema, capillary refill less than 2 seconds Lungs: CTA bilateral, no rhonchi, no rales , no accessory muscle use Abdominal: Distended with diffuse tenderness on palpation, epigastric ventral hernia noted - fully reducible, some guarding Ext: no gross muscle atrophy, muscle strength 5 out of 5 in all 4 extremities grossly, no contractures, Neuro: CN II-XI grossly intact, light touch intact all 4 extremities, finger to nose within normal limits, Psych: Alert, oriented, appropriate affect Assessment/plan Acute liver failure with jaundice and cirrhosis in setting of alcohol abuse -GI consulted -Monitor LFTs -Pain control -Advised on importance of cessation from alcohol abuse -[facility] protocol -Thiamine Thrombocytopenia, likely due to liver disease -Monitor for now Chronic conditions: Coronary artery disease, hypertension, hyperkalemia -Continue home meds DVT prophylaxis -Heparin subcu The patient is admitted with an anticipated greater than 2 midnight stay for marie luation of [facility]. CODE STATUS: Full Code Discussed with: Patient Anticipated discharge date: 2-[address]: Home Past Medical History Past Medical History: Coronary Artery Disease (CAD), Chest Pain / Angina, Hyperlipidemia, Hypertension, Myocardial Infarction ([place]) Additional Past Medical History / Comment(s): Degenerative disc disease, abdominal hernia Last Myocardial Infarction Date:: 2016 History of Any Multi-Drug Resistant Organisms: None Reported Past Surgical History: Back Surgery, Coronary Bypass/CABG, Heart Catheterization, Heart Catheterization With Stent, Orthopedic Surgery Additional Past Surgical History / Comment(s): back surgery, CABG x2 09-04-18 Past Anesthesia/Blood Transfusion Reactions: No Reported Reaction Date of Last Stent Placement:: march 2016 Past Psychological History: Anxiety Past Alcohol Use History: Occasional Additional Past Alcohol Use History / Comment(s): He reports he drinks less than 8 beers a week, quit smoking 08-23-18, smoked 1 1/2ppd for >40 yrs. Past Drug Use History: None Reported - Past Family History Father History Unknown: Yes Family Medical History: Myocardial Infarction ([place]) Additional Family Medical History / Comment(s): The patient reports his dad from a myocardial infarction in his mid 50s. Brother(s) History Unknown: Yes Family Medical History: Myocardial Infarction ([place]) Additional Family Medical History / Comment(s): The patient reports to have his brothers from myocardial infarction in their mid 50s. Medications and Allergies Home Medications Medication Instructions Recorded Confirmed Type Clopidogrel [Plavix] 75 mg PO DAILY #30 tab 09/09/18 06/14/21 Rx Aspirin EC [Ecotrin Low Dose] 81 mg PO DAILY 04/11/19 06/14/21 History Rosuvastatin [Crestor] 10 mg PO HS 04/11/19 06/14/21 History Carvedilol [Coreg] 12.5 mg PO BID 06/14/21 06/14/21 History Cyclobenzaprine [Flexeril] 10 mg PO TID PRN 06/14/21 06/14/21 History Gabapentin 300 mg PO TID 06/14/21 06/14/21 History HYDROcodone/APAP 10-325MG [[place] 1 tab PO BID 06/14/21 06/14/21 History 10-325] Allergies Allergy/AdvReac Type Severity Reaction Status Date / Time bee venom protein (honey bee) Allergy Severe Anaphylaxis Verified 06/14/21 22:40 Physical Exam Vitals: Vital Signs Temp Pulse Resp BP Pulse Ox 06/14/21 22:45 65 18 157/81 97 06/14/21 20:15 98.5 F 74 20 152/83 94 L Intake and Output 06/14/21 06/14/21 06/15/21 14:59 22:59 06:59 Other: Weight 86.636 kg Results CBC & Chem 7: 06/14/21 21:03 06/14/21 21:03 Labs: Abnormal Lab Results - Last 24 Hours (Table) 06/14/21 06/14/21 06/14/21 Range/Units 21:03 21:03 21:03 MCV 102.5 H (80.0-100.0) fL RDW 16.4 H (11.5-15.5) % Plt Count 95 L (150-450) k/uL PT 14.2 H (9.0-12.0) sec INR 1.4 H (<1.2) APTT 30.7 H (22.0-30.0) sec Sodium (137-145) mmol/L Chloride (98-107) mmol/L Carbon Dioxide (22-30) mmol/L Creatinine (0.66-1.25) mg/dL Glucose (74-99) mg/dL Total Bilirubin (0.2-1.3) mg/dL AST (17-59) U/L Alkaline Phosphatase (38-126) U/L Albumin (3.5-5.0) g/dL Urine Protein Trace H (Negative) Urine Bilirubin 3+ H (Negative) Uric Acid Crystals Occasional H (None) /hpf Amorphous Sediment Rare H (None) /hpf Hyaline Casts 5 H (0-2) /lpf Urine Mucus Many H (None) /hpf 06/14/21 Range/Units 21:03 MCV (80.0-100.0) fL RDW (11.5-15.5) % Plt Count (150-450) k/uL PT (9.0-12.0) sec INR (<1.2) APTT (22.0-30.0) sec Sodium 136 L (137-145) mmol/L Chloride 108 H (98-107) mmol/L Carbon Dioxide 20 L (22-30) mmol/L Creatinine 0.57 L (0.66-1.25) mg/dL Glucose 118 H (74-99) mg/dL Total Bilirubin 9.2 H (0.2-1.3) mg/dL AST 107 H (17-59) U/L Alkaline Phosphatase 229 H (38-126) U/L Albumin 3.1 L (3.5-5.0) g/dL Urine Protein (Negative) Urine Bilirubin (Negative) Uric Acid Crystals (None) /hpf Amorphous Sediment (None) /hpf Hyaline Casts (0-2) /lpf Urine Mucus (None) /hpf
[2021-06-15] MEDS: MORPHINE SULFATE 4 MG/ML SYRINGE IV PRN ×3 (04:04→17:15)
[2021-06-15] MEDS ORDERED: CYCLOBENZAPRINE 10 MG TAB PO PRN (04:23)
[2021-06-15 06:03] LABS: Anisocytosis Slight; HCT 41.9 % (39.0-53.0); MCH 34.6 pg (25.0-35.0); MCHC 33.4 g/dL (31.0-37.0); MCV 103.8 fL (80.0-100.0); Macrocytosis Moderate; Mean Platelet Volume 10.9; Platelet Count 91 k/uL (150-450); RBC 4.04 m/uL (4.30-5.90); RDW 16.4 % (11.5-15.5); WBC 7.5 k/uL (3.8-10.6)
[2021-06-15] MEDS: HYDROcodone/APAP 10-325MG 1 EACH TAB PO SCH ×2 (08:16→21:35)
[2021-06-15] MEDS: THIAMINE 100 MG TAB PO SCH ×2 (08:16→17:16)
[2021-06-15] MEDS: GABAPENTIN 300 MG CAP PO SCH ×2 (08:16→17:15)
[2021-06-15] MEDS: ASPIRIN 81 MG PO SCH (08:16)
[2021-06-15] MEDS: HEPARIN SODIUM,PORCINE/PF 5,000 UNIT/0.5 ML SYRINGE SQ SCH ×2 (08:17→17:14)
[2021-06-15] MEDS: carvediloL 12.5 MG TAB PO SCH ×2 (08:17→21:36)
[2021-06-15] MEDS ORDERED: CLOPIDOGREL 75 MG TAB PO SCH (09:00)
[2021-06-15 10:56] LABS: African American GFR (CKD) 127.6 (60.0-200.0); Albumin 2.7 g/dL (3.80-4.90); Albumin/Globulin Ratio 0.64 (1.60-3.17); Anion Gap 5.8 mmol/L (4.00-12.00); Calcium 8.2 mg/dL (8.7-10.3); Carbon Dioxide 24.2 mmol/L (21.6-31.8); Globulin 4.2 g/dL (1.6-3.3); Non-African American GFR(CKD) 110.1 (60.0-200.0); Potassium 3.9 mmol/L (3.5-5.5); Total Bilirubin 9.3 mg/dL (0.2-1.2); Total Protein 6.9 g/dL (6.2-8.2)
--- NOTE | 2021-06-15 13:08 | P.CONS ---
History of Present Illness - Reason for Consult Consult date: 06/15/21 Jaundice, ascites Requesting physician: Nathaly Adams - Chief Complaint abdominal pain - History of Present Illness This is a 60-year-old male with a past medical history of coronary artery disease status post CABG and stenting, hypertension, hyperlipidemia and alcohol abuse who presented to the emergency department yesterday with complaints of abdominal pain and pain at hernia site. Patient states he was diagnosed with his abdominal hernia 3 years ago. He is a daily drinker and drinks at least 6 beers a day for at least greater than 20 years, however he states he did stop drinking 2 weeks ago due to financial status. States that he has previously been diagnosed with alcoholic cirrhosis of the liver, he denies any previous history of paracentesis or hepatic encephalopathy. States he has followed up with Dr. Hope in the past however it's been quite some time. States he started noticing more abdominal pain and distention over the last few days duration. He is currently taking Plavix for previous history of heart disease and stents. Last dose was this morning. As part of his workup in the emergency department he had a CT of the abdomen and pelvis showing a small right pleural effusion. Moderate ascites. Liver somewhat irregular that could relate to cirrhosis. Abnormalities appear new compared to old exam. Stable renal cortical cysts. Stable sigmoid diverticulosis. Admitting labs WBC 8.5, hemoglobin 15.2, hematocrit 44, platelet count 95,000, INR 1.4, total bilirubin 9.2, AST 107, ALT 36, alk phos 229, amylase 79, lipase 244. Patient denies any previous history of hepatitis. Repeat labs today are stable. Patient is denying any nausea or vomiting, states bowel movements have been normal, her dark occasionally. No previous history of EGD or colonoscopy. Review of Systems REVIEW OF SYSTEMS: CARDIOPULMONARY: No chest pain or shortness of breath. Gastrointestinal: Abdominal pain and distention, abdominal hernia. No nausea or vomiting. No hematemesis, coffee-ground emesis. No rectal bleeding, or melena. GENITOURINARY: No dysuria or hematuria. MUSCULOSKELETAL: Reports normal range of motion., Joint pain. SKIN: No rashes. No jaundice. ENDOCRINE: No chills, fevers. No excessive weight gain or loss. No polydipsia or polyuria. PSYCHIATRIC: Unremarkable. NEUROLOGY: No change in mental status. Denies dizziness, headache. ENT: Vision unremarkable. CONSTITUTIONAL: No recent weight loss. No fever, chills, night sweats. Past Medical History Past Medical History: Coronary Artery Disease (CAD), Chest Pain / Angina, Hype rlipidemia, Hypertension, Myocardial Infarction (NM) Additional Past Medical History / Comment(s): Degenerative disc disease, abdominal hernia Last Myocardial Infarction Date:: 2016 History of Any Multi-Drug Resistant Organisms: None Reported Past Surgical History: Back Surgery, Coronary Bypass/CABG, Heart Catheterization, Heart Catheterization With Stent, Orthopedic Surgery Additional Past Surgical History / Comment(s): back surgery, CABG x2 09-04-18 Past Anesthesia/Blood Transfusion Reactions: No Reported Reaction Date of Last Stent Placement:: march 2016 Past Psychological History: Anxiety Past Alcohol Use History: Occasional Additional Past Alcohol Use History / Comment(s): He reports he drinks less than 8 beers a week, quit smoking 08-23-18, smoked 1 1/2ppd for >40 yrs. Past Drug Use History: None Reported - Past Family History Father History Unknown: Yes Family Medical History: Myocardial Infarction (NM) Additional Family Medical History / Comment(s): The patient reports his dad from a myocardial infarction in his mid 50s. Brother(s) History Unknown: Yes Family Medical History: Myocardial Infarction (NM) Additional Family Medical History / Comment(s): The patient reports to have his brothers from myocardial infarction in their mid 50s. Medications and Allergies Home Medications Medication Instructions Recorded Confirmed Type Clopidogrel [Plavix] 75 mg PO DAILY #30 tab 09/09/18 06/14/21 Rx Aspirin EC [Ecotrin Low Dose] 81 mg PO DAILY 04/11/19 06/14/21 History Rosuvastatin [Crestor] 10 mg PO HS 04/11/19 06/14/21 History Carvedilol [Coreg] 12.5 mg PO BID 06/14/21 06/14/21 History Cyclobenzaprine [Flexeril] 10 mg PO TID PRN 06/14/21 06/14/21 History Gabapentin 300 mg PO TID 06/14/21 06/14/21 History HYDROcodone/APAP 10-325MG [[place] 1 tab PO BID 06/14/21 06/14/21 History 10-325] Allergies Allergy/AdvReac Type Severity Reaction Status Date / Time bee venom protein (honey bee) Allergy Severe Anaphylaxis Verified 06/14/21 22:40 Physical Exam Vitals: Vital Signs Temp Pulse Resp BP Pulse Ox 06/15/21 08:03 72 20 122/81 96 06/15/21 07:00 97.4 F L 72 20 140/83 93 L 06/14/21 22:45 65 18 157/81 97 06/14/21 20:15 98.5 F 74 20 152/83 94 L Intake and Output 06/14/21 06/15/21 06/15/21 22:59 06:59 14:59 Other: Weight 86.636 kg General appearance: The patient is alert, oriented, appears in no acute distress. HET: Head is normocephalic and atraumatic. Conjunctiva pink. Sclera icteric. Neck: Supple without lymphadenopathy. Trachea midline. Heart: S1 S2. Regular rate and rhythm. Lungs: Clear to auscultation. Abdomen: Soft, diffuse tenderness, distended with bowel sounds. Abdominal hernia. No guarding or rigidity. Skin: No rashes. Jaundice. Extremities: Normal skin color and turgor. Bilateral pedal edema. Neurological: No focal deficits. Alert and oriented 3.. Results CBC & Chem 7: 06/15/21 05:35 06/15/21 05:35 Labs: Abnormal Lab Results - Last 24 Hours (Table) 06/14/21 06/14/21 06/14/21 Range/Units 21:03 21:03 21:03 RBC (4.30-5.90) m/uL MCV 102.5 H (80.0-100.0) fL RDW 16.4 H (11.5-15.5) % Plt Count 95 L (150-450) k/uL PT 14.2 H (9.0-12.0) sec INR 1.4 H (<1.2) APTT 30.7 H (22.0-30.0) sec Sodium (137-145) mmol/L Chloride (98-107) mmol/L Carbon Dioxide (22-30) mmol/L Creatinine (0.66-1.25) mg/dL Glucose (74-99) mg/dL Total Bilirubin (0.2-1.3) mg/dL AST (17-59) U/L Alkaline Phosphatase (38-126) U/L Albumin (3.5-5.0) g/dL Urine Protein Trace H (Negative) Urine Bilirubin 3+ H (Negative) Uric Acid Crystals Occasional H (None) /hpf Amorphous Sediment Rare H (None) /hpf Hyaline Casts 5 H (0-2) /lpf Urine Mucus Many H (None) /hpf 06/14/21 06/15/21 Range/Units 21:03 05:35 RBC 4.04 L (4.30-5.90) m/uL MCV 103.8 H (80.0-100.0) fL RDW 16.4 H (11.5-15.5) % Plt Count 91 L (150-450) k/uL PT (9.0-12.0) sec INR (<1.2) APTT (22.0-30.0) sec Sodium 136 L (137-145) mmol/L Chloride 108 H (98-107) mmol/L Carbon Dioxide 20 L (22-30) mmol/L Creatinine 0.57 L (0.66-1.25) mg/dL Glucose 118 H (74-99) mg/dL Total Bilirubin 9.2 H (0.2-1.3) mg/dL AST 107 H (17-59) U/L Alkaline Phosphatase 229 H (38-126) U/L Albumin 3.1 L (3.5-5.0) g/dL Urine Protein (Negative) Urine Bilirubin (Negative) Uric Acid Crystals (None) /hpf Amorphous Sediment (None) /hpf Hyaline Casts (0-2) /lpf Urine Mucus (None) /hpf CT scan - abdomen: report reviewed (Small right pleural effusion. Moderate ascites. Liver somewhat irregular that could relate to cirrhosis. Abnormalities appear new compared to old exam. Stable renal cortical cysts. Stable sigmoid diverticulosis.) Assessment and Plan (1) Cirrhosis of liver with ascites Narrative/Plan: 60-year-old male with multiple comorbidities including coronary artery disease who is currently on Plavix and alcohol abuse. Patient presented to the emergency department for worsening abdominal distention and pain, patient has a abdominal hernia that he was diagnosed with 3 years ago. Patient states he noticed abdominal distention and pain worsening over the last few days duration and presented to the emergency department. He has significant history of alcohol abuse greater than 20-30 years and admits to drinking at least 6 beers a day. Patient admits that he has not had any drinks in 2 weeks. He does state that he was previously diagnosed with cirrhosis of the liver and believes he was seen by gastroenterology. He denies any previous history of paracentesis or hepatic encephalopathy. Clinical admission he was noted to have elevated LFTs, jaundice, and abdominal ascites. A CT of the abdomen and pelvis was ordered and did show a small right pleural effusion, moderate ascites, liver somewhat irregular that could relate to cirrhosis, abnormalities appear new compared to old exam. Stable renal cortical cysts. Stable sigmoid diverticulosis. Current Visit: Yes Status: Acute Code(s): K74.60 - UNSPECIFIED CIRRHOSIS OF LIVER; R18.8 - OTHER ASCITES SNOMED Code(s): 64286641 (2) Jaundice Current Visit: Yes Status: Acute Code(s): R17 - UNSPECIFIED JAUNDICE SNOMED Code(s): 44469777 (3) Abdominal wall hernia Current Visit: Yes Status: Acute Code(s): K43.9 - VENTRAL HERNIA WITHOUT OBSTRUCTION OR GANGRENE SNOMED Code(s): 580930760 Plan: 1. Continue symptomatic and supportive care 2. Hold Plavix 3. Recommend low sodium diet 4. Recommend initiating diuretic therapy, will start patient on Lasix 40 mg daily and Aldactone 100 mg daily 5. Recommend paracentesis, however patient currently on Plavix with last dose taken today. Discuss with radiology and recommendation as per Plavix to be held 5-7 days. Patient may need to be set up outpatient for paracentesis if he has discharged. 6. Recommend alcohol abstinence 7. Patient will need outpatient follow-up with gastroenterology 8. Acute hepatitis panel ordered 9. Recommend initiating diuretic therapy, will start patient on Lasix 40 mg daily and Aldactone 100 mg daily Thank you for this consultation. Thank you for allowing us to participate in the care of the patient, the GI service will sign off, gastroenterology will not be available at the hospital this weekend/next week and if further evaluation by gastroenterology is required the patient will need transfer as per the primary team's discretion. Dr. Danielle Hope I agree with the dictator's note, documented as a scribe by Ni Enriquez.
[2021-06-15 13:10] LABS: Hepatitis A Antibody IgM Non-Reactive (Non-Reactive); Hepatitis B Core IgM Non-Reactive (Non-Reactive); Hepatitis B Surface Antigen Non-Reactive (Non-Reactive); Hepatitis C IgG Antibody Non-Reactive (Non-Reactive)
--- NOTE | 2021-06-15 17:08 | P.PN ---
Subjective Progress Note Date: 06/15/21 Principal diagnosis: Abdominal pain Patient is a 60-year-old male with a PMH of coronary artery disease status post CABG, hypertension, hyperlipidemia, and alcohol abuse who presented to the emergency room with complaints of diffuse abdominal pain. The patient reports that over the past few weeks, he has had an achy pain, throughout his abdomen, worsened with movement and palpation of his abdomen, and no clear alleviating factors. He reports that he quit drinking a few weeks ago due to his worsening pain. Reports drinking up to 10 beers daily for most of his life. Denied fever, chills, cough, nausea, vomiting, diarrhea. Denied chest pain, shortness of breath. In the emergency room, laboratory evaluation was remarkable for bilirubin of 9.2, lipase 244, AST 107, and ALT 36. CT abdomen was consistent with cirrhosis. 06/15/2021: Patient continues to have some complaints of abdominal fullness and pain. He denies any nausea vomiting fever or chills his respiratory status is stable. Patient is not a candidate for having immediate paracentesis done at this time secondary to his medical history of being on Plavix. Objective - Vital Signs Vital signs: Vital Signs Temp 97.4 F L 06/15/21 07:00 Pulse 72 06/15/21 08:03 Resp 20 06/15/21 08:03 BP 122/81 06/15/21 08:03 Pulse Ox 96 06/15/21 08:03 Intake & Output 06/14/21 06/15/21 06/15/21 18:59 06:59 18:59 Weight 86.636 kg - Exam Physical examination: General: non toxic, no distress, appears at stated age, normal weight Derm: no unusual rashes/lesions no unusual ecchymoses, warm, dry Head: atraumatic, normocephalic, symmetric Eyes: EOMI, no lid lag, scleral icterus noted, pupils equal round reactive to light ENT: Nose and ears atraumatic, no thrush, no pharyngeal erythema Neck: No thyromegaly, no cervical lymphadenopathy, trachea midline, supple Mouth: no lip lesion, mucus membranes moist, poor dentition Cardiovascular: S1S2 reg, no murmur, positive posterior tibial pulse bilateral, no edema, capillary refill less than 2 seconds Lungs: CTA bilateral, no rhonchi, no rales , no accessory muscle use Abdominal: Distended with diffuse tenderness on palpation, epigastric ventral hernia noted - fully reducible, some guarding Ext: no gross muscle atrophy, muscle strength 5 out of 5 in all 4 extremities grossly, no contractures, Neuro: CN II-XI grossly intact, light touch intact all 4 extremities, finger to nose within normal limits, Psych: Alert, oriented, appropriate affect - Labs CBC & Chem 7: 06/15/21 05:35 06/15/21 05:35 Labs: Abnormal Lab Results - Last 24 Hours (Table) 06/14/21 06/14/21 06/14/21 Range/Units 21:03 21:03 21:03 RBC (4.30-5.90) m/uL MCV 102.5 H (80.0-100.0) fL RDW 16.4 H (11.5-15.5) % Plt Count 95 L (150-450) k/uL PT 14.2 H (9.0-12.0) sec INR 1.4 H (<1.2) APTT 30.7 H (22.0-30.0) sec Sodium (137-145) mmol/L Chloride (98-107) mmol/L Carbon Dioxide (22-30) mmol/L Creatinine (0.66-1.25) mg/dL Glucose (74-99) mg/dL Calcium (8.7-10.3) mg/dL Total Bilirubin (0.2-1.3) mg/dL AST (17-59) U/L Alkaline Phosphatase (38-126) U/L Albumin (3.5-5.0) g/dL Globulin (1.6-3.3) g/dL Albumin/Globulin Ratio (1.60-3.17) g/dL Urine Protein Trace H (Negative) Urine Bilirubin 3+ H (Negative) Uric Acid Crystals Occasional H (None) /hpf Amorphous Sediment Rare H (None) /hpf Hyaline Casts 5 H (0-2) /lpf Urine Mucus Many H (None) /hpf 06/14/21 06/15/21 06/15/21 Range/Units 21:03 05:35 05:35 RBC 4.04 L (4.30-5.90) m/uL MCV 103.8 H (80.0-100.0) fL RDW 16.4 H (11.5-15.5) % Plt Count 91 L (150-450) k/uL PT (9.0-12.0) sec INR (<1.2) APTT (22.0-30.0) sec Sodium 136 L (137-145) mmol/L Chloride 108 H (98-107) mmol/L Carbon Dioxide 20 L (22-30) mmol/L Creatinine 0.57 L (0.66-1.25) mg/dL Glucose 118 H (74-99) mg/dL Calcium 8.2 L (8.7-10.3) mg/dL Total Bilirubin 9.2 H 9.3 H (0.2-1.3) mg/dL AST 107 H 88 H (17-59) U/L Alkaline Phosphatase 229 H 180 H (38-126) U/L Albumin 3.1 L 2.70 L (3.5-5.0) g/dL Globulin 4.2 H (1.6-3.3) g/dL Albumin/Globulin Ratio 0.64 L (1.60-3.17) g/dL Urine Protein (Negative) Urine Bilirubin (Negative) Uric Acid Crystals (None) /hpf Amorphous Sediment (None) /hpf Hyaline Casts (0-2) /lpf Urine Mucus (None) /hpf Assessment and Plan Assessment: Assessment/plan Cirrhosis with ascites She denies elevated LFTs secondary to his cirrhosis. We'll continue to monitor. Patient is known to gastroenterology team and we have consulted. At this time patient would benefit from paracentesis however he is on Plavix which will need to be held. Patient has been started on diuretic therapy per gastroenterology team. 40 mg of Lasix and Aldactone 100 mg daily. We'll continue to monitor urinary output. -Monitor LFTs -Pain control -Advised on importance of cessation from alcohol abuse -[facility] protocol -Thiamine Thrombocytopenia, likely due to liver disease -Monitor for now Chronic conditions: Coronary artery disease, hypertension, hyperkalemia Continue with carvedilol, aspirin daily. Plavix is currently on hold secondary to to need for paracentesis. She reports no history of cardiac stent placement since his surgery in 2019. DVT prophylaxis -Heparin subcu The patient is admitted with an anticipated greater than 2 midnight stay for ev aluation of LONG TERM. CODE STATUS: Full Code Discussed with: Patient Anticipated discharge date: 2-[address]: Home (1) Abdominal pain Current Visit: Yes Status: Acute Code(s): R10.9 - UNSPECIFIED ABDOMINAL PAIN SNOMED Code(s): 80918648 (2) Cirrhosis of liver with ascites Current Visit: Yes Status: Acute Code(s): K74.60 - UNSPECIFIED CIRRHOSIS OF LIVER; R18.8 - OTHER ASCITES SNOMED Code(s): 92997022 (3) Jaundice Current Visit: Yes Status: Acute Code(s): R17 - UNSPECIFIED JAUNDICE SNOMED Code(s): 51171587
[2021-06-16] MEDS: HEPARIN SODIUM,PORCINE/PF 5,000 UNIT/0.5 ML SYRINGE SQ SCH ×5 (01:16→23:24)
[2021-06-16] MEDS: GABAPENTIN 300 MG CAP PO SCH ×4 (01:16→21:41)
[2021-06-16] MEDS: MORPHINE SULFATE 4 MG/ML SYRINGE IV PRN ×3 (01:16→23:24)
[2021-06-16 06:43] LABS: Anisocytosis Slight; Basophils % (A) 1 %; Eosinophils # (A) 0.1 k/uL (0-0.7); Eosinophils % (A) 2 %; HCT 41.4 % (39.0-53.0); HGB 13.8 gm/dL (13.0-17.5); Lymphocytes % (A) 17 %; MCH 35.3 pg (25.0-35.0); MCHC 33.2 g/dL (31.0-37.0); MCV 106.2 fL (80.0-100.0); Macrocytosis Marked; Mean Platelet Volume 11.5; Monocytes # (A) 0.4 k/uL (0-1.0); Monocytes % (A) 6 %; Neutrophils % (A) 71 %; Platelet Count 82 k/uL (150-450); RBC 3.89 m/uL (4.30-5.90); RDW 17.2 % (11.5-15.5); WBC 5.7 k/uL (3.8-10.6)
[2021-06-16] MEDS: FUROSEMIDE 40 MG TAB PO SCH (08:30)
[2021-06-16] MEDS: THIAMINE 100 MG TAB PO SCH ×2 (08:30→16:15)
[2021-06-16] MEDS: SPIRONOLACTONE 25 MG TAB PO SCH (08:30)
[2021-06-16] MEDS: HYDROcodone/APAP 10-325MG 1 EACH TAB PO SCH ×2 (08:32→21:41)
[2021-06-16] MEDS: carvediloL 12.5 MG TAB PO SCH ×2 (08:32→21:41)
[2021-06-16] MEDS: ASPIRIN 81 MG PO SCH (08:34)
[2021-06-16 10:37] LABS: African American GFR (CKD) 113.3 (60.0-200.0); Albumin 2.9 g/dL (3.80-4.90); Albumin/Globulin Ratio 0.69 (1.60-3.17); BUN/Creat Ratio 17.5 Ratio (12.00-20.00); Calcium 8.4 mg/dL (8.7-10.3); Globulin 4.2 g/dL (1.6-3.3); Non-African American GFR(CKD) 97.8 (60.0-200.0); Potassium 4.8 mmol/L (3.5-5.5); Total Bilirubin 10.1 mg/dL (0.3-1.2); Total Protein 7.1 g/dL (6.2-8.2)
[2021-06-16] MEDS: predniSONE 20 MG TAB PO SCH (11:22)
[2021-06-16] MEDS: IPRATROPIUM-ALBUTEROL 3 ML NEB INHALATION SCH ×3 (11:34→18:35)
--- NOTE | 2021-06-16 15:04 | P.PN ---
Subjective Progress Note Date: 06/16/21 Principal diagnosis: Abdominal pain Patient is a 60-year-old male with a PMH of coronary artery disease status post CABG, hypertension, hyperlipidemia, and alcohol abuse who presented to the emergency room with complaints of diffuse abdominal pain. The patient reports that over the past few weeks, he has had an achy pain, throughout his abdomen, worsened with movement and palpation of his abdomen, and no clear alleviating factors. He reports that he quit drinking a few weeks ago due to his worsening pain. Reports drinking up to 10 beers daily for most of his life. Denied fever, chills, cough, nausea, vomiting, diarrhea. Denied chest pain, shortness of breath. In the emergency room, laboratory evaluation was remarkable for bilirubin of 9.2, lipase 244, AST 107, and ALT 36. CT abdomen was consistent with cirrhosis. 06/16/2021: Patient continues to complain of some abdominal fullness and pain. He denies any fevers or chills. His respiratory status throughout has worsened today he is complaining of some significant wheezing. Patient does have a medical history of COPD Objective - Vital Signs Vital signs: Vital Signs Temp 97.8 F 06/16/21 11:46 Pulse 68 06/16/21 11:46 Resp 20 06/16/21 11:46 BP 119/71 06/16/21 11:46 Pulse Ox 96 06/16/21 11:46 Intake & Output 06/15/21 06/16/21 06/16/21 18:59 06:59 18:59 Intake Total 500 Balance 500 Weight 86.636 kg Intake: Oral 500 Other: Voiding Method Toilet # Voids 1 - Exam Physical examination: General: non toxic, no distress, appears at stated age, normal weight Derm: no unusual rashes/lesions no unusual ecchymoses, warm, dry Head: atraumatic, normocephalic, symmetric Eyes: EOMI, no lid lag, scleral icterus noted, pupils equal round reactive to light ENT: Nose and ears atraumatic, no thrush, no pharyngeal erythema Neck: No thyromegaly, no cervical lymphadenopathy, trachea midline, supple Mouth: no lip lesion, mucus membranes moist, poor dentition Cardiovascular: S1S2 reg, no murmur, positive posterior tibial pulse bilateral, no edema, capillary refill less than 2 seconds Lungs: CTA bilateral, no rhonchi, no rales , no accessory muscle use Abdominal: Distended with diffuse tenderness on palpation, epigastric ventral hernia noted - fully reducible, some guarding Ext: no gross muscle atrophy, muscle strength 5 out of 5 in all 4 extremities grossly, no contractures, Neuro: CN II-XI grossly intact, light touch intact all 4 extremities, finger to nose within normal limits, Psych: Alert, oriented, appropriate affect - Labs CBC & Chem 7: 06/16/21 04:33 06/16/21 04:33 Labs: Abnormal Lab Results - Last 24 Hours (Table) 06/16/21 06/16/21 Range/Units 04:33 04:33 RBC 3.89 L (4.30-5.90) m/uL MCV 106.2 H (80.0-100.0) fL MCH 35.3 H (25.0-35.0) pg RDW 17.2 H (11.5-15.5) % Plt Count 82 L (150-450) k/uL Macrocytosis Marked A Calcium 8.4 L (8.7-10.3) mg/dL Total Bilirubin 10.1 H (0.3-1.2) mg/dL AST 86 H (14-35) U/L Alkaline Phosphatase 178 H (41-126) U/L Albumin 2.90 L (3.80-4.90) g/dL Globulin 4.2 H (1.6-3.3) g/dL Albumin/Globulin Ratio 0.69 L (1.60-3.17) g/dL Assessment and Plan Assessment: Assessment/plan Cirrhosis with ascites -elevated LFTs secondary to his cirrhosis. We'll continue to monitor. Patient is known to gastroenterology team and we have consulted. At this time patient would benefit from paracentesis however he is on Plavix which will need to be held. Patient has been started on diuretic therapy per gastroenterology team. 40 mg of Lasix and Aldactone 100 mg daily. We'll continue to monitor urinary output. -Monitor LFTs -Pain control -Advised on importance of cessation from alcohol abuse -[facility] protocol -Thiamine Acute hypoxic respiratory failure -Multifactorial secondary to acute exacerbation of COPD along with increasing abdominal ascites. Maintain oxygen saturation greater than 90% currently patient is on 2 L nasal cannula Acute exacerbation of COPD -We'll start patients on dual nebs, 40 mg prednisone daily burst 5 days Thrombocytopenia, likely due to liver disease -Monitor for now Chronic conditions: Coronary artery disease, hypertension, hyperkalemia Continue with carvedilol, aspirin daily. Plavix is currently on hold secondary to to need for paracentesis. She reports no history of cardiac stent placement since his surgery in 2019. DVT prophylaxis -Heparin subcu CODE STATUS: Full Code Discussed with: Patient Disposition: Patient's Plavix has now been held. Interventional radiology would probably want patient's Plavix to be held for at least 5-7 days. Therefore patient may benefit from being discharged home and following up outpatient for his paracentesis procedure. Patient anticipated discharge within the next 24-48 hours depending on respiratory status improvement. (1) Abdominal pain Current Visit: Yes Status: Acute Code(s): R10.9 - UNSPECIFIED ABDOMINAL PAIN SNOMED Code(s): 40204941 (2) Cirrhosis of liver with ascites Current Visit: Yes Status: Acute Code(s): K74.60 - UNSPECIFIED CIRRHOSIS OF LIVER; R18.8 - OTHER ASCITES SNOMED Code(s): 01007483 (3) Jaundice Current Visit: Yes Status: Acute Code(s): R17 - UNSPECIFIED JAUNDICE SNOMED Code(s): 16363940
[2021-06-17] MEDS: IPRATROPIUM-ALBUTEROL 3 ML NEB INHALATION SCH ×4 (08:11→19:55)
[2021-06-17] MEDS: GABAPENTIN 300 MG CAP PO SCH ×3 (08:44→21:38)
[2021-06-17] MEDS: carvediloL 12.5 MG TAB PO SCH ×2 (08:44→21:37)
[2021-06-17] MEDS: HEPARIN SODIUM,PORCINE/PF 5,000 UNIT/0.5 ML SYRINGE SQ SCH ×2 (08:45→16:20)
[2021-06-17] MEDS: THIAMINE 100 MG TAB PO SCH ×2 (08:45→16:36)
[2021-06-17] MEDS: SPIRONOLACTONE 25 MG TAB PO SCH (08:45)
[2021-06-17] MEDS: FUROSEMIDE 40 MG TAB PO SCH (08:45)
[2021-06-17] MEDS: predniSONE 20 MG TAB PO SCH (08:45)
[2021-06-17] MEDS: HYDROcodone/APAP 10-325MG 1 EACH TAB PO SCH ×2 (08:46→21:37)
[2021-06-17] MEDS: ASPIRIN 81 MG PO SCH (09:36)
[2021-06-17 09:46] LABS: African American GFR (CKD) 113.3 (60.0-200.0); Anion Gap 4.2 mmol/L (4.00-12.00); BUN/Creat Ratio 18.75 Ratio (12.00-20.00); Calcium 8.6 mg/dL (8.7-10.3); Carbon Dioxide 26.8 mmol/L (21.6-31.8); Non-African American GFR(CKD) 97.8 (60.0-200.0); Potassium 4.8 mmol/L (3.5-5.5)
--- NOTE | 2021-06-17 15:36 | P.PN ---
Subjective Progress Note Date: 06/17/21 HPI: Patient is a 60-year-old male with a PMH of coronary artery disease status post CABG, hypertension, hyperlipidemia, and alcohol abuse who presented to the emergency room with complaints of diffuse abdominal pain. The patient reports that over the past few weeks, he has had an achy pain, throughout his abdomen, worsened with movement and palpation of his abdomen, and no clear alleviating factors. He reports that he quit drinking a few weeks ago due to his worsening pain. Reports drinking up to 10 beers daily for most of his life. Denied fever, chills, cough, nausea, vomiting, diarrhea. Denied chest pain, shortness of breath. In the emergency room, laboratory evaluation was remarkable for bilirubin of 9.2, lipase 244, AST 107, and ALT 36. CT abdomen was consistent with cirrhosis. Subjective: 06/17/2021: No chest pain no abdominal pain no nausea or vomiting. Patient used to be on 3-1/2 L of oxygen. Complains of occasional wheezing. Objective - Vital Signs Vital signs: Vital Signs Temp 97.8 F 06/17/21 11:54 Pulse 63 06/17/21 11:54 Resp 16 06/17/21 11:54 BP 117/71 06/17/21 11:54 Pulse Ox 92 L 06/17/21 11:54 Intake & Output 06/16/21 06/17/21 06/17/21 18:59 06:59 18:59 Intake Total 600 500 Balance 600 500 Intake: Oral 600 500 Other: Voiding Method Toilet Toilet # Voids 3 2 # Bowel Movements 1 - Exam Physical examination: General: non toxic, no distress, appears at stated age, normal weight, on 3.5 L of oxygen Derm: no unusual rashes/lesions no unusual ecchymoses, warm, dry Head: atraumatic, normocephalic, symmetric Eyes: EOMI, no lid lag, scleral icterus noted, pupils equal round reactive to light ENT: Nose and ears atraumatic, no thrush, no pharyngeal erythema Neck: No thyromegaly, no cervical lymphadenopathy, trachea midline, supple Mouth: no lip lesion, Cardiovascular: S1S2 reg, no murmur, positive posterior tibial pulse bilateral, no edema, capillary refill less than 2 seconds Lungs: Decreased breath sounds Abdominal: Distended with diffuse tenderness on palpation, epigastric ventral hernia noted Ext: No clubbing cyanosis or edema Neuro: CN II-XI grossly intact, light touch intact all 4 extremities, finger to nose within normal limits, Psych: Alert, oriented, appropriate affect - Labs CBC & Chem 7: 06/16/21 04:33 06/17/21 05:46 Labs: Abnormal Lab Results - Last 24 Hours (Table) 06/17/21 Range/Units 05:46 Sodium 132 L (135-145) mmol/L Calcium 8.6 L (8.7-10.3) mg/dL Assessment and Plan Plan: Cirrhosis with ascites -elevated LFTs secondary to cirrhosis. We'll continue to monitor. Patient is known to gastroenterology team , GI consulted. At this time patient would benefit from paracentesis however he is on Plavix which is held. Patient has been started on diuretics per gastroenterology team. 40 mg of Lasix and Aldactone 100 mg daily. We'll continue to monitor -Monitor LFTs -Pain control as indicated -[facility] protocol -Thiamine Acute hypoxic respiratory failure -Multifactorial secondary to acute exacerbation of COPD along with increasing abdominal ascites. Maintain oxygen saturation greater than 90% currently patient is on 3.5 L nasal cannula Obtain CT chest to rule out PE Acute exacerbation of COPD Continue on dual nebs, 40 mg prednisone Thrombocytopenia, likely due to liver disease -Monitor Platelets 82 Chronic conditions: Coronary artery disease, hypertension, hyperkalemia Continue with carvedilol, aspirin daily. Plavix is currently on hold secondary to to need for paracentesis. reports no history of cardiac stent placement since his surgery in 2019. DVT prophylaxis -Heparin subcu CODE STATUS: Full Code Discussed with: Patient Disposition: Home pending clinical progression. In for paracenteses soon
[2021-06-18] MEDS: HEPARIN SODIUM,PORCINE/PF 5,000 UNIT/0.5 ML SYRINGE SQ SCH ×3 (03:51→15:39)
[2021-06-18] MEDS: IPRATROPIUM-ALBUTEROL 3 ML NEB INHALATION SCH ×4 (07:24→21:10)
[2021-06-18 07:41] LABS: Anisocytosis Slight; Basophils % (A) 0 %; Eosinophils # (A) 0.1 k/uL (0-0.7); Eosinophils % (A) 1 %; HCT 39.7 % (39.0-53.0); HGB 13.3 gm/dL (13.0-17.5); Lymphocytes # (A) 1.2 k/uL (1.0-4.8); Lymphocytes % (A) 18 %; MCH 35.8 pg (25.0-35.0); MCHC 33.7 g/dL (31.0-37.0); MCV 106.3 fL (80.0-100.0); Macrocytosis Marked; Mean Platelet Volume 11.8; Monocytes # (A) 0.6 k/uL (0-1.0); Monocytes % (A) 8 %; Neutrophils # (A) 4.8 k/uL (1.3-7.7); Neutrophils % (A) 70 %; RBC 3.73 m/uL (4.30-5.90); RDW 17.8 % (11.5-15.5); WBC 6.8 k/uL (3.8-10.6)
[2021-06-18] MEDS: THIAMINE 100 MG TAB PO SCH ×2 (08:21→17:51)
[2021-06-18] MEDS: HYDROcodone/APAP 10-325MG 1 EACH TAB PO SCH ×2 (08:21→21:28)
[2021-06-18] MEDS: carvediloL 12.5 MG TAB PO SCH ×2 (08:21→21:28)
[2021-06-18] MEDS: ASPIRIN 81 MG PO SCH (08:21)
[2021-06-18] MEDS: predniSONE 20 MG TAB PO SCH (08:21)
[2021-06-18] MEDS: SPIRONOLACTONE 25 MG TAB PO SCH (08:21)
[2021-06-18] MEDS: FUROSEMIDE 40 MG TAB PO SCH (08:21)
[2021-06-18] MEDS: GABAPENTIN 300 MG CAP PO SCH ×3 (08:24→21:29)
[2021-06-18 09:17] LABS: Platelet Count 75 k/uL (150-450)
[2021-06-18 09:18] LABS: Large Platelets Present
[2021-06-18] MEDS: FUROSEMIDE 10 MG/ML 4 ML VIAL IV SCH ×2 (09:48→21:28)
[2021-06-18 12:44] LABS: Carbon Dioxide 30.9 mmol/L (21.6-31.8); Potassium 4.3 mmol/L (3.5-5.5)
[2021-06-18 12:45] LABS: African American GFR (CKD) 113.3 (60.0-200.0); Albumin 2.4 g/dL (3.80-4.90); Albumin/Globulin Ratio 0.6 (1.60-3.17); Anion Gap 5.1 mmol/L (4.00-12.00); BUN/Creat Ratio 17.5 Ratio (12.00-20.00); Calcium 8.3 mg/dL (8.7-10.3); Non-African American GFR(CKD) 97.8 (60.0-200.0); Total Bilirubin 7.4 mg/dL (0.2-1.2); Total Protein 6.4 g/dL (6.2-8.2)
--- NOTE | 2021-06-18 21:06 | P.PN ---
Subjective Progress Note Date: 06/18/21 (delayed charting seen at 0905) Principal diagnosis: abdominal pain Patient is a 60-year-old male with a PMH of coronary artery disease status post CABG, hypertension, hyperlipidemia, and alcohol abuse who presented to the emergency room with complaints of diffuse abdominal pain. In the emergency room, laboratory evaluation was remarkable for bilirubin of 9.2, lipase 244, AST 107, and ALT 36. CT abdomen was consistent with cirrhosis. CT abdomen and pelvis demonstrated moderate ascites with a regular liver likely related to cirrhosis. He was admitted and seen by GI and states patient has a known history of cirrhosis. He was started on oral Lasix and Aldactone. His Plavix was held with possible need for paracentesis. Patient seen and examined at bedside. He reports he continues to have some crampy abdominal pain and feels distended. He denies any nausea, vomiting, diarrhea. General: non toxic, no distress, appears older than stated age, disheveled Derm: warm, dry Head: atraumatic, normocephalic, symmetric Eyes: EOMI, no lid lag, anicteric sclera Mouth: no lip lesion, mucus membranes moist Cardiovascular: S1S2 reg, no murmur, positive posterior tibial pulse bilateral, Lungs: CTA bilateral, no rhonchi, no rales , no accessory muscle use Abdominal: soft, nontender to palpation, no guarding, no appreciable organomegaly, + fluid wave Ext: no gross muscle atrophy, no edema, no contractures Neuro: CN II-XI grossly intact, no focal neuro deficits Psych: Alert, oriented, appropriate affect Decompensated cirrhosis -Transition from oral to IV Lasix, continue Aldactone -Limited abdominal ultrasound to reassess ascites along with IR consult for possible -Stop aspirin -Continue to monitor LFTs Alcoholic hepatitis -Patient was started on prednisone with good response a decrease in his bilirubin -Avoid alcohol -Outpatient GI follow-up Acute exacerbation of COPD with acute hypoxic respiratory failure -Continue with bronchodilators and oral prednisone From the cytopenia secondary to liver disease -No indication for transfusion -Follow CBC Chronic conditions: Coronary artery disease Hypertension Dyslipidemia Likely home in 1-2 days. Objective - Vital Signs Vital signs: Vital Signs Temp 98.1 F 06/18/21 20:35 Pulse 59 L 06/18/21 20:35 Resp 16 06/18/21 20:35 BP 103/61 06/18/21 20:35 Pulse Ox 98 06/18/21 21:03 Intake & Output 06/18/21 06/18/21 06/19/21 06:59 18:59 06:59 Intake Total 590 Balance 590 Intake: Oral 590 Other: Voiding Method Toilet Toilet # Voids 2 2 - Labs CBC & Chem 7: 06/18/21 06:21 06/18/21 06:21 Labs: Abnormal Lab Results - Last 24 Hours (Table) 06/18/21 06/18/21 Range/Units 06:21 06:21 RBC 3.73 L (4.30-5.90) m/uL MCV 106.3 H (80.0-100.0) fL MCH 35.8 H (25.0-35.0) pg RDW 17.8 H (11.5-15.5) % Plt Count 75 L (150-450) k/uL Macrocytosis Marked A Glucose 144 H (70-110) mg/dL Calcium 8.3 L (8.7-10.3) mg/dL Total Bilirubin 7.4 H (0.2-1.2) mg/dL AST 93 H (14-35) U/L Alkaline Phosphatase 170 H (41-126) U/L Albumin 2.40 L (3.80-4.90) g/dL Globulin 4.0 H (1.6-3.3) g/dL Albumin/Globulin Ratio 0.60 L (1.60-3.17) g/dL
--- NOTE | 2021-06-18 21:55 | US ---
EXAMINATION TYPE: US abdomen limited DATE OF EXAM: 06/18/2021 COMPARISON: NONE CLINICAL HISTORY: ascites . Small amount of ascites visualized IMPRESSION: There is small amount of abdominal ascites demonstrated in the right lower quadrant.
[2021-06-19] MEDS: HEPARIN SODIUM,PORCINE/PF 5,000 UNIT/0.5 ML SYRINGE SQ SCH ×2 (01:21→08:29)
[2021-06-19 07:01] LABS: Anisocytosis Slight; HCT 40.6 % (39.0-53.0); HGB 13.7 gm/dL (13.0-17.5); MCH 35.7 pg (25.0-35.0); MCHC 33.6 g/dL (31.0-37.0); MCV 106.1 fL (80.0-100.0); Macrocytosis Marked; Mean Platelet Volume 11.9; Platelet Count 83 k/uL (150-450); RBC 3.83 m/uL (4.30-5.90); WBC 6.3 k/uL (3.8-10.6)
[2021-06-19] MEDS: IPRATROPIUM-ALBUTEROL 3 ML NEB INHALATION SCH ×3 (07:10→15:21)
[2021-06-19 07:26] LABS: ALT 46 U/L (4-49); AST 115 U/L (17-59); African American GFR (CKD) >90 (>60 ml/min/1.73 sqM); Albumin 2.5 g/dL (3.5-5.0); Albumin/Globulin Ratio 0.6; Alkaline Phosphatase 152 U/L (38-126); Anion Gap 5 mmol/L; Blood Urea Nitrogen 17 mg/dL (9-20); Calcium 8.5 mg/dL (8.4-10.2); Carbon Dioxide 34 mmol/L (22-30); Chloride 97 mmol/L (98-107); Globulin 4.2 g/dL; Glucose 145 mg/dL (74-99); Magnesium 1.7 mg/dL (1.6-2.3); Non-African American GFR(CKD) >90 (>60 ml/min/1.73 sqM); Sodium 136 mmol/L (137-145); Total Protein 6.7 g/dL (6.3-8.2)
[2021-06-19] MEDS: THIAMINE 100 MG TAB PO SCH (08:24)
[2021-06-19] MEDS: carvediloL 12.5 MG TAB PO SCH (08:24)
[2021-06-19] MEDS: predniSONE 20 MG TAB PO SCH (08:24)
[2021-06-19] MEDS: FUROSEMIDE 10 MG/ML 4 ML VIAL IV SCH (08:25)
[2021-06-19] MEDS: GABAPENTIN 300 MG CAP PO SCH (08:25)
[2021-06-19] MEDS: SPIRONOLACTONE 25 MG TAB PO SCH (08:25)
[2021-06-19] MEDS: HYDROcodone/APAP 10-325MG 1 EACH TAB PO SCH (08:28)
[2021-06-19 14:12] VITALS: BP 142/88; RESP 19; TEMP 97.9
[2021-06-19 15:32] VITALS: PULSE 66
--- NOTE | 2021-06-19 19:40 | P.DS ---
Providers Date of admission: 06/14/21 22:38 Expected date of discharge: 06/19/21 Attending physician: Nathaly Adams MD Consults: 06/14/21 22:35 Consult Physician Urgent Consulting Provider: Candace Hope Consult Reason/Comments: Ascites, jaundice Do you want consulting provider notified?: Yes Primary care physician: Stated None Hospital Course: Discharge Diagnosis: Decompensated cirrhosis Alcoholic hepatitis Acute exacerbation of COPD with acute hypoxic respiratory failure Pancytopenia secondary to liver disease Coronary artery disease Hypertension Dyslipidemia Hospital Course: Patient is a 60-year-old male with a PMH of coronary artery disease status post CABG, hypertension, hyperlipidemia, and alcohol abuse who presented to the emergency room with complaints of diffuse abdominal pain. In the emergency room, laboratory evaluation was remarkable for bilirubin of 9.2, lipase 244, AST 107, and ALT 36. CT abdomen was consistent with cirrhosis. CT abdomen and pelvis demonstrated moderate ascites with a regular liver likely related to cirrhosis. He was admitted and seen by GI and states patient has a known history of cirrhosis. He was started on oral Lasix and Aldactone. His Plavix was held with possible need for paracentesis. On 06/18 he received a dose of IV Lasix. Repeat abdominal ultrasound showed that his ascites is small. He was no longer feeling distended and had much improvement in his symptoms. He was determined stable for discharge home. [facility]up [facility] [place], Dr. Hope of gastroenterology, abstain from alcohol. Medications include Lasix 40 mg daily, Aldactone 100 mg daily, and prednisone 40 mg for the next 5 days. Patient seen and examined at bedside. Patient feeling much improved with less abdominal distention and discomfort. He understands the importance of abstaining from alcohol. He is comfortable going home. Vital signs reviewed and stable. General: non toxic, no distress, appears older than stated age, disheveled Derm: warm, dry Head: atraumatic, normocephalic, symmetric Eyes: EOMI, no lid lag, anicteric sclera Mouth: no lip lesion, mucus membranes moist Cardiovascular: S1S2 reg, no murmur, positive posterior tibial pulse bilateral, Lungs: CTA bilateral, no rhonchi, no rales , no accessory muscle use Abdominal: soft, nontender to palpation, no guarding, no appreciable organomegaly Ext: no gross muscle atrophy, no edema, no contractures Neuro: CN II-XI grossly intact, no focal neuro deficits Psych: Alert, oriented, appropriate affect A total of 36 minutes of time were spent preparing this complex discharge summary . Patient Condition at Discharge: Stable Plan - Discharge Summary Discharge Rx Participant: Yes New Discharge Prescriptions: New predniSONE [Deltasone] 40 mg PO DAILY #5 tab Furosemide [Lasix] 40 mg PO DAILY #5 tablet Spironolactone [Aldactone] 100 mg PO DAILY #30 tab Continue Clopidogrel [Plavix] 75 mg PO DAILY #30 tab Aspirin EC [Ecotrin Low Dose] 81 mg PO DAILY Rosuvastatin [Crestor] 10 mg PO HS HYDROcodone/APAP 10-325MG [[place] 10-325] 1 tab PO BID Cyclobenzaprine [Flexeril] 10 mg PO TID PRN PRN Reason: Muscle Pain Gabapentin 300 mg PO TID Carvedilol [Coreg] 12.5 mg PO BID Discharge Medication List Clopidogrel [Plavix] 75 mg PO DAILY #30 tab 09/09/18 [Rx] Aspirin EC [Ecotrin Low Dose] 81 mg PO DAILY 04/11/19 [History] Rosuvastatin [Crestor] 10 mg PO HS 04/11/19 [History] Carvedilol [Coreg] 12.5 mg PO BID 06/14/21 [History] Cyclobenzaprine [Flexeril] 10 mg PO TID PRN 06/14/21 [History] Gabapentin 300 mg PO TID 06/14/21 [History] HYDROcodone/APAP 10-325MG [[place] 10-325] 1 tab PO BID 06/14/21 [History] Furosemide [Lasix] 40 mg PO DAILY #5 tablet 06/19/21 [Rx] Spironolactone [Aldactone] 100 mg PO DAILY #30 tab 06/19/21 [Rx] predniSONE [Deltasone] 40 mg PO DAILY #5 tab 06/19/21 [Rx] Follow up Appointment(s)/Referral(s): GA MCCALL DO [REFERRING] - 07/11/21 2:30 pm (patient has appt in [place] office) Candace Hope MD [STAFF PHYSICIAN] - 07/03/21 3:00 pm (patient to come 15 min early to fill out paper work.) Patient Instructions/Handouts: Cirrhosis (DC), Acute Abdominal Pain (DC), Alcoholic Hepatitis (DC) Activity/Diet/Wound Care/Special Instructions: Activity: as tolerated Diet: low sodium Special Instructions: Abstain from alcohol Discharge Disposition: HOME SELF-CARE
== END 2021-06-19 16:35 | disposition home or self-care (01) | DRG 432 ==
LOC: EC 19:03 → 5NMEDONC 22:38
PROVIDERS: ADMIT Internal Medicine; ATTEND Internal Medicine
PROC: HZ2ZZZZ Detoxification Services for Substance Abuse Treatment (ICD-10-PCS; principal; 2021-06-14)
DX: K70.40 Alcoholic hepatic failure without coma (principal); J96.01 Acute respiratory failure with hypoxia; D61.818 Other pancytopenia; J44.1 Chronic obstructive pulmonary disease with (acute) exacerbation; K70.31 Alcoholic cirrhosis of liver with ascites; D69.59 Other secondary thrombocytopenia; E78.5 Hyperlipidemia, unspecified; F10.10 Alcohol abuse, uncomplicated; Z20.822 Contact with and (suspected) exposure to COVID-19; K70.11 Alcoholic hepatitis with ascites; R14.0 Abdominal distension (gaseous); E87.5 Hyperkalemia; F41.9 Anxiety disorder, unspecified; I10 Essential (primary) hypertension; I25.119 Atherosclerotic heart disease of native coronary artery with unspecified angina pectoris; I25.2 Old myocardial infarction; K43.9 Ventral hernia without obstruction or gangrene; K57.30 Diverticulosis of large intestine without perforation or abscess without bleeding; K59.00 Constipation, unspecified; N28.1 Cyst of kidney, acquired; Z79.02 Long term (current) use of antithrombotics/antiplatelets; Z79.82 Long term (current) use of aspirin; Z79.899 Other long term (current) drug therapy; Z95.1 Presence of aortocoronary bypass graft; Z95.5 Presence of coronary angioplasty implant and graft; Z91.030 Bee allergy status
CPT/HCPCS: 36415; 74177; 76705; 80048; 80053; 80074; 81001; 82150; 83605; 83690; 83735; 84484; 85025; 85027; 85610; 85730; 86850; 86900; 86901; 87635; 93005; 94640; 94760; 96374; 96375; 99285

== ENCOUNTER → 2021-07-09 | Outpatient (CLI) | payer MEDICARE ==
[2021-07-10 00:15] LABS: INR 1.45 (0.90-1.11); Prothrombin Time 15.4 sec (9.9-11.9)
[2021-07-10 03:53] LABS: Basophils # (A) 0.04 X 10*3/uL (0.00-0.10); Basophils % (A) 0.4 %; Eosinophils # (A) 0.41 X 10*3/uL (0.04-0.35); HCT 40.3 % (39.6-50.0); HGB 14.6 g/dL (13.0-17.0); Lymphocytes # (A) 0.94 X 10*3/uL (0.90-5.00); Lymphocytes % (A) 9.1 %; MCH 36.4 pg (27.0-32.0); MCHC 36.2 g/dL (32.0-37.0); MCV 100.5 fL (80.0-97.0); Macrocytosis (M) 2+; Monocytes % (A) 14.5 %; Neutrophils # (A) 7.37 X 10*3/uL (1.80-7.70); Neutrophils % (A) 71.5 %; Platelet Count 86 X 10*3/uL (140-440); RBC 4.01 X 10*6/uL (4.40-5.60); WBC 10.31 X 10*3/uL (4.50-10.00)
== END | disposition home or self-care (01) ==
LOC: LABWHC1 14:43
PROVIDERS: ATTEND Nurse Practitioner Family
DX: F10.988 Alcohol use, unspecified with other alcohol-induced disorder (principal)
CPT/HCPCS: 36415; 80053; 85025; 85610

== ENCOUNTER 2021-07-19 07:09 | Inpatient (IN) | payer MEDICARE ==
--- NOTE | 2021-07-19 07:47 | ED ---
Abdominal Pain HPI - General Chief Complaint: Abdominal Pain Stated Complaint: pain all over Time Seen by Provider: 07/19/21 07:26 Source: patient, EMS, RN notes reviewed Mode of arrival: EMS Limitations: no limitations - History of Present Illness Initial Comments: Patient is a 60-year-old male presenting with abdominal pain. Patient states the pain started 2 weeks prior but has progressively gotten worse. Patient states he has known liver disease due to alcohol consumption but states hasn't had a drink in over 30 days. Patient also states his been constipated for the last week but has not been able to go. Patient denies any nausea vomiting or any fevers in the last week. Patient states pain is generalized all over abdomen slightly worse in the right upper quadrant. - Related Data Home Medications Medication Instructions Recorded Confirmed Aspirin EC [Ecotrin Low Dose] 81 mg PO DAILY 04/11/19 07/19/21 Rosuvastatin [Crestor] 10 mg PO HS 04/11/19 07/19/21 Carvedilol [Coreg] 12.5 mg PO BID 06/14/21 07/19/21 Cyclobenzaprine [Flexeril] 10 mg PO TID PRN 06/14/21 07/19/21 Gabapentin 300 mg PO TID 06/14/21 07/19/21 HYDROcodone/APAP 10-325MG [[place] 1 tab PO BID 06/14/21 07/19/21 10-325] Previous Rx's Medication Instructions Recorded Clopidogrel [Plavix] 75 mg PO DAILY #30 tab 09/09/18 Furosemide [Lasix] 40 mg PO DAILY #5 tablet 06/19/21 Spironolactone [Aldactone] 100 mg PO DAILY #30 tab 06/19/21 Allergies Allergy/AdvReac Type Severity Reaction Status Date / Time bee venom protein (honey bee) Allergy Severe Anaphylaxis Verified 07/19/21 11:15 Review of Systems ROS Statement: Those systems with pertinent positive or pertinent negative responses have been documented in the HPI. ROS Other: All systems not noted in ROS Statement are negative. Past Medical History Past Medical History: Coronary Artery Disease (CAD), Chest Pain / Angina, Hyperlipidemia, Hypertension, Myocardial Infarction ([place]) Additional Past Medical History / Comment(s): Degenerative disc disease, abdomi nal hernia Last Myocardial Infarction Date:: 2016 History of Any Multi-Drug Resistant Organisms: None Reported Past Surgical History: Back Surgery, Coronary Bypass/CABG, Heart Catheterization, Heart Catheterization With Stent, Orthopedic Surgery Additional Past Surgical History / Comment(s): back surgery, CABG x2 09-04-18 Past Anesthesia/Blood Transfusion Reactions: No Reported Reaction Date of Last Stent Placement:: march 2016 Past Psychological History: Anxiety Past Alcohol Use History: Occasional Additional Past Alcohol Use History / Comment(s): He reports he drinks less than 8 beers a week, quit smoking 08-23-18, smoked 1 1/2ppd for >40 yrs. Past Drug Use History: None Reported - Past Family History Father History Unknown: Yes Family Medical History: Myocardial Infarction ([place]) Additional Family Medical History / Comment(s): The patient reports his dad from a myocardial infarction in his mid 50s. Brother(s) History Unknown: Yes Family Medical History: Myocardial Infarction ([place]) Additional Family Medical History / Comment(s): The patient reports to have his brothers from myocardial infarction in their mid 50s. General Exam Limitations: no limitations General appearance: alert, in distress (Abdominal discomfort) Head exam: Present: atraumatic, normocephalic, normal inspection Eye exam: Present: PERRL, EOMI, scleral icterus ENT exam: Present: mucous membranes moist. Absent: normal exam, normal oropharynx (Icterus) Neck exam: Present: normal inspection, full ROM. Absent: tenderness, meningismus, lymphadenopathy Respiratory exam: Present: wheezes. Absent: normal lung sounds bilaterally, respiratory distress, rales, rhonchi, stridor Cardiovascular Exam: Present: regular rate, normal rhythm, normal heart sounds. Absent: systolic murmur, diastolic murmur, rubs, gallop, clicks GI/Abdominal exam: Present: soft, distended, tenderness, guarding (Voluntary), normal bowel sounds, other (Jaundice) Back exam: Present: normal inspection Neurological exam: Present: alert, oriented X3 Skin exam: Present: warm, dry, other (Jaundice, icterus). Absent: normal color Course Vital Signs 07/19/21 07/19/21 07:16 10:32 Temperature 97.8 F Pulse Rate 68 67 Respiratory 24 18 Rate Blood Pressure 101/67 94/67 O2 Sat by Pulse 95 93 L Oximetry Medical Decision Making - Medical Decision Making 60-year-old male presented for abdominal pain distention. Patient has alcoholic cirrhosis with liver failure. Patient has severe jaundice, acute kidney injury. Patient be admitted for further treatment and management. - Lab Data Result diagrams: 07/19/21 07:54 07/19/21 07:54 Lab Results 07/19/21 07/19/21 07/19/21 Range/Units 07:54 07:54 07:54 WBC 15.4 H (3.8-10.6) k/uL RBC 3.66 L (4.30-5.90) m/uL Hgb 13.7 (13.0-17.5) gm/dL Hct 38.4 L (39.0-53.0) % MCV 104.9 H (80.0-100.0) fL MCH 37.5 H (25.0-35.0) pg MCHC 35.7 (31.0-37.0) g/dL RDW 17.5 H (11.5-15.5) % Plt Count 95 L (150-450) k/uL MPV 15.0 Neutrophils % 68 % Lymphocytes % 16 % Monocytes % 10 % Eosinophils % 2 % Basophils % 0 % Neutrophils # 10.5 H (1.3-7.7) k/uL Lymphocytes # 2.5 (1.0-4.8) k/uL Monocytes # 1.5 H (0-1.0) k/uL Eosinophils # 0.2 (0-0.7) k/uL Basophils # 0.0 (0-0.2) k/uL Manual Slide Review Performed Large Platelets Present Anisocytosis Slight Macrocytosis Moderate PT (9.0-12.0) sec INR (<1.2) APTT (22.0-30.0) sec Sodium 131 L (137-145) mmol/L Potassium 3.7 (3.5-5.1) mmol/L Chloride 99 (98-107) mmol/L Carbon Dioxide 19 L (22-30) mmol/L Anion Gap 13 mmol/L BUN 69 H (9-20) mg/dL Creatinine 2.69 H (0.66-1.25) mg/dL Est GFR (CKD-EPI)AfAm 29 (>60 ml/min/1.73 sqM) Est GFR (CKD-EPI)NonAf 25 (>60 ml/min/1.73 sqM) Glucose 100 H (74-99) mg/dL Calcium 8.6 (8.4-10.2) mg/dL Magnesium 2.3 (1.6-2.3) mg/dL Total Bilirubin 18.8 H* (0.2-1.3) mg/dL AST 315 H (17-59) U/L ALT 137 H (4-49) U/L Alkaline Phosphatase 262 H (38-126) U/L Total Protein 7.3 (6.3-8.2) g/dL Albumin 2.4 L (3.5-5.0) g/dL Amylase 78 (30-110) U/L Lipase 272 (23-300) U/L Urine Color Dark Yellow Urine Appearance Cloudy (Clear) Urine pH 5.5 (5.0-8.0) Ur Specific [place] 1.010 (1.001-1.035) Urine Protein Negative (Negative) Urine Glucose (UA) Negative (Negative) Urine Ketones Negative (Negative) Urine Blood Large H (Negative) Urine Nitrite Negative (Negative) Urine Bilirubin 2+ H (Negative) Urine Urobilinogen 2.0 (<2.0) mg/dL Ur Leukocyte Esterase Negative (Negative) Urine WBC 2 (0-5) /hpf Ur Squamous Epith Cells <1 (0-4) /hpf Urine Bacteria Rare H (None) /hpf Hyaline Casts 5 H (0-2) /lpf Urine Mucus Rare H (None) /hpf Serum Alcohol <10 mg/dL 07/19/21 Range/Units 07:54 WBC (3.8-10.6) k/uL RBC (4.30-5.90) m/uL Hgb (13.0-17.5) gm/dL Hct (39.0-53.0) % MCV (80.0-100.0) fL MCH (25.0-35.0) pg MCHC (31.0-37.0) g/dL RDW (11.5-15.5) % Plt Count (150-450) k/uL MPV Neutrophils % % Lymphocytes % % Monocytes % % Eosinophils % % Basophils % % Neutrophils # (1.3-7.7) k/uL Lymphocytes # (1.0-4.8) k/uL Monocytes # (0-1.0) k/uL Eosinophils # (0-0.7) k/uL Basophils # (0-0.2) k/uL Manual Slide Review Large Platelets Anisocytosis Macrocytosis PT 15.5 H (9.0-12.0) sec INR 1.5 H (<1.2) APTT 36.8 H (22.0-30.0) sec Sodium (137-145) mmol/L Potassium (3.5-5.1) mmol/L Chloride (98-107) mmol/L Carbon Dioxide (22-30) mmol/L Anion Gap mmol/L BUN (9-20) mg/dL Creatinine (0.66-1.25) mg/dL Est GFR (CKD-EPI)AfAm (>60 ml/min/1.73 sqM) Est GFR (CKD-EPI)NonAf (>60 ml/min/1.73 sqM) Glucose (74-99) mg/dL Calcium (8.4-10.2) mg/dL Magnesium (1.6-2.3) mg/dL Total Bilirubin (0.2-1.3) mg/dL AST (17-59) U/L ALT (4-49) U/L Alkaline Phosphatase (38-126) U/L Total Protein (6.3-8.2) g/dL Albumin (3.5-5.0) g/dL Amylase (30-110) U/L Lipase (23-300) U/L Urine Color Urine Appearance (Clear) Urine pH (5.0-8.0) Ur Specific [place] (1.001-1.035) Urine Protein (Negative) Urine Glucose (UA) (Negative) Urine Ketones (Negative) Urine Blood (Negative) Urine Nitrite (Negative) Urine Bilirubin (Negative) Urine Urobilinogen (<2.0) mg/dL Ur Leukocyte Esterase (Negative) Urine WBC (0-5) /hpf Ur Squamous Epith Cells (0-4) /hpf Urine Bacteria (None) /hpf Hyaline Casts (0-2) /lpf Urine Mucus (None) /hpf Serum Alcohol mg/dL Disposition Clinical Impression: COPD (chronic obstructive pulmonary disease), Cirrhosis of liver with ascites, Jaundice, Pleural effusion Disposition: ADMITTED IP TO THIS [facility] Condition: Serious Referrals: None,Stated [Primary Care Provider] - 1-2 days
--- NOTE | 2021-07-19 08:47 | XR ---
EXAMINATION TYPE: XR chest 2V DATE OF EXAM: 07/19/2021 COMPARISON: Chest x-ray April 11, 2019 HISTORY: Shortness of breath. TECHNIQUE: Frontal and lateral views of the chest are obtained. FINDINGS: Overlying sternal wires and mediastinal clips. Low lung volumes with chronic parenchymal c hanges. Cardiac silhouette size is upper limits of normal. Diminished inspiration on current study wi th increased interstitial prominence and small right pleural effusion confirmed on 2 views. New Right basilar opacity. Left basilar opacity noted but was present on prior. Osseous structures are intact. IMPRESSION: Diminished inspiration. New small right pleural effusion along with mild central vascula r congestion and mild to moderate bilateral interstitial edema. New right basilar acute infiltrate an d/or atelectasis. Progress study advised. Unilateral effusions are more concerning.
[2021-07-19] MEDS ORDERED: SODIUM CHLORIDE 0.9% 1,000 ML IV ONE (10:07)
[2021-07-19 10:39] LABS: Anisocytosis Slight; Basophils % (A) 0 %; Eosinophils # (A) 0.2 k/uL (0-0.7); Eosinophils % (A) 2 %; HCT 38.4 % (39.0-53.0); HGB 13.7 gm/dL (13.0-17.5); Lymphocytes # (A) 2.5 k/uL (1.0-4.8); Lymphocytes % (A) 16 %; MCH 37.5 pg (25.0-35.0); MCHC 35.7 g/dL (31.0-37.0); MCV 104.9 fL (80.0-100.0); Macrocytosis Moderate; Monocytes # (A) 1.5 k/uL (0-1.0); Monocytes % (A) 10 %; Neutrophils # (A) 10.5 k/uL (1.3-7.7); Neutrophils % (A) 68 %; RBC 3.66 m/uL (4.30-5.90); RDW 17.5 % (11.5-15.5); WBC 15.4 k/uL (3.8-10.6)
[2021-07-19 10:40] LABS: ALT 137 U/L (4-49); AST 315 U/L (17-59); African American GFR (CKD) 29 (>60 ml/min/1.73 sqM); Albumin 2.4 g/dL (3.5-5.0); Alcohol <10 mg/dL; Alkaline Phosphatase 262 U/L (38-126); Amylase 78 U/L (30-110); Anion Gap 13 mmol/L; Blood Urea Nitrogen 69 mg/dL (9-20); Calcium 8.6 mg/dL (8.4-10.2); Carbon Dioxide 19 mmol/L (22-30); Chloride 99 mmol/L (98-107); Glucose 100 mg/dL (74-99); Lipase 272 U/L (23-300); Magnesium 2.3 mg/dL (1.6-2.3); Non-African American GFR(CKD) 25 (>60 ml/min/1.73 sqM); Sodium 131 mmol/L (137-145); Total Protein 7.3 g/dL (6.3-8.2)
[2021-07-19 10:41] LABS: Potassium 3.7 mmol/L (3.5-5.1); Total Bilirubin 18.8 mg/dL (0.2-1.3)
[2021-07-19 10:42] LABS: Platelet Count 95 k/uL (150-450)
[2021-07-19 10:45] LABS: Appearance,Urine Cloudy (Clear); Bacteria,Urine Rare /hpf; Bilirubin,Urine 2+ (Negative); Blood,Urine Large (Negative); Color,Urine Dark Yellow; Glucose,Urine (UA) Negative (Negative); Hyaline Casts,Urine 5 /lpf (0-2); Ketones,Urine Negative (Negative); Leukocyte Esterase,Urine Negative (Negative); Mucus,Urine Rare /hpf; Nitrite,Urine Negative (Negative); PH, Urine 5.5 (5.0-8.0); Protein,Urine Negative (Negative); Squamous Epithelial Cell,Urine <1 /hpf (0-4); WBC,Urine 2 /hpf (0-5)
[2021-07-19 10:54] LABS: INR 1.5 (<1.2); Partial Thromboplastin Time 36.8 sec (22.0-30.0); Prothrombin Time 15.5 sec (9.0-12.0)
[2021-07-19] MEDS ORDERED: IPRATROPIUM-ALBUTEROL 3 ML NEB INHALATION STA (10:55)
[2021-07-19] MEDS ORDERED: fentaNYL (PF) 50 MCG/ML 2 ML AMP IVP STA (10:55)
[2021-07-19 11:17] LABS: Large Platelets Present
[2021-07-19] MEDS ORDERED: NALOXONE 0.4 MG/ML 1 ML VIAL IV PRN (11:35)
[2021-07-19] MEDS ORDERED: ONDANSETRON 4 MG/2 ML VIAL IVP PRN (11:35)
[2021-07-19] MEDS: SODIUM CHLORIDE 0.9% 1,000 ML IV SCH (11:46)
--- NOTE | 2021-07-19 15:57 | US ---
EXAMINATION TYPE: US abdomen limited DATE OF EXAM: 07/19/2021 COMPARISON: NONE CLINICAL HISTORY: evaluate for fluid pocket, possible paracentesis. Swelling and recurrent ascites. Mild to moderate fluid. IMPRESSION: As above. Small to moderate amount of recurrent intraperitoneal fluid greatest right low er quadrant on images saved.
--- NOTE | 2021-07-19 17:18 | P.CONS ---
History of Present Illness - Reason for Consult Consult date: 07/19/21 ascites, cirrhosis of liver Requesting physician: Low Garcia - Chief Complaint abdominal distention - History of Present Illness This is a 60-year-old male with a past medical history of coronary artery disease status post CABG and stenting, hypertension, hyperlipidemia and alcohol abuse who presented to the emergency department yesterday with complaints of abdominal pain and pain at hernia site. Patient states he was diagnosed with his abdominal hernia 3 years ago. He was a daily drinker and drinks at least 6 beers a day for greater than 20 years, however he states he did stop drinking about 4 weeks ago just prior to his hospitalization. He was recently hospitalized on 06/15/2021 through 06/19/2021 with new onset of jaundice. States that he has previously been diagnosed with alcoholic cirrhosis of the liver, he denies any previous history of paracentesis or hepatic encephalopathy. The patient does have an appointment with Dr. Hope last week, he had outpatient blood work done with a total bilirubin of 17.8 and was asked to come back into the office for follow-up tomorrow. Unfortunately the patient was so uncomfortable and states he has pain everywhere in his body with increased swelling in his legs and abdomen that he needed to come to the emergency department. On 06/18/2021 he had an ultrasound that showed a small amount of abdominal ascites in the right lower quadrant. Repeat limited ultrasound to again assess for fluid showed a small to moderate amount of recurrent intraperitoneal fluid greatest in the right lower quadrant on images saved. The patient does take Plavix for history of cardiac stent placed in 2018. He was started on Lasix 40 mg daily and Aldactone 100 mg daily outpatient. However on admission he is noted to have acute kidney injury. Admitting labs WBC 15.4 hemoglobin 13.7 hematocrit 38 platelet count 95,000 INR 1.5 B1 69 creatinine 2.69 total bilirubin 18.8 AST 315 ALT 137 alk phos 262 BNP 508 lipase 272 amylase 78. Serum alcohol was less than 10 Review of Systems REVIEW OF SYSTEMS: CARDIOPULMONARY: No chest pain or shortness of breath. Gastrointestinal: Abdominal pain, distention. No nausea or vomiting. No hematemesis, coffee-ground emesis. No rectal bleeding, or melena. GENITOURINARY: No dysuria or hematuria. MUSCULOSKELETAL: Reports normal range of motion., Joint pain. SKIN: No rashes. No jaundice. ENDOCRINE: No chills, fevers. No excessive weight gain or loss. No polydipsia or polyuria. PSYCHIATRIC: Unremarkable. NEUROLOGY: No change in mental status. Denies dizziness, headache. ENT: Vision unremarkable. CONSTITUTIONAL: No recent weight loss. No fever, chills, night sweats. Complains of lower extremity swelling. Pain all over. Past Medical History Past Medical History: Coronary Artery Disease (CAD), Chest Pain / Angina, Hyperlipidemia, Hypertension, Myocardial Infarction ([place]) Additional Past Medical History / Comment(s): Degenerative disc disease, abdominal hernia Last Myocardial Infarction Date:: 2016 History of Any Multi-Drug Resistant Organisms: None Reported Past Surgical History: Back Surgery, Coronary Bypass/CABG, Heart Catheterization, Heart Catheterization With Stent, Orthopedic Surgery Additional Past Surgical History / Comment(s): back surgery, CABG x2 09-04-18 Past Anesthesia/Blood Transfusion Reactions: No Reported Reaction Date of Last Stent Placement:: march 2016 Past Psychological History: Anxiety Past Alcohol Use History: Occasional Additional Past Alcohol Use History / Comment(s): He reports he drinks less than 8 beers a week, quit smoking 08-23-18, smoked 1 1/2ppd for >40 yrs. Past Drug Use History: None Reported - Past Family History Father History Unknown: Yes Family Medical History: Myocardial Infarction ([place]) Additional Family Medical History / Comment(s): The patient reports his dad from a myocardial infarction in his mid 50s. Brother(s) History Unknown: Yes Family Medical History: Myocardial Infarction ([place]) Additional Family Medical History / Comment(s): The patient reports to have his brothers from myocardial infarction in their mid 50s. Medications and Allergies Home Medications Medication Instructions Recorded Confirmed Type Clopidogrel [Plavix] 75 mg PO DAILY #30 tab 09/09/18 07/19/21 Rx Aspirin EC [Ecotrin Low Dose] 81 mg PO DAILY 04/11/19 07/19/21 History Rosuvastatin [Crestor] 10 mg PO HS 04/11/19 07/19/21 History Carvedilol [Coreg] 12.5 mg PO BID 06/14/21 07/19/21 History Cyclobenzaprine [Flexeril] 10 mg PO TID PRN 06/14/21 07/19/21 History Gabapentin 300 mg PO TID 06/14/21 07/19/21 History HYDROcodone/APAP 10-325MG [[place] 1 tab PO BID 06/14/21 07/19/21 History 10-325] Furosemide [Lasix] 40 mg PO DAILY #5 tablet 06/19/21 07/19/21 Rx Spironolactone [Aldactone] 100 mg PO DAILY #30 tab 06/19/21 07/19/21 Rx Allergies Allergy/AdvReac Type Severity Reaction Status Date / Time bee venom protein (honey bee) Allergy Severe Anaphylaxis Verified 07/19/21 11:15 Physical Exam Vitals: Vital Signs Temp Pulse Resp BP Pulse Ox 07/19/21 13:23 98 22 97/54 94 L 07/19/21 11:57 65 07/19/21 11:36 65 17 88/56 95 07/19/21 10:32 67 18 94/67 93 L 07/19/21 07:16 97.8 F 68 24 101/67 95 Intake and Output 07/18/21 07/19/21 07/19/21 22:59 06:59 14:59 Other: Weight 84.822 kg General appearance: The patient is alert, oriented, appears in no acute distress. HET: Head is normocephalic and atraumatic. Conjunctiva pink. Sclera icteric. Neck: Supple without lymphadenopathy. Trachea midline. Heart: S1 S2. Regular rate and rhythm. Lungs: Clear to auscultation. Abdomen: Soft, diffuse tenderness, distended with bowel sounds. No guarding or rigidity. Skin: No rashes. Jaundice. Extremities: Normal skin color and turgor. Bilateral lower extremity edema. Neurological: No focal deficits. Alert and oriented x3. Results CBC & Chem 7: 07/19/21 07:54 07/19/21 07:54 Labs: Abnormal Lab Results - Last 24 Hours (Table) 07/19/21 07/19/21 07/19/21 Range/Units 07:54 07:54 07:54 WBC 15.4 H (3.8-10.6) k/uL RBC 3.66 L (4.30-5.90) m/uL Hct 38.4 L (39.0-53.0) % MCV 104.9 H (80.0-100.0) fL MCH 37.5 H (25.0-35.0) pg RDW 17.5 H (11.5-15.5) % Plt Count 95 L (150-450) k/uL Neutrophils # 10.5 H (1.3-7.7) k/uL Monocytes # 1.5 H (0-1.0) k/uL PT (9.0-12.0) sec INR (<1.2) APTT (22.0-30.0) sec Sodium 131 L (137-145) mmol/L Carbon Dioxide 19 L (22-30) mmol/L BUN 69 H (9-20) mg/dL Creatinine 2.69 H (0.66-1.25) mg/dL Glucose 100 H (74-99) mg/dL Plasma Lactic Acid Sukhwinder (0.7-2.0) mmol/L Total Bilirubin 18.8 H* (0.2-1.3) mg/dL AST 315 H (17-59) U/L ALT 137 H (4-49) U/L Alkaline Phosphatase 262 H (38-126) U/L Albumin 2.4 L (3.5-5.0) g/dL Urine Blood Large H (Negative) Urine Bilirubin 2+ H (Negative) Urine Bacteria Rare H (None) /hpf Hyaline Casts 5 H (0-2) /lpf Urine Mucus Rare H (None) /hpf 07/19/21 07/19/21 Range/Units 07:54 07:54 WBC (3.8-10.6) k/uL RBC (4.30-5.90) m/uL Hct (39.0-53.0) % MCV (80.0-100.0) fL MCH (25.0-35.0) pg RDW (11.5-15.5) % Plt Count (150-450) k/uL Neutrophils # (1.3-7.7) k/uL Monocytes # (0-1.0) k/uL PT 15.5 H (9.0-12.0) sec INR 1.5 H (<1.2) APTT 36.8 H (22.0-30.0) sec Sodium (137-145) mmol/L Carbon Dioxide (22-30) mmol/L BUN (9-20) mg/dL Creatinine (0.66-1.25) mg/dL Glucose (74-99) mg/dL Plasma Lactic Acid Sukhwinder 2.1 H* (0.7-2.0) mmol/L Total Bilirubin (0.2-1.3) mg/dL AST (17-59) U/L ALT (4-49) U/L Alkaline Phosphatase (38-126) U/L Albumin (3.5-5.0) g/dL Urine Blood (Negative) Urine Bilirubin (Negative) Urine Bacteria (None) /hpf Hyaline Casts (0-2) /lpf Urine Mucus (None) /hpf Comments: Abdominal ultrasound with small to moderate amount of ascites Assessment and Plan (1) Cirrhosis of liver with ascites Narrative/Plan: 60-year-old male with a history of significant alcohol abuse who quit a little over 4 weeks ago. Patient was hospitalized approximately 4 weeks ago for new onset of jaundice. Patient has a history of alcoholic cirrhosis of the liver. No previous history paracentesis. He recently was seen with Dr. Hope in the office and outpatient blood work with a bilirubin of 17.8. He was advised to follow-up this Friday however he presented to the emergency department today with complaints of abdominal distention and overall pain throughout his body. Ultrasound of the abdomen shows a small to moderate amount of ascites especially in the right lower quadrant. The patient had been started on Aldactone 100 mg daily and Lasix 40 mg daily which currently on hold due to kidney function. Patient states he feels as though he's had increased swelling in the abdomen and lower extremities over the last 1-2 weeks duration. On admission he was noted to have elevation in his total bilirubin to 18.8, AST 3:15 ALT 137 alk phos 262. At this time will consult to nephrology for further management on diuretics due to kidney function. Consider holding Plavix as patient may require paracentesis. Current Visit: Yes Status: Acute Code(s): K74.60 - UNSPECIFIED CIRRHOSIS OF LIVER; R18.8 - OTHER ASCITES SNOMED Code(s): 08799635 (2) Jaundice Current Visit: Yes Status: Acute Code(s): R17 - UNSPECIFIED JAUNDICE SNOMED Code(s): 02522561 (3) Acute kidney injury Narrative/Plan: Nephrology consulted for further recommendations on diuretic management Current Visit: Yes Status: Acute Code(s): N17.9 - ACUTE KIDNEY FAILURE, UNSPECIFIED SNOMED Code(s): 06947421 (4) Pleural effusion Current Visit: Yes Status: Acute Code(s): J90 - PLEURAL EFFUSION, NOT ELSEWHERE CLASSIFIED SNOMED Code(s): 68946370 (5) Abdominal pain Current Visit: No Status: Acute Code(s): R10.9 - UNSPECIFIED ABDOMINAL PAIN SNOMED Code(s): 61434128 (6) Thrombocytopenia Narrative/Plan: Due to underlying cirrhosis of the liver Current Visit: No Status: Acute Code(s): D69.6 - THROMBOCYTOPENIA, UNSPECIFIED SNOMED Code(s): 063927527 Plan: 1. Continue symptomatic and supportive care 2. Consult nephrology 3. Hold Plavix as patient may require paracentesis 4. Hold diuretics until further recommendations from nephrology 5. Low-sodium diet 6. Daily CMP, INR, CBC Thank you for this consultation, we will continue to follow. Dr. Danielle Hope I agree with the dictator's note, documented as a scribe by Ni Enriquez.
[2021-07-19] MEDS: traMADol 50 MG TAB PO SCH (21:01)
[2021-07-20] MEDS: ATORVASTATIN 20 MG TAB PO SCH (02:35)
[2021-07-20] MEDS: SODIUM CHLORIDE 0.9% 1,000 ML IV SCH ×2 (02:35→13:17)
[2021-07-20 07:33] LABS: ALT 154 U/L (4-49); AST 386 U/L (17-59); African American GFR (CKD) 28 (>60 ml/min/1.73 sqM); Albumin 2.6 g/dL (3.5-5.0); Albumin/Globulin Ratio 0.5; Alkaline Phosphatase 280 U/L (38-126); Anion Gap 15 mmol/L; Blood Urea Nitrogen 73 mg/dL (9-20); Calcium 9.1 mg/dL (8.4-10.2); Carbon Dioxide 17 mmol/L (22-30); Chloride 99 mmol/L (98-107); Globulin 5.3 g/dL; Glucose 114 mg/dL (74-99); Non-African American GFR(CKD) 24 (>60 ml/min/1.73 sqM); Potassium 3.9 mmol/L (3.5-5.1); Sodium 131 mmol/L (137-145)
[2021-07-20 07:38] LABS: Total Bilirubin 22.6 mg/dL (0.2-1.3)
[2021-07-20 07:39] LABS: Total Protein 7.9 g/dL (6.3-8.2)
[2021-07-20 08:16] LABS: INR 1.6 (<1.2); Prothrombin Time 16.1 sec (9.0-12.0)
[2021-07-20] MEDS: traMADol 50 MG TAB PO SCH ×2 (08:38→17:16)
[2021-07-20] MEDS: THIAMINE 100 MG TAB PO SCH (08:39)
--- NOTE | 2021-07-20 08:42 | P.HPIM ---
History of Present Illness H&P Date: 07/19/21 Chief Complaint: Abdominal distention Patient is a 60-year-old male with a known history of hypertension, hyperlipidemia, history of [place], degenerative joint disease, coronary disease status post CABG, history of stent placement, anxiety and alcohol use with 6 beers a day, liver cirrhosis likely alcoholic presents to ER with complaints of abdominal pain. Patient states that pain started about 2 weeks ago and is progressively getting worse with distended abdomen. Denied any fever or chills. Denied any nausea or vomiting. Pain is generalized abdominal pain. No diarrhea. Denied any antibiotic use recently. Chest x-ray showed diminished inspiration. New small right pleural effusion along with mild central vascular congestion and mild to moderate bilateral interstitial edema. New right basilar acute infiltrate in the right ectasis. Progressive studies recommended. EKG showed normal sinus rhythm Ultrasound of abdominal was ordered showed a small to moderate amount of recurrent intraperitoneal fluid greatest right lower quadrant. Laboratory showed WBC 15.4 hemoglobin 13.7 and MCV 104.9 and platelets 95 INR 1.5 Sodium 131 potassium 3.7 chloride 99 BUN 69 creatinine 2.69 lactic acid 2.1 Bilirubin level is 18.8 AST 315 ALT 137 alk phos 262 Albumin 2.4 Urinalysis showed cloudy with large blood and 2+ bilirubin level leukocyte esterase negative Alcohol level is less than 10 COVID-19 PCR not detected Review of Systems Constitutional: Patient denies any fever or chills . generalized weakness, no weight loss. Abdomen: Patient denied nausea vomiting and diarrhea . + abdominal pain and distension. Cardiovascular: Patient denies any chest pain or short of breath no palpitations. Respiratory: patient denied any cough is from production. mild shortness of breath Neurologic: Patient denied any numbness or tingling headache. Musculoskeletal: Patient denies any complaints of joint swelling or deformity. Skin: Negative Psychiatric: Negative Endocrine: No heat or cold intolerance. No recent weight gain. Genitourinary: No dysuria or hematuria. All other 14 point ROS negative except the above Past Medical History Past Medical History: Coronary Artery Disease (CAD), Chest Pain / Angina, Hyperlipidemia, Hypertension, Myocardial Infarction ([place]) Additional Past Medical History / Comment(s): Degenerative disc disease, abdominal hernia Last Myocardial Infarction Date:: 2016 History of Any Multi-Drug Resistant Organisms: None Reported Past Surgical History: Back Surgery, Coronary Bypass/CABG, Heart Catheterization, Heart Catheterization With Stent, Orthopedic Surgery Additional Past Surgical History / Comment(s): back surgery, CABG x2 09-04-18 Past Anesthesia/Blood Transfusion Reactions: No Reported Reaction Date of Last Stent Placement:: march 2016 Past Psychological History: Anxiety Past Alcohol Use History: Occasional Additional Past Alcohol Use History / Comment(s): He reports he drinks less than 8 beers a week, quit smoking 08-23-18, smoked 1 1/2ppd for >40 yrs. Past Drug Use History: None Reported - Past Family History Father History Unknown: Yes Family Medical History: Myocardial Infarction ([place]) Additional Family Medical History / Comment(s): The patient reports his dad from a myocardial infarction in his mid 50s. Brother(s) History Unknown: Yes Family Medical History: Myocardial Infarction ([place]) Additional Family Medical History / Comment(s): The patient reports to have his brothers from myocardial infarction in their mid 50s. Medications and Allergies Home Medications Medication Instructions Recorded Confirmed Type Clopidogrel [Plavix] 75 mg PO DAILY #30 tab 09/09/18 07/19/21 Rx Aspirin EC [Ecotrin Low Dose] 81 mg PO DAILY 04/11/19 07/19/21 History Rosuvastatin [Crestor] 10 mg PO HS 04/11/19 07/19/21 History Carvedilol [Coreg] 12.5 mg PO BID 06/14/21 07/19/21 History Cyclobenzaprine [Flexeril] 10 mg PO TID PRN 06/14/21 07/19/21 History Gabapentin 300 mg PO TID 06/14/21 07/19/21 History HYDROcodone/APAP 10-325MG [[place] 1 tab PO BID 06/14/21 07/19/21 History 10-325] Furosemide [Lasix] 40 mg PO DAILY #5 tablet 06/19/21 07/19/21 Rx Spironolactone [Aldactone] 100 mg PO DAILY #30 tab 06/19/21 07/19/21 Rx Allergies Allergy/AdvReac Type Severity Reaction Status Date / Time bee venom protein (honey bee) Allergy Severe Anaphylaxis Verified 07/19/21 11:15 Physical Exam Vitals: Vital Signs Temp Pulse Resp BP Pulse Ox 07/19/21 13:23 98 22 97/54 94 L 07/19/21 11:57 65 07/19/21 11:36 65 17 88/56 95 10/14/21 10:32 67 18 94/67 93 L 07/19/21 07:16 97.8 F 68 24 101/67 95 Intake and Output 07/18/21 07/19/21 07/19/21 22:59 06:59 14:59 Other: Weight 84.822 kg PHYSICAL EXAMINATION: Patient is lying in the bed comfortably, no acute distress, awake alert and oriented.. HEENT: Normocephalic. Neck is supple. Pupils reactive. Nostrils clear. Oral cavity is moist. Neck reveals no JVD, carotid bruits, or thyromegaly. CHEST EXAMINATION: Trachea is central. Symmetrical expansion. Bibasilar diminished sounds. No wheezing or rhonchi or crackles.. CARDIAC: Normal S1, S2 with no gallops. No murmurs ABDOMEN: Soft. Patient does have abdominal distention and ascites. No guarding or rigidity. No rebound tenderness.Bowel sounds normal. No organomegaly. No abdominal bruits. Extremities: reveal no edema. No clubbing or cyanosis Neurologically awake, alert, oriented x3 with well-coordinated movements. No focal deficits noted Skin: No rash or skin lesions. yellowish discoloration Psychiatric: Coperative. Musculoskeletal: No joint swelling or deformity. Normal range of motion. Results CBC & Chem 7: 07/19/21 07:54 07/20/21 05:38 Labs: Abnormal Lab Results - Last 24 Hours (Table) 07/19/21 07/19/21 07/19/21 Range/Units 07:54 07:54 07:54 WBC 15.4 H (3.8-10.6) k/uL RBC 3.66 L (4.30-5.90) m/uL Hct 38.4 L (39.0-53.0) % MCV 104.9 H (80.0-100.0) fL MCH 37.5 H (25.0-35.0) pg RDW 17.5 H (11.5-15.5) % Plt Count 95 L (150-450) k/uL Neutrophils # 10.5 H (1.3-7.7) k/uL Monocytes # 1.5 H (0-1.0) k/uL PT (9.0-12.0) sec INR (<1.2) APTT (22.0-30.0) sec Sodium 131 L (137-145) mmol/L Carbon Dioxide 19 L (22-30) mmol/L BUN 69 H (9-20) mg/dL Creatinine 2.69 H (0.66-1.25) mg/dL Glucose 100 H (74-99) mg/dL Plasma Lactic Acid Sukhwinder (0.7-2.0) mmol/L Total Bilirubin 18.8 H* (0.2-1.3) mg/dL AST 315 H (17-59) U/L ALT 137 H (4-49) U/L Alkaline Phosphatase 262 H (38-126) U/L Albumin 2.4 L (3.5-5.0) g/dL Urine Blood Large H (Negative) Urine Bilirubin 2+ H (Negative) Urine Bacteria Rare H (None) /hpf Hyaline Casts 5 H (0-2) /lpf Urine Mucus Rare H (None) /hpf 07/19/21 07/19/21 Range/Units 07:54 07:54 WBC (3.8-10.6) k/uL RBC (4.30-5.90) m/uL Hct (39.0-53.0) % MCV (80.0-100.0) fL MCH (25.0-35.0) pg RDW (11.5-15.5) % Plt Count (150-450) k/uL Neutrophils # (1.3-7.7) k/uL Monocytes # (0-1.0) k/uL PT 15.5 H (9.0-12.0) sec INR 1.5 H (<1.2) APTT 36.8 H (22.0-30.0) sec Sodium (137-145) mmol/L Carbon Dioxide (22-30) mmol/L BUN (9-20) mg/dL Creatinine (0.66-1.25) mg/dL Glucose (74-99) mg/dL Plasma Lactic Acid Sukhwinder 2.1 H* (0.7-2.0) mmol/L Total Bilirubin (0.2-1.3) mg/dL AST (17-59) U/L ALT (4-49) U/L Alkaline Phosphatase (38-126) U/L Albumin (3.5-5.0) g/dL Urine Blood (Negative) Urine Bilirubin (Negative) Urine Bacteria (None) /hpf Hyaline Casts (0-2) /lpf Urine Mucus (None) /hpf Thrombosis Risk Factor Assmnt - DVT/VTE Prophylaxis DVT/VTE Prophylaxis: Mechanical Prophylaxis ordered Assessment and Plan Assessment: Ascites secondary to alcoholic liver cirrhosis Abdominal pain. Rule out SBP hyperbilirubinemia Elevated liver enzymes Acute kidney injury possible hepatorenal Hypervolemic hyponatremia Small right sided pleural effusion Thrombocytopenia coagulopathy secondary to liver disease Coronary disease history of stent placement and CABG in 2018 Anxiety Hypertension currently hypotensive History of [place] Degenerative disc disease History of back surgery DVT prophylaxis with SCDs Plan: Patient will be c continued on gentle IV hydration monitor fluid status and follow-up renal function. Diuretics on hold due to acute kidney injury Due to abdominal distention and pain which is mainly generalized and no complaints of fever or chills. Patient does have leukocytosis with WBC count of 10.4. Ultrasound-guided paracentesis was ordered. Follow-up fluid cultures. Monitor for any signs of infection. Aspirin and Plavix on hold. Blood pressure medications on hold due to hypotension. GI and nephrology was consulted. Continue to follow closely. Prognosis is guarded at this time. Time with Patient: Greater than 30
[2021-07-20] MEDS: HYDROcodone/APAP 10-325MG 1 EACH TAB PO SCH (09:24)
[2021-07-20] MEDS: GABAPENTIN 300 MG CAP PO SCH ×3 (09:25→17:19)
[2021-07-20 11:26] LABS: Basophils # (A) 0.03 X 10*3/uL (0.00-0.10); Basophils % (A) 0.2 %; Eosinophils # (A) 0.33 X 10*3/uL (0.04-0.35); Eosinophils % (A) 1.7 %; HCT 37.9 % (39.6-50.0); HGB 13.8 g/dL (13.0-17.0); Lymphocytes # (A) 1.14 X 10*3/uL (0.90-5.00); MCH 36.5 pg (27.0-32.0); MCHC 36.4 g/dL (32.0-37.0); MCV 100.3 fL (80.0-97.0); Monocytes # (A) 2.06 X 10*3/uL (0.20-1.00); Monocytes % (A) 10.8 %; Neutrophils % (A) 80.8 %; Platelet Count 90 X 10*3/uL (140-440); Polychromasia 2+; RBC 3.78 X 10*6/uL (4.40-5.60); RDW 19.1 % (11.5-14.5); WBC 19.05 X 10*3/uL (4.50-10.00)
--- NOTE | 2021-07-20 11:33 | P.NPCON ---
History of Present Illness - Reason for Consult acute renal failure - History of Present Illness Reason for consultation: Acute kidney injury on chronic kidney disease History of present illness: Patient is a 60-year-old male seen in consultation for acute kidney injury on chronic kidney disease. Patient was admitted to the hospital in June 2021 and at that time his creatinine was near 1. It was up to 1.8 on 07/09/2021. This admission was 2.69 and is fairly stable at 2.76 today. Patient was r ecently diagnosed with alcohol-induced liver cirrhosis. Patient presented to the hospital with abdominal pain which has been progressively worsening over the last 2 weeks. Oral intake has been poor. Abdominal ultrasound revealed mild to moderate fluid. He was taking Lasix as well as Aldactone outpatient which are both currently held. Patient has normal saline at 75 mL an hour ordered but the fluids were started after labs are drawn this morning. He did not receive any fluids overnight. Patient's currently resting in bed and is quite lethargic. He is not a reliable historian. Blood pressures in the systolic 90s. I don't see any nonsteroidals and his home medication list. Vital signs are stable. HEENT: Head exam is unremarkable. LUNGS: Breath sounds decreased. HEART: Rate and Rhythm are regular. ABDOMEN: Soft, mild distention noted. EXTREMITITES: No edema. Past Medical History Past Medical History: Coronary Artery Disease (CAD), Chest Pain / Angina, Hyperlipidemia, Hypertension, Myocardial Infarction ([place]) Additional Past Medical History / Comment(s): Degenerative disc disease, abdominal hernia Last Myocardial Infarction Date:: 2016 History of Any Multi-Drug Resistant Organisms: None Reported Past Surgical History: Back Surgery, Coronary Bypass/CABG, Heart Catheterization, Heart Catheterization With Stent, Orthopedic Surgery Additional Past Surgical History / Comment(s): back surgery, CABG x2 09-04-18 Past Anesthesia/Blood Transfusion Reactions: No Reported Reaction Date of Last Stent Placement:: march 2016 Past Psychological History: Anxiety Past Alcohol Use History: Occasional Additional Past Alcohol Use History / Comment(s): He reports he drinks less than 8 beers a week, quit smoking 08-23-18, smoked 1 1/2ppd for >40 yrs. Past Drug Use History: None Reported - Past Family History Father History Unknown: Yes Family Medical History: Myocardial Infarction ([place]) Additional Family Medical History / Comment(s): The patient reports his dad p assed away from a myocardial infarction in his mid 50s. Brother(s) History Unknown: Yes Family Medical History: Myocardial Infarction ([place]) Additional Family Medical History / Comment(s): The patient reports to have his brothers from myocardial infarction in their mid 50s. Medications and Allergies Home Medications Medication Instructions Recorded Confirmed Type Clopidogrel [Plavix] 75 mg PO DAILY #30 tab 09/09/18 07/19/21 Rx Aspirin EC [Ecotrin Low Dose] 81 mg PO DAILY 04/11/19 07/19/21 History Rosuvastatin [Crestor] 10 mg PO HS 04/11/19 07/19/21 History Carvedilol [Coreg] 12.5 mg PO BID 06/14/21 07/19/21 History Cyclobenzaprine [Flexeril] 10 mg PO TID PRN 06/14/21 07/19/21 History Gabapentin 300 mg PO TID 06/14/21 07/19/21 History HYDROcodone/APAP 10-325MG [[place] 1 tab PO BID 06/14/21 07/19/21 History 10-325] Furosemide [Lasix] 40 mg PO DAILY #5 tablet 06/19/21 07/19/21 Rx Spironolactone [Aldactone] 100 mg PO DAILY #30 tab 06/19/21 07/19/21 Rx Allergies Allergy/AdvReac Type Severity Reaction Status Date / Time bee venom protein (honey bee) Allergy Severe Anaphylaxis Verified 07/19/21 11:15 Physical Exam Vitals: Vital Signs Temp Pulse Pulse Resp BP BP Pulse Ox 07/20/21 08:00 97.6 F 72 17 95/61 98 07/20/21 02:00 97.4 F L 70 17 99/65 96 07/19/21 22:44 70 24 111/62 07/19/21 20:00 97.6 F 74 24 120/75 97 07/19/21 19:34 72 22 109/63 92 L 07/19/21 19:00 72 18 95/55 93 L 07/19/21 16:00 73 20 97/56 92 L 07/19/21 13:23 98 22 97/54 94 L 07/19/21 11:57 65 07/19/21 11:36 65 17 88/56 95 Intake and Output 07/19/21 07/20/21 07/20/21 22:59 06:59 14:59 Intake Total 240 Balance 240 Intake: Oral 240 Other: Voiding Method External Catheter # Voids 2 # Bowel Movements 2 Results - Lab Results Most recent lab results Calcium 9.1 mg/dL (8.4-10.2) 07/20/21 05:38 Magnesium 2.3 mg/dL (1.6-2.3) 07/19/21 07:54 07/19/21 07:54 07/20/21 05:38 Assessment and Plan Plan: Assessment: 1. Acute kidney injury secondary to ATN secondary to hypotension. Rule out hypovolemia. Also concern for hepatorenal syndrome. Creatinine stable at 2.76 today. No proteinuria on UA. 2. Alcohol-induced liver cirrhosis. 3. Hyponatremia secondary to acute kidney injury. 4. Hypotension secondary to underlying cirrhosis. 5. Metabolic acidosis secondary to acute kidney injury. Plan: Maintain normal saline at 75 mL an hour. Add midodrine. Check renal ultrasound. Continue to monitor renal function and urine output. Avoid nephrotoxins. Thank you for the consultation. I will continue to follow the patient with you during his hospital stay.
--- NOTE | 2021-07-20 12:56 | US ---
EXAMINATION TYPE: US kidneys/renal and bladder DATE OF EXAM: 07/20/2021 COMPARISON: CT June 14, 2021 CLINICAL HISTORY: jania. cirrhosis patient with jania EXAM MEASUREMENTS: Right Kidney: 9.9 x 4.9 x 5.5cm Left Kidney: not seen Right Kidney: 2.2cm cyst that has been seen on previous CT, unable to replicate the same size Left Kidney: Obscured by overlying bowel gas Bladder: wnl surrounding intraperitoneal ascites noted There is no evidence for hydronephrosis in the right kidney. The known thin-walled cyst right kidney less well seen on ultrasound today.. The urinary bladder is satisfactorily distended. Bilateral ur eteral jets are seen. IMPRESSION: Suboptimal study without right-sided hydronephrosis. Technologist cannot adequately visua lize left kidney.
[2021-07-20] MEDS: MIDODRINE 5 MG TAB PO SCH ×2 (13:17→17:19)
--- NOTE | 2021-07-20 14:46 | P.PN ---
Subjective Progress Note Date: 07/20/21 Principal diagnosis: Ascites, cirrhosis of the liver This is a 60-year-old male with a past medical history of coronary artery disease status post CABG and stenting, hypertension, hyperlipidemia and alcohol abuse who presented to the emergency department yesterday with complaints of abdominal pain and pain at hernia site. Patient states he was diagnosed with his abdominal hernia 3 years ago. He was a daily drinker and drinks at least 6 beers a day for greater than 20 years, however he states he did stop drinking about 4 weeks ago just prior to his hospitalization. He was recently hospitalized on 06/15/2021 through 06/19/2021 with new onset of jaundice. States that he has previously been diagnosed with alcoholic cirrhosis of the liver, he denies any previous history of paracentesis or hepatic encephalopathy. The patient does have an appointment with Dr. Hope last week, he had outpatient blood work done with a total bilirubin of 17.8 and was asked to come back into the office for follow-up tomorrow. Unfortunately the patient was so uncomfortable and states he has pain everywhere in his body with increased swelling in his legs and abdomen that he needed to come to the emergency department. On 06/18/2021 he had an ultrasound that showed a small amount of abdominal ascites in the right lower quadrant. Repeat limited ultrasound to again assess for fluid showed a small to moderate amount of recurrent intraperitoneal fluid greatest in the right lower quadrant on images saved. The patient does take Plavix for history of cardiac stent placed in 2018. He was started on Lasix 40 mg daily and Aldactone 100 mg daily outpatient. However on admission he is noted to have acute kidney injury. Patient seen and examined lying in bed. He states he is not feeling well. He has pain all over. Repeat labs today WBC 19 hemoglobin 13.8 hematocrit 37 platelet count 90 INR 1.6 the 173 creatinine 2.76 total bilirubin 22.6 AST 386 ALT 154 alkaline phosphatase 280. Paracentesis unable to be performed at this time is patient had been on Plavix. Interventional radiologist Dr. Rodriguezs is not comfortable with doing paracentesis until patient is off of his Plavix for 7 days. Objective - Vital Signs Vital signs: Vital Signs Temp 97.6 F 07/20/21 08:00 Pulse 72 07/20/21 08:00 Resp 17 07/20/21 08:00 BP 95/61 07/20/21 08:00 Pulse Ox 98 07/20/21 08:00 Intake & Output 07/19/21 07/20/21 07/20/21 18:59 06:59 18:59 Intake Total 240 Balance 240 Weight 84.822 kg Intake: Oral 240 Other: Voiding Method External Catheter # Voids 2 # Bowel Movements 2 - Exam General appearance: The patient is alert, oriented, appears in no acute distress. HET: Head is normocephalic and atraumatic. Conjunctiva pink. Sclera deeply icteric. Neck: Supple without lymphadenopathy. Abdomen: Soft, nontender, distended. No guarding or rigidity. Extremities: Normal skin color and turgor. No pedal edema Skin: No rashes, jaundice. Neurological: No focal deficits. Alert and oriented -3. - Labs CBC & Chem 7: 07/20/21 05:38 07/20/21 05:38 Labs: Abnormal Lab Results - Last 24 Hours (Table) 07/19/21 07/19/21 07/19/21 Range/Units 07:54 07:54 07:54 WBC 15.4 H (3.8-10.6) k/uL RBC 3.66 L (4.30-5.90) m/uL Hct 38.4 L (39.0-53.0) % MCV 104.9 H (80.0-100.0) fL MCH 37.5 H (25.0-35.0) pg RDW 17.5 H (11.5-15.5) % Plt Count 95 L (150-450) k/uL Neutrophils # 10.5 H (1.3-7.7) k/uL Monocytes # 1.5 H (0-1.0) k/uL PT (9.0-12.0) sec INR (<1.2) APTT (22.0-30.0) sec Sodium 131 L (137-145) mmol/L Carbon Dioxide 19 L (22-30) mmol/L BUN 69 H (9-20) mg/dL Creatinine 2.69 H (0.66-1.25) mg/dL Glucose 100 H (74-99) mg/dL Plasma Lactic Acid Sukhwinder (0.7-2.0) mmol/L Total Bilirubin 18.8 H* (0.2-1.3) mg/dL AST 315 H (17-59) U/L ALT 137 H (4-49) U/L Alkaline Phosphatase 262 H (38-126) U/L Albumin 2.4 L (3.5-5.0) g/dL Urine Blood Large H (Negative) Urine Bilirubin 2+ H (Negative) Urine Bacteria Rare H (None) /hpf Hyaline Casts 5 H (0-2) /lpf Urine Mucus Rare H (None) /hpf 07/19/21 07/19/21 07/20/21 Range/Units 07:54 07:54 05:38 WBC (3.8-10.6) k/uL RBC (4.30-5.90) m/uL Hct (39.0-53.0) % MCV (80.0-100.0) fL MCH (25.0-35.0) pg RDW (11.5-15.5) % Plt Count (150-450) k/uL Neutrophils # (1.3-7.7) k/uL Monocytes # (0-1.0) k/uL PT 15.5 H 16.1 H (9.0-12.0) sec INR 1.5 H 1.6 H (<1.2) APTT 36.8 H (22.0-30.0) sec Sodium (137-145) mmol/L Carbon Dioxide (22-30) mmol/L BUN (9-20) mg/dL Creatinine (0.66-1.25) mg/dL Glucose (74-99) mg/dL Plasma Lactic Acid Sukhwinder 2.1 H* (0.7-2.0) mmol/L Total Bilirubin (0.2-1.3) mg/dL AST (17-59) U/L ALT (4-49) U/L Alkaline Phosphatase (38-126) U/L Albumin (3.5-5.0) g/dL Urine Blood (Negative) Urine Bilirubin (Negative) Urine Bacteria (None) /hpf Hyaline Casts (0-2) /lpf Urine Mucus (None) /hpf 07/20/21 Range/Units 05:38 WBC (3.8-10.6) k/uL RBC (4.30-5.90) m/uL Hct (39.0-53.0) % MCV (80.0-100.0) fL MCH (25.0-35.0) pg RDW (11.5-15.5) % Plt Count (150-450) k/uL Neutrophils # (1.3-7.7) k/uL Monocytes # (0-1.0) k/uL PT (9.0-12.0) sec INR (<1.2) APTT (22.0-30.0) sec Sodium 131 L (137-145) mmol/L Carbon Dioxide 17 L (22-30) mmol/L BUN 73 H (9-20) mg/dL Creatinine 2.76 H (0.66-1.25) mg/dL Glucose 114 H (74-99) mg/dL Plasma Lactic Acid Sukhwinder (0.7-2.0) mmol/L Total Bilirubin 22.6 H* (0.2-1.3) mg/dL AST 386 H (17-59) U/L ALT 154 H (4-49) U/L Alkaline Phosphatase 280 H (38-126) U/L Albumin 2.6 L (3.5-5.0) g/dL Urine Blood (Negative) Urine Bilirubin (Negative) Urine Bacteria (None) /hpf Hyaline Casts (0-2) /lpf Urine Mucus (None) /hpf Assessment and Plan (1) Cirrhosis of liver with ascites Narrative/Plan: 60-year-old male with a history of significant alcohol abuse who quit a little over 4 weeks ago. Patient was hospitalized approximately 4 weeks ago for new onset of jaundice. Patient has a history of alcoholic cirrhosis of the liver. No previous history paracentesis. He recently was seen with Dr. Hope in the office and outpatient blood work with a bilirubin of 17.8. He was advised to follow-up this Friday however he presented to the emergency department today with complaints of abdominal distention and overall pain throughout his body. Ultrasound of the abdomen shows a small to moderate amount of ascites especially in the right lower quadrant. The patient had been started on Aldactone 100 mg daily and Lasix 40 mg daily which currently on hold due to kidney function. Patient states he feels as though he's had increased swelling in the abdomen and lower extremities over the last 1-2 weeks duration. On admission he was noted to have elevation in his total bilirubin to 18.8, AST 3:15 ALT 137 alk phos 262. At this time will consult to nephrology for further management on diuretics due to kidney function. patient labs and findings consistent with alcoholic he patitiswith gradual decompensated cirrhosis of the liver. Patient becoming more lethargic showing signs of hepatic encephalopathy. Pulse begin patient on Xifaxan and lactulose. Current Visit: Yes Status: Acute Code(s): K74.60 - UNSPECIFIED CIRRHOSIS OF LIVER; R18.8 - OTHER ASCITES SNOMED Code(s): 17816915 (2) Leukocytosis Narrative/Plan: patient's WBC increased from 15.4-19. To consider possibility of SBP and will start patient on Rocephin for prophylaxis for possible SBP. Current Visit: Yes Status: Acute Code(s): D72.829 - ELEVATED WHITE BLOOD CELL COUNT, UNSPECIFIED SNOMED Code(s): 901821257 (3) Jaundice Current Visit: Yes Status: Acute Code(s): R17 - UNSPECIFIED JAUNDICE SNOMED Code(s): 16761676 (4) Acute kidney injury Narrative/Plan: Nephrology consulted for further recommendations on diuretic management Current Visit: Yes Status: Acute Code(s): N17.9 - ACUTE KIDNEY FAILURE, UN SPECIFIED SNOMED Code(s): 82135249 (5) Pleural effusion Current Visit: Yes Status: Acute Code(s): J90 - PLEURAL EFFUSION, NOT ELSEWHERE CLASSIFIED SNOMED Code(s): 77314464 (6) Abdominal pain Current Visit: No Status: Acute Code(s): R10.9 - UNSPECIFIED ABDOMINAL PAIN SNOMED Code(s): 16754518 (7) Thrombocytopenia Narrative/Plan: Due to underlying cirrhosis of the liver Current Visit: No Status: Acute Code(s): D69.6 - THROMBOCYTOPENIA, UNSPECIFIED SNOMED Code(s): 090268424 Plan: 1. Continue symptomatic and supportive care 2. Nephrology on consult 3. Hold Plavix as patient may require paracentesis, further management will need to be done by primary care physician 4. Diuretics per recommendations from nephrology 5. Low-sodium diet 6. Stat ammonia level 7. Start patient on Xifaxan 550 mg twice a day, lactulose 30 g 3 times a day It was discussed with the patient's who was at the bedside, that patient's watermaster prognosis is poor. Will need close monitoring. Thank you for allowing us to participate in the care of the patient, the GI service will sign off, gastroenterology will not be available at the hospital. If further evaluation by gastroenterology is required the patient will need transfer as per the primary team's discretion. Dr. Danielle Hope I agree with the dictator's note, documented as a scribe by Ni Enriquez.
[2021-07-20] MEDS: LACTULOSE 20 GM/30 ML CUP PO SCH (17:17)
[2021-07-20] MEDS ORDERED: ALBUMIN HUMAN 5% 250 ML IVPB ONE (20:30)
[2021-07-20] MEDS ORDERED: LACTULOSE 20 GM/30 ML CUP ONE (23:00)
[2021-07-20] MEDS ORDERED: ALBUMIN HUMAN 5% (12.5gm) 250 ML BOTTLE IVPB ONE (23:00)
[2021-07-20] MEDS ORDERED: GABAPENTIN 300 MG CAP ONE (23:00)
[2021-07-20] MEDS ORDERED: traMADol 50 MG TAB ONE (23:00)
[2021-07-21] MEDS: ATORVASTATIN 20 MG TAB PO SCH ×2 (06:38→21:49)
[2021-07-21] MEDS: HYDROcodone/APAP 10-325MG 1 EACH TAB PO SCH ×3 (06:47→22:08)
[2021-07-21] MEDS: RIFAXIMIN 550 MG TABLET PO SCH ×3 (06:48→22:03)
[2021-07-21] MEDS: GABAPENTIN 300 MG CAP PO SCH ×4 (06:49→21:49)
[2021-07-21] MEDS: traMADol 50 MG TAB PO SCH ×4 (06:50→22:11)
[2021-07-21] MEDS: LACTULOSE 20 GM/30 ML CUP PO SCH ×4 (06:50→21:47)
[2021-07-21] MEDS: SODIUM CHLORIDE 0.9% 1,000 ML IV SCH ×3 (06:51→21:00)
[2021-07-21] MEDS: MIDODRINE 5 MG TAB PO SCH ×3 (09:19→21:49)
[2021-07-21] MEDS: THIAMINE 100 MG TAB PO SCH (09:19)
--- NOTE | 2021-07-21 12:54 | PN ---
PROGRESS NOTE Patient is seen for followup for acute kidney injury. Patient's renal function has slightly worsened, with creatinine of 2.7 from 2.6 mg/dL. He currently has an external catheter; 24-hour urine output documented at 850 mL. Patient's blood pressure is low, with systolic in the 80s. He is currently maintained on midodrine and he is getting IV fluids at 100 mL/hour. Patient is sleeping. He is arousable, not communicating much. Blood pressure is 80/49 early this morning. Heart rate 64 per minute. He is afebrile. EXAMINATION OF THE HEART: S1 and S2. EXAMINATION OF LUNGS: Decreased breath sounds at the bases. Abdomen is soft, non-tender. Examination of lower extremities shows no significant edema. Labs show sodium 131, potassium 3.9, chloride 99, CO2 17, BUN 73, creatinine 2.76, hemoglobin 13.8 g/dL. ASSESSMENT: 1. Acute kidney injury associated with hypotension, hypoperfusion, maintained on IV fluids. Continue with the midodrine. I will increase midodrine, as blood pressure remains low. Patient is nonoliguric. UA is quite benign. 2. Alcohol-induced liver cirrhosis. 3. Hyponatremia associated with hypovolemia. 4. Hypotension. 5. Metabolic acidosis associated with acute kidney injury. PLAN: Increase midodrine. Continue with IV fluids. Repeat labs in a.m. Avoid nephrotoxic medications. MMANTONIOL / IJN: [id number] /
[2021-07-21 13:18] LABS: Magnesium 2.4 mg/dL (1.5-2.4)
[2021-07-21 14:54] LABS: African American GFR (CKD) 20.5 (60.0-200.0); Albumin/Globulin Ratio 0.6 (1.60-3.17); Anion Gap 15.2 mmol/L (4.00-12.00); BUN/Creat Ratio 23.65 Ratio (12.00-20.00); Blood Urea Nitrogen 84.2 mg/dL (9.0-27.0); Carbon Dioxide 16.3 mmol/L (21.6-31.8); Globulin 3.4 g/dL (1.6-3.3); Non-African American GFR(CKD) 17.7 (60.0-200.0); Potassium 4.4 mmol/L (3.5-5.5); Total Bilirubin 19.9 mg/dL (0.30-1.20); Total Protein 5.4 g/dL (6.2-8.2)
[2021-07-22] MEDS: SODIUM CHLORIDE 0.9% 1,000 ML IV SCH ×2 (06:16→17:09)
[2021-07-22] MEDS: traMADol 50 MG TAB PO SCH ×2 (07:28→17:45)
[2021-07-22] MEDS: MIDODRINE 5 MG TAB PO SCH ×3 (07:29→22:07)
[2021-07-22] MEDS: RIFAXIMIN 550 MG TABLET PO SCH ×2 (07:29→22:07)
[2021-07-22] MEDS: THIAMINE 100 MG TAB PO SCH (07:29)
[2021-07-22] MEDS: LACTULOSE 20 GM/30 ML CUP PO SCH ×3 (07:29→17:21)
[2021-07-22] MEDS: GABAPENTIN 300 MG CAP PO SCH (07:29)
[2021-07-22] MEDS: HYDROcodone/APAP 10-325MG 1 EACH TAB PO SCH (07:43)
[2021-07-22] MEDS: PANTOPRAZOLE 40 MG/10 ML VIAL IVP SCH ×2 (07:48→22:06)
--- NOTE | 2021-07-22 10:35 | XR ---
EXAMINATION TYPE: XR chest 1V DATE OF EXAM: 07/22/2021 COMPARISON: 07/19/2021 HISTORY: 60 years Male. STUDY INDICATION GIVEN: chf . TECHNIQUE: Upright chest radiograph IMPRESSION: Stable mild bilateral interstitial opacities and left basilar left greater than right patchy opacitie s findings reflecting mild pulmonary edema with bibasilar subsegmental atelectasis though developing infiltrate in the left lung base or right lung base cannot be entirely excluded.. Hyperinflated lungs. Small bilateral right greater than left pleural effusion stable. Postsurgical changes again seen in the mediastinum. The heart is not enlarged. No acute osseous abnormality.
[2021-07-22 10:42] LABS: ALT 176 U/L (4-49); AST 479 U/L (17-59); Albumin 2.4 g/dL (3.5-5.0); Albumin/Globulin Ratio 0.5; Alkaline Phosphatase 211 U/L (38-126); Anion Gap 13 mmol/L; Bilirubin, Conjugated 14.2 mg/dL (0.0-0.3); Bilirubin,Unconjugated 2.7 mg/dL (0.0-1.1); Calcium 7.5 mg/dL (8.4-10.2); Carbon Dioxide 15 mmol/L (22-30); Chloride 107 mmol/L (98-107); Globulin 4.6 g/dL; Glucose 100 mg/dL (74-99); Potassium 4.7 mmol/L (3.5-5.1); Sodium 135 mmol/L (137-145)
[2021-07-22 10:47] LABS: African American GFR (CKD) 14 (>60 ml/min/1.73 sqM); Non-African American GFR(CKD) 12 (>60 ml/min/1.73 sqM)
[2021-07-22 10:52] LABS: Blood Urea Nitrogen 103 mg/dL (9-20); Total Bilirubin 24.7 mg/dL (0.2-1.3)
[2021-07-22 10:59] LABS: Anisocytosis Slight; Basophils % (A) 0 %; Eosinophils # (A) 0.2 k/uL (0-0.7); Eosinophils % (A) 1 %; HCT 38.3 % (39.0-53.0); HGB 13.1 gm/dL (13.0-17.5); Lymphocytes # (A) 0.9 k/uL (1.0-4.8); Lymphocytes % (A) 5 %; MCH 38.2 pg (25.0-35.0); MCHC 34.1 g/dL (31.0-37.0); Macrocytosis Marked; Mean Platelet Volume 14.4; Monocytes # (A) 1.3 k/uL (0-1.0); Monocytes % (A) 8 %; Neutrophils # (A) 13.2 k/uL (1.3-7.7); Neutrophils % (A) 82 %; Platelet Count 100 k/uL (150-450); RBC 3.43 m/uL (4.30-5.90); WBC 16.1 k/uL (3.8-10.6)
[2021-07-22 11:02] LABS: MCV 111.8 fL (80.0-100.0)
[2021-07-22] MEDS ORDERED: FUROSEMIDE 10 MG/ML 4 ML VIAL IV STA (11:21)
[2021-07-22] MEDS ORDERED: ALBUMIN HUMAN 25% 50 ML in EMPTY BAG 1 BAG IVPB ONE (11:21)
[2021-07-22 11:41] LABS: Large Platelets Present
--- NOTE | 2021-07-22 11:41 | PN ---
PROGRESS NOTE Patient is seen for followup for acute kidney injury. He has underlying chronic liver disease and liver cirrhosis with history of EtOH abuse. Patient's blood pressure remains low with systolic in the 90s. He has had poor urine output overnight. Patient has an indwelling Franco catheter. His mentation remains decreased and he continues to be lethargic, with decreased oral intake. Urine output was only 150 mL overnight with 24-hour output documented at 352. On examination today, patient is lethargic. Blood pressure 93/60, heart rate 66 per minute. He is afebrile. EXAMINATION OF THE HEART: S1 and S2. EXAMINATION OF LUNGS: Decreased breath sounds at the bases. Abdomen is soft, non-tender, distended. Patient is jaundiced. Examination of lower extremities shows 1+ edema bilaterally. ROOM DESIGNER exam shows patient is lethargic. Labs show hemoglobin of 13.1, sodium 135, potassium 4.7, serum creatinine 4.78, potassium 4.7, and CO2 is 15. Total bilirubin 24.7. ASSESSMENT: 1. Acute kidney injury, acute tubular necrosis versus hepatorenal syndrome. Patient is oliguric. He is maintained on midodrine. Blood pressure remains low. I will add Sandostatin and give another dose of albumin. Overall prognosis is guarded. If renal function continues to worsen, patient will need dialysis if his family wants to continue with FULL CODE status. I will give him a dose of IV Lasix as well x1 now. Check chest x-ray as well. 2. Chronic liver disease with liver cirrhosis associated with ETOH abuse. 3. Significant hyperbilirubinemia. 4. Hypotension. 5. Metabolic acidosis associated with worsening renal failure. PLAN: Check chest x-ray. IV Lasix x1. Add Sandostatin. Continue midodrine. One dose of albumin x1. Discuss CODE STATUS further with family regarding possible need for renal replacement therapy if renal function continues to worsen. There may be consideration of hospice care, although this is not clear at this time. MMODL / IJN: [id number] /
[2021-07-22 11:43] LABS: Basophils # (A) 0.02 X 10*3/uL (0.00-0.10); Basophils % (A) 0.1 %; Eosinophils % (A) 1.2 %; HCT 33.3 % (39.6-50.0); Lymphocytes # (A) 1.16 X 10*3/uL (0.90-5.00); MCH 37.2 pg (27.0-32.0); MCV 103.1 fL (80.0-97.0); Macrocytosis (M) 2+; Monocytes # (A) 1.96 X 10*3/uL (0.20-1.00); Monocytes % (A) 11.8 %; Neutrophils # (A) 13.26 X 10*3/uL (1.80-7.70); Neutrophils % (A) 79.5 %; Platelet Count 92 X 10*3/uL (140-440); RBC 3.23 X 10*6/uL (4.40-5.60); RDW 18.6 % (11.5-14.5); Target Cells 2+; WBC 16.66 X 10*3/uL (4.50-10.00)
[2021-07-22] MEDS: OCTREOTIDE 100 MCG/ML INJ SQ SCH ×2 (11:57→22:05)
[2021-07-22 12:02] LABS: African American GFR (CKD) 16.8 (60.0-200.0); Anion Gap 17.2 mmol/L (4.00-12.00); BUN/Creat Ratio 23.14 Ratio (12.00-20.00); Blood Urea Nitrogen 97.2 mg/dL (9.0-27.0); Calcium 7.7 mg/dL (8.7-10.3); Carbon Dioxide 14.2 mmol/L (21.6-31.8); Non-African American GFR(CKD) 14.5 (60.0-200.0); Potassium 4.8 mmol/L (3.5-5.5)
[2021-07-22] MEDS ORDERED: METOCLOPRAMIDE 5 MG/ML 2 ML VIAL IVP PRN (16:36)
[2021-07-22] MEDS ORDERED: MORPHINE SULFATE 2 MG/ML SYRINGE IV PRN (16:36)
[2021-07-22] MEDS ORDERED: ARTIFICIAL TEARS-HYPROMELLOSE DROPS 15 ML BTL BOTH EYES PRN (16:36)
[2021-07-22] MEDS ORDERED: ACETAMINOPHEN SUPPOSITORY 650 MG SUPP RECTAL PRN (16:36)
[2021-07-22] MEDS ORDERED: MORPHINE SULFATE 2 MG/ML SYRINGE IVP ONE (16:36)
[2021-07-22] MEDS ORDERED: HALOPERIDOL LACTATE 5 MG/ML 1 ML VIAL IM PRN (16:36)
[2021-07-22] MEDS ORDERED: ACETAMINOPHEN TAB 325 MG TAB PO PRN (16:36)
[2021-07-22] MEDS ORDERED: LORazepam 2 MG/ML INJ IV PRN (16:36)
[2021-07-22] MEDS ORDERED: SCOPOLAMINE 1.5MG/72HR PATCH TRANSDERM SCH ×2 (16:45→19:15)
[2021-07-22] MEDS ORDERED: MORPHINE SULFATE (100 MG/2 ML) 100 MG in SODIUM CHLORIDE 0.9% 100 ML IV SCH ×2 (16:45→19:15)
[2021-07-22 17:35] VITALS: RESP 10
--- NOTE | 2021-07-22 19:04 | P.PN ---
Subjective Progress Note Date: 07/20/21 60-year-old male with a known history of hypertension, hyperlipidemia, history of MT, degenerative joint disease, coronary disease status post CABG, history of stent placement, anxiety and alcohol use with 6 beers a day, liver cirrhosis likely alcoholic presents to ER with complaints of abdominal pain. Patient states that pain started about 2 weeks ago and is progressively getting worse with distended abdomen. Denied any fever or chills. Denied any nausea or vomiting. Pain is generalized abdominal pain. No diarrhea. Denied any antibiotic use recently. Chest x-ray showed diminished inspiration. New small right pleural effusion along with mild central vascular congestion and mild to moderate bilateral interstitial edema. New right basilar acute infiltrate in the right ectasis. Progressive studies recommended. EKG showed normal sinus rhythm Ultrasound of abdominal was ordered showed a small to moderate amount of recurrent intraperitoneal fluid greatest right lower quadrant. Laboratory showed WBC 15.4 hemoglobin 13.7 and MCV 104.9 and platelets 95 INR 1.5 Sodium 131 potassium 3.7 chloride 99 BUN 69 creatinine 2.69 lactic acid 2.1 Bilirubin level is 18.8 AST 315 ALT 137 alk phos 262 Albumin 2.4 Urinalysis showed cloudy with large blood and 2+ bilirubin level leukocyte maryann rase negative Alcohol level is less than 10 COVID-19 PCR not detected Objective - Vital Signs Vital signs: Vital Signs Temp 97.5 F L 07/20/21 14:00 Pulse 63 07/20/21 14:00 Resp 14 07/20/21 14:00 BP 93/55 07/20/21 14:00 Pulse Ox 96 07/20/21 14:00 Intake & Output 07/19/21 07/20/21 07/20/21 18:59 06:59 18:59 Intake Total 240 Balance 240 Weight 84.822 kg Intake: Oral 240 Other: Voiding Method External Catheter Indwelling Catheter # Voids 2 # Bowel Movements 2 - Exam PHYSICAL EXAMINATION: GENERAL: The patient is alert and oriented x3, not in any acute distress. Well developed, well nourished. HEENT: Pupils are round and equally reacting to light. EOMI. No scleral icterus. No conjunctival pallor. Normocephalic, atraumatic. No pharyngeal erythema. No thyromegaly. CARDIOVASCULAR: S1 and S2 present. No murmurs, rubs, or gallops. PULMONARY: Chest is clear to auscultation, no wheezing or crackles. ABDOMEN: Soft, nontender, nondistended, normoactive bowel sounds. No palpable organomegaly. MUSCULOSKELETAL: No joint swelling or deformity. EXTREMITIES: No cyanosis, clubbing, or pedal edema. NEUROLOGICAL: Gross neurological examination did not reveal any focal deficits. SKIN: No rashes. - Labs CBC & Chem 7: 07/22/21 10:16 07/22/21 10:16 Labs: Abnormal Lab Results - Last 24 Hours (Table) 07/20/21 07/20/21 07/20/21 Range/Units 05:38 05:38 05:38 WBC 19.05 H (4.50-10.00) X 10*3/uL RBC 3.78 L (4.40-5.60) X 10*6/uL Hct 37.9 L (39.6-50.0) % MCV 100.3 H (80.0-97.0) fL MCH 36.5 H (27.0-32.0) pg RDW 19.1 H (11.5-14.5) % Plt Count 90 L (140-440) X 10*3/uL Plt Count Comment DECREASED A Immature Gran # 0.09 H (0.00-0.04) X 10*3/uL Neutrophils # 15.40 H (1.80-7.70) X 10*3/uL Monocytes # 2.06 H (0.20-1.00) X 10*3/uL Immature Plt Fraction 26.9 H (1.1-6.1) % PT 16.1 H (9.0-12.0) sec INR 1.6 H (<1.2) Sodium 131 L (137-145) mmol/L Carbon Dioxide 17 L (22-30) mmol/L BUN 73 H (9-20) mg/dL Creatinine 2.76 H (0.66-1.25) mg/dL Glucose 114 H (74-99) mg/dL Total Bilirubin 22.6 H* (0.2-1.3) mg/dL AST 386 H (17-59) U/L ALT 154 H (4-49) U/L Alkaline Phosphatase 280 H (38-126) U/L Albumin 2.6 L (3.5-5.0) g/dL Assessment and Plan Assessment: 1. Ascites secondary to alcoholic liver cirrhosis - Continues to report abdominal pain; possible SBP; patient remains on IV Rocephin 1 g twice a day 2. Hyperbilirubinemia/elevated liver enzymes; related to alcoholic liver disease; slowly trending down; GI on board 3. Acute kidney injury possible hepatorenal versus ATN secondary to hypotension - Creatinine at 2.76; nephrology on board and recommending to continue with normal saline at rate of 75 mL an hour; patient has been hypotensive and admitted for and is recommended - Renal ultrasound ordered by nephrology 4. Hypervolemic hyponatremia; related to ATN secondary to hypotension; continue with IV fluids as indicated above and fluid restriction 5. Small right sided pleural effusion; related to alcoholic liver disease 6. Coronary disease history of stent placement and CABG in 2018 DVT prophylaxis; SCDs/ coagulopathy secondary to liver disease CODE STATUS; full code
--- NOTE | 2021-07-22 19:07 | P.PN ---
Subjective Progress Note Date: 07/21/21 Principal diagnosis: Ascites secondary to alcoholic liver disease Hyperbilirubinemia/elevated liver enzymes Acute renal injury/hepatorenal syndrome 60-year-old male with a known history of hypertension, hyperlipidemia, history of NC, degenerative joint disease, coronary disease status post CABG, history of stent placement, anxiety and alcohol use with 6 beers a day, liver cirrhosis likely alcoholic presents to ER with complaints of abdominal pain. Patient states that pain started about 2 weeks ago and is progressively getting worse with distended abdomen. Denied any fever or chills. Denied any nausea or vomiting. Pain is generalized abdominal pain. No diarrhea. Denied any antibiotic use recently. Chest x-ray showed diminished inspiration. New small right pleural effusion along with mild central vascular congestion and mild to moderate bilateral interstitial edema. New right basilar acute infiltrate in the right ectasis. Progressive studies recommended. EKG showed normal sinus rhythm Ultrasound of abdominal was ordered showed a small to moderate amount of recurrent intraperitoneal fluid greatest right lower quadrant. Laboratory showed WBC 15.4 hemoglobin 13.7 and MCV 104.9 and platelets 95 INR 1.5 Sodium 131 potassium 3.7 chloride 99 BUN 69 creatinine 2.69 lactic acid 2.1 Bilirubin level is 18.8 AST 315 ALT 137 alk phos 262 Albumin 2.4 Urinalysis showed cloudy with large blood and 2+ bilirubin level leukocyte maryann rase negative Alcohol level is less than 10 COVID-19 PCR not detected 07/21/2021 Patient is seen and evaluated with at bedside; patient does open eyes with verbal stim ablation but falls right back to sleep Vital signs are reviewed; blood pressure remained soft; patient did receive IV fluid bolus, 5% albumin and was started on Midrin per nephrology recommendations Labs and GI recommendations were reviewed in great detail and discussed with patient's at bedside; all of my's questions regarding poor prognosis were discussed in great detail; would want to have detailed discussion with her daughters and make further decisions about CODE STATUS and goals of treatment Objective - Vital Signs Vital signs: Vital Signs Temp 97.5 F L 07/21/21 13:28 Pulse 65 07/21/21 13:28 Resp 17 07/21/21 13:28 BP 84/48 07/21/21 13:28 Pulse Ox 94 L 07/21/21 13:28 Intake & Output 10/15/21 10/16/21 10/16/21 18:59 06:59 18:59 Intake Total 2000 Output Total 200 650 Balance -200 1350 Intake: Intake, IV Titration 2000 Amount Albumin Human 5% 250 ml @ 250 250 mls/hr IVPB .Q1H ONE Rx#:[id number] Sodium Chloride 0.9% 1, 1700 000 ml @ 100 mls/hr IV . Q10H LEE Rx#:[id number] cefTRIAXone 1 gm In 50 Sodium Chloride 0.9% 50 ml @ 100 mls/hr IVPB Q12HR LEE Rx#:[id number] Output: Urine 200 650 Other: Voiding Method External Catheter Indwelling Catheter External Catheter - Exam PHYSICAL EXAMINATION: GENERAL: The patient is alert and oriented x3, not in any acute distress. Well developed, well nourished. HEENT: Pupils are round and equally reacting to light. EOMI. No scleral icterus. No conjunctival pallor. Normocephalic, atraumatic. No pharyngeal erythema. No thyromegaly. CARDIOVASCULAR: S1 and S2 present. No murmurs, rubs, or gallops. PULMONARY: Chest is clear to auscultation, no wheezing or crackles. ABDOMEN: Soft, nontender, nondistended, normoactive bowel sounds. No palpable organomegaly. MUSCULOSKELETAL: No joint swelling or deformity. EXTREMITIES: No cyanosis, clubbing, or pedal edema. NEUROLOGICAL: Gross neurological examination did not reveal any focal deficits. SKIN: No rashes. - Labs CBC & Chem 7: 07/22/21 10:16 07/22/21 10:16 Labs: Abnormal Lab Results - Last 24 Hours (Table) 07/20/21 07/21/21 Range/Units 16:01 07:02 Sodium 130 L (135-145) mmol/L Carbon Dioxide 16.3 L (21.6-31.8) mmol/L Anion Gap 15.20 H (4.00-12.00) mmol/L BUN 84.2 H (9.0-27.0) mg/dL Creatinine 3.6 H (0.6-1.5) mg/dL Est GFR (CKD-EPI)AfAm 20.5 L (60.0-200.0) Est GFR (CKD-EPI)NonAf 17.7 L (60.0-200.0) BUN/Creatinine Ratio 23.65 H (12.00-20.00) Ratio Calcium 8.0 L (8.7-10.3) mg/dL Total Bilirubin 19.90 H* (0.30-1.20) mg/dL AST 308 H (14-35) U/L ALT 137 H (10-49) U/L Alkaline Phosphatase 197 H (41-126) U/L Ammonia 96 H (<30) umol/L Total Protein 5.4 L (6.2-8.2) g/dL Albumin 2.0 L (3.8-4.9) g/dL Globulin 3.4 H (1.6-3.3) g/dL Albumin/Globulin Ratio 0.60 L (1.60-3.17) g/dL Assessment and Plan Assessment: 1. Ascites secondary to alcoholic liver cirrhosis - Continues to report abdominal pain; possible SBP; patient remains on IV Ro cephin 1 g twice a day 2. Hyperbilirubinemia/elevated liver enzymes; related to alcoholic liver di sease; slowly trending down; GI on board 3. Acute kidney injury possible hepatorenal versus ATN secondary to hypotension - Creatinine at 2.76; nephrology on board and recommending to continue with n ormal saline at rate of 75 mL an hour; patient has been hypotensive and admitted for and is recommended - Renal ultrasound ordered by nephrology 4. Hypervolemic hyponatremia; related to ATN secondary to hypotension; continue with IV fluids as indicated above and fluid restriction 5. Small right sided pleural effusion; related to alcoholic liver disease 6. Coronary disease history of stent placement and CABG in 2018 DVT prophylaxis; SCDs/ coagulopathy secondary to liver disease CODE STATUS; full code
--- NOTE | 2021-07-22 19:09 | P.PN ---
Subjective Progress Note Date: 07/22/21 Principal diagnosis: Ascites secondary to alcoholic liver disease Hyperbilirubinemia/elevated liver enzymes Acute renal injury/hepatorenal syndrome 60-year-old male with a known history of hypertension, hyperlipidemia, history of NE, degenerative joint disease, coronary disease status post CABG, history of stent placement, anxiety and alcohol use with 6 beers a day, liver cirrhosis likely alcoholic presents to ER with complaints of abdominal pain. Patient states that pain started about 2 weeks ago and is progressively getting worse with distended abdomen. Denied any fever or chills. Denied any nausea or vomiting. Pain is generalized abdominal pain. No diarrhea. Denied any antibiotic use recently. Chest x-ray showed diminished inspiration. New small right pleural effusion along with mild central vascular congestion and mild to moderate bilateral interstitial edema. New right basilar acute infiltrate in the right ectasis. Progressive studies recommended. EKG showed normal sinus rhythm Ultrasound of abdominal was ordered showed a small to moderate amount of recurrent intraperitoneal fluid greatest right lower quadrant. Laboratory showed WBC 15.4 hemoglobin 13.7 and MCV 104.9 and platelets 95 INR 1.5 Sodium 131 potassium 3.7 chloride 99 BUN 69 creatinine 2.69 lactic acid 2.1 Bilirubin level is 18.8 AST 315 ALT 137 alk phos 262 Albumin 2.4 Urinalysis showed cloudy with large blood and 2+ bilirubin level leukocyte maryann rase negative Alcohol level is less than 10 COVID-19 PCR not detected 07/21/2021 Patient is seen and evaluated with at bedside; patient does open eyes with verbal stim ablation but falls right back to sleep Vital signs are reviewed; blood pressure remained soft; patient did receive IV fluid bolus, 5% albumin and was started on Midrin per nephrology recommendations Labs and GI recommendations were reviewed in great detail and discussed with patient's at bedside; all of my's questions regarding poor prognosis were discussed in great detail; would want to have detailed discussion with her daughters and make further decisions about CODE STATUS and goals of treatment 07/22/2021 Patient is seen and evaluated; not much responsive to verbal stimulation; is at bedside; reports having detailed discussion with her daughters we will be visiting patient today; reports that family has decided to take patient DO NOT RESUSCITATE; goals of care were discussed; would want to wait till her daughters arrive to the hospital to make any further decisions Objective - Vital Signs Vital signs: Vital Signs Temp 97.5 F L 07/22/21 08:00 Pulse 66 07/22/21 08:00 Resp 20 07/22/21 08:00 BP 93/60 07/22/21 08:00 Pulse Ox 92 L 07/22/21 08:00 Intake & Output 07/21/21 07/22/21 07/22/21 18:59 06:59 18:59 Intake Total 1300 Output Total 352 150 Balance -352 1300 -150 Weight 84 kg Intake: Intake, IV Titration 1300 Amount Sodium Chloride 0.9% 1, 1200 000 ml @ 100 mls/hr IV . Q10H LEE Rx#:[id number] cefTRIAXone 1 gm In 100 Sodium Chloride 0.9% 50 ml @ 100 mls/hr IVPB Q12HR LEE Rx#:[id number] Output: Urine 350 150 Stool 2 Other: Voiding Method External Catheter Indwelling Catheter # Bowel Movements 1 3 - Exam PHYSICAL EXAMINATION: GENERAL: The patient is alert and oriented x3, not in any acute distress. Well developed, well nourished. HEENT: Pupils are round and equally reacting to light. EOMI. No scleral icterus. No conjunctival pallor. Normocephalic, atraumatic. No pharyngeal erythema. No thyromegaly. CARDIOVASCULAR: S1 and S2 present. No murmurs, rubs, or gallops. PULMONARY: Chest is clear to auscultation, no wheezing or crackles. ABDOMEN: Soft, nontender, nondistended, normoactive bowel sounds. No palpable organomegaly. MUSCULOSKELETAL: No joint swelling or deformity. EXTREMITIES: No cyanosis, clubbing, or pedal edema. NEUROLOGICAL: Gross neurological examination did not reveal any focal deficits. SKIN: No rashes. - Labs CBC & Chem 7: 07/22/21 10:16 07/22/21 10:16 Labs: Abnormal Lab Results - Last 24 Hours (Table) 07/21/21 07/21/21 Range/Units 07:02 16:21 Sodium 130 L (135-145) mmol/L Carbon Dioxide 16.3 L (21.6-31.8) mmol/L Anion Gap 15.20 H (4.00-12.00) mmol/L BUN 84.2 H (9.0-27.0) mg/dL Creatinine 3.6 H (0.6-1.5) mg/dL Est GFR (CKD-EPI)AfAm 20.5 L (60.0-200.0) Est GFR (CKD-EPI)NonAf 17.7 L (60.0-200.0) BUN/Creatinine Ratio 23.65 H (12.00-20.00) Ratio Calcium 8.0 L (8.7-10.3) mg/dL Total Bilirubin 19.90 H* (0.30-1.20) mg/dL AST 308 H (14-35) U/L ALT 137 H (10-49) U/L Alkaline Phosphatase 197 H (41-126) U/L Ammonia 119 H (<30) umol/L Total Protein 5.4 L (6.2-8.2) g/dL Albumin 2.0 L (3.8-4.9) g/dL Globulin 3.4 H (1.6-3.3) g/dL Albumin/Globulin Ratio 0.60 L (1.60-3.17) g/dL Assessment and Plan Assessment: 1. Ascites secondary to alcoholic liver cirrhosis - Continues to report abdominal pain; possible SBP; patient remains on IV Rocephin 1 g twice a day 2. Hyperbilirubinemia/elevated liver enzymes; related to alcoholic liver disease; slowly trending down; GI on board 3. Acute kidney injury possible hepatorenal versus ATN secondary to hypotension - Creatinine at 2.76; nephrology on board and recommending to continue with normal saline at rate of 75 mL an hour; patient has been hypotensive and admitted for and is recommended - Renal ultrasound ordered by nephrology 4. Hypervolemic hyponatremia; related to ATN secondary to hypotension; continue with IV fluids as indicated above and fluid restriction 5. Small right sided pleural effusion; related to alcoholic liver disease 6. Coronary disease history of stent placement and CABG in 2018 DVT prophylaxis; SCDs/ coagulopathy secondary to liver disease CODE STATUS; full code
[2021-07-22] MEDS ORDERED: ONDANSETRON 4 MG/2 ML VIAL IVP PRN (19:11)
[2021-07-22] MEDS ORDERED: ATROPINE OPHTH SOLN 1% 5ML BTL SUBLINGUAL PRN (19:11)
[2021-07-22] MEDS ORDERED: HYDROmorphone 0.5 MG/0.5 ML SYRINGE IVP PRN (19:11)
[2021-07-22] MEDS ORDERED: DRY MOUTH SPRAY 44.3 SPRAY/44.3 ML SPRAY MUCOUS MEM PRN (19:11)
[2021-07-23 00:48] VITALS: PULSE 64
[2021-07-23 02:35] VITALS: BP 86/53; TEMP 97.6
[2021-07-23] MEDS: OCTREOTIDE 100 MCG/ML INJ SQ SCH ×3 (05:05→21:23)
[2021-07-23] MEDS: PANTOPRAZOLE 40 MG/10 ML VIAL IVP SCH ×2 (08:18→21:23)
[2021-07-23] MEDS: MIDODRINE 5 MG TAB PO SCH ×3 (08:18→21:24)
[2021-07-23] MEDS: RIFAXIMIN 550 MG TABLET PO SCH ×2 (08:19→21:24)
[2021-07-23] MEDS ORDERED: GABAPENTIN 100 MG CAP PO SCH (09:00)
[2021-07-23 15:54] LABS: ALT 217 U/L (10-49); AST 555 U/L (14-35); Albumin 2.2 g/dL (3.8-4.9); Albumin/Globulin Ratio 0.67 (1.60-3.17); Alkaline Phosphatase 187 U/L (41-126); Bilirubin, Conjugated >10.00 mg/dL (0.20-0.40); Globulin 3.3 g/dL (1.6-3.3); Total Protein 5.5 g/dL (6.2-8.2)
--- NOTE | 2021-07-23 18:11 | PN ---
PROGRESS NOTE Patient is seen for followup for acute kidney injury. His is present at bedside. I have discussed with her the significant renal failure and the poor prognosis and at this time patient does not want any kind of renal replacement therapy. She is considering home hospice/comfort care measures. PHYSICAL EXAMINATION: Blood pressure this morning was 86/53, heart rate 64 per minute. Patient is afebrile. He has 1+ edema lower extremities. Abdomen is soft, nontender. He is barely responsive. LABS: Not available from today. Serum creatinine was 4.78 yesterday on 07/22/2021 with BUN of 103. ASSESSMENT: 1. Acute kidney injury, acute tubular necrosis versus hepatorenal syndrome with poor prognosis. Family has decided to proceed with hospice care and no plans for renal replacement therapy at this time. 2. Chronic liver disease with liver cirrhosis secondary to alcohol abuse. 3. Hypotension. 4. Metabolic acidosis with worsening renal failure. PLAN: Agree with plans for hospice/comfort care. MMANTONIOL / AMYN: [id number] /
[2021-07-24 13:50] LABS: BUN/Creat Ratio 20.54 Ratio (12.00-20.00); Calcium 5.9 mg/dL (8.7-10.3); Carbon Dioxide 10.9 mmol/L (21.6-31.8); Chloride 104 mmol/L (96-109); Glucose 78 mg/dL (70-110); Non-African American GFR(CKD) 10.3 (60.0-200.0); Potassium 5.8 mmol/L (3.5-5.5); Sodium 135 mmol/L (135-145)
== END 2021-07-23 23:05 | disposition expired | DRG 432 ==
LOC: EC 07:09 → 5NMEDONC 11:48 → 4SSUR 17:28
PROVIDERS: ADMIT Internal Medicine; ATTEND Internal Medicine
DX: K70.31 Alcoholic cirrhosis of liver with ascites (principal); N17.0 Acute kidney failure with tubular necrosis; K76.7 Hepatorenal syndrome; D68.4 Acquired coagulation factor deficiency; E87.1 Hypo-osmolality and hyponatremia; E87.2 Acidosis; J90 Pleural effusion, not elsewhere classified; R10.9 Unspecified abdominal pain; D69.6 Thrombocytopenia, unspecified; D72.829 Elevated white blood cell count, unspecified; E78.5 Hyperlipidemia, unspecified; E86.1 Hypovolemia; E87.70 Fluid overload, unspecified; F10.10 Alcohol abuse, uncomplicated; I25.10 Atherosclerotic heart disease of native coronary artery without angina pectoris; Z51.5 Encounter for palliative care; I25.2 Old myocardial infarction; I95.89 Other hypotension; J44.9 Chronic obstructive pulmonary disease, unspecified; K70.40 Alcoholic hepatic failure without coma; N18.9 Chronic kidney disease, unspecified; I12.9 Hypertensive chronic kidney disease with stage 1 through stage 4 chronic kidney disease, or unspecified chronic kidney disease; Z20.822 Contact with and (suspected) exposure to COVID-19; Z66 Do not resuscitate; Z79.02 Long term (current) use of antithrombotics/antiplatelets; Z79.82 Long term (current) use of aspirin; K59.00 Constipation, unspecified; Z79.899 Other long term (current) drug therapy; Z82.49 Family history of ischemic heart disease and other diseases of the circulatory system; Z95.1 Presence of aortocoronary bypass graft; F41.9 Anxiety disorder, unspecified; Z95.5 Presence of coronary angioplasty implant and graft
CPT/HCPCS: 36415; 71045; 71046; 76705; 76770; 80048; 80053; 80076; 80320; 81001; 82140; 82150; 83605; 83690; 83735; 83880; 85025; 85610; 85730; 87635; 93005; 94760; 96361; 96374; 99285